=== PATIENT | male | born 1945 | race Caucasian/White ===

== ENCOUNTER 2016-09-29 16:44 | Inpatient (IN) ==
[2016-09-29] MEDS ORDERED: INSULIN REGULAR, HUMAN 100 UNIT/ML INJECTION IVP ONE (16:51)
--- NOTE | 2016-09-29 16:56 | Emergency Department Report ---
General Adult HPI - General Chief complaint: Medical Emergency Stated complaint: lethargy, blurred vision Time Seen by Provider: 09/29/16 16:47 Source: patient, EMS Mode of arrival: EMS Limitations: no limitations - History of Present Illness HPI narrative: 71yo man presented to the ER by EMS for fatigue, polyuria, and elevated BG. Pt has been struggling with his BG for several weeks (in the 200s). Saw his PCM earlier today; c/o worsening fatigue. Pt was scooped by EMS and found to have BG in the 400s. No other significant findings on EKG or by PE. Pt presented to the ER with IV in place, blood drawn, and IVF flowing. - Related Data Home Medications Medication Instructions Recorded Confirmed Atorvastatin Calcium 80 mg PO HS #0 05/27/15 09/30/16 Fluoxetine HCl 20 mg PO DAILY #0 05/27/15 09/30/16 Insulin Aspart [Novolog Flexpen] 10 unit SQ TIDWM #0 05/27/15 09/29/16 Insulin Detemir [Levemir Flextouch] 50 unit SQ AMI #0 05/27/15 09/29/16 Lisinopril/Hydrochlorothiazide 1 tab PO DAILY #0 05/08/16 09/30/16 [Lisinopril-Hctz 20-12.5 mg Tab] Metoprolol Succinate 100 mg PO DAILY #0 05/08/16 09/30/16 Pantoprazole Sodium 40 mg PO ACB #0 05/08/16 09/30/16 Prasugrel HCl [Effient] 10 mg PO DAILY #0 05/08/16 09/30/16 Terazosin [Hytrin] 2 mg PO HS 09/29/16 09/29/16 Aspirin *EC* [Ecotrin] 325 mg PO DAILY 09/30/16 09/30/16 Cetirizine HCl 10 mg PO DAILY 09/30/16 09/30/16 Allergies Allergy/AdvReac Type Severity Reaction Status Date / Time No Known Allergies Allergy Unverified 09/29/16 16:46 Review of Systems All systems: reviewed and negative except as stated Endocrine: Reports: fatigue, polyuria PFSH Patient Stated Medical History Cerebrovascular Accident Yes Dental Problems Yes: NO TEETH Hearing Loss Yes Congestive Heart Failure Yes Coronary Artery Disease Yes Hypertension Yes Myocardial Infarction Yes Sleep Apnea Yes Diabetes Mellitus Type 2 Yes Gastroesophageal Reflux Yes Disease Hx Kidney Stones Yes Other Yes: PAST KIDNEY FAILURE 30% Physical Exam - Limitations Limitations: no limitations - General General appearance: alert, in no apparent distress, obese - Normal Exams: Head:: Normocephalic without trauma Eyes:: Pupils are PERRLA w/ EOMI, No scleral icterus, irritation, or foreign bodies noted ENMT:: No facial trauma, nasal exudates, pharyngeal erythema, or exudates are noted Neck:: Full range of motion, without adenopathy, JVD, bruits or thyromegaly Chest/Respirations:: Clear all beckman, with good airflow, and symmetry bilaterally Cardiovascular:: Regular rate and rhythm, without murmur or gallop, Pulses 2+ all extremities, capillary refill, <2 seconds all extremities Abdomen:: Bowel sounds positive, soft, non-tender, non-distended, no hepatosplenomegaly, masses or bruits noted Musculoskeletal:: No tenderness, or deformity noted, good range of motion, all extremities Integumentary:: No rashes, hives, or bruising noted, hair and nails, without abnormality Neurological:: Patient is alert, and oriented, cranial nerves, motor/sensory/ cerebellar, exams w/o gross deficits, to observation Psychiatric:: Patient exhibits, appropriate attention, emotion and affect Course Course Narrative: Shortly after receiving the insulin, pt felt lightheaded. Repeat BP showed 80s/ 40s (MAP 62). NS started by pressure bag; repeat labs obtained due to gap on initial CMP. Sepsis workup started and IV atbx ordered. Pts BP improved with Trendelenberg and IVF by pressure bag, but pt c/o leg cramping. 0.5mg Ativan ordered to help with cramping. Following ativan, pts leg cramping improved. Repeat labs c/w dehydration. Lactate is elevated, but low suspicion for sepsis, based on Hx, PE, and other labs. Strong suspicion for mod/severe dehydration. Will contact hospitalist for admission for overnight obs. - Consultations Consultation #1: Hospitalist: Repaged at [id number]. Time: 18:04 Vital Signs Temperature 98.0 F 09/29/16 16:45 Pulse Rate 64 09/29/16 16:45 Respiratory Rate 18 09/29/16 16:45 Blood Pressure 111/60 09/29/16 16:45 Pulse Oximetry 93 09/29/16 16:45 Temperature 96.6 F L 10/01/16 07:28 Pulse Rate 62 10/01/16 08:03 Respiratory Rate 18 10/01/16 07:28 Blood Pressure 145/74 H 10/01/16 07:28 Pulse Oximetry 95 10/01/16 07:28 Medical Decision Making - Differential Diagnosis DKA, HHS, Hyperglycemia, Viral illness, dehydration - Medical Records Medical records reviewed: Yes: I reviewed the patient's medical records. - Lab Data Lab results reviewed: Yes: I reviewed the patient's lab results. Result diagrams: 09/30/16 05:00 10/01/16 04:54 Lab Results 09/29/16 09/29/16 09/29/16 Range/Units 16:53 17:00 17:00 WBC 6.6 (4.5-11.0) T/MM3 RBC 5.16 (4.50-5.90) M/MM3 Hgb 15.6 (13.5-17.5) GM/DL Hct 45.4 (41-53) % MCV 88.0 (80-100) UM3 MCH 30.2 (26-34) UUG MCHC 34.4 (31-37) GM/DL RDW Std Deviation 41.7 (36.9-50.2) FL Plt Count 262 (130-400) T/MM3 MPV 10.3 (9.4-12.4) UM3 Immature Gran % (Auto) 0.2 (0.0-0.5) % Neut % (Auto) 58.6 (33-66) % Lymph % (Auto) 30.9 (23-45) % [place] % (Auto) 6.8 (0-9.0) % Eos % (Auto) 2.7 (0-4) % Baso % (Auto) 0.8 (0-2) % Neut # 3.9 (1.8-7.7) T/MM3 Lymph # 2.0 (1-4.8) T/MM3 [place] # 0.5 (0-0.8) T/MM3 Eos # 0.2 (0-0.5) T/MM3 Baso # 0.1 (0-0.2) T/MM3 Abs Immat Gran (auto) 0.01 (0.00-0.03) T/MM3 ABG pH (7.350-7.450) ABG pCO2 (34-45) MMHG ABG pO2 (80-100) MMHG ABG HCO3 (22-26) MEQ/L ABG Total CO2 (23-27) MEQ/L ABG O2 Saturation (95.0-98.0) % ABG Base Excess (-2.0-2.0) MMOL/L O2 Delivery Method Turbidity < 20 (0-20) Sodium 140 (134-144) MEQ/L Potassium 4.6 (3.6-5) MEQ/L Chloride 99 (98-107) MEQ/L Carbon Dioxide 20 L (22-30) MEQ/L Anion Gap 21 H (5-15) MEQ/L BUN 31.0 H (9-20) MG/DL Creatinine 1.8 H (0.8-1.5) MG/DL GFR Calculation 38 BUN/Creatinine Ratio 17 (6-26) RATIO Glucose 453 H (75-110) MG/DL Glucometer 358 (65-110) mg/dL Hemoglobin A1c (6.1-7.9) % Calculated Osmolality 296 H (261-280) MOSM/KG Calcium 10.2 (8.4-10.2) MG/DL Phosphorus (2.5-4.5) MG/DL Magnesium (1.6-2.3) MG/DL Total Bilirubin 1.40 H (0.20-1.30) MG/DL Icterus Index < 2 (0-7) AST 48 (17-59) U/L ALT 32 (21-72) U/L Alkaline Phosphatase 83 (38-126) U/L Troponin I 0.046 (0-0.12) ng/ml Total Protein 8.5 H (6.3-8.2) G/DL Albumin 4.7 (3.5-5.0) G/DL Globulin 3.8 H (2.4-3.6) G/DL Albumin/Globulin Ratio 1.2 (1.1-2.2) RATIO Plasma Lactate (0.6-2.2) MMOL/L Procalcitonin NG/ML Specimen Hemolysis 93 H (0-25) Ur Collection Type Urine Color (YELLOW) Urine Clarity Urine pH (5.0-8.0) Ur Specific [place] (1.015-1.025) Urine Protein (NEGATIVE) Urine Glucose (UA) (NEGATIVE) Urine Ketones (NEGATIVE) Urine Occult Blood (NEGATIVE) Urine Nitrate (NEGATIVE) Urine Bilirubin (NEGATIVE) Urine Urobilinogen (NORMAL) EU/DL Ur Leukocyte Esterase (NEGATIVE) Urine RBC (0-3) /HPF Urine WBC (0-5) /HPF Amorphous Sediment Urine Bacteria (NEGATIVE) Ur Culture Indicated? B-Hydroxybutyrate 0.30 (0-0.6) MMOL/L 09/29/16 09/29/16 09/29/16 Range/Units 17:33 17:39 17:40 WBC (4.5-11.0) T/MM3 RBC (4.50-5.90) M/MM3 Hgb (13.5-17.5) GM/DL Hct (41-53) % MCV (80-100) UM3 MCH (26-34) UUG MCHC (31-37) GM/DL RDW Std Deviation (36.9-50.2) FL Plt Count (130-400) T/MM3 MPV (9.4-12.4) UM3 Immature Gran % (Auto) (0.0-0.5) % Neut % (Auto) (33-66) % Lymph % (Auto) (23-45) % [place] % (Auto) (0-9.0) % Eos % (Auto) (0-4) % Baso % (Auto) (0-2) % Neut # (1.8-7.7) T/MM3 Lymph # (1-4.8) T/MM3 [place] # (0-0.8) T/MM3 Eos # (0-0.5) T/MM3 Baso # (0-0.2) T/MM3 Abs Immat Gran (auto) (0.00-0.03) T/MM3 ABG pH (7.350-7.450) ABG pCO2 (34-45) MMHG ABG pO2 (80-100) MMHG ABG HCO3 (22-26) MEQ/L ABG Total CO2 (23-27) MEQ/L ABG O2 Saturation (95.0-98.0) % ABG Base Excess (-2.0-2.0) MMOL/L O2 Delivery Method Turbidity < 20 (0-20) Sodium 140 (134-144) MEQ/L Potassium 4.0 (3.6-5) MEQ/L Chloride 103 (98-107) MEQ/L Carbon Dioxide 23 (22-30) MEQ/L Anion Gap 14 (5-15) MEQ/L BUN 32.0 H (9-20) MG/DL Creatinine 1.9 H (0.8-1.5) MG/DL GFR Calculation 35 BUN/Creatinine Ratio 17 (6-26) RATIO Glucose 263 H (75-110) MG/DL Glucometer 250 (65-110) mg/dL Hemoglobin A1c (6.1-7.9) % Calculated Osmolality 285 H (261-280) MOSM/KG Calcium 9.4 (8.4-10.2) MG/DL Phosphorus 3.2 (2.5-4.5) MG/DL Magnesium 2.3 (1.6-2.3) MG/DL Total Bilirubin (0.20-1.30) MG/DL Icterus Index < 2 (0-7) AST (17-59) U/L ALT (21-72) U/L Alkaline Phosphatase (38-126) U/L Troponin I (0-0.12) ng/ml Total Protein (6.3-8.2) G/DL Albumin (3.5-5.0) G/DL Globulin (2.4-3.6) G/DL Albumin/Globulin Ratio (1.1-2.2) RATIO Plasma Lactate 3.8 H (0.6-2.2) MMOL/L Procalcitonin 0.07 NG/ML Specimen Hemolysis < 15 (0-25) Ur Collection Type Urine Color (YELLOW) Urine Clarity Urine pH (5.0-8.0) Ur Specific [place] (1.015-1.025) Urine Protein (NEGATIVE) Urine Glucose (UA) (NEGATIVE) Urine Ketones (NEGATIVE) Urine Occult Blood (NEGATIVE) Urine Nitrate (NEGATIVE) Urine Bilirubin (NEGATIVE) Urine Urobilinogen (NORMAL) EU/DL Ur Leukocyte Esterase (NEGATIVE) Urine RBC (0-3) /HPF Urine WBC (0-5) /HPF Amorphous Sediment Urine Bacteria (NEGATIVE) Ur Culture Indicated? B-Hydroxybutyrate (0-0.6) MMOL/L 09/29/16 09/29/16 09/30/16 Range/Units 20:26 21:00 04:32 WBC (4.5-11.0) T/MM3 RBC (4.50-5.90) M/MM3 Hgb (13.5-17.5) GM/DL Hct (41-53) % MCV (80-100) UM3 MCH (26-34) UUG MCHC (31-37) GM/DL RDW Std Deviation (36.9-50.2) FL Plt Count (130-400) T/MM3 MPV (9.4-12.4) UM3 Immature Gran % (Auto) (0.0-0.5) % Neut % (Auto) (33-66) % Lymph % (Auto) (23-45) % [place] % (Auto) (0-9.0) % Eos % (Auto) (0-4) % Baso % (Auto) (0-2) % Neut # (1.8-7.7) T/MM3 Lymph # (1-4.8) T/MM3 [place] # (0-0.8) T/MM3 Eos # (0-0.5) T/MM3 Baso # (0-0.2) T/MM3 Abs Immat Gran (auto) (0.00-0.03) T/MM3 ABG pH 7.410 (7.350-7.450) ABG pCO2 41 (34-45) MMHG ABG pO2 78 L (80-100) MMHG ABG HCO3 26 (22-26) MEQ/L ABG Total CO2 27.3 H (23-27) MEQ/L ABG O2 Saturation 96.0 (95.0-98.0) % ABG Base Excess 1.2 (-2.0-2.0) MMOL/L O2 Delivery Method Room air Turbidity (0-20) Sodium (134-144) MEQ/L Potassium (3.6-5) MEQ/L Chloride (98-107) MEQ/L Carbon Dioxide (22-30) MEQ/L Anion Gap (5-15) MEQ/L BUN (9-20) MG/DL Creatinine (0.8-1.5) MG/DL GFR Calculation BUN/Creatinine Ratio (6-26) RATIO Glucose (75-110) MG/DL Glucometer (65-110) mg/dL Hemoglobin A1c (6.1-7.9) % Calculated Osmolality (261-280) MOSM/KG Calcium (8.4-10.2) MG/DL Phosphorus (2.5-4.5) MG/DL Magnesium (1.6-2.3) MG/DL Total Bilirubin (0.20-1.30) MG/DL Icterus Index (0-7) AST (17-59) U/L ALT (21-72) U/L Alkaline Phosphatase (38-126) U/L Troponin I (0-0.12) ng/ml Total Protein (6.3-8.2) G/DL Albumin (3.5-5.0) G/DL Globulin (2.4-3.6) G/DL Albumin/Globulin Ratio (1.1-2.2) RATIO Plasma Lactate 2.8 H (0.6-2.2) MMOL/L Procalcitonin NG/ML Specimen Hemolysis (0-25) Ur Collection Type Urine, clean catch Urine Color Yellow (YELLOW) Urine Clarity Clear Urine pH 5.5 (5.0-8.0) Ur Specific [place] >=1.030 H (1.015-1.025) Urine Protein 1+ A (NEGATIVE) Urine Glucose (UA) 1+ A (NEGATIVE) Urine Ketones Negative (NEGATIVE) Urine Occult Blood Negative (NEGATIVE) Urine Nitrate Negative (NEGATIVE) Urine Bilirubin Negative (NEGATIVE) Urine Urobilinogen 0.2 (NORMAL) EU/DL Ur Leukocyte Esterase Negative (NEGATIVE) Urine RBC None seen (0-3) /HPF Urine WBC 0-1 (0-5) /HPF Amorphous Sediment Few Urine Bacteria None seen (NEGATIVE) Ur Culture Indicated? Cult not indicated B-Hydroxybutyrate (0-0.6) MMOL/L 09/30/16 09/30/16 09/30/16 Range/Units 05:00 05:00 05:00 WBC 5.8 (4.5-11.0) T/MM3 RBC 4.24 L (4.50-5.90) M/MM3 Hgb 12.9 L D (13.5-17.5) GM/DL Hct 38.3 L D (41-53) % MCV 90.3 (80-100) UM3 MCH 30.4 (26-34) UUG MCHC 33.7 (31-37) GM/DL RDW Std Deviation 42.2 (36.9-50.2) FL Plt Count 184 (130-400) T/MM3 MPV 9.8 (9.4-12.4) UM3 Immature Gran % (Auto) 0.2 (0.0-0.5) % Neut % (Auto) 53.6 (33-66) % Lymph % (Auto) 35.8 (23-45) % [place] % (Auto) 6.6 (0-9.0) % Eos % (Auto) 3.5 (0-4) % Baso % (Auto) 0.3 (0-2) % Neut # 3.1 (1.8-7.7) T/MM3 Lymph # 2.1 (1-4.8) T/MM3 [place] # 0.4 (0-0.8) T/MM3 Eos # 0.2 (0-0.5) T/MM3 Baso # 0.0 (0-0.2) T/MM3 Abs Immat Gran (auto) 0.01 (0.00-0.03) T/MM3 ABG pH (7.350-7.450) ABG pCO2 (34-45) MMHG ABG pO2 (80-100) MMHG ABG HCO3 (22-26) MEQ/L ABG Total CO2 (23-27) MEQ/L ABG O2 Saturation (95.0-98.0) % ABG Base Excess (-2.0-2.0) MMOL/L O2 Delivery Method Turbidity < 20 (0-20) Sodium 140 (134-144) MEQ/L Potassium 4.0 (3.6-5) MEQ/L Chloride 109 H (98-107) MEQ/L Carbon Dioxide 21 L (22-30) MEQ/L Anion Gap 10 (5-15) MEQ/L BUN 30.0 H (9-20) MG/DL Creatinine 1.6 H D (0.8-1.5) MG/DL GFR Calculation 43 BUN/Creatinine Ratio 19 (6-26) RATIO Glucose 124 H (75-110) MG/DL Glucometer (65-110) mg/dL Hemoglobin A1c 12.4 H (6.1-7.9) % Calculated Osmolality 276 (261-280) MOSM/KG Calcium 8.5 D (8.4-10.2) MG/DL Phosphorus 4.2 (2.5-4.5) MG/DL Magnesium 2.3 (1.6-2.3) MG/DL Total Bilirubin (0.20-1.30) MG/DL Icterus Index < 2 (0-7) AST (17-59) U/L ALT (21-72) U/L Alkaline Phosphatase (38-126) U/L Troponin I (0-0.12) ng/ml Total Protein (6.3-8.2) G/DL Albumin (3.5-5.0) G/DL Globulin (2.4-3.6) G/DL Albumin/Globulin Ratio (1.1-2.2) RATIO Plasma Lactate Cancelled (0.6-2.2) MMOL/L Procalcitonin NG/ML Specimen Hemolysis < 15 (0-25) Ur Collection Type Urine Color (YELLOW) Urine Clarity Urine pH (5.0-8.0) Ur Specific [place] (1.015-1.025) Urine Protein (NEGATIVE) Urine Glucose (UA) (NEGATIVE) Urine Ketones (NEGATIVE) Urine Occult Blood (NEGATIVE) Urine Nitrate (NEGATIVE) Urine Bilirubin (NEGATIVE) Urine Urobilinogen (NORMAL) EU/DL Ur Leukocyte Esterase (NEGATIVE) Urine RBC (0-3) /HPF Urine WBC (0-5) /HPF Amorphous Sediment Urine Bacteria (NEGATIVE) Ur Culture Indicated? B-Hydroxybutyrate (0-0.6) MMOL/L 09/30/16 09/30/16 09/30/16 Range/Units 06:42 06:46 11:18 WBC (4.5-11.0) T/MM3 RBC (4.50-5.90) M/MM3 Hgb (13.5-17.5) GM/DL Hct (41-53) % MCV (80-100) UM3 MCH (26-34) UUG MCHC (31-37) GM/DL RDW Std Deviation (36.9-50.2) FL Plt Count (130-400) T/MM3 MPV (9.4-12.4) UM3 Immature Gran % (Auto) (0.0-0.5) % Neut % (Auto) (33-66) % Lymph % (Auto) (23-45) % [place] % (Auto) (0-9.0) % Eos % (Auto) (0-4) % Baso % (Auto) (0-2) % Neut # (1.8-7.7) T/MM3 Lymph # (1-4.8) T/MM3 [place] # (0-0.8) T/MM3 Eos # (0-0.5) T/MM3 Baso # (0-0.2) T/MM3 Abs Immat Gran (auto) (0.00-0.03) T/MM3 ABG pH (7.350-7.450) ABG pCO2 (34-45) MMHG ABG pO2 (80-100) MMHG ABG HCO3 (22-26) MEQ/L ABG Total CO2 (23-27) MEQ/L ABG O2 Saturation (95.0-98.0) % ABG Base Excess (-2.0-2.0) MMOL/L O2 Delivery Method Turbidity (0-20) Sodium (134-144) MEQ/L Potassium (3.6-5) MEQ/L Chloride (98-107) MEQ/L Carbon Dioxide (22-30) MEQ/L Anion Gap (5-15) MEQ/L BUN (9-20) MG/DL Creatinine (0.8-1.5) MG/DL GFR Calculation BUN/Creatinine Ratio (6-26) RATIO Glucose (75-110) MG/DL Glucometer 131 281 (65-110) mg/dL Hemoglobin A1c (6.1-7.9) % Calculated Osmolality (261-280) MOSM/KG Calcium (8.4-10.2) MG/DL Phosphorus (2.5-4.5) MG/DL Magnesium (1.6-2.3) MG/DL Total Bilirubin (0.20-1.30) MG/DL Icterus Index (0-7) AST (17-59) U/L ALT (21-72) U/L Alkaline Phosphatase (38-126) U/L Troponin I (0-0.12) ng/ml Total Protein (6.3-8.2) G/DL Albumin (3.5-5.0) G/DL Globulin (2.4-3.6) G/DL Albumin/Globulin Ratio (1.1-2.2) RATIO Plasma Lactate 0.9 (0.6-2.2) MMOL/L Procalcitonin NG/ML Specimen Hemolysis (0-25) Ur Collection Type Urine Color (YELLOW) Urine Clarity Urine pH (5.0-8.0) Ur Specific [place] (1.015-1.025) Urine Protein (NEGATIVE) Urine Glucose (UA) (NEGATIVE) Urine Ketones (NEGATIVE) Urine Occult Blood (NEGATIVE) Urine Nitrate (NEGATIVE) Urine Bilirubin (NEGATIVE) Urine Urobilinogen (NORMAL) EU/DL Ur Leukocyte Esterase (NEGATIVE) Urine RBC (0-3) /HPF Urine WBC (0-5) /HPF Amorphous Sediment Urine Bacteria (NEGATIVE) Ur Culture Indicated? B-Hydroxybutyrate (0-0.6) MMOL/L 09/30/16 09/30/16 10/01/16 Range/Units 17:16 21:23 04:54 WBC (4.5-11.0) T/MM3 RBC (4.50-5.90) M/MM3 Hgb (13.5-17.5) GM/DL Hct (41-53) % MCV (80-100) UM3 MCH (26-34) UUG MCHC (31-37) GM/DL RDW Std Deviation (36.9-50.2) FL Plt Count (130-400) T/MM3 MPV (9.4-12.4) UM3 Immature Gran % (Auto) (0.0-0.5) % Neut % (Auto) (33-66) % Lymph % (Auto) (23-45) % [place] % (Auto) (0-9.0) % Eos % (Auto) (0-4) % Baso % (Auto) (0-2) % Neut # (1.8-7.7) T/MM3 Lymph # (1-4.8) T/MM3 [place] # (0-0.8) T/MM3 Eos # (0-0.5) T/MM3 Baso # (0-0.2) T/MM3 Abs Immat Gran (auto) (0.00-0.03) T/MM3 ABG pH (7.350-7.450) ABG pCO2 (34-45) MMHG ABG pO2 (80-100) MMHG ABG HCO3 (22-26) MEQ/L ABG Total CO2 (23-27) MEQ/L ABG O2 Saturation (95.0-98.0) % ABG Base Excess (-2.0-2.0) MMOL/L O2 Delivery Method Turbidity < 20 (0-20) Sodium 138 (134-144) MEQ/L Potassium 4.6 (3.6-5) MEQ/L Chloride 106 (98-107) MEQ/L Carbon Dioxide 22 (22-30) MEQ/L Anion Gap 10 (5-15) MEQ/L BUN 33.0 H (9-20) MG/DL Creatinine 1.5 (0.8-1.5) MG/DL GFR Calculation 46 BUN/Creatinine Ratio 22 (6-26) RATIO Glucose 213 H (75-110) MG/DL Glucometer 255 236 (65-110) mg/dL Hemoglobin A1c (6.1-7.9) % Calculated Osmolality 279 (261-280) MOSM/KG Calcium 9.0 (8.4-10.2) MG/DL Phosphorus 3.4 (2.5-4.5) MG/DL Magnesium (1.6-2.3) MG/DL Total Bilirubin (0.20-1.30) MG/DL Icterus Index < 2 (0-7) AST (17-59) U/L ALT (21-72) U/L Alkaline Phosphatase (38-126) U/L Troponin I (0-0.12) ng/ml Total Protein (6.3-8.2) G/DL Albumin 3.5 (3.5-5.0) G/DL Globulin (2.4-3.6) G/DL Albumin/Globulin Ratio (1.1-2.2) RATIO Plasma Lactate 1.0 (0.6-2.2) MMOL/L Procalcitonin NG/ML Specimen Hemolysis < 15 (0-25) Ur Collection Type Urine Color (YELLOW) Urine Clarity Urine pH (5.0-8.0) Ur Specific [place] (1.015-1.025) Urine Protein (NEGATIVE) Urine Glucose (UA) (NEGATIVE) Urine Ketones (NEGATIVE) Urine Occult Blood (NEGATIVE) Urine Nitrate (NEGATIVE) Urine Bilirubin (NEGATIVE) Urine Urobilinogen (NORMAL) EU/DL Ur Leukocyte Esterase (NEGATIVE) Urine RBC (0-3) /HPF Urine WBC (0-5) /HPF Amorphous Sediment Urine Bacteria (NEGATIVE) Ur Culture Indicated? B-Hydroxybutyrate (0-0.6) MMOL/L 10/01/16 Range/Units 06:15 WBC (4.5-11.0) T/MM3 RBC (4.50-5.90) M/MM3 Hgb (13.5-17.5) GM/DL Hct (41-53) % MCV (80-100) UM3 MCH (26-34) UUG MCHC (31-37) GM/DL RDW Std Deviation (36.9-50.2) FL Plt Count (130-400) T/MM3 MPV (9.4-12.4) UM3 Immature Gran % (Auto) (0.0-0.5) % Neut % (Auto) (33-66) % Lymph % (Auto) (23-45) % [place] % (Auto) (0-9.0) % Eos % (Auto) (0-4) % Baso % (Auto) (0-2) % Neut # (1.8-7.7) T/MM3 Lymph # (1-4.8) T/MM3 [place] # (0-0.8) T/MM3 Eos # (0-0.5) T/MM3 Baso # (0-0.2) T/MM3 Abs Immat Gran (auto) (0.00-0.03) T/MM3 ABG pH (7.350-7.450) ABG pCO2 (34-45) MMHG ABG pO2 (80-100) MMHG ABG HCO3 (22-26) MEQ/L ABG Total CO2 (23-27) MEQ/L ABG O2 Saturation (95.0-98.0) % ABG Base Excess (-2.0-2.0) MMOL/L O2 Delivery Method Turbidity (0-20) Sodium (134-144) MEQ/L Potassium (3.6-5) MEQ/L Chloride (98-107) MEQ/L Carbon Dioxide (22-30) MEQ/L Anion Gap (5-15) MEQ/L BUN (9-20) MG/DL Creatinine (0.8-1.5) MG/DL GFR Calculation BUN/Creatinine Ratio (6-26) RATIO Glucose (75-110) MG/DL Glucometer 217 (65-110) mg/dL Hemoglobin A1c (6.1-7.9) % Calculated Osmolality (261-280) MOSM/KG Calcium (8.4-10.2) MG/DL Phosphorus (2.5-4.5) MG/DL Magnesium (1.6-2.3) MG/DL Total Bilirubin (0.20-1.30) MG/DL Icterus Index (0-7) AST (17-59) U/L ALT (21-72) U/L Alkaline Phosphatase (38-126) U/L Troponin I (0-0.12) ng/ml Total Protein (6.3-8.2) G/DL Albumin (3.5-5.0) G/DL Globulin (2.4-3.6) G/DL Albumin/Globulin Ratio (1.1-2.2) RATIO Plasma Lactate (0.6-2.2) MMOL/L Procalcitonin NG/ML Specimen Hemolysis (0-25) Ur Collection Type Urine Color (YELLOW) Urine Clarity Urine pH (5.0-8.0) Ur Specific [place] (1.015-1.025) Urine Protein (NEGATIVE) Urine Glucose (UA) (NEGATIVE) Urine Ketones (NEGATIVE) Urine Occult Blood (NEGATIVE) Urine Nitrate (NEGATIVE) Urine Bilirubin (NEGATIVE) Urine Urobilinogen (NORMAL) EU/DL Ur Leukocyte Esterase (NEGATIVE) Urine RBC (0-3) /HPF Urine WBC (0-5) /HPF Amorphous Sediment Urine Bacteria (NEGATIVE) Ur Culture Indicated? B-Hydroxybutyrate (0-0.6) MMOL/L - Radiology Data Radiology results reviewed: Yes: I reviewed the patient's radiology results. CXR: Stable appearance of the chest without acute cardiopulmonary disease. - EKG Data EKG #1 EKG attestation: Yes: I reviewed and interpreted this EKG. EKG results narrative: Electronically paced. No STEMI. EKG #2 EKG attestation: Yes: I reviewed and interpreted this EKG. EKG results narrative: Paced ventricular rhythm. No change from prior. Disposition Clinical Impression: Dehydration Disposition: 02 Acute Care Hosp, Other Condition: Improved Time of Disposition: 18:35 - Seen By: physician
[2016-09-29] MEDS: SALINE FLUSH 10ml SYRINGE IVF PRN (17:06)
[2016-09-29] MEDS ORDERED: NS 1,000 ML IV ONE ×2 (17:25→17:40)
[2016-09-29] MEDS ORDERED: CEFTRIAXONE (ER USE ONLY) 1 GM in NS 100 ML IV ONE (17:28)
--- NOTE | 2016-09-29 19:54 | History & Physical Report ---
History of Present Illness Date: 09/29/16 HPI: comes in today d/t weakness/fatigue and hyperglycemia. Weakness has been going on for 2-3 days while the hyperglycemia has been going on for longer. Denies any cp, sob, n/v/d, f/c. Denies any cough, urinary sx's. Reports his po intake is good and reports compliance with meds. Pt really not reporting many other sx's and reports his main issue is that he just feels weak and tired. Review of Systems Review of systems: 12 point ros negative other than what is noted in HPI PFSH DM CAD CHF - Social History Smoking status: Never smoker Medications Home Medications Medication Instructions Recorded Confirmed Type Atorvastatin Calcium 80 mg PO HS #0 05/27/15 History Clopidogrel Bisulfate [Clopidogrel] 75 mg PO DAILY #0 05/27/15 History Fluoxetine HCl 20 mg PO DAILY #0 05/27/15 History Insulin Aspart [Novolog Flexpen] 10 unit SQ TIDWM #0 05/27/15 09/29/16 History Insulin Detemir [Levemir Flextouch] 50 unit SQ AMI #0 05/27/15 09/29/16 History Lisinopril/Hydrochlorothiazide 1 tab PO DAILY #0 05/08/16 History [Lisinopril-Hctz 20-12.5 mg Tab] Metoprolol Succinate 100 mg PO DAILY #0 05/08/16 History Pantoprazole Sodium 40 mg PO ACB #0 05/08/16 History Prasugrel HCl [Effient] 10 mg PO DAILY #0 05/08/16 History Terazosin [Hytrin] 2 mg PO HS 09/29/16 09/29/16 History Allergies Allergy/AdvReac Type Severity Reaction Status Date / Time No Known Allergies Allergy Unverified 09/29/16 16:46 Exam Vital Signs: Temp Pulse Resp BP Pulse Ox 98.0 F 60 18 125/67 97 09/29/16 16:45 09/29/16 19:15 09/29/16 19:15 09/29/16 19:10 09/29/16 19:15 Height: 1.65 m Weight: 79.4 kg - Constitutional Present: no acute distress, well nourished - Routine HEENT Exam Head: Present: normocephalic, atraumatic Eye: Present: EOMI ENT: Present: mucous membranes moist - Routine Neck Exam Present: supple, full ROM - Routine Chest/Breast/Axilla Exam Chest wall: Absent: tenderness - Routine Respiratory Exam Present: CTA bilaterally. Absent: wheezes - Routine Cardiovascular Exam Present: RRR, no murmur - Routine Abdominal Exam Present: soft, non distended, non tender - Routine Extremities Exam Absent: cyanosis, clubbing, edema - Routine Skin Exam Present: intact, dry, warm - Routine Neurological Exam Present: alert, oriented X3 - Routine Psychiatric Exam Present: normal affect Results - Labs CBC & Chem 7: 09/29/16 17:00 09/29/16 17:40 Assessment and Plan Assessment and Plan: Weakness/fatigue -Unclear etiology, no other sx's reported by pt to help narrow down etiology -Basic labs unremarkable, vitals unremarkable -Will get PT/OT eval DM -Poorly controlled, will order a1c -Will cont. home insulin at lower doses -Accu checks, SSI CKD -Baseline likely around Cr 1.6-1.9 -Currently at Cr 1.9 -Cont. to monitor after IV fluids CAD -Cont. statin, plavix CHF -Cont. metoprolol, will hold ACEI/HCTZ d/t hypotension in ED Ppx -DVT-SCD Hospital Course Summary Disclaimer: The visit summary below is not to be considered part of the above Progress Note.
[2016-09-29] MEDS ORDERED: INSULIN DETEMIR 100unit/ml INJECTION SQ SCH (21:00)
[2016-09-29] MEDS: TERAZOSIN 2 MG CAPSULE PO SCH (21:38)
[2016-09-30] MEDS: SALINE FLUSH 10ml SYRINGE IVF PRN (00:24)
--- NOTE | 2016-09-30 08:07 | XRay Report ---
Indication: Elevated BG PROCEDURE: XR chest 1V: Encounter: Initial Comparison: June 04, 2016 Findings: The lungs are stable in appearance without new focal airspace consolidation. There is no pleural effusion or pneumothorax. The heart size, pulmonary vascularity and mediastinal contours are unchanged. Prior CABG. Left pacemaker defibrillator. IMPRESSION: Stable appearance of the chest without acute cardiopulmonary disease. .
[2016-09-30] MEDS: INSULIN ASPART 100unit/ml INJECTION SQ SCH ×3 (10:10→17:55)
--- NOTE | 2016-09-30 12:46 | Progress Note ---
Subjective: Pt reports he's doing much better this am. Reports he lives in an apartment without AC and was trying to use fans when it got really hot in the last couple of days. Pt denies any current n/v/d, f/c, cp or sob. Objective Vital signs: Temp Pulse Resp BP Pulse Ox 96.2 F L 60 16 120/68 99 09/30/16 08:00 09/30/16 08:00 09/30/16 08:00 09/30/16 08:00 09/30/16 08:00 Weight: 83.9 kg - Constitutional Present: no acute distress, well nourished - Routine HEENT Exam Head: Present: normocephalic Eye: Present: EOMI ENT: Present: mucous membranes moist - Routine Respiratory Exam Present: CTA bilaterally. Absent: wheezes - Routine Cardiovascular Exam Present: RRR, no murmur - Routine Abdominal Exam Present: soft, non distended, non tender - Routine Extremities Exam Present: no edema. Absent: cyanosis, clubbing - Routine Skin Exam Present: intact, dry - Routine Neurological Exam Present: alert, oriented X3 Results - Labs CBC & Chem 7: 09/30/16 05:00 09/30/16 05:00 - ABG Interpretation ABG results: 09/29/16 21:00 ABG pH 7.410 ABG pCO2 41 ABG pO2 78 L ABG HCO3 26 ABG Total CO2 27.3 H ABG O2 Saturation 96.0 ABG Base Excess 1.2 Assessment and Plan Assessment and Plan: Weakness/fatigue -Unclear etiology, likely from heat exhaustion as pt was living in a very hot environment without AC -Basic labs unremarkable, vitals unremarkable -Will get PT/OT eval Lactic Acidosis -Resolved -Likely 2/2 hypotension d/t dehydration, responded well to IV fluids DM -Poorly controlled, will order a1c -Will cont. home insulin at lower doses -Accu checks, SSI CKD -Baseline likely around Cr 1.6-1.9 -Currently at Cr 1.9-->1.6 today -Improved after IV fluids CAD -Cont. statin, plavix CHF -Cont. metoprolol, will hold ACEI/HCTZ d/t hypotension in ED Ppx -DVT-SCD Sepsis Assessment - Evaluation Sepsis screening result: No Definite Risk Hospital Course Summary Disclaimer: The visit summary below is not to be considered part of the above Progress Note. Hospital Course: 09/30/16 12:46 Pt was admitted yesterday evening with weakness, fatigue and hypotension. Pt responded well to IV fluids and was likely severely dehydrated d/t his living conditions in an apartment without an AC. Lactic acid was increased likely d/t hypotension but since has resolved with fluids. Pt doing much better today and will monitor and plan for discharge tomorrow.
[2016-09-30] MEDS: PRASUGREL 10 MG TABLET PO SCH (13:55)
[2016-09-30] MEDS: INSULIN ASPART 100unit/ml INJECTION SQ PRN ×3 (13:56→21:33)
[2016-09-30] MEDS: TERAZOSIN 2 MG CAPSULE PO SCH (21:32)
[2016-09-30] MEDS ORDERED: ATORVASTATIN 40 MG TABLET PO SCH (22:00)
[2016-10-01] MEDS: INSULIN ASPART 100unit/ml INJECTION SQ PRN ×2 (06:18→12:02)
[2016-10-01] MEDS ORDERED: PANTOPRAZOLE 40 MG TABLET PO SCH (06:30)
[2016-10-01] MEDS: INSULIN ASPART 100unit/ml INJECTION SQ SCH ×2 (08:15→12:02)
[2016-10-01] MEDS: PRASUGREL 10 MG TABLET PO SCH (08:22)
[2016-10-01] MEDS ORDERED: METOPROLOL SUCCINATE (XL) 100mg TABLET PO SCH (09:00)
[2016-10-01] MEDS ORDERED: ASPIRIN *EC* 325 MG TABLET PO SCH (09:00)
[2016-10-01] MEDS ORDERED: CETIRIZINE 10 MG TABLET PO SCH (09:00)
[2016-10-01] MEDS ORDERED: FLUoxetine 20 MG CAPSULE PO SCH (09:00)
--- NOTE | 2016-10-01 10:55 | Discharge Summary ---
Discharge Information Date of admission: 09/29/16 19:43 Anticipated date of discharge: 10/01/16 Attending Physician: Juan Villasenor MD Primary care physician: Colin Elliott MD - Laboratory Labs: 09/30/16 05:00 10/01/16 04:54 History of Present Illness HPI: comes in today d/t weakness/fatigue and hyperglycemia. Weakness has been going on for 2-3 days while the hyperglycemia has been going on for longer. Denies any cp, sob, n/v/d, f/c. Denies any cough, urinary sx's. Reports his po intake is good and reports compliance with meds. Pt really not reporting many other sx's and reports his main issue is that he just feels weak and tired. Hospital Course Hospital course: Pt was admitted with weakness, fatigue, hyperglycemia and hypotension. Pt responded well to IV fluids and was likely severely dehydrated d/t his living conditions in an apartment without an AC and his dehydration from hyperglycemia. Lactic acid was increased likely d/t hypotension but since has resolved with fluids. Infectious work up was negative with blood cx's, CXR, UA. Pt's DM is very poorly controlled with an a1c of 12.4. Pt did well on day of discharge and reported he was back to baseline. SW worked to get pt a fan to go home with. Pt was also instructed that his insulin cannot be left in the hot environment and may be that is possibly contributing to his hyperglycemia. Discharge Plan - Med Rec/Dispo Prescriptions: Continue Insulin Detemir [Levemir Flextouch] 50 unit SQ AMI #0 Fluoxetine HCl 20 mg PO DAILY #0 Lisinopril/Hydrochlorothiazide [Lisinopril-Hctz 20-12.5 mg Tab] 1 tab PO DAILY #0 Metoprolol Succinate 100 mg PO DAILY #0 Prasugrel HCl [Effient] 10 mg PO DAILY #0 Pantoprazole Sodium 40 mg PO ACB #0 Insulin Aspart [Novolog Flexpen] 10 unit SQ TIDWM #0 Atorvastatin Calcium 80 mg PO HS #0 Terazosin [Hytrin] 2 mg PO HS Aspirin *EC* [Ecotrin] 325 mg PO DAILY Cetirizine HCl 10 mg PO DAILY - Disposition 01 Discharged Home, Self-Care
== END 2016-10-01 12:20 | disposition home or self-care (01) | DRG 641 ==
LOC: MED 16:44 → ED 16:44 → MED 19:55
PROVIDERS: ADMIT Internal Medicine; ATTEND Internal Medicine

== ENCOUNTER 2016-10-14 14:00 | Inpatient (IN) ==
--- NOTE | 2016-10-14 14:30 | Emergency Department Report ---
General Adult HPI - General Chief complaint: Chest Pain Stated complaint: CP Time Seen by Provider: 10/14/16 14:14 Source: patient Mode of arrival: EMS Limitations: no limitations - History of Present Illness HPI narrative: 71-year-old male presents to the emergency department with a chief complaint of chest discomfort. Patient was seen and evaluated in the emergency department last night and diagnosed with congestive heart failure and discharged home. Patient states that he has been having intermittent chest discomfort since Wednesday. Patient is unable to quantify exactly how long his pain is present for and how many times it has occurred. Patient describes the pain as a pressure. It is located in the left chest without radiation. Patient states that his pain resolved with nitroglycerin prior to arrival to the emergency department. Patient claims any other complaints or associated symptoms. Symptoms have been persistent in nature since onset as described above. He was at home when his symptoms began. - Related Data Home Medications Medication Instructions Recorded Confirmed Atorvastatin Calcium 80 mg PO HS #0 05/27/15 10/14/16 Fluoxetine HCl 20 mg PO DAILY #0 05/27/15 10/14/16 Insulin Aspart [Novolog Flexpen] 20 unit SQ TIDWM #0 05/27/15 10/14/16 Insulin Detemir [Levemir Flextouch] 30 unit SQ BID #0 05/27/15 10/14/16 Lisinopril/Hydrochlorothiazide 1 tab PO DAILY #0 05/08/16 10/14/16 [Lisinopril-Hctz 20-12.5 mg Tab] Metoprolol Succinate 100 mg PO DAILY #0 05/08/16 10/14/16 Pantoprazole Sodium 40 mg PO ACB #0 05/08/16 10/14/16 Prasugrel HCl [Effient] 10 mg PO DAILY #0 05/08/16 10/14/16 Terazosin [Hytrin] 2 mg PO HS 09/29/16 10/14/16 Aspirin *EC* [Ecotrin] 325 mg PO DAILY 09/30/16 10/14/16 Cetirizine HCl 10 mg PO DAILY 09/30/16 10/14/16 Nitroglycerin 0.4 mg SL Q5MIN3 PRN 10/13/16 10/14/16 Furosemide [Lasix] 20 mg PO DAILY 10/14/16 10/14/16 Allergies Allergy/AdvReac Type Severity Reaction Status Date / Time No Known Allergies Allergy Verified 10/14/16 14:35 Review of Systems Constitutional: Denies: fever, chills Eyes: Denies: eye pain, vision change ENT: Denies: ear pain, throat pain Cardiovascular: Reports: chest pain (Resolved. ). Denies: palpitations Respiratory: Reports: dyspnea. Denies: cough Gastrointestinal: Denies: abdominal pain, nausea, vomiting, diarrhea Genitourinary: Denies: urgency, dysuria Musculoskeletal: Denies: back pain, arthralgia Integumentary: Denies: erythema, rash Neurological: Denies: headache, weakness, numbness Psychiatric: Denies: anxiety, depression Endocrine: Denies: fatigue, heat or cold intolerance Hematological/Lymphatic: Denies: easy bleeding, easy bruising Allergic/Immunologic: Denies: facial swelling, urticaria PFSH Patient Stated Medical History Cerebrovascular Accident Yes Dental Problems Yes: NO TEETH Hearing Loss Yes Congestive Heart Failure Yes Coronary Artery Disease Yes Hypertension Yes Myocardial Infarction Yes Chronic Obstructive Pulmonary Yes Disease (COPD) Sleep Apnea Yes Diabetes Mellitus Type 2 Yes Gastroesophageal Reflux Yes Disease Hx Kidney Stones Yes Other Yes: PAST KIDNEY FAILURE 30% - Social History Current residence: Apartment/Private Home Course Vital Signs Temperature 98.3 F 10/14/16 14:00 Pulse Rate 60 10/14/16 14:00 Respiratory Rate 12 10/14/16 14:00 Blood Pressure 169/76 H 10/14/16 14:00 Pulse Oximetry 92 10/14/16 14:00 Temperature 98.3 F 10/14/16 14:00 Pulse Rate 60 10/14/16 14:00 Respiratory Rate 12 10/14/16 14:00 Blood Pressure 169/76 H 10/14/16 14:00 Pulse Oximetry 92 10/14/16 14:00 Medical Decision Making - [facility] Narrative Medical decision making narrative: Labs / imaging were discussed in detail with the patient and questions are answered. Patient is given 324 mg of aspirin by mouth 1 in the emergency Department. Patient is discussed with his land commissioner Dr. Hernandez who recommends admitting the patient to his service at this time for further evaluation and treatment due to the patient being a bounce back from last night. Patient is in agreement with the current plan of management. No further orders from accepting physician who is in agreement with the current plan of management. Patient is admitted to the hospital in improved condition. No further orders. Patient remained pain-free during his emergency department stay. - Differential Diagnosis AECHF, COPD, Viral Syndrome, AMI - Lab Data Result diagrams: 10/14/16 14:18 10/14/16 14:45 Lab Results 10/14/16 10/14/16 Range/Units 14:18 14:45 WBC 7.0 (4.5-11.0) T/MM3 RBC 3.80 L (4.50-5.90) M/MM3 Hgb 11.5 L (13.5-17.5) GM/DL Hct 35.7 L (41-53) % MCV 93.9 (80-100) UM3 MCH 30.3 (26-34) UUG MCHC 32.2 (31-37) GM/DL RDW Std Deviation 43.4 (36.9-50.2) FL Plt Count 165 (130-400) T/MM3 MPV 11.0 (9.4-12.4) UM3 Immature Gran % (Auto) 0.1 (0.0-0.5) % Neut % (Auto) 67.5 H (33-66) % Lymph % (Auto) 23.7 (23-45) % [place] % (Auto) 7.0 (0-9.0) % Eos % (Auto) 1.4 (0-4) % Baso % (Auto) 0.3 (0-2) % Neut # 4.7 (1.8-7.7) T/MM3 Lymph # 1.7 (1-4.8) T/MM3 [place] # 0.5 (0-0.8) T/MM3 Eos # 0.1 (0-0.5) T/MM3 Baso # 0.0 (0-0.2) T/MM3 Abs Immat Gran (auto) 0.01 (0.00-0.03) T/MM3 Turbidity < 20 (0-20) Sodium 143 (134-144) MEQ/L Potassium 4.8 (3.6-5) MEQ/L Chloride 108 H (98-107) MEQ/L Carbon Dioxide 26 (22-30) MEQ/L Anion Gap 9 (5-15) MEQ/L BUN 46.0 H (9-20) MG/DL Creatinine 2.1 H (0.8-1.5) MG/DL GFR Calculation 31 BUN/Creatinine Ratio 22 (6-26) RATIO Glucose 178 H (75-110) MG/DL Calculated Osmolality 291 H (261-280) MOSM/KG Calcium 8.7 (8.4-10.2) MG/DL Total Bilirubin 0.70 (0.20-1.30) MG/DL Icterus Index < 2 (0-7) AST 36 (17-59) U/L ALT 54 (21-72) U/L Alkaline Phosphatase 70 (38-126) U/L Troponin I 0.028 (0-0.12) ng/ml B-Natriuretic Peptide 7390 H (0-175) pg/mL Total Protein 6.6 (6.3-8.2) G/DL Albumin 3.7 (3.5-5.0) G/DL Globulin 2.9 (2.4-3.6) G/DL Albumin/Globulin Ratio 1.3 (1.1-2.2) RATIO Specimen Hemolysis < 15 (0-25) - Radiology Data CXR - No acute processes. - EKG Data EKG #1 EKG results narrative: Electronic atrial pacemaker. Electronic ventricular pacemaker. 60 bpm. No STEMI. Disposition Clinical Impression: Chest pain Qualifiers: Chest pain type: other chest pain Qualified Code(s): R07.89 - Other chest pain Disposition: To [facility] Condition: Improved Prescriptions: No Action Insulin Detemir [Levemir Flextouch] 30 unit SQ BID #0 Fluoxetine HCl 20 mg PO DAILY #0 Lisinopril/Hydrochlorothiazide [Lisinopril-Hctz 20-12.5 mg Tab] 1 tab PO DAILY #0 Metoprolol Succinate 100 mg PO DAILY #0 Prasugrel HCl [Effient] 10 mg PO DAILY #0 Pantoprazole Sodium 40 mg PO ACB #0 Furosemide [Lasix] 20 mg PO DAILY Insulin Aspart [Novolog Flexpen] 20 unit SQ TIDWM #0 Atorvastatin Calcium 80 mg PO HS #0 Terazosin [Hytrin] 2 mg PO HS Aspirin *EC* [Ecotrin] 325 mg PO DAILY Cetirizine HCl 10 mg PO DAILY Nitroglycerin 0.4 mg SL Q5MIN3 PRN PRN Reason: Chest Pain Referrals: Colin Elliott MD [Family Provider] - Time of Disposition: 15:15 (Admit. Dr. Hernandez. ) - Seen By: physician
--- NOTE | 2016-10-14 14:35 | XRay Report ---
Indication: Chest pain and shortness of breath for several days PROCEDURE: XR chest 1V: Encounter: Initial Comparison: October 13, 2016 Findings: The lungs are stable in appearance without new focal airspace consolidation. There is no pleural effusion or pneumothorax. The heart size, pulmonary vascularity and mediastinal contours are unchanged. Left pacemaker defibrillator. Poststernotomy changes. IMPRESSION: Stable appearance of the chest without acute cardiopulmonary disease. .
[2016-10-14] MEDS ORDERED: ASPIRIN 81 MG CHEWABLE TABLET PO ONE (15:40)
[2016-10-14] MEDS ORDERED: ONDANSETRON 4 MG/2 ML INJECTION IVP PRN (16:22)
[2016-10-14] MEDS ORDERED: ENOXAPARIN 40 MG/0.4 ML INJECTION SQ ONE (16:22)
[2016-10-14] MEDS ORDERED: NITROGLYCERIN 0.4 MG SUBLINGUAL TABLET SL PRN (16:22)
[2016-10-14] MEDS ORDERED: MORPHINE SULFATE 4 MG SYRINGE IVP PRN (16:22)
[2016-10-14 16:25] VITALS: BMI 33.0
[2016-10-14] MEDS: NITROGLYCERIN 2% OINTMENT 1gm PACKET TP SCH ×2 (17:23→22:01)
[2016-10-14] MEDS: INSULIN ASPART 100unit/ml INJECTION SQ SCH (17:55)
[2016-10-14] MEDS: INSULIN DETEMIR 100unit/ml INJECTION SQ SCH (22:00)
[2016-10-14] MEDS: ATORVASTATIN 40 MG TABLET PO SCH (22:04)
[2016-10-14] MEDS: TERAZOSIN 2 MG CAPSULE PO SCH (22:07)
[2016-10-15] MEDS: NITROGLYCERIN 2% OINTMENT 1gm PACKET TP SCH ×4 (04:32→22:24)
[2016-10-15] MEDS: PANTOPRAZOLE 40 MG TABLET PO SCH (05:56)
[2016-10-15] MEDS: INSULIN ASPART 100unit/ml INJECTION SQ SCH ×3 (08:02→18:58)
[2016-10-15] MEDS: ASPIRIN 81 MG CHEWABLE TABLET PO SCH (08:50)
[2016-10-15] MEDS: LISINOPRIL/HCTZ 20/12.5 MG TABLET PO SCH (08:50)
[2016-10-15] MEDS: INSULIN DETEMIR 100unit/ml INJECTION SQ SCH ×2 (08:56→21:17)
[2016-10-15] MEDS: PRASUGREL 10 MG TABLET PO SCH (08:56)
[2016-10-15] MEDS: FLUoxetine 20 MG CAPSULE PO SCH (08:57)
[2016-10-15] MEDS: CETIRIZINE 10 MG TABLET PO SCH (08:57)
[2016-10-15] MEDS ORDERED: FUROSEMIDE 20 MG TABLET PO SCH (09:00)
[2016-10-15] MEDS ORDERED: PRASUGREL 10 MG TABLET PO SCH (09:00)
--- NOTE | 2016-10-15 11:14 | Cardiology History & Physical ---
History of Present Illness Chief complaint: chest pain HPI: Josue is a 71-year-old male who is known to Dr. Hernandez with a history of RI, CAD with CABG and stents, HTN, HLD and DM type II. He presented to the ED with chest discomfort. He had been seen and evaluated in the ED 2 nights ago and was diagnosed with congestive heart failure and discharged home. He reports having intermittent chest discomfort since Wednesday. He is unable to quantify exactly how long his pain is present for and how many times it has occurred. He describes the pain as a pressure that is located in the left chest without radiation. He states that his pain resolved with nitroglycerin prior to arrival to the ED. He denies any other complaints or associated symptoms. Symptoms have been persistent in nature since onset as described above. He was at home when his symptoms began. Review of Systems - Constitutional Constitutional: Absent: chills, fatigue, fever(s) - EENMT Eyes: Absent: change in vision Balance: Absent: vertigo Mouth/Throat: Absent: sore throat - Cardiovascular Cardiovascular: Present: chest pain, dyspnea on exertion, orthopnea. Absent: palpitations, syncope - Respiratory Respiratory: Absent: cough, dyspnea - Gastrointestinal Gastrointestinal: Absent: diarrhea, nausea, vomiting - Genitourinary Genitourinary: Absent: dysuria - Integumentary/Breasts Integumentary: Absent: erythema, rash - Neurological Neurological: Absent: dizziness PFSH Patient Stated Medical History Cerebrovascular Accident Yes Dental Problems Yes: NO TEETH Hearing Loss Yes Congestive Heart Failure Yes Coronary Artery Disease Yes Hypertension Yes Myocardial Infarction Yes Sleep Apnea Yes Diabetes Mellitus Type 2 Yes Gastroesophageal Reflux Yes Disease Other Yes: PAST KIDNEY FAILURE 30% Depression Yes Surgical History: AICD. CABG Family History: No family history of CAD, RI, CHF - Social History Smoking status: Never smoker Substance use type: does not use Alcohol intake frequency: does not drink Household members: spouse Current residence: Apartment/Private Home Medications Home Medications Medication Instructions Recorded Confirmed Type Atorvastatin Calcium 80 mg PO HS #0 05/27/15 10/14/16 History Fluoxetine HCl 20 mg PO DAILY #0 05/27/15 10/14/16 History Insulin Aspart [Novolog Flexpen] 20 unit SQ TIDWM #0 05/27/15 10/14/16 History Insulin Detemir [Levemir Flextouch] 30 unit SQ BID #0 05/27/15 10/14/16 History Lisinopril/Hydrochlorothiazide 1 tab PO DAILY #0 05/08/16 10/14/16 History [Lisinopril-Hctz 20-12.5 mg Tab] Metoprolol Succinate 100 mg PO DAILY #0 05/08/16 10/14/16 History Pantoprazole Sodium 40 mg PO ACB #0 05/08/16 10/14/16 History Prasugrel HCl [Effient] 10 mg PO DAILY #0 05/08/16 10/14/16 History Terazosin [Hytrin] 2 mg PO HS 09/29/16 10/14/16 History Aspirin *EC* [Ecotrin] 325 mg PO DAILY 09/30/16 10/14/16 History Cetirizine HCl 10 mg PO DAILY 09/30/16 10/14/16 History Nitroglycerin 0.4 mg SL Q5MIN3 PRN 10/13/16 10/14/16 History Furosemide [Lasix] 20 mg PO DAILY 10/14/16 10/14/16 History Allergies Allergy/AdvReac Type Severity Reaction Status Date / Time No Known Allergies Allergy Verified 10/14/16 16:40 Exam Vital signs: Temperature 97.1 F 10/15/16 07:31 Pulse Rate 60 10/15/16 08:00 Respiratory Rate 18 10/15/16 07:31 Blood Pressure 140/87 H 10/15/16 07:31 Pulse Oximetry 97 10/15/16 07:31 Oxygen Delivery Method Room Air - Constitutional no acute distress, cooperative - Routine HEENT Exam ENT: Present: mucous membranes moist - Routine Neck Exam Absent: JVD, carotid bruit - Routine Chest/Breast/Axilla Exam Chest wall: Absent: tenderness - Routine Respiratory Exam Present: CTA bilaterally. Absent: rales, wheezes - Routine Cardiovascular Exam Present: RRR, S1, S2, no murmur - Routine Abdominal Exam Present: soft, non tender - Routine Skin Exam Present: intact - Routine Neurological Exam Present: alert, oriented X3 - Routine Psychiatric Exam Present: normal affect, normal thought process Results 10/16/16 04:58 10/16/16 04:58 Cardiac Enzymes 10/14/16 10/15/16 10/15/16 Range/Units 20:14 02:04 08:01 Troponin I 0.026 0.029 0.027 (0-0.12) ng/ml Lipids 10/15/16 Range/Units 02:05 Triglycerides 125 (40-160) MG/DL Cholesterol 80 L (132-199) MG/DL HDL Cholesterol 24 L (40-60) MG/DL Cholesterol/HDL Ratio 3.3 (0-5.0) RATIO CBC 10/15/16 Range/Units 02:05 WBC 5.8 (4.5-11.0) T/MM3 RBC 3.48 L (4.50-5.90) M/MM3 Hgb 10.7 L (13.5-17.5) GM/DL Hct 32.7 L (41-53) % Plt Count 151 (130-400) T/MM3 Neut # 3.5 (1.8-7.7) T/MM3 Lymph # 1.7 (1-4.8) T/MM3 [place] # 0.4 (0-0.8) T/MM3 Eos # 0.1 (0-0.5) T/MM3 Baso # 0.0 (0-0.2) T/MM3 Comprehensive Metabolic Panel 10/15/16 Range/Units 02:04 Sodium 140 (134-144) MEQ/L Potassium 4.3 (3.6-5) MEQ/L Chloride 109 H (98-107) MEQ/L Carbon Dioxide 24 (22-30) MEQ/L BUN 48.0 H (9-20) MG/DL Creatinine 1.9 H D (0.8-1.5) MG/DL Glucose 100 (75-110) MG/DL Calcium 9.0 (8.4-10.2) MG/DL Intake and Output 10/14/16 10/15/16 10/15/16 22:59 06:59 14:59 Intake Total 490 / 490 100 / 100 240 / 240 Output Total 450 / 450 395 / 395 150 / 150 Balance 40 / 40 -295 / -295 90 / 90 Intake: Oral 490 / 490 100 / 100 240 / 240 Output: Urine 450 / 450 395 / 395 150 / 150 Other: # Voids 0 1 # Bowel Movements 0 Weight 198 lb 6.656 oz 199 lb 4.766 oz Patient Weight 10/16/16 06:59 Weight 199 lb 4.766 oz Laboratory Results - last 48 hr 10/14/16 10/14/16 10/14/16 14:18 14:45 17:21 WBC 7.0 RBC 3.80 L Hgb 11.5 L Hct 35.7 L MCV 93.9 MCH 30.3 MCHC 32.2 RDW Std Deviation 43.4 Plt Count 165 MPV 11.0 Immature Gran % (Auto) 0.1 Neut % (Auto) 67.5 H Lymph % (Auto) 23.7 [place] % (Auto) 7.0 Eos % (Auto) 1.4 Baso % (Auto) 0.3 Neut # 4.7 Lymph # 1.7 [place] # 0.5 Eos # 0.1 Baso # 0.0 Abs Immat Gran (auto) 0.01 Turbidity < 20 Sodium 143 Potassium 4.8 Chloride 108 H Carbon Dioxide 26 Anion Gap 9 BUN 46.0 H Creatinine 2.1 H GFR Calculation 31 BUN/Creatinine Ratio 22 Glucose 178 H Glucometer 195 Calculated Osmolality 291 H Calcium 8.7 Magnesium Total Bilirubin 0.70 Icterus Index < 2 AST 36 ALT 54 Alkaline Phosphatase 70 Troponin I 0.028 B-Natriuretic Peptide 7390 H Total Protein 6.6 Albumin 3.7 Globulin 2.9 Albumin/Globulin Ratio 1.3 Triglycerides Cholesterol LDL Cholesterol, Calc VLDL Cholesterol HDL Cholesterol Cholesterol/HDL Ratio Specimen Hemolysis < 15 10/14/16 10/14/16 10/15/16 20:14 21:56 02:04 WBC RBC Hgb Hct MCV MCH MCHC RDW Std Deviation Plt Count MPV Immature Gran % (Auto) Neut % (Auto) Lymph % (Auto) [place] % (Auto) Eos % (Auto) Baso % (Auto) Neut # Lymph # [place] # Eos # Baso # Abs Immat Gran (auto) Turbidity < 20 Sodium 140 Potassium 4.3 Chloride 109 H Carbon Dioxide 24 Anion Gap 7 BUN 48.0 H Creatinine 1.9 H D GFR Calculation 35 BUN/Creatinine Ratio 25 Glucose 100 Glucometer 198 Calculated Osmolality 282 H Calcium 9.0 Magnesium 2.2 Total Bilirubin Icterus Index < 2 AST ALT Alkaline Phosphatase Troponin I 0.026 0.029 B-Natriuretic Peptide Total Protein Albumin Globulin Albumin/Globulin Ratio Triglycerides Cholesterol LDL Cholesterol, Calc VLDL Cholesterol HDL Cholesterol Cholesterol/HDL Ratio Specimen Hemolysis < 15 < 15 10/15/16 10/15/16 10/15/16 02:05 02:05 06:22 WBC 5.8 RBC 3.48 L Hgb 10.7 L Hct 32.7 L MCV 94.0 MCH 30.7 MCHC 32.7 RDW Std Deviation 42.8 Plt Count 151 MPV 10.4 Immature Gran % (Auto) 0.3 Neut % (Auto) 60.7 Lymph % (Auto) 28.6 [place] % (Auto) 7.6 Eos % (Auto) 2.3 Baso % (Auto) 0.5 Neut # 3.5 Lymph # 1.7 [place] # 0.4 Eos # 0.1 Baso # 0.0 Abs Immat Gran (auto) 0.02 Turbidity Sodium Potassium Chloride Carbon Dioxide Anion Gap BUN Creatinine GFR Calculation BUN/Creatinine Ratio Glucose Glucometer 85 Calculated Osmolality Calcium Magnesium Total Bilirubin Icterus Index AST ALT Alkaline Phosphatase Troponin I B-Natriuretic Peptide Total Protein Albumin Globulin Albumin/Globulin Ratio Triglycerides 125 Cholesterol 80 L LDL Cholesterol, Calc 31.0 L VLDL Cholesterol 25.0 HDL Cholesterol 24 L Cholesterol/HDL Ratio 3.3 Specimen Hemolysis 10/15/16 08:01 WBC RBC Hgb Hct MCV MCH MCHC RDW Std Deviation Plt Count MPV Immature Gran % (Auto) Neut % (Auto) Lymph % (Auto) [place] % (Auto) Eos % (Auto) Baso % (Auto) Neut # Lymph # [place] # Eos # Baso # Abs Immat Gran (auto) Turbidity Sodium Potassium Chloride Carbon Dioxide Anion Gap BUN Creatinine GFR Calculation BUN/Creatinine Ratio Glucose Glucometer Calculated Osmolality Calcium Magnesium Total Bilirubin Icterus Index AST ALT Alkaline Phosphatase Troponin I 0.027 B-Natriuretic Peptide Total Protein Albumin Globulin Albumin/Globulin Ratio Triglycerides Cholesterol LDL Cholesterol, Calc VLDL Cholesterol HDL Cholesterol Cholesterol/HDL Ratio Specimen Hemolysis 25 - Imaging and Cardiology Echo: pending EKG results: image reviewed EKG interpretations - RI, pacemaker, normal Pacemaker: ventricular pacing w/capture (except when refractory), atrial pacing w/capture (except when refractory) Hospital Course This is a general summary of the patient's hospital course. For more details refer to the complete medical record. DVT Prophylaxis: Lovenox Assessment and Plan (1) Unstable angina Problem details: Underwent left heart cath with successful primary stent of vein graft to PDA using 3.0 x 9 and 3.0 x 18 drug-eluting Resolute Integrity stents. Status: Acute He had been seen and evaluated in the ED 2 nights ago and was diagnosed with congestive heart failure and discharged home. He reports having intermittent chest discomfort since Wednesday. Will plan left heart cath with possible PCI due to unstable angina. (2) Diastolic CHF Problem details: Diuresed with IV Lasix, discharge on home po Lasix 20mg po daily. Status: Acute Diuresis with Lasix 40mg IV BID. Monitor renal, and electrolytes. (3) Atherosclerotic heart disease of [place] coronary artery without angina pectoris Status: Chronic CAD with CABG. Stent placed last October. Patient states he has been compliant with medications. Continue Asam TONNY, BB and Statin. Conitnue dual antiplatelet therapy on Effient (4) Essential (primary) hypertension Status: Chronic diuresis with Lasix 40mg IV BID (5) Mixed hyperlipidemia Status: Chronic (6) Type 2 diabetes mellitus without complications Status: Chronic (7) ICD (implantable cardioverter-defibrillator) in place Problem details: patient does not know brand. Dr. Hernandez believes it is [place] by cardiac cath images Status: Acute - Attestation Attestation Narrative: 10/18/16 11:22 Recommendation After examining the patient I agree with the above assessment. I am involved in the formulation of the patient's plan of care. Sepsis Assessment - Evaluation Sepsis screening result: No Definite Risk
[2016-10-15] MEDS ORDERED: LIDOCAINE 1% (10mg/ml) 30ml SDV INJ ONE (15:51)
[2016-10-15] MEDS ORDERED: HEPARIN 1,000 UNITS/500 ML PREMIX (*CVL ONLY*) IV ONE (15:51)
[2016-10-15] MEDS ORDERED: MIDAZOLAM 2mg/2ml INJECTION ONE (15:56)
[2016-10-15] MEDS ORDERED: FentaNYL 100 MCG/2 ML INJECTION ONE (15:56)
[2016-10-15] MEDS ORDERED: NS 1,000 ML IV SCH (16:00)
[2016-10-15] MEDS ORDERED: NS 1,000 ML ONE (16:03)
[2016-10-15] MEDS ORDERED: DEXTROSE 50% SYRINGE 50ml (1 AMP) IVP ONE (16:06)
[2016-10-15] MEDS ORDERED: HEPARIN 1,000unit/ml INJECTION 10ml ONE (16:25)
[2016-10-15] MEDS ORDERED: Bisacodyl EC TAB 5 MG TABLET PO PRN (17:32)
[2016-10-15] MEDS ORDERED: NITROGLYCERIN 0.4 MG SUBLINGUAL TABLET SL PRN (17:32)
[2016-10-15] MEDS ORDERED: ACETAMINOPHEN 325 MG TABLET PO PRN (17:32)
[2016-10-15] MEDS ORDERED: METOCLOPRAMIDE 10mg/2ml INJECTION IVP PRN (17:32)
[2016-10-15] MEDS ORDERED: ATROPINE 1 MG/ML INJECTION IVP PRN (17:32)
[2016-10-15] MEDS ORDERED: PROMETHAZINE 25 MG INJECTION IVP PRN (17:32)
[2016-10-15] MEDS ORDERED: MAG-AL + SIM ORAL LIQUID 30ml PO PRN (17:32)
[2016-10-15] MEDS ORDERED: BISACODYL 10 MG SUPPOSITORY RECTALLY PRN (17:32)
[2016-10-15] MEDS ORDERED: ONDANSETRON 4 MG/2 ML INJECTION IVP PRN (17:32)
[2016-10-15] MEDS ORDERED: LORazepam 0.5 MG TABLET PO PRN (17:32)
[2016-10-15] MEDS ORDERED: HYDROCODONE/APAP 7.5 MG/325 MG TABLET PO PRN (17:32)
[2016-10-15] MEDS ORDERED: MORPHINE SULFATE 4 MG SYRINGE IVP PRN ×2 (17:32)
[2016-10-15] MEDS ORDERED: INSULIN ASPART 100unit/ml INJECTION SQ ONE (19:00)
[2016-10-15] MEDS: NS 1,000 ML IV SCH ×3 (19:00→23:55)
[2016-10-15] MEDS: FUROSEMIDE 20 MG/2 ML INJECTION IVP SCH (19:29)
[2016-10-15] MEDS: TERAZOSIN 2 MG CAPSULE PO SCH (21:18)
[2016-10-15] MEDS: ATORVASTATIN 40 MG TABLET PO SCH (21:18)
[2016-10-16] MEDS: NITROGLYCERIN 2% OINTMENT 1gm PACKET TP SCH ×2 (04:39→12:54)
[2016-10-16] MEDS: LISINOPRIL/HCTZ 20/12.5 MG TABLET PO SCH ×2 (05:17→09:00)
[2016-10-16] MEDS: PANTOPRAZOLE 40 MG TABLET PO SCH (06:31)
[2016-10-16] MEDS: ASPIRIN 81 MG CHEWABLE TABLET PO SCH ×2 (08:30→11:02)
[2016-10-16] MEDS: FUROSEMIDE 20 MG/2 ML INJECTION IVP SCH (08:48)
[2016-10-16] MEDS: CETIRIZINE 10 MG TABLET PO SCH (08:49)
[2016-10-16] MEDS: PRASUGREL 10 MG TABLET PO SCH (08:49)
[2016-10-16] MEDS: FLUoxetine 20 MG CAPSULE PO SCH (08:49)
[2016-10-16] MEDS ORDERED: ASPIRIN *EC* 81 MG TABLET PO SCH (09:00)
[2016-10-16 09:13] VITALS: PULSE 60; TEMP 98.5
[2016-10-16] MEDS: INSULIN DETEMIR 100unit/ml INJECTION SQ SCH (11:06)
[2016-10-16] MEDS ORDERED: INSULIN ASPART 100unit/ml INJECTION SQ ONE (11:14)
--- NOTE | 2016-10-16 11:14 | Echocardiogram ---
DATE OF PROCEDURE October 15, 2016 This is a two-dimensional echo with spectral Doppler, color-flow and M-mode. It was obtained in a patient with chest pain. Left atrium is dilated. Left ventricle end-diastolic dimension is normal. Left ventricle wall thickness is normal. [place] is [id number] and ejection fraction is reduced with ejection fraction of about 40-45%. Right atrium is dilated. Right ventricle is normal. Aortic root dimension is normal. Mitral valve annulus is calcified. Mitral valve leaflets are normal with mild mitral regurgitation. Aortic valve shows fibrocalcific changes with no stenosis. Mild aortic insufficiency is present. Tricuspid valve shows [id number] tricuspid regurgitation with moderate pulmonary hypertension with estimated pulmonary artery systolic pressure of 51. Pulmonary valve shows mild pulmonary insufficiency. There is no pericardial effusion. Device leads are present in right heart. IMPRESSION 1. Wall motion abnormalities as described above with ejection fraction of about 40-45%. 2. Device leads are present in right heart. 3. Biatrial dilation. 4. Mitral annulus calcification with mild mitral regurgitation. 5. Aortic sclerosis with mild aortic insufficiency. 7. [id number] tricuspid regurgitation with moderate pulmonary hypertension with estimated pulmonary artery systolic pressure of 51. 8. Mild pulmonary insufficiency. MTDD
[2016-10-16] MEDS: INSULIN ASPART 100unit/ml INJECTION SQ SCH ×2 (11:16→13:02)
--- NOTE | 2016-10-16 11:57 | Cardiac Catheterization Report ---
DATE OF PROCEDURE October 15, 2016 The patient is a 71-year-old gentleman with history of coronary artery disease who was admitted with unstable angina and was referred for further evaluation by cardiac catheterization and possible intervention. Informed consent was obtained after explaining the procedure and the potential risks to the patient including risk of renal failure and dialysis and patient agreed to proceed with the procedure. PROCEDURE 1. Left heart catheterization. 2. Coronary angiography. 3. Bypass angiography. 4. Selective WOODSON angiography. 5. Primary stent of the vein graft to PDA using 3.0 x 9 and 3.0 by 18 drug- eluting Resolute Integrity stents. 6. Right femoral angiography to visualize the vessel for closure device. 7. Successful Mynx deployment for hemostasis. TECHNIQUE He was prepped and draped in the usual sterile techniques. Conscious sedation was performed using Versed and fentanyl. 1% lidocaine was used for local anesthesia. Using modified Seldinger technique, arterial access was obtained into the right femoral artery with placement of a 6-[place] arterial sheath. 7000 units of heparin was administered prior to intervention. CORONARY ANGIOGRAPHY Left main was free of significant lesions. Left anterior descending artery was occluded. Left circumflex artery had 95% in-stent restenosis in proximal circumflex. Right coronary artery was occluded. WOODSON to LAD was patent with excellent flow. A vein graft to PDA was patent but with very slow flow with [place] 2 flow with 99 % mid stenosis. It appeared to be in-stent restenosis. A vein graft to diagonal was diseased with 90% distal stenosis and 40% proximal stenosis. PDA also had proximal diffuse 90% stenosis. After reviewing the images we decided to proceed with intervention on vein graft to PDA. A 6-[place]namese multipurpose guide was advanced to the ostium of graft to the PDA. A filter wire was used to cross the lesion and filter was deployed distal to the lesion. A 3.0 x 9 mm drug-eluting Resolute Integrity stent was delivered to the lesion site where it was deployed by inflating the balloon to 16 atmospheres. Next, angiogram showed excellent results at this site. However, distal to this stent, there was about 70% stenosis and therefore we decided to proceed with a second stent. A 3.0 x 18 drug-eluting Resolute Integrity stent was delivered to the lesion site distal to the previous stent with minimal overlap and deployed by inflating the balloon to 16 atmospheres. Next, angiogram showed excellent results with no residual stenosis at the site. PDA is small with diffuse disease. It is less than 1.5 mm in diameter. The patient tolerated the procedure well with no complications. IMPRESSION 1. Coronary artery disease as described above. 2. Successful primary stent of vein graft to PDA using 3.0 x 9 and 3.0 x 18 drug-eluting Resolute Integrity stents using a filter wire. 3. Successful Mynx deployment for hemostasis. PLAN Will keep him on dual antiplatelet therapy at least for year and continue risk modification. One might consider percutaneous intervention of the vein graft to diagonal and percutaneous intervention of the [place] left circumflex in two different settings in the future. MARC
--- NOTE | 2016-10-16 12:23 | Discharge Summary ---
<Yasmin Cabrera - Last Filed: 10/16/16 16:25> Discharge Information Date of admission: 10/16/16 08:33 Anticipated date of discharge: 10/16/16 Attending Physician: Rubin Hernandez MD Primary care physician: Colin Elliott MD - Discharge Diagnosis (1) Unstable angina Problem Details: Underwent left heart cath with successful primary stent of vein graft to PDA using 3.0 x 9 and 3.0 x 18 drug-eluting Resolute Integrity stents. Status: Acute (2) Diastolic CHF Qualifiers: Congestive heart failure chronicity: acute on chronic Qualified Code(s): I50.33 - Acute on chronic diastolic (congestive) heart failure Problem Details: Diuresed with IV Lasix, discharge on home po Lasix 20mg po daily. Status: Acute (3) Atherosclerotic heart disease of [place] coronary artery without angina pectoris Qualifiers: [place] vs. transplanted heart: [place] heart Qualified Code(s): I25.10 - Atherosclerotic heart disease of [place] coronary artery without angina pectoris Status: Chronic (4) Essential (primary) hypertension Status: Chronic (5) Mixed hyperlipidemia Status: Chronic (6) Type 2 diabetes mellitus without complications Status: Chronic (7) ICD (implantable cardioverter-defibrillator) in place Problem Details: patient does not know brand. Dr. Hernandez believes it is [place] by cardiac cath images Status: Acute - Procedures Procedures: Date of Exam: 10/15/16 Type of Exam(s): CA heart cath LT DATE OF PROCEDURE October 15, 2016 The patient is a 71-year-old gentleman with history of coronary artery disease who was admitted with unstable angina and was referred for further evaluation by cardiac catheterization and possible intervention. Informed consent was obtained after explaining the procedure and the potential risks to the patient including risk of renal failure and dialysis and patient agreed to proceed with the procedure. PROCEDURE 1. Left heart catheterization. 2. Coronary angiography. 3. Bypass angiography. 4. Selective WOODSON angiography. 5. Primary stent of the vein graft to PDA using 3.0 x 9 and 3.0 by 18 drug- eluting Resolute Integrity stents. 6. Right femoral angiography to visualize the vessel for closure device. 7. Successful Mynx deployment for hemostasis. TECHNIQUE He was prepped and draped in the usual sterile techniques. Conscious sedation was performed using Versed and fentanyl. 1% lidocaine was used for local anesthesia. Using modified Seldinger technique, arterial access was obtained into the right femoral artery with placement of a 6-[place] arterial sheath. 7000 units of heparin was administered prior to intervention. CORONARY ANGIOGRAPHY Left main was free of significant lesions. Left anterior descending artery was occluded. Left circumflex artery had 95% in-stent restenosis in proximal circumflex. Right coronary artery was occluded. WOODSON to LAD was patent with excellent flow. A vein graft to PDA was patent but with very slow flow with [place] 2 flow with 99 % mid stenosis. It appeared to be in-stent restenosis. A vein graft to diagonal was diseased with 90% distal stenosis and 40% proximal stenosis. PDA also had proximal diffuse 90% stenosis. After reviewing the images we decided to proceed with intervention on vein graft to PDA. A 6-Turkish multipurpose guide was advanced to the ostium of graft to the PDA. A filter wire was used to cross the lesion and filter was deployed distal to the lesion. A 3.0 x 9 mm drug-eluting Resolute Integrity stent was delivered to the lesion site where it was deployed by inflating the balloon to 16 atmospheres. Next, angiogram showed excellent results at this site. However, distal to this stent, there was about 70% stenosis and therefore we decided to proceed with a second stent. A 3.0 x 18 drug-eluting Resolute Integrity stent was delivered to the lesion site distal to the previous stent with minimal overlap and deployed by inflating the balloon to 16 atmospheres. Next, angiogram showed excellent results with no residual stenosis at the site. PDA is small with diffuse disease. It is less than 1.5 mm in diameter. The patient tolerated the procedure well with no complications. IMPRESSION 1. Coronary artery disease as described above. 2. Successful primary stent of vein graft to PDA using 3.0 x 9 and 3.0 x 18 drug-eluting Resolute Integrity stents using a filter wire. 3. Successful Mynx deployment for hemostasis. PLAN Will keep him on dual antiplatelet therapy at least for year and continue risk modification. One might consider percutaneous intervention of the vein graft to diagonal and percutaneous intervention of the [place] left circumflex in two different settings in the future. - Laboratory Labs: Laboratory Results - last 72 hr 10/14/16 10/14/16 10/14/16 14:18 14:45 17:21 WBC 7.0 RBC 3.80 L Hgb 11.5 L Hct 35.7 L MCV 93.9 MCH 30.3 MCHC 32.2 RDW Std Deviation 43.4 Plt Count 165 MPV 11.0 Immature Gran % (Auto) 0.1 Neut % (Auto) 67.5 H Lymph % (Auto) 23.7 [place] % (Auto) 7.0 Eos % (Auto) 1.4 Baso % (Auto) 0.3 Neut # 4.7 Lymph # 1.7 [place] # 0.5 Eos # 0.1 Baso # 0.0 Abs Immat Gran (auto) 0.01 Turbidity < 20 Sodium 143 Potassium 4.8 Chloride 108 H Carbon Dioxide 26 Anion Gap 9 BUN 46.0 H Creatinine 2.1 H GFR Calculation 31 BUN/Creatinine Ratio 22 Glucose 178 H Glucometer 195 Calculated Osmolality 291 H Calcium 8.7 Magnesium Total Bilirubin 0.70 Icterus Index < 2 AST 36 ALT 54 Alkaline Phosphatase 70 Troponin I 0.028 B-Natriuretic Peptide 7390 H Total Protein 6.6 Albumin 3.7 Globulin 2.9 Albumin/Globulin Ratio 1.3 Triglycerides Cholesterol LDL Cholesterol, Calc VLDL Cholesterol HDL Cholesterol Cholesterol/HDL Ratio Specimen Hemolysis < 15 10/14/16 10/14/16 10/15/16 20:14 21:56 02:04 WBC RBC Hgb Hct MCV MCH MCHC RDW Std Deviation Plt Count MPV Immature Gran % (Auto) Neut % (Auto) Lymph % (Auto) [place] % (Auto) Eos % (Auto) Baso % (Auto) Neut # Lymph # [place] # Eos # Baso # Abs Immat Gran (auto) Turbidity < 20 Sodium 140 Potassium 4.3 Chloride 109 H Carbon Dioxide 24 Anion Gap 7 BUN 48.0 H Creatinine 1.9 H D GFR Calculation 35 BUN/Creatinine Ratio 25 Glucose 100 Glucometer 198 Calculated Osmolality 282 H Calcium 9.0 Magnesium 2.2 Total Bilirubin Icterus Index < 2 AST ALT Alkaline Phosphatase Troponin I 0.026 0.029 B-Natriuretic Peptide Total Protein Albumin Globulin Albumin/Globulin Ratio Triglycerides Cholesterol LDL Cholesterol, Calc VLDL Cholesterol HDL Cholesterol Cholesterol/HDL Ratio Specimen Hemolysis < 15 < 15 10/15/16 10/15/16 10/15/16 02:05 02:05 06:22 WBC 5.8 RBC 3.48 L Hgb 10.7 L Hct 32.7 L MCV 94.0 MCH 30.7 MCHC 32.7 RDW Std Deviation 42.8 Plt Count 151 MPV 10.4 Immature Gran % (Auto) 0.3 Neut % (Auto) 60.7 Lymph % (Auto) 28.6 [place] % (Auto) 7.6 Eos % (Auto) 2.3 Baso % (Auto) 0.5 Neut # 3.5 Lymph # 1.7 [place] # 0.4 Eos # 0.1 Baso # 0.0 Abs Immat Gran (auto) 0.02 Turbidity Sodium Potassium Chloride Carbon Dioxide Anion Gap BUN Creatinine GFR Calculation BUN/Creatinine Ratio Glucose Glucometer 85 Calculated Osmolality Calcium Magnesium Total Bilirubin Icterus Index AST ALT Alkaline Phosphatase Troponin I B-Natriuretic Peptide Total Protein Albumin Globulin Albumin/Globulin Ratio Triglycerides 125 Cholesterol 80 L LDL Cholesterol, Calc 31.0 L VLDL Cholesterol 25.0 HDL Cholesterol 24 L Cholesterol/HDL Ratio 3.3 Specimen Hemolysis 10/15/16 10/15/16 10/15/16 08:01 11:32 16:04 WBC RBC Hgb Hct MCV MCH MCHC RDW Std Deviation Plt Count MPV Immature Gran % (Auto) Neut % (Auto) Lymph % (Auto) [place] % (Auto) Eos % (Auto) Baso % (Auto) Neut # Lymph # [place] # Eos # Baso # Abs Immat Gran (auto) Turbidity Sodium Potassium Chloride Carbon Dioxide Anion Gap BUN Creatinine GFR Calculation BUN/Creatinine Ratio Glucose Glucometer 124 49 Calculated Osmolality Calcium Magnesium Total Bilirubin Icterus Index AST ALT Alkaline Phosphatase Troponin I 0.027 B-Natriuretic Peptide Total Protein Albumin Globulin Albumin/Globulin Ratio Triglycerides Cholesterol LDL Cholesterol, Calc VLDL Cholesterol HDL Cholesterol Cholesterol/HDL Ratio Specimen Hemolysis 10/15/16 10/15/16 10/15/16 17:17 18:18 21:06 WBC RBC Hgb Hct MCV MCH MCHC RDW Std Deviation Plt Count MPV Immature Gran % (Auto) Neut % (Auto) Lymph % (Auto) [place] % (Auto) Eos % (Auto) Baso % (Auto) Neut # Lymph # [place] # Eos # Baso # Abs Immat Gran (auto) Turbidity Sodium Potassium Chloride Carbon Dioxide Anion Gap BUN Creatinine GFR Calculation BUN/Creatinine Ratio Glucose Glucometer 61 108 224 Calculated Osmolality Calcium Magnesium Total Bilirubin Icterus Index AST ALT Alkaline Phosphatase Troponin I B-Natriuretic Peptide Total Protein Albumin Globulin Albumin/Globulin Ratio Triglycerides Cholesterol LDL Cholesterol, Calc VLDL Cholesterol HDL Cholesterol Cholesterol/HDL Ratio Specimen Hemolysis 10/16/16 10/16/16 10/16/16 04:58 04:58 04:58 WBC 7.2 RBC 3.83 L Hgb 11.5 L Hct 36.2 L MCV 94.5 MCH 30.0 MCHC 31.8 RDW Std Deviation 43.0 Plt Count 167 MPV 10.4 Immature Gran % (Auto) 0.1 Neut % (Auto) 62.4 Lymph % (Auto) 25.8 [place] % (Auto) 9.3 H Eos % (Auto) 2.1 Baso % (Auto) 0.3 Neut # 4.5 Lymph # 1.9 [place] # 0.7 Eos # 0.2 Baso # 0.0 Abs Immat Gran (auto) 0.01 Turbidity < 20 Sodium 143 Potassium 4.1 Chloride 106 Carbon Dioxide 28 Anion Gap 9 BUN 42.0 H Creatinine 1.7 H D GFR Calculation 40 BUN/Creatinine Ratio 25 Glucose 59 L Glucometer Calculated Osmolality 284 H Calcium 9.2 Magnesium 2.2 Total Bilirubin Icterus Index < 2 AST ALT Alkaline Phosphatase Troponin I 0.029 B-Natriuretic Peptide 5200 H Total Protein Albumin Globulin Albumin/Globulin Ratio Triglycerides Cholesterol LDL Cholesterol, Calc VLDL Cholesterol HDL Cholesterol Cholesterol/HDL Ratio Specimen Hemolysis < 15 < 15 10/16/16 10/16/16 10/16/16 05:47 06:02 06:18 WBC RBC Hgb Hct MCV MCH MCHC RDW Std Deviation Plt Count MPV Immature Gran % (Auto) Neut % (Auto) Lymph % (Auto) [place] % (Auto) Eos % (Auto) Baso % (Auto) Neut # Lymph # [place] # Eos # Baso # Abs Immat Gran (auto) Turbidity Sodium Potassium Chloride Carbon Dioxide Anion Gap BUN Creatinine GFR Calculation BUN/Creatinine Ratio Glucose Glucometer 56 54 64 Calculated Osmolality Calcium Magnesium Total Bilirubin Icterus Index AST ALT Alkaline Phosphatase Troponin I B-Natriuretic Peptide Total Protein Albumin Globulin Albumin/Globulin Ratio Triglycerides Cholesterol LDL Cholesterol, Calc VLDL Cholesterol HDL Cholesterol Cholesterol/HDL Ratio Specimen Hemolysis 10/16/16 10/16/16 06:34 10:23 WBC RBC Hgb Hct MCV MCH MCHC RDW Std Deviation Plt Count MPV Immature Gran % (Auto) Neut % (Auto) Lymph % (Auto) [place] % (Auto) Eos % (Auto) Baso % (Auto) Neut # Lymph # [place] # Eos # Baso # Abs Immat Gran (auto) Turbidity Sodium Potassium Chloride Carbon Dioxide Anion Gap BUN Creatinine GFR Calculation BUN/Creatinine Ratio Glucose Glucometer 89 284 Calculated Osmolality Calcium Magnesium Total Bilirubin Icterus Index AST ALT Alkaline Phosphatase Troponin I B-Natriuretic Peptide Total Protein Albumin Globulin Albumin/Globulin Ratio Triglycerides Cholesterol LDL Cholesterol, Calc VLDL Cholesterol HDL Cholesterol Cholesterol/HDL Ratio Specimen Hemolysis - Radiology Radiology: Date of Exam: 10/15/16 Type of Exam(s): US echo doppler complete DATE OF PROCEDURE October 15, 2016 This is a two-dimensional echo with spectral Doppler, color-flow and M-mode. It was obtained in a patient with chest pain. Left atrium is dilated. Left ventricle end-diastolic dimension is normal. Left ventricle wall thickness is normal. [place] is [id number]-[id number] and ejection fraction is reduced with ejection fraction of about 40-45%. Right atrium is dilated. Right ventricle is normal. Aortic root dimension is normal. Mitral valve annulus is calcified. Mitral valve leaflets are normal with mild mitral regurgitation. Aortic valve shows fibrocalcific changes with no stenosis. Mild aortic insufficiency is present. Tricuspid valve shows [id number]-[id number] tricuspid regurgitation with moderate pulmonary hypertension with estimated pulmonary artery systolic pressure of 51. Pulmonary valve shows mild pulmonary insufficiency. There is no pericardial effusion. Device leads are present in right heart. IMPRESSION 1. Wall motion abnormalities as described above with ejection fraction of about 40-45%. 2. Device leads are present in right heart. 3. Biatrial dilation. 4. Mitral annulus calcification with mild mitral regurgitation. 5. Aortic sclerosis with mild aortic insufficiency. 7. Hzinzluv-[id number] tricuspid regurgitation with moderate pulmonary hypertension with estimated pulmonary artery systolic pressure of 51. 8. Mild pulmonary insufficiency. Date of Exam: 10/14/16 Ordering Provider: Alin Swenson DO Type of Exam(s): XR chest 1V Reason for Exam(s): Pain Indication: Chest pain and shortness of breath for several days PROCEDURE: XR chest 1V: Encounter: Initial Comparison: October 13, 2016 Findings: The lungs are stable in appearance without new focal airspace consolidation. There is no pleural effusion or pneumothorax. The heart size, pulmonary vascularity and mediastinal contours are unchanged. Left pacemaker defibrillator. Poststernotomy changes. IMPRESSION: Stable appearance of the chest without acute cardiopulmonary disease. History of Present Illness HPI: Josue is a 71-year-old male who is known to Dr. Hernandez with a history of CT, CAD with CABG and stents, HTN, HLD and DM type II. He presented to the ED with chest discomfort. He had been seen and evaluated in the ED 2 nights ago and was diagnosed with congestive heart failure and discharged home. He reports having intermittent chest discomfort since Wednesday. He is unable to quantify exactly how long his pain is present for and how many times it has occurred. He describes the pain as a pressure that is located in the left chest without radiation. He states that his pain resolved with nitroglycerin prior to arrival to the ED. He denies any other complaints or associated symptoms. Symptoms have been persistent in nature since onset as described above. He was at home when his symptoms began. Hospital Course This is a general summary of the patient's hospital course. For more details refer to the complete medical record. Time spent with patient: 25 - 35 minutes DVT Prophylaxis: Lovenox Exam Vital signs: Temperature 98.5 F 10/16/16 07:30 Pulse Rate 60 10/16/16 08:59 Respiratory Rate 25 H 10/16/16 08:59 Blood Pressure 176/78 H 10/16/16 09:00 Pulse Oximetry 100 10/16/16 08:59 - Constitutional no acute distress, obese, cooperative - Routine HEENT Exam ENT: Present: mucous membranes moist - Routine Neck Exam Absent: JVD, carotid bruit - Routine Chest/Breast/Axilla Exam Chest wall: Absent: tenderness - Routine Respiratory Exam Present: CTA bilaterally. Absent: dyspnea, rales, wheezes, crackles - Routine Cardiovascular Exam Present: RRR, S1, S2. Absent: murmur - Routine Abdominal Exam Present: soft, normoactive bowel sounds - Routine Extremities Exam Present: no edema - Routine Skin Exam Present: intact - Routine Neurological Exam Present: alert, oriented X3 - Routine Psychiatric Exam Present: normal affect, normal thought process Results 10/16/16 04:58 10/16/16 04:58 Intake and Output 10/15/16 10/16/16 10/16/16 22:59 06:59 14:59 Intake Total 873.75 / 1023.75 Output Total 750 / 1125 Balance 123.75 / -101.25 Intake: IV 393.75 / 543.75 Normal Saline 1,000 ml @ 393.75 / 543.75 75 mls/hr IV .[id number] [facility] Rx#:[id number] Oral 480 / 480 Output: Urine 750 / 1125 - Imaging and Cardiology Echo: report reviewed Cardiac cath: report reviewed EKG results: image reviewed (A & V paced) Discharge Plan - Med Rec/Dispo Referrals/Follow Up: Rubin Hernandez MD [Physician] - 11/04/16 9:30 am [place] Instructions: [facility] Congestive Heart Failure, [facility] Heart Cath Prescriptions: Continue Insulin Detemir [Levemir Flextouch] 30 unit SQ BID #0 Fluoxetine HCl 20 mg PO DAILY #0 Lisinopril/Hydrochlorothiazide [Lisinopril-Hctz 20-12.5 mg Tab] 1 tab PO DAILY #0 Metoprolol Succinate 100 mg PO DAILY #0 Prasugrel HCl [Effient] 10 mg PO DAILY #0 Pantoprazole Sodium 40 mg PO ACB #0 Furosemide [Lasix] 20 mg PO DAILY Insulin Aspart [Novolog Flexpen] 20 unit SQ TIDWM #0 Atorvastatin Calcium 80 mg PO HS #0 Terazosin [Hytrin] 2 mg PO HS Aspirin *EC* [Ecotrin] 325 mg PO DAILY Cetirizine HCl 10 mg PO DAILY Nitroglycerin 0.4 mg SL Q5MIN3 PRN PRN Reason: Chest Pain - Disposition 01 Discharged Home, Self-Care <Rubin Hernandez - Last Filed: 10/18/16 11:23> Discharge Information Date of admission: 10/16/16 08:33 Attending Physician: Rubin Hernandez MD Primary care physician: Colin Elliott MD - Discharge Diagnosis (1) Unstable angina Problem Details: Underwent left heart cath with successful primary stent of vein graft to PDA using 3.0 x 9 and 3.0 x 18 drug-eluting Resolute Integrity stents. Status: Acute (2) Diastolic CHF Qualifiers: Congestive heart failure chronicity: acute on chronic Qualified Code(s): I50.33 - Acute on chronic diastolic (congestive) heart failure Problem Details: Diuresed with IV Lasix, discharge on home po Lasix 20mg po daily. Status: Acute (3) Atherosclerotic heart disease of [place] coronary artery without angina pectoris Qualifiers: [place] vs. transplanted heart: [place] heart Qualified Code(s): I25.10 - Atherosclerotic heart disease of [place] coronary artery without angina pectoris Status: Chronic (4) Essential (primary) hypertension Status: Chronic (5) Mixed hyperlipidemia Status: Chronic (6) Type 2 diabetes mellitus without complications Status: Chronic (7) ICD (implantable cardioverter-defibrillator) in place Problem Details: patient does not know brand. Dr. Hernandez believes it is [place] by cardiac cath images Status: Acute Hospital Course This is a general summary of the patient's hospital course. For more details refer to the complete medical record. Exam Vital signs: Temperature 98.5 F 10/16/16 07:30 Pulse Rate 60 10/16/16 14:18 Respiratory Rate 21 10/16/16 14:18 Blood Pressure 161/73 H 10/16/16 14:01 Pulse Oximetry 99 10/16/16 14:18 Results 10/16/16 04:58 10/16/16 04:58 Discharge Plan - Med Rec/Dispo - Attestation Attestation Narrative: 10/18/16 11:23 Recommendation After examining the patient I agree with the above assessment. I am involved in the formulation of the patient's plan of care.
[2016-10-16] MEDS: NS 1,000 ML IV SCH (12:54)
[2016-10-16 13:25] VITALS: O2SAT 99
[2016-10-16 15:13] VITALS: BP 161/73; RESP 21
[2016-10-16] MEDS ORDERED: PRASUGREL 10 MG TABLET PO SCH (16:48)
== END 2016-10-16 15:08 | disposition home or self-care (01) | DRG 246 ==
LOC: ED 14:00 → MED 14:00 → CCU 10-15 17:00
PROVIDERS: ADMIT Internal Medicine Cardiovascular Disease; ATTEND Internal Medicine Cardiovascular Disease

== ENCOUNTER 2017-03-07 08:53 | Observation (INO) ==
[2017-03-07] MEDS ORDERED: NS 1,000 ML IV ONE (09:09)
[2017-03-07] MEDS ORDERED: ASPIRIN 81 MG CHEWABLE TABLET PO ONE (09:09)
[2017-03-07] MEDS ORDERED: NITROGLYCERIN 0.4 MG SUBLINGUAL TABLET SL PRN (09:09)
[2017-03-07] MEDS ORDERED: ONDANSETRON 4 MG/2 ML INJECTION IVP ONE (09:09)
--- OUTSIDE RECORDS SUMMARY | 2017-03-07 09:12 | External Medical Summary | Referral Summary ---
:1945 Author Organization [facility] [address] [place] [phone] Care Team Providers Name Role Phone Colin Elliott Primary Care Physician Encounter [facility] Date(s): 12/31/15 - 12/31/15 [facility] [place] [phone] Discharge Diagnosis: Diabetes Discharge Diagnosis: Chronic kidney disease, stage 4 (severe) Discharge Diagnosis: Vertigo Discharge Diagnosis: Hypertension Discharge Disposition: 01-Home or Self Care Attending Physician: Rubina Prado APRN Admitting Physician: Rubina Prado APRN Vital Signs Most recent to oldest [Reference Range]: 1 Temperature Tympanic [36.6-38.1 degC] 36.3 degC *LOW* (12/31/15 9:36 AM) Peripheral Pulse Rate [60-100 bpm] 72 bpm (12/31/15 9:36 AM) Respiratory Rate [14-20 br/min] 18 br/min (12/31/15 9:36 AM) Blood Pressure [90-140/60-90 mmHg] 130/70 mmHg (12/31/15 9:36 AM) Problem List Condition Effective Dates Status Health Status Informant Renal insufficiency(Confirmed) Active Diabetes(Confirmed) Active Ischemic cardiomyopathy(Confirmed) Active Presence of biventricular cardiac Active pacemaker(Confirmed) Hypertension(Confirmed) Active Allergies, Adverse Reactions, Alerts No Known Medication Allergies Medications aspirin 325 mg oral tablet 325 mg 1 tabs, Oral, Daily, # 90 tabs, 0 Refill(s) Start Date: 03/29/15 Status: Orderedcetirizine 10 mg oral tablet 10 mg 1 tabs, Oral, Daily, # 30 tabs, 6 Refill(s), Pharmacy: [facility] [id number], 1 tabs OralDaily Start Date: 03/29/15 Stop Date: 03/29/16 Status: OrderedEffient 10 mg oral tablet 10 mg 1 tabs, Oral, Daily, # 90 tabs, 4 Refill(s), Pharmacy: [facility], 1 tabsOral Daily Start Date: 11/20/15 Status: OrderedFLUoxetine 20 mg oral tablet 20 mg 1 tabs, Oral, qAM, # 90 tabs, 0 Refill(s) Start Date: 03/29/15 Status: OrderedInsulin Pin [place] (DME) DME Item DX E11.65 Use with insulin 4 times daily, See Instructions, # 100 Each , 3 Refill(s), Pharmacy: [facility], DX E11.65 Use with insulin 4 times daily, Supply Start Date: 11/19/15 Status: OrderedLevemir FlexTouch 100 units/mL subcutaneous solution See Instructions, INJECT 50 UNITS SUBCUTANEOUS DAILY, # 15 mL, eRx: [id number], INJECT 50 UNITS SUBCUTANEOUS DAILY Start Date: 11/12/15 Status: OrderedLipitor 80 mg oral tablet 80 mg 1 tabs, Oral, Bedtime (once a day), # 90 tabs, 0 Refill(s) Start Date: 03/29/15 Status: Orderedlisinopril-hydrochlorothiazide 20 mg-12.5 mg oral tablet 1 tabs, Oral, Daily, 0 Refill(s) Start Date: 11/01/15 Status: Orderedmeclizine 25 mg oral tablet 25 mg 1 tabs, Oral, BID, # 56 tabs, 0 Refill(s), Pharmacy: [facility], 1 tabs Oral BID Start Date: 12/05/15 Status: Orderedmetoprolol succinate 100 mg oral tablet, extended release 100 mg 1 tabs, Oral, Daily, # 90 tabs, 4 Refill(s), Pharmacy: [facility] Start Date: 12/25/15 Status: OrderedNitrostat 0.4 mg sublingual tablet 0.4 mg 1 tabs, SubLingual, q5min, as needed for chest pain, # 25 tabs, 3 Refill( s), Pharmacy: [facility], 1 tabs SubLingual q5min,PRN:as needed for chest pain Start Date: 11/21/15 Status: OrderedNovoLOG FlexPen 100 units/mL subcutaneous solution 14 units, SubCutaneous, TIDAC, dx E11.65 BKF and Lunch 10 U, supper 14., # 5 Each, 3 Refill(s), Pharmacy: [facility], Use this RX not the previous one, 14 units SubCutaneous TIDAC,Instr:dx E11.65 Start Date: 11/14/15 Status: Orderedpantoprazole 40 mg, Oral, Daily, 0 Refill(s) Start Date: 03/29/15 Status: Orderedterazosin 1 mg oral capsule 1 mg 1 caps, Oral, Bedtime (once a day), # 30 caps, 6 Refill(s), Pharmacy: [id number], 1 caps Oral Bedtime (once a day) Start Date: 03/29/15 Status: Ordered Results Chemistry Most recent to oldest [Reference Range]: 1 Sodium Lvl [135-144 mEq/L] 144 mEq/L (12/31/15 10:25 AM) Potassium Lvl [3.5-5.2 mEq/L] 5.5 mEq/L *HI* (12/31/15 10:25 AM) Chloride [99-111 mEq/L] 110 mEq/L (12/31/15 10:25 AM) CO2 [23-31 mEq/L] 26 mEq/L (12/31/15 10:25 AM) AGAP [3-20] 8 (12/31/15 10:25 AM) BUN [8-26 mg/dL] 38 mg/dL *HI* (12/31/15 10:25 AM) Glucose Lvl [70-99 mg/dL] 207 mg/dL *HI* (12/31/15 10:25 AM) Creatinine Lvl [0.72-1.25 mg/dL] 1.64 mg/dL *HI* (12/31/15 10:25 AM) eGFR [>60 mL/min] 42 mL/min 1 *ABN* (12/31/15 10:25 AM) Calcium Lvl [8.9-10.5 mg/dL] 9.2 mg/dL (12/31/15 10:25 AM) Hgb A1c [4.1-5.6 %] 7.9 % *HI* (12/31/15 10:25 AM) eAvg Glucose 180.0 mg/dL (12/31/15 10:25 AM) 1Result Comment: Multiply eGFR results by 1.21 for race. Immunizations Vaccine Date Refusal Reason tetanus/diphth/pertuss (Tdap) adult/adol 12/11/14 influenza virus vaccine, inactivated 12/31/15 influenza virus vaccine, inactivated 01/10/15 pneumococcal 13-valent conjugate vaccine 12/31/15 Procedures Procedure Date Related Diagnosis Body Site Cardiac catheterisation, left heart1 10/26/15 Pacemaker 1NSTEMI with stent placed Social History Social History Type Response Smoking Status Never smoker Assessment and Plan Extracted from: Title: Office Visit Note-hypoglycemia Author: Rubina Prado APRN Date: Assessment/Plan 1.Diabetes Over controlled with the current lifestyle changes. Recommend decreasing NovoLogto 10 units withbreakfast and lunch. Continue 14 units in the evening if that is his biggest juana l. Continue Levemir 50 units daily. Written instructions provided for patient with the expected blood sugar goals. Encouraged him to check his blood sugar in the evenings a time or 2so we have a n idea. Plan to review blood sugars in 2 weeks. Sooner if he has continued hypoglycemia symptoms. Check hemoglobin A1c today. Ordered: Basic Metabolic Panel Hemoglobin A1c Office Visit Level 3 Est 03007 2.Chronic kidney disease, stage 4 (severe) History. BMP for monitoring. Ordered: Basic Metabolic Panel Hemoglobin A1c Office Visit Level 3 Est 16349 3.Vertigo Improving with medication adjustments. Encouraged him to continue drinking water throughout the day. Ordered: Office Visit Level 3 Est 75517 4.Hypertension Currently well controlled. I do not feel like orthostatichypotension is contributing to his symptoms. Counseled on flu and Prevnar 13 vaccines. Given by nursing. Addendum by Miguel Angel Paz DO on I reviewed this chart, the patient's medical history, December 31, 2015 12:15:00 and the Resident's/[employer]'s/PA/RN's/PharmD's documented CDT findings, and concur with the assessment and plan as above.
--- OUTSIDE RECORDS SUMMARY | 2017-03-07 09:12 | External Medical Summary | Referral Summary ---
:1945 Author Organization [facility] Address [address] [place] [address] Care Team Providers Name Role Phone Colin Elliott Primary Care Physician Encounter [facility] [id number] Date(s): 06/04/15 - 06/04/15 [facility] [address] [place] [address] [place] Discharge Diagnosis: Diabetes Discharge Diagnosis: Ischemic cardiomyopathy Discharge Diagnosis: Benign essential hypertension Discharge Diagnosis: Presence of biventricular cardiac pacemaker Discharge Disposition: -Home or Self Care Attending Physician: Jay Treviño MD Admitting Physician: Jay Treviño MD Vital Signs No data available for this section Problem List Condition Effective Dates Status Health Status Informant Diabetes(Confirmed) Active Ischemic cardiomyopathy(Confirmed) Active Presence of biventricular cardiac Active pacemaker(Confirmed) Hypertension(Confirmed) Active Renal insufficiency(Confirmed) Active Allergies, Adverse Reactions, Alerts No Known Medication Allergies Medications aspirin 325 mg oral tablet 325 mg 1 tabs, Oral, Daily, # 90 tabs, 0 Refill(s) Start Date: 03/29/15 Status: Orderedcarvedilol 3.125 mg oral tablet 3.125 mg 1 tabs, Oral, BID, With meals, # 60 tabs, 0 Refill(s) Start Date: 03/29/15 Status: Orderedcetirizine 10 mg oral tablet 10 mg 1 tabs, Oral, Daily, # 30 tabs, 6 Refill(s), [facility], 1 tabs OralDaily Start Date: 03/29/15 Stop Date: 03/29/16 Status: OrderedFLUoxetine 20 mg oral tablet 20 mg 1 tabs, Oral, qAM, # 90 tabs, 0 Refill(s) Start Date: 03/29/15 Status: OrderedLasix 20 mg oral tablet 20 mg 1 tabs, Oral, BID, 0 Refill(s) Start Date: 03/29/15 Status: OrderedLevemir FlexPen 100 units/mL subcutaneous solution 50 u, SubCutaneous, Daily, # 5 Each, 6 Refill(s), [facility], 50 u SubCutaneous Daily Start Date: 03/29/15 Status: OrderedLipitor 80 mg oral tablet 80 mg 1 tabs, Oral, Bedtime (once a day), # 90 tabs, 0 Refill(s) Start Date: 03/29/15 Status: OrderedNovoLOG FlexPen 4 units, SubCutaneous, TIDAC, 0 Refill(s) Start Date: 03/29/15 Status: Orderedpantoprazole 40 mg, Oral, Daily, 0 Refill(s) Start Date: 03/29/15 Status: OrderedPlavix 75 mg oral tablet 75 mg 1 tabs, Oral, Daily, # 90 tabs, 0 Refill(s) Start Date: 03/29/15 Status: Orderedterazosin 1 mg oral capsule 1 mg 1 caps, Oral, Bedtime (once a day), # 30 caps, 6 Refill(s), Pharmacy: [facility] [address], 1 caps Oral Bedtime (once a day) Start Date: 03/29/15 Status: OrderedTessalon Perles 100 mg oral capsule 100 mg 1 caps, Oral, TID, as needed for cough, # 20 caps, 0 Refill(s) Start Date: 05/28/15 Status: Ordered Results No data available for this section Immunizations Vaccine Date Refusal Reason tetanus/diphth/pertuss (Tdap) adult/adol 12/11/14 influenza virus vaccine, inactivated 01/10/15 Procedures Procedure Date Related Diagnosis Body Site Pacemaker Social History Social History Type Response Smoking Status Never smoker Assessment and Plan No data available for this section
--- OUTSIDE RECORDS SUMMARY | 2017-03-07 09:12 | External Medical Summary | Referral Summary ---
:1945 Author Organization [facility] Address [address] [place] [address] [place] [phone] Care Team Providers Name Role Phone Colin Elliott Primary Care Physician Encounter [facility] Date(s): 04/29/15 - 04/29/15 [facility] [address] [place] [phone] [place] Discharge Diagnosis: Mixed hyperlipidemia Discharge Diagnosis: Benign essential HTN Discharge Diagnosis: CAD in [place] artery Discharge Diagnosis: Diabetes mellitus, type 2 Discharge Disposition: 01-Home or Self Care Attending Physician: Colin Elliott MD Admitting Physician: Colin Elliott MD Vital Signs Most recent to oldest [Reference Range]: 1 Temperature Tympanic [36.6-38.1 degC] 36.7 degC (04/29/15 2:45 PM) Peripheral Pulse Rate [60-100 bpm] 76 bpm (04/29/15 2:45 PM) Blood Pressure [90-140/60-90 mmHg] 130/78 mmHg (04/29/15 2:45 PM) Problem List No data available for this section Allergies, Adverse Reactions, Alerts No Known Medication [...] Daily, # 30 tabs, 6 Refill(s), Pharmacy: [facility] [id number], 1 tabs OralDaily Start Date: 03/29/15 Stop Date: 03/29/16 Status: Orderedfenofibrate 160 mg oral tablet 160 mg 1 tabs, Oral, Daily, # 90 tabs, 0 Refill(s) Start Date: 03/29/15 Status: OrderedFLUoxetine 20 mg oral tablet 20 mg 1 tabs, Oral, qAM, # 90 tabs, 0 Refill(s) Start Date: 03/29/15 Status: OrderedLasix 20 mg oral tablet 20 mg 1 tabs, Oral, BID, 0 Refill(s) Start Date: 03/29/15 Status: OrderedLevemir FlexPen 100 units/mL subcutaneous solution 50 u, SubCutaneous, Daily, # 5 Each, 6 Refill(s), Pharmacy: [facility] 24074, 50 u SubCutaneous Daily Start Date: 03/29/15 Status: OrderedLevemir FlexTouch 100 units/mL subcutaneous solution 50 units, SubCutaneous, qAM, 0 Refill(s) Start Date: 03/29/15 Status: OrderedLipitor 80 mg [...] day), # 30 caps, 6 Refill(s), Pharmacy: [facility] 40926, 1 caps Oral Bedtime (once a day) Start Date: 03/29/15 Status: Ordered Results No data available for this section Immunizations Vaccine Date Refusal Reason tetanus/diphth/pertuss (Tdap) adult/adol 12/11/14 influenza virus vaccine, inactivated 01/10/15 Procedures No data available for this section Social History Social History Type Response Smoking Status Never smoker Assessment and Plan Extracted from: Title: Office Visit Note Author: Colin Elliott MD Date: 04/29/15 Assessment/Plan Benign essential HTN Blood pressure shows improved control. Medications and treatments reviewed no changes are recommended. Fasting laboratory studies ordered for later this week. Follow-up in 3 months. Ordered: Comprehensive Metabolic Panel Lipid Panel Office Visit Level 4 Est 94274 CAD in [place] artery Chronic stable no signs of ischemia. No change in current treatment plan. Ordered: Comprehensive Metabolic Panel Lipid Panel Office Visit Level 4 Est 67654 Diabetes mellitus, type 2 Glucometers are well-controlled. Medications and treatments reviewed no changes are recommended. Fasting laboratory studies ordered for later this week. Follow-up in 3 months. Ordered: Albumin Level Urine Comprehensive Metabolic Panel Hemoglobin A1c Lipid Panel Office Visit Level 4 Est 14998 Mixed hyperlipidemia Chronic stable medications reviewed. Laboratory studies ordered. Ordered: Comprehensive Metabolic Panel Lipid Panel Office Visit Level 4 Est 74406
--- OUTSIDE RECORDS SUMMARY | 2017-03-07 09:12 | External Medical Summary | Referral Summary ---
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 Discharge Diagnosis: History of percutaneous coronary intervention Discharge Diagnosis: H/O coronary artery bypass surgery Discharge Diagnosis: Coronary heart disease Discharge Diagnosis: Old SD (myocardial infarction) Discharge Diagnosis: H/O congestive heart failure Discharge Diagnosis: AICD present, double chamber Discharge Disposition: 01-Home or Self Care Attending Physician: Ronnie Ibarra MD Admitting Physician: Ronnie Ibarra MD Referring Physician: Colin Elliott MD Vital Signs Most recent to oldest [Reference Range]: 1 Peripheral Pulse Rate [60-100 bpm] 68 bpm (05/08/15 11:53 AM) Blood Pressure [90-140/60-90 mmHg] 134/70 mmHg (05/08/15 11:53 AM) Problem List No data available for this [...] Daily, # 30 tabs, 6 Refill(s), Pharmacy: [facility], 1 tabs OralDaily Start Date: 03/29/15 Stop Date: 03/29/16 Status: OrderedFLUoxetine 20 mg oral tablet 20 mg 1 tabs, Oral, qAM, # 90 tabs, 0 Refill(s) Start Date: 03/29/15 Status: OrderedLasix 20 mg oral tablet 20 mg 1 tabs, Oral, BID, 0 Refill(s) Start Date: 03/29/15 Status: OrderedLevemir FlexPen 100 units/mL subcutaneous solution 50 u, SubCutaneous, Daily, # 5 Each, 6 Refill(s), Pharmacy: [facility] [address], 50 u SubCutaneous Daily Start Date: 03/29/15 [...] day), # 30 caps, 6 Refill(s), Pharmacy: [facility] [address], 1 caps Oral Bedtime (once a day) Start Date: 03/29/15 Status: Ordered Results No data available for this section Immunizations Vaccine Date Refusal Reason tetanus/diphth/pertuss (Tdap) adult/adol 12/11/14 influenza virus vaccine, inactivated 01/10/15 Procedures No data available for this section Social History Social History Type Response Smoking Status Never smoker Assessment and Plan Referrals to Other Providersaicd, referred to: Jay Treviño MD Referred by: Ronnie Ibarra MD
--- OUTSIDE RECORDS SUMMARY | 2017-03-07 09:12 | External Medical Summary | Referral Summary ---
:1945 Author Organization [facility] Address [address] [place] [address] [place] [phone] Care Team Providers Name Role Phone Colin Elliott Primary Care Physician Encounter [facility] Date(s): 11/20/15 - 11/20/15 [facility] [address] [place] [address] [place] [phone] [place] Discharge Diagnosis: Acute [place] Discharge Diagnosis: Diabetes Discharge Diagnosis: Coronary heart disease Discharge Diagnosis: Chronic kidney disease, stage 4 (severe) Discharge Diagnosis: History of percutaneous coronary intervention Discharge Disposition: -Home or Self Care Attending Physician: Ronnie Ibarra MD Admitting Physician: Ronnie Ibarra MD Referring Physician: Colin Elliott MD Vital Signs Most recent to oldest [Reference Range]: 1 Peripheral Pulse Rate [60-100 bpm] 64 bpm (11/20/15 12:40 PM) Blood Pressure [90-140/60-90 mmHg] 130/66 mmHg (11/20/15 12:40 PM) Problem List Condition Effective Dates Status Health [...] Daily, # 30 tabs, 6 Refill(s), Pharmacy: [facility], 1 tabs OralDaily Start Date: 03/29/15 Stop Date: 03/29/16 Status: OrderedEffient 10 mg oral tablet 10 mg 1 tabs, Oral, Daily, # 90 tabs, 4 Refill(s), Pharmacy: [facility], 1 tabsOral Daily Start Date: 11/20/15 Status: OrderedFLUoxetine 20 mg oral tablet 20 mg 1 tabs, Oral, qAM, # 90 tabs, 0 Refill(s) Start Date: 03/29/15 Status: OrderedInsulin Pin [place] (DME) DME Item DX E11.65 Use with insulin 4 times daily, See Instructions, # 100 Each , 3 Refill(s), Pharmacy: [facility], DX E11.65 Use with insulin 4 times daily, Supply Start Date: 11/19/15 Status: OrderedLevemir FlexTouch 100 units/mL subcutaneous solution See Instructions, INJECT 50 UNITS SUBCUTANEOUS DAILY, # 15 mL, eRx: [facility] [id number], INJECT 50 UNITS SUBCUTANEOUS DAILY Start Date: 11/12/15 Status: OrderedLipitor 80 mg oral tablet 80 mg 1 tabs, Oral, Bedtime (once a day), # 90 tabs, 0 Refill(s) Start Date: 03/29/15 Status: Orderedlisinopril-hydrochlorothiazide 20 mg-12.5 mg oral tablet 1 tabs, Oral, Daily, 0 Refill(s) Start Date: 11/01/15 Status: Orderedmeclizine 25 mg oral tablet 25 mg 1 tabs, Oral, BID, 0 Refill(s) Start Date: 11/01/15 Status: Orderedmetoprolol tartrate 100 mg oral tablet 100 mg 1 tabs, Oral, BID, 0 Refill(s) Start Date: 11/01/15 Status: OrderedNovoLOG FlexPen 100 units/mL subcutaneous solution 14 units, SubCutaneous, TIDAC, dx E11.65, # 5 Each, 3 Refill(s), Pharmacy: [facility], Use this RX not the previous one, 14 units SubCutaneous TIDAC,Instr:dx E11.65 Start Date: 11/14/15 Status: Orderedpantoprazole 40 mg, Oral, Daily, 0 Refill(s) Start Date: 03/29/15 Status: Orderedterazosin 1 mg oral capsule 1 mg 1 caps, Oral, Bedtime (once a day), # 30 caps, 6 Refill(s), Pharmacy: [facility], 1 caps Oral Bedtime (once a day) Start Date: 03/29/15 Status: Ordered Results Hematology Most recent to oldest [Reference Range]: 1 WBC [4.8-10.8 10*3/uL] 7.2 10*3/uL (11/20/15 1:56 PM) RBC [4.60-6.20] 5.20 (11/20/15 1:56 PM) Hgb [14.0-18.0 gm/dL] 15.2 gm/dL (11/20/15 1:56 PM) Hct [42.0-52.0 %] 45.3 % (11/20/15 1:56 PM) MCV [82.0-99.0 fL] 87.1 fL (11/20/15 1:56 PM) MCH [27.0-32.0 pg] 29.2 pg (11/20/15 1:56 PM) MCHC [32.0-36.0 gm/dL] 33.6 gm/dL (11/20/15 1:56 PM) RDW [11.5-14.5 %] 15.8 % *HI* (11/20/15 1:56 PM) Platelet [150-400 10*3/uL] 228 10*3/uL (11/20/15 1:56 PM) MPV [8.8-14.8 fL] 9.9 fL (11/20/15 1:56 PM) Immature Granulocytes [0.0-1.0 %] 0.3 % (11/20/15 1:56 PM) Neutrophils [51-75 %] 62 % (11/20/15 1:56 PM) Lymphocytes [20-46 %] 26 % (11/20/15 1:56 PM) Monocytes [4-11 %] 9 % (11/20/15 1:56 PM) Eosinophils [0-4 %] 4 % (11/20/15 1:56 PM) Basophils [0-2 %] 0 % (11/20/15 1:56 PM) Neutro Absolute [1.90-7.00 10*3] 4.42 10*3 (11/20/15 1:56 PM) Lymph Absolute [0.80-3.30 10*3] 1.83 10*3 (11/20/15 1:56 PM) [place] Absolute [0.30-1.00 10*3] 0.61 10*3 (11/20/15 1:56 PM) Eos Absolute [0.00-0.50 10*3] 0.26 10*3 (11/20/15 1:56 PM) Baso Absolute [0.00-0.20 10*3] 0.03 10*3 (11/20/15 1:56 PM) Chemistry Most recent to oldest [Reference Range]: 1 Sodium Lvl [135-144 mEq/L] 139 mEq/L (11/20/15 1:56 PM) Potassium Lvl [3.5-5.2 mEq/L] 4.6 mEq/L (11/20/15 1:56 PM) Chloride [99-111 mEq/L] 108 mEq/L (11/20/15 1:56 PM) CO2 [23-31 mEq/L] 21 mEq/L *LOW* (11/20/15 1:56 PM) AGAP [3-20] 10 (11/20/15 1:56 PM) BUN [8-26 mg/dL] 45 mg/dL *HI* (11/20/15 1:56 PM) Glucose Lvl [70-99 mg/dL] 93 mg/dL (11/20/15 1:56 PM) Creatinine Lvl [0.72-1.25 mg/dL] 1.89 mg/dL *HI* (11/20/15 1:56 PM) eGFR [>60 mL/min] 36 mL/min 1 *ABN* (11/20/15 1:56 PM) Calcium Lvl [8.9-10.5 mg/dL] 9.1 mg/dL (11/20/15 1:56 PM) BNP [0-99 pg/mL] 366 pg/mL *HI* (11/20/15 1:56 PM) 1Result Comment: Multiply eGFR results by 1.21 [...]
--- OUTSIDE RECORDS SUMMARY | 2017-03-07 09:12 | External Medical Summary ---
:1945 Author Name GENERATED, SYSTEM Care Team Providers Name Role Phone MD EMERY MICHAEL Primary Care Provider [phone] Reason For Visit Chief Complaint PHASE 2- TELEMETRY MONITORED EXERCISE/,EDUCATION Social History Functional Status Vital Signs Results Problems Encounter Diagnosis No relevant problems exist. Encounters Encounter Diagnosis No relevant problems exist. Plan of Care Procedures No relevant procedures performed. Immunizations No immunizations administered or ordered. Hospital Course Hospital Discharge Instructions Allergies, Adverse Reactions, Alerts Latex Allergy has not been assessed.IV Contrast Allergy has not been assessed. Medication Medication reconciliation has not been performed.
--- OUTSIDE RECORDS SUMMARY | 2017-03-07 09:13 | External Medical Summary | Referral Summary ---
:1945 Author Organization [facility] Address [address] [place] [address] [place] [phone] Care Team Providers Name Role Phone Colin Elliott Primary Care Physician Encounter VC Date(s): 08/05/15 - 08/05/15 [facility] [place] [phone] [place] Discharge Diagnosis: Coronary heart disease Discharge Diagnosis: Hypertension Discharge Diagnosis: Ischemic cardiomyopathy Discharge Diagnosis: Renal insufficiency Discharge Diagnosis: Diabetes Discharge Disposition: 01-Home or Self Care Attending Physician: Colin Elliott MD Admitting Physician: Colin Elliott MD Vital Signs Most recent to oldest [Reference Range]: 1 Temperature Tympanic [36.6-38.1 degC] 36.2 degC *LOW* (08/05/15 9:37 AM) Peripheral Pulse Rate [60-100 bpm] 8 bpm *LOW* (08/05/15 9:37 AM) Respiratory Rate [14-20 br/min] 18 br/min (08/05/15 9:37 AM) Blood Pressure [90-140/60-90 mmHg] 166/74 mmHg *HI* (08/05/15 9:37 AM) Problem List Condition Effective Dates Status [...] Daily, # 30 tabs, 6 Refill(s), Pharmacy: [id number], 1 tabs OralDaily Start Date: 03/29/15 Stop Date: 03/29/16 Status: OrderedFLUoxetine 20 mg oral tablet 20 mg 1 tabs, Oral, qAM, # 90 tabs, 0 Refill(s) Start Date: 03/29/15 Status: OrderedLasix 20 mg oral tablet 20 mg 1 tabs, Oral, BID, 0 Refill(s) Start Date: 03/29/15 Status: OrderedLevemir FlexPen 100 units/mL subcutaneous solution 50 u, SubCutaneous, Daily, # 5 Each, 6 Refill(s), Pharmacy: [id number], 50 u SubCutaneous Daily Start Date: 03/29/15 [...] day), # 30 caps, 6 Refill(s), Pharmacy: [id number], 1 caps Oral Bedtime (once a day) [...] Visit Note Author: Colin Elliott MD Date: 08/05/15 Assessment/Plan Coronary heart disease No signs of ischemia. Medications and treatments reviewed no changes are recommended. Recheck in 3 months. Ordered: Office Visit Level 4 Est 18791 Diabetes Hemoglobin A1c ordered he's coming in later this week for that. Continue current treatment plan without change. Follow-up in 3 months. Report card reviewed and provided. Ordered: Comprehensive Metabolic Panel Hemoglobin A1c Office Visit Level 4 Est 66597 Hypertension Blood pressure is elevated here. His been running normal at home. Continue current treatment plan without change. Report card reviewed and provided. Follow-up in 3 months. Ordered: Comprehensive Metabolic Panel Office Visit Level 4 Est 16222 Ischemic cardiomyopathy Chronic stable no change in current treatment Ordered: Office Visit Level 4 Est 24580 Renal insufficiency Laboratory studies ordered continue current treatment emphasized importance of good blood pressure control We discussed his pain in his feet. This may well be a neuropathy. It could mery mild form of claudication although it doesn't sound classic for that. We'll monitor and if it seems to be getting worse she'll let us know. I did not feel pulses today he may need Dopplers if symptoms progress or worsen.
--- OUTSIDE RECORDS SUMMARY | 2017-03-07 09:13 | External Medical Summary | Referral Summary ---
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, NYHA class 2 and ckd, stage 4 Discharge Diagnosis: Fatigue Discharge Disposition: 01-Home or Self Care Attending Physician: Ronnie Ibarra MD Admitting Physician: Ronnie Ibarra MD Referring Physician: Colin Elliott MD Vital Signs Most recent to oldest [Reference Range]: 1 Peripheral Pulse Rate [60-100 bpm] 64 bpm (12/25/15 3:04 PM) Blood Pressure [90-140/60-90 mmHg] 126/70 mmHg (12/25/15 3:04 PM) Problem List Condition Effective Dates Status [...] Daily, # 30 tabs, 6 Refill(s), Pharmacy: [facility], 1 tabs OralDaily Start Date: 03/29/15 Stop Date: 03/29/16 Status: OrderedEffient 10 mg oral tablet 10 mg 1 tabs, Oral, Daily, # 90 tabs, 4 Refill(s), Pharmacy: [facility], 1 tabsOral Daily Start Date: 11/20/15 Status: OrderedFLUoxetine 20 mg oral tablet 20 mg 1 tabs, Oral, qAM, # 90 tabs, 0 Refill(s) Start Date: 03/29/15 Status: OrderedInsulin Pin [place] (DME) DME Item DX E11.65 Use with insulin 4 times daily, See Instructions, # 100 Each , 3 Refill(s), Pharmacy: [facility], DX E11.65 Use with insulin 4 times daily, Supply Start Date: 11/19/15 Status: OrderedLevemir FlexTouch 100 units/mL subcutaneous solution See Instructions, INJECT 50 UNITS SUBCUTANEOUS DAILY, # 15 mL, [facility]Rx: [id number], INJECT 50 UNITS SUBCUTANEOUS DAILY Start Date: [...] BID, # 56 tabs, 0 Refill(s), Pharmacy: [facility], 1 tabs Oral BID Start Date: 12/05/15 Status: Orderedmetoprolol succinate 100 mg oral tablet, extended release 100 mg 1 tabs, Oral, Daily, # 90 tabs, 4 Refill(s), Pharmacy: [facility] Start Date: 12/25/15 Status: OrderedNitrostat 0.4 mg sublingual tablet 0.4 mg 1 tabs, SubLingual, q5min, as needed for chest pain, # 25 tabs, 3 Refill( s), Pharmacy: [facility], 1 tabs SubLingual q5min,PRN:as needed for chest pain Start Date: 11/21/15 Status: OrderedNovoLOG FlexPen 100 units/mL subcutaneous solution 14 units, SubCutaneous, TIDAC, dx E11.65, # 5 Each, 3 Refill(s), Pharmacy: 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 I elected to change tometoprolol succinate,100 mg daily. This should give usa bettermanagement of hissystolic dysfunction. He is to see me again in 6 months. He is to call any time if he has difficulty.
--- OUTSIDE RECORDS SUMMARY | 2017-03-07 09:13 | External Medical Summary | Referral Summary ---
:1945 Author Organization [facility] Address [address] [place] [address] [place] [phone] Care Team Providers Name Role Phone Colin Elliott Primary Care Physician Encounter VC Date(s): 03/29/15 - 03/29/15 [facility] [address] [place] [phone] [place] Discharge Diagnosis: CAD in [place] artery Discharge Diagnosis: Hyperlipidemia Discharge Diagnosis: Diabetes mellitus, type 2 Discharge Diagnosis: Benign essential HTN Discharge Disposition: 01-Home or Self Care Attending Physician: Colin Elliott MD Admitting Physician: Colin Elliott MD Vital Signs Most recent to oldest [Reference Range]: 1 Temperature Tympanic [36.6-38.1 degC] 36.6 degC (03/29/15 3:21 PM) Peripheral Pulse Rate [60-100 bpm] 84 bpm (03/29/15 3:21 PM) Respiratory Rate [14-20 br/min] 16 br/min (03/29/15 3:21 PM) Blood Pressure [90-140/60-90 mmHg] 154/82 mmHg *HI* (03/29/15 3:21 PM) Problem List No data available for [...] Daily, # 30 tabs, 6 Refill(s), Pharmacy: [id number] [id number], 1 tabs OralDaily Start Date: 03/29/15 Stop [...] Daily, # 5 Each, 6 Refill(s), Pharmacy: [id number] [address], 50 u SubCutaneous Daily Start Date: 03/29/15 [...] day), # 30 caps, 6 Refill(s), Pharmacy: [id number] [address], 1 caps Oral Bedtime (once a day) [...] Visit Note Author: Colin Elliott MD Date: 03/29/15 Assessment/Plan Benign essential HTN Blood pressure is moderately elevated today for the time being I'm not make any changes in his medications will continue to monitor carefully recheck in 1 month. Ordered: Office Visit Level 4 New 22642 CAD in [place] artery I've recommended a cardiology consultation. We'll see if we can obtain old records as well. If he has worsening or more severe chest pain he should follow-up immediately or proceed to the emergency room. Ordered: Office Visit Level 4 New 64560 Diabetes mellitus, type 2 Laboratory studies ordered will see what those show and make further recommendations from there. Ordered: Office Visit Level 4 New 48381 Hyperlipidemia Laboratory studies ordered will see what those show and make further recommendations from there. Ordered: Office Visit Level 4 New 60125 Orders: terazosin, 1 mg 1 caps, Oral, Bedtime (once a day), # 30 caps, 0 Refill(s), [facility], 1 caps Oral Bedtime (once a day )
--- OUTSIDE RECORDS SUMMARY | 2017-03-07 09:13 | External Medical Summary | Referral Summary ---
:1945 Author Organization [facility] Address [address] [place] [address] Care Team Providers Name Role Phone Colin Elliott Primary Care Physician Encounter [facility] [id number] Date(s): 05/24/15 - 05/24/15 [facility] [address] [place] [address] [place] Discharge Diagnosis: Diabetes Discharge Diagnosis: Renal insufficiency Discharge Diagnosis: Ischemic cardiomyopathy Discharge Diagnosis: Presence of biventricular cardiac pacemaker Discharge Diagnosis: Hypertension Discharge Disposition: 01-Home or Self Care Attending Physician: Jay Treviño MD Admitting Physician: Jay Treviño MD Referring Physician: Colin Elliott MD Vital Signs Most recent to oldest [Reference Range]: 1 Peripheral Pulse Rate [60-100 bpm] 74 bpm (05/24/15 9:05 AM) Blood Pressure [90-140/60-90 mmHg] 140/80 mmHg (05/24/15 9:05 AM) Problem List Condition Effective Dates Status [...] Daily, # 30 tabs, 6 Refill(s), Pharmacy: [facility], 1 tabs OralDaily Start Date: 03/29/15 Stop Date: 03/29/16 Status: OrderedFLUoxetine 20 mg oral tablet 20 mg 1 tabs, Oral, qAM, # 90 tabs, 0 Refill(s) Start Date: 03/29/15 Status: OrderedLasix 20 mg oral tablet 20 mg 1 tabs, Oral, BID, 0 Refill(s) Start Date: 03/29/15 Status: OrderedLevemir FlexPen 100 units/mL subcutaneous solution 50 u, SubCutaneous, Daily, # 5 Each, 6 Refill(s), Pharmacy: [facility], 50 u SubCutaneous Daily Start Date: 03/29/15 [...] day), # 30 caps, 6 Refill(s), Pharmacy: [facility], 1 caps Oral Bedtime (once a day) Start Date: 03/29/15 Status: Ordered Results No data available for this section Immunizations Vaccine Date Refusal Reason tetanus/diphth/pertuss (Tdap) adult/adol 12/11/14 influenza virus vaccine, inactivated 01/10/15 Procedures No data available for this section Social History Social History Type Response Smoking Status Never smoker Assessment and Plan Referrals to Other Providers Referred by: Jay Treviño MD
--- OUTSIDE RECORDS SUMMARY | 2017-03-07 09:13 | External Medical Summary | Referral Summary ---
:1945 Author Organization [facility] Address [address] [place] [address] [place] [phone] Care Team Providers Name Role Phone Colin Elliott Primary Care Physician Encounter VC Date(s): 01/21/16 - 01/21/16 [facility] [place] [phone] [place] Discharge Diagnosis: Renal insufficiency Discharge Diagnosis: Hyperkalemia Discharge Diagnosis: Vertigo Discharge Diagnosis: Diabetes Discharge Disposition: 01-Home or Self Care Attending Physician: Rubina Prado APRN Admitting Physician: Rubina Prado APRN Vital Signs Most recent to oldest [Reference Range]: 1 Temperature Tympanic [36.6-38.1 degC] 36.1 degC *LOW* (01/21/16 10:16 AM) Peripheral Pulse Rate [60-100 bpm] 72 bpm (01/21/16 10:16 AM) Blood Pressure [90-140/60-90 mmHg] 130/74 mmHg (01/21/16 10:16 AM) Problem List Condition Effective Dates Status [...] Daily, # 30 tabs, 6 Refill(s), Pharmacy: [facility] [id number], 1 tabs OralDaily Start Date: 03/29/15 Stop Date: 03/29/16 Status: OrderedEffient 10 mg oral tablet 10 mg 1 tabs, Oral, Daily, # 90 tabs, 4 Refill(s), Pharmacy: [facility], 1 tabsOral Daily Start Date: 11/20/15 Status: OrderedFLUoxetine 20 mg oral tablet 20 mg 1 tabs, Oral, qAM, # 90 tabs, 0 Refill(s) Start Date: 03/29/15 Status: OrderedInsulin Pin [place] (DME) DME Item DX E11.65 Use with insulin 4 times daily, See Instructions, # 100 Each , 3 Refill(s), Pharmacy: [facility], DX E11.65 Use with insulin 4 times daily, Supply Start Date: 11/19/15 Status: OrderedLevemir FlexTouch 100 units/mL subcutaneous solution See Instructions, INJECT 50 UNITS SUBCUTANEOUS DAILY, # 15 mL, eRx: [facility], INJECT 50 UNITS SUBCUTANEOUS DAILY Start Date: 11/12/15 Status: OrderedLipitor 80 mg oral tablet 80 mg 1 tabs, Oral, Bedtime (once a day), # 90 tabs, 0 Refill(s) Start Date: 03/29/15 Status: Orderedlisinopril-hydrochlorothiazide 20 mg-12.5 mg oral tablet 1 tabs, Oral, Daily, 0 Refill(s) Start Date: 11/01/15 Status: Orderedmetoprolol succinate 100 mg oral tablet, extended release 100 mg 1 tabs, Oral, Daily, # 90 tabs, 4 Refill(s), Pharmacy: [facility] Start Date: 12/25/15 Status: OrderedNitrostat 0.4 mg sublingual tablet 0.4 mg 1 tabs, SubLingual, q5min, as needed for chest pain, # 25 tabs, 3 Refill( s), Pharmacy: [facility], 1 tabs SubLingual q5min,PRN:as needed for chest pain Start Date: 11/21/15 Status: OrderedNovoLOG FlexPen 100 units/mL subcutaneous solution 14 units, SubCutaneous, TIDAC, dx E11.65 BKF and supper 10 U. Lunch 5 U., # 5 Each, 3 Refill(s), Pharmacy: [facility], Use this RX not the previous one, 14 units SubCutaneous TIDAC,Instr:dx E11.65 Start Date: 11/14/15 Status: Orderedpantoprazole 40 mg, Oral, Daily, 0 Refill(s) Start Date: 03/29/15 Status: Orderedterazosin 1 mg oral capsule 1 mg 1 caps, Oral, Bedtime (once a day), # 30 caps, 6 Refill(s), Pharmacy: [facility], 1 caps Oral Bedtime (once a day) [...] and Plan Extracted from: Title: Office Visit Note-insulin Author: Rubina Prado APRN Date: adjustment Assessment/Plan 1.Diabetes Over corrected. [id number] units with breakfast, 5 units with lunch and 10 units with supper. Discussed good food choices and snacks. Continue to check blood sugars as he has been doing. If he has continued low-dose notify the office otherwise follow-up in one month to review blood sugars. Last labs are reviewed with patient. Questions were answered. 2.Vertigo Results. Stop meclizine. 3.Renal insufficiency Overall stable/improved. No medication changes. 4.Hyperkalemia Mild. Not on potassium supplementation.
--- OUTSIDE RECORDS SUMMARY | 2017-03-07 09:13 | External Medical Summary | Referral Summary ---
:1945 Author Organization [facility] [address] [place] [phone] Care Team Providers Name Role Phone Colin Elliott Primary Care Physician Encounter VC [facility] [id number] Date(s): 11/01/15 - 11/01/15 [facility] [place] [phone] [place] Discharge Diagnosis: Diabetes Discharge Diagnosis: Ischemic cardiomyopathy Discharge Diagnosis: S/P coronary artery stent placement Discharge Diagnosis: Coronary heart disease Discharge Diagnosis: Hypertension Discharge Diagnosis: Non-st elevation (nstemi) myocardial infarction Discharge Diagnosis: Medication management Discharge Disposition: 01-Home or Self Care Attending Physician: Rubina Prado APRN Admitting Physician: Rubina Prado APRN Vital Signs Most recent to oldest [Reference Range]: 1 Temperature Tympanic [36.6-38.1 degC] 35.8 degC *LOW* (11/01/15 10:21 AM) Peripheral Pulse Rate [60-100 bpm] 60 bpm (11/01/15 10:21 AM) Blood Pressure [90-140/60-90 mmHg] 142/94 mmHg *HI* (11/01/15 10:21 AM) SpO2 98 % (11/01/15 10:21 AM) Problem List Condition Effective Dates Status [...] Daily, # 30 tabs, 6 Refill(s), Pharmacy: [facility], 1 tabs OralDaily Start Date: 03/29/15 Stop Date: 03/29/16 Status: OrderedEffient 10 mg oral tablet 10 mg 1 tabs, Oral, Daily, # 30 tabs, 0 Refill(s) Start Date: 11/01/15 Status: OrderedFLUoxetine 20 mg oral tablet 20 mg 1 tabs, Oral, qAM, # 90 tabs, 0 Refill(s) Start Date: 03/29/15 Status: OrderedLevemir FlexPen 100 units/mL subcutaneous solution 50 u, SubCutaneous, Daily, # 5 Each, 6 Refill(s), Pharmacy: [facility] 26729, 50 u SubCutaneous Daily Start Date: 03/29/15 [...] Refill(s) Start Date: 11/01/15 Status: OrderedNovoLOG FlexPen 4 units, SubCutaneous, TIDAC, 0 Refill(s) Start Date: 03/29/15 Status: Orderedpantoprazole 40 mg, Oral, Daily, 0 Refill(s) Start Date: 03/29/15 Status: Orderedterazosin 1 mg oral capsule 1 mg 1 caps, Oral, Bedtime (once a day), # 30 caps, 6 Refill(s), Pharmacy: [facility] [address]256, 1 caps Oral Bedtime (once a day) [...] and Plan Extracted from: Title: Office Visit Note-hosp f/u Author: Rubina Prado APRN Date: Assessment/Plan 1.Non-st elevation (nstemi) myocardial infarction 2.Coronary heart disease 3.S/P coronary artery stent placement 4.Vertigo Ordered: Physical Therapy Communication Order Request for Service - [facility] [place]. 5.Hypertension 6.Diabetes 7.Ischemic cardiomyopathy 8.Medication management Discussed with patient multiple causes of vertigo. I would like to set up physical therapy through home healthto provide Thanh maneuversfor patient and to work on increasing his physical activity. Reviewed patient's medications with him in detail. He does not have any resources available at home to help him. We'll set up home health for further education regarding medications and med set up. We'll also have them do cardiac monitoringdue to his recent [place]. Patient is homebound. Requires effort and assist to leave the home. [id number] office visit completed today. Blood pressure is elevated today. We'll need to monitorthis. No further medicationchanges today as he has not madehospital discharge changes yet. Instructed patient to follow-up with Dr. Cabrera 10. Sooner in the office here if he has any issues. Plan follow-up with myself or Dr. Elliott in one month. Encourage patient to check his blood sugars frequently. Let us know if he is having any high or low sugars. Patient voices understanding.
--- OUTSIDE RECORDS SUMMARY | 2017-03-07 09:13 | External Medical Summary ---
:1945 Author Name GENERATED, SYSTEM Care Team Providers Name Role Phone MD EMERY MICHAEL Primary Care Provider [phone] Reason For Visit Chief Complaint PHASE 2- [...]
--- OUTSIDE RECORDS SUMMARY | 2017-03-07 09:13 | External Medical Summary ---
:1945 Author Name GENERATED, SYSTEM Care Team Providers Name Role Phone MD EMERY MICHAEL Primary Care Provider [phone] Reason For Visit Chief Complaint PHASE 2- [...]
--- OUTSIDE RECORDS SUMMARY | 2017-03-07 09:13 | External Medical Summary | Continuity of Care Document ---
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 11/01/2015 Rubina Prado Final Z95.5 Presence of coronary D angioplasty implant and graft 11/01/2015 Rubina Prado Final E11.9 Type 2 diabetes D mellitus without complications 11/01/2015 Rubina Prado Final I10 Essential (primary) D hypertension 11/01/2015 Rubina Prado Final I21.4 Non-ST elevation D (NSTEMI) myocardial infarction 11/01/2015 Rubina Prado Final I25.5 Ischemic D cardiomyopathy 11/01/2015 Rubina Prado Final Z79.899 Other fci D (current) drug therapy 11/20/2015 Ronnie Ibarra Final E11.9 Type 2 diabetes mellitus without complications 11/20/2015 Ronnie Ibarra Final I25.10 Atherosclerotic heart disease of [place] coronary artery without angina pectoris 11/20/2015 Ronnie Ibarra Final N18.4 Chronic kidney disease, stage 4 (severe) 11/20/2015 Ronnie Ibarra Final Z98.89 Other specified postprocedural states 11/20/2015 Ronnie Ibarra Final I21.3 ST elevation (STEMI) myocardial infarction of unspecified site 12/25/2015 Ronnie Ibarra Final I25.10 Atherosclerotic heart disease of [place] coronary artery without angina pectoris 12/25/2015 Ronnie Ibarra Final I25.2 Old myocardial infarction 12/25/2015 Ronnie Ibarra Final I13.0 Hypertensive heart and chronic kidney disease with heart failure and stage 1 through stage 4 chronic kidney disease, or unspecified chronic kidney disease 12/25/2015 Ronnie Ibarra Final I25.5 Ischemic cardiomyopathy 12/25/2015 Ronnie Ibarra Final R53.83 Other fatigue 12/25/2015 Ronnie Ibarra Z95.0 Presence of cardiac pacemaker 12/31/2015 Rubina Prado Final E11.9 Type 2 diabetes D mellitus without complications 12/31/2015 Rubina Prado Final N18.4 Chronic kidney D disease, stage 4 (severe) 12/31/2015 JohanRubina packer Final R42 Dizziness and D giddiness 12/31/2015 JohanRubina packer Final I10 Essential (primary) D hypertension 01/21/2016 JohanRubina packer Final E11.9 Type 2 diabetes D mellitus without complications 01/21/2016 Rubina Prado R42 Dizziness and D giddiness 01/21/2016 JohanRubina packer E87.5 Hyperkalemia D 01/21/2016 Rubina Prado Final N18.3 Chronic kidney D disease, stage 3 (moderate) 03/18/2016 RONNIE IBARRA E119 Type 2 diabetes mellitus without complications 03/18/2016 RONNIE IBARRA E669 Obesity, unspecified 03/18/2016 RONNIE IBARRA E785 Hyperlipidemia, unspecified 03/18/2016 RONNIE IBARRA I10 Essential (primary) hypertension 03/18/2016 RONNIE IBARRA Z5189 Encounter for other specified aftercare 03/18/2016 RONNIE IBARRA Z6830 Body mass index (BMI) 30.0-30.9, adult 03/18/2016 RONNIE IBARRA 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 03/18/2016 RONNIE IBARRA Z955 Presence of coronary angioplasty implant and graft 03/20/2016 RONNIE IBARRA E669 Obesity, unspecified 03/20/2016 RONNIE IBARRA E785 Hyperlipidemia, unspecified 03/20/2016 RONNIE IBARRA I10 Essential (primary) hypertension 03/20/2016 RONNIE IBARRA Z5189 Encounter for other specified aftercare 03/20/2016 RONNIE IBARRA Z6830 Body mass index (BMI) 30.0-30.9, adult 03/20/2016 RONNIE IBARRA Z955 Presence of coronary angioplasty implant and graft 07/20/2016 Earl, Final I10 Essential (primary) Colin K hypertension 07/20/2016 Earl, Final I25.5 Ischemic Colin K cardiomyopathy 07/20/2016 Earl, Final N18.3 Chronic kidney Colin K disease, stage 3 (moderate) 07/20/2016 Earl, Final E11.9 Type 2 diabetes Colin K mellitus without complications 07/20/2016 Earl, Final E78.2 Mixed hyperlipidemia Colin K 07/20/2016 Earl, Final F33.0 Major depressive Colin K disorder, recurrent, mild 07/20/2016 Earl, Final E78.2 Mixed hyperlipidemia Colin K 07/20/2016 Earl, Final F33.0 Major depressive Colin K disorder, recurrent, mild 10/20/2016 Earl, Final I10 Essential (primary) Colin K hypertension 10/20/2016 Earl, Final I25.10 Atherosclerotic heart Colin K disease of [place] coronary artery without angina pectoris 10/20/2016 Earl, Final I25.5 Ischemic Colin K cardiomyopathy 10/20/2016 Earl, Final E11.9 Type 2 diabetes Colin K mellitus without complications 10/20/2016 Earl, Final N18.3 Chronic kidney Colin K disease, stage 3 (moderate) 11/26/2016 Earl, Final E11.9 Type 2 diabetes Colin K mellitus without complications 11/26/2016 Earl, Final E78.2 Mixed hyperlipidemia Colin K 11/26/2016 Earl, Final I10 Essential (primary) Colin K hypertension 11/26/2016 Earl, Final I25.5 Ischemic Colin K cardiomyopathy 11/26/2016 Earl, Final N18.3 Chronic kidney Colin K disease, stage 3 (moderate) 01/13/2017 Ronnie Ibarra Final E11.9 Type 2 diabetes mellitus without complications 01/13/2017 Ronnie Ibarra Final I10 Essential (primary) hypertension 01/13/2017 Ronnie Ibarra Final I25.5 Ischemic cardiomyopathy 01/13/2017 Ronnie Ibarra Final N18.3 Chronic kidney disease, stage 3 (moderate) 01/13/2017 Ronnie Ibarra Final Z95.0 Presence of cardiac pacemaker Procedures Code Description Performed By Performed On 11/01/2015 55475 Transitional Care Management Services with the following required elements: Communication (direct contact, telephone, electronic) with the patient and/or caregiver within 2 business days of discharge 11/20/2015 26929 Office or other outpatient visit for the evaluation and management of an established patient, which requires at least 2 of these 3 javier components: An expanded problem focused history; An expanded prob 12/25/2015 09395 Office or other outpatient visit for the evaluation and management of an established patient, which requires at least 2 of these 3 javier components: An expanded problem focused history; An expanded prob 12/31/2015 63788 Pneumococcal conjugate vaccine, 13 valent (PCV13), for intramuscular use 12/31/2015 37074 Office or other outpatient visit for the evaluation and management of an established patient, which requires at least 2 of these 3 javier components: An expanded problem focused history; An expanded prob 01/21/2016 21473 Office or other outpatient visit for the evaluation and management of an established patient, which requires at least 2 of these 3 javier components: An expanded problem focused history; An expanded prob 02/12/2016 15949 02/14/2016 56080 02/17/2016 53818 02/19/2016 45153 02/21/2016 09237 02/24/2016 49319 02/28/2016 87527 03/09/2016 62482 03/11/2016 38498 03/13/2016 56815 03/16/2016 68036 07/20/2016 02068 Office or other outpatient visit for the evaluation and management of an established patient, which requires at least 2 of these 3 javier components: A detailed history; A detailed examination; Medical d 10/20/2016 39129 Office or other outpatient visit for the evaluation and management of an established patient, which requires at least 2 of these 3 javier components: A detailed history; A detailed examination; Medical d 11/26/2016 20396 Office or other outpatient visit for the evaluation and management of an established patient, which requires at least 2 of these 3 javier components: A detailed history; A detailed examination; Medical d Results Test Result Range CBC With Platelet and Differential - 11/20/15 13:56 Absolute Basophils 0.03 10*3 0.00-0.20 Absolute Eosinophils 0.26 10*3 0.00-0.50 Absolute Lymphocytes 1.83 10*3 0.80-3.30 Absolute Monocytes 0.61 10*3 0.30-1.00 Absolute Neutrophils 4.42 10*3 1.90-7.00 Basophils 0 % 0-2 Eosinophils 4 % 0-4 HCT 45.3 % 42.0-52.0 HGB 15.2 g/dL 14.0-18.0 Immature Granulocytes 0.3 % 0.0-1.0 Lymphocytes 26 % 20-46 MCH 29.2 pg 27.0-32.0 MCHC 33.6 g/dL 32.0-36.0 MCV 87.1 fL 82.0-99.0 Monocytes 9 % 4-11 MPV 9.9 fL 8.8-14.8 Neutrophils 62 % 51-75 Platelet Count 228 K/uL 150-400 RBC 5.20 10*6/uL 4.60-6.20 RDW 15.8 % 11.5-14.5 WBC 7.2 K/uL 4.8-10.8 Basic Metabolic Panel (BMP) - 11/20/15 13:56 Chloride 108 mEq/L 99-111 Potassium 4.6 mEq/L 3.5-5.2 Sodium 139 mEq/L 135-144 eGFR - 11/20/15 13:56 eGFR 36 mL/min >60 B-Type Natriuretic Peptide - 11/20/15 13:56 B-Type Natriuretic Peptide 366 pg/mL 0-99 Lipid Panel - 11/24/16 10:11 Cardiac Risk 4.0 0.0-5.7 Cholesterol 104 mg/dL 0-199 HDL Cholesterol 26 mg/dL 40-84 LDL Cholesterol 35 mg/dL 0-130 Triglycerides 216 mg/dL 0-149 VLDL Cholesterol 43 mg/dL 0-28 Comprehensive Metabolic Panel (CMP) - 11/24/16 10:11 Albumin 4.0 g/dL 3.4-4.8 Alkaline Phosphatase 79 U/L 40-150 ALT (SGPT) 15 U/L 0-55 Anion Gap 10 mEq/L 3-20 AST (SGOT) 21 U/L 5-34 Bilirubin Total 1.2 mg/dL 0.2-1.2 BUN 32 mg/dL 8-26 Calcium 9.4 mg/dL 8.4-10.2 Chloride 103 mEq/L 99-111 CO2 28 mEq/L 23-31 Creatinine 1.66 mg/dL 0.72-1.25 Globulin 3.4 g/dL 1.8-4.0 Glucose 237 mg/dL 70-99 Potassium 4.7 mEq/L 3.5-5.2 Protein 7.4 g/dL 6.0-7.6 Sodium 141 mEq/L 135-144 eGFR - 11/24/16 10:11 eGFR 41 mL/min >60 Hemoglobin A1C - 11/24/16 10:11 Hemoglobin A1C 10.8 % 4.1-5.6 Estimated Average Glucose - 11/24/16 10:11 Estimated Average Glucose 263.3 mg/dL Basic Metabolic Panel (BMP) - 01/13/17 16:27 Chloride 104 mEq/L 99-111 Potassium 4.4 mEq/L 3.5-5.2 Sodium 141 mEq/L 135-144 eGFR - 01/13/17 16:27 eGFR 36 mL/min >60 Encounters ACCT No. Visit Discharge Status Pt. Type Provider Facility Loc./Unit Complaint Date/Time [id number] 01/13/2017 01/13/2017 DIS Outarnol Ibarra, Via [facility] New 1.5 YR RCK 4566 15:21:00 23:59:00 nt Ronnie Kaur [facility] [id number] 11/26/2016 11/26/2016 DIS Outpatienoch Elliott, [facility] New FM recheck diab 1335 10:52:00 23:59:00 nt Colin Kaur having Clinic fasting lab [id number] 11/24/2016 11/24/2016 DIS Outarnol Elliott, [facility] New lab 8415 10:03:00 23:59:00 nt Colin Kaur [facility] [id number] 10/20/2016 10/20/2016 DIS Outpatienoch Elliott, [facility] New FM cdm diab htn 2483 10:41:00 23:59:00 nt Colin Lindi Clinic [id number] 07/20/2016 07/20/2016 DIS Outpatienoch Elliott, Via [facility] med check 5930 10:15:00 23:59:00 nt Colin Kaur Clinic [id number] 01/21/2016 01/21/2016 DIS Outpatie Johan, [facility] follow up BS 3982 10:09:00 23:59:00 fiorella Kaur Clinic [id number] 12/31/2015 12/31/2015 DIS Outpatie Johan, [facility] diab 8728 09:31:00 23:59:00 fiorella Kaur discuss Clinic readings and meds [id number] 12/25/2015 12/25/2015 DIS Outpatie Fred, Via [facility] New 1 mos kimo 6094 15:00:00 23:59:00 nt Ronnie Lindi Card [facility] [id number] 11/20/2015 11/20/2015 DIS Outpatie Fred, Via [facility] New TCPA 6 mos 6578 12:24:00 23:59:00 nt Ronnie Esteban Natasha Card kimo [facility] [id number] 11/01/2015 11/01/2015 DIS Outpatie Johan, Via [facility] New FM DIZZY, TCM 5698 09:43:00 23:59:00 nt Rubina Kaur AFTER Clinic NSTEMI, HEART CATH [id number] 08/05/2015 08/05/2015 DIS Outpatie Earl, Via [facility] New FM 3 month ck 2177 09:22:00 23:59:00 nt Colin Kaur Clinic [id number] 06/04/2015 06/04/2015 DIS Outpatie Kamila, P [facility] Mur ECHO 9178 13:43:00 23:59:00 nt aBrak Kaur [facility] [id number] 05/24/2015 05/24/2015 DIS Outpatie Kamila, P [facility] Mur NPV AICD 6555 08:46:00 23:59:00 nt Barak Kaur [facility] Fred [id number] 04/29/2015 04/29/2015 DIS Outpatie Earl, Via [facility] New 1 month ck 2768 14:34:00 23:59:00 nt Colin Kaur [facility] [id number] 03/29/2015 03/29/2015 DIS Outpatie Earl, Via [facility] New FM Establish 8527 14:52:00 23:59:00 nt Colin Kaur with dr Rodger elliott [id number] 03/12/2016 03/17/2016 DIS Outpatie FRED, <PV2.3.2& 047 00:01:00 15:45:58 fiorella RUSH L gt;Encounter for other specified aftercare&lt ;/PV2.3.2&gt ;<PV2.3.2 >PHASE 2- TELEMETRY MONITORED EXERCISE/&lt ;/PV2.3.2&gt ;<PV2.3.2 >EDUCATIO N</PV2.3. 2><PV2 .3.2>Enco unter for other specified aftercare&lt ;/PV2.3.2&gt ;<PV2.3.2 >Presence of coronary angioplasty implant and graft</PV 2.3.2>&lt ;PV2.3.2> Obesity, unspecified& lt;/PV2.3.2& gt;<PV2.3 .2>Hyperl ipidemia, unspecified& lt;/PV2.3.2& gt;<PV2.3 .2>Essent ial (primary) hypertension </PV2.3.2 ><PV2. 3.2>Body mass index (BMI) 30.0-30.9, adult</PV 2.3.2> [id number] 02/11/2016 03/12/2016 DIS Outpatie FRED, <PV2.3.2& 039 00:01:00 00:14:50 nt RONNIE L gt;Encounter for other specified aftercare&lt ;/PV2.3.2&gt ;<PV2.3.2 >PHASE 2- TELEMETRY MONITORED EXERCISE/&lt ;/PV2.3.2&gt ;<PV2.3.2 >EDUCATIO N</PV2.3. 2><PV2 .3.2>Enco unter for other specified aftercare&lt ;/PV2.3.2&gt ;<PV2.3.2 >Presence of coronary angioplasty implant and graft</PV 2.3.2>&lt ;PV2.3.2> Obesity, unspecified& lt;/PV2.3.2& gt;<PV2.3 .2>Hyperl ipidemia, unspecified& lt;/PV2.3.2& gt;<PV2.3 .2>Type 2 diabetes mellitus without complication s</PV2.3. 2><PV2 .3.2>Esse ntial (primary) hypertension </PV2.3.2 ><PV2. 3.2>Body mass index (BMI) 30.0-30.9, adult</PV 2.3.2>&lt ;PV2.3.2> FPC (current) use of insulin</ PV2.3.2> [id number] 01/11/2016 02/11/2016 DIS Outpatie UNASSIGNED <PV2.3.2& 021 00:01:00 00:14:46 nt DOCTOR, gt;PHASE 2- DOCTOR TELEMETRY MONITORED EXERCISE/&lt ;/PV2.3.2&gt ;<PV2.3.2 >EDUCATIO N</PV2.3. 2> [id number] 12/17/2015 01/11/2016 DIS Outpatie UNASSIGNED <PV2.3.2& 013 09:42:00 00:14:48 nt DOCTOR, gt;PHASE 2- DOCTOR TELEMETRY MONITORED EXERCISE/&lt ;/PV2.3.2&gt ;<PV2.3.2 >EDUCATIO N</PV2.3. 2>
--- NOTE | 2017-03-07 09:37 | Emergency Department Report ---
Chest Pain HPI - General Chief Complaint: Chest Pain Stated Complaint: chest pain, diff breathing Time Seen by Provider: 03/07/17 09:08 - History of Present Illness HPI narrative: 71-year-old gentleman with chest pain onset this morning. He has a fairly significant cardiac history, having had CABG within the last 2 weeks. When asked which vessels, he states "they were all fixed". We're uncertain exactly which vessels were repaired. He did have an ST elevation MS recently. He was just released yesterday from the hospital. He states he's been on IV the entire time and feels very puffy. His states he has a lot more fluid in his legs than normal. His abdomen is also slightly distended without any pain, he states it is been growing with the IV fluids. Patient has midsternal chest pressure which is resolving on its own. No nausea or vomiting. He does have diaphoresis mild. No pain in the shoulder or jaw. - Related Data Home Medications Medication Instructions Recorded Confirmed Atorvastatin Calcium 80 mg PO HS #0 05/27/15 10/14/16 Fluoxetine HCl 20 mg PO DAILY #0 05/27/15 10/14/16 Insulin Aspart [Novolog Flexpen] 20 unit SQ TIDWM #0 05/27/15 10/14/16 Insulin Detemir [Levemir Flextouch] 30 unit SQ BID #0 05/27/15 10/14/16 Lisinopril/Hydrochlorothiazide 1 tab PO DAILY #0 05/08/16 10/14/16 [Lisinopril-Hctz 20-12.5 mg Tab] Metoprolol Succinate 100 mg PO DAILY #0 05/08/16 10/14/16 Pantoprazole Sodium 40 mg PO ACB #0 05/08/16 10/14/16 Prasugrel HCl [Effient] 10 mg PO DAILY #0 05/08/16 10/14/16 Terazosin [Hytrin] 2 mg PO HS 09/29/16 10/14/16 Aspirin *EC* [Ecotrin] 325 mg PO DAILY 09/30/16 10/14/16 Cetirizine HCl 10 mg PO DAILY 09/30/16 10/14/16 Nitroglycerin 0.4 mg SL Q5MIN3 PRN 10/13/16 10/14/16 Furosemide [Lasix] 20 mg PO DAILY 10/14/16 10/14/16 Allergies Allergy/AdvReac Type Severity Reaction Status Date / Time No Known Allergies Allergy Verified 03/07/17 08:57 Review of Systems All systems: reviewed and negative except as stated PFSH Patient Stated Medical History Cerebrovascular Accident Yes Dental Problems Yes: NO TEETH Hearing Loss Yes Angina Yes Congestive Heart Failure Yes Coronary Artery Disease Yes Hypertension Yes Myocardial Infarction Yes Chronic Obstructive Pulmonary Yes Disease (COPD) Sleep Apnea Yes Diabetes Mellitus Type 2 Yes Gastroesophageal Reflux Yes Disease Hx Kidney Stones Yes Other Yes: PAST KIDNEY FAILURE 30% Depression Yes Clinic Medical History Dehydration (Acute Medical) Essential (primary) hypertension (Chronic Medical) Mixed hyperlipidemia (Chronic Medical) Type 2 diabetes mellitus without complications (Chronic Medical) Atherosclerotic heart disease of [place] coronary artery without angina pectoris (Chronic Medical) ICD (implantable cardioverter-defibrillator) in place (Acute Medical) patient does not know brand. Dr. Hernandez believes it is [place] by cardiac cath images Unstable angina (Acute Medical) Underwent left heart cath with successful primary stent of vein graft to PDA using 3.0 x 9 and 3.0 x 18 drug-eluting Resolute Integrity stents. Diastolic CHF (Acute Medical) Diuresed with IV Lasix, discharge on home po Lasix 20mg po daily. Congestive heart failure (Inactive Medical) Surgical History: AICD. CABG - Social History Smoking status: Never smoker Substance use type: does not use Physical Exam - Limitations Limitations: no limitations - General General appearance: alert, in no apparent distress - Normal Exams: Head:: Normocephalic without trauma Cardiovascular:: Regular rate and rhythm, without murmur or gallop, Pulses 2+ all extremities, capillary refill, <2 seconds all extremities Abdomen:: Bowel sounds positive, soft, non-tender, non-distended, no hepatosplenomegaly, masses or bruits noted - Respiratory Respiratory exam: Present: crackles (bilateral bases) - Cardiovascular Cardiovascular exam: Present: regular rate, normal rhythm Course Vital Signs Temperature 98.3 F 03/07/17 08:58 Pulse Rate 64 03/07/17 08:58 Respiratory Rate 19 03/07/17 08:58 Blood Pressure 162/77 H 03/07/17 08:58 Pulse Oximetry 97 03/07/17 08:58 Temperature 98.3 F 03/07/17 08:58 Pulse Rate 64 03/07/17 08:58 Respiratory Rate 19 03/07/17 08:58 Blood Pressure 162/77 H 03/07/17 08:58 Pulse Oximetry 97 03/07/17 08:58 Disposition Prescriptions: No Action Insulin Detemir [Levemir Flextouch] 30 unit SQ BID #0 Fluoxetine HCl 20 mg PO DAILY #0 Lisinopril/Hydrochlorothiazide [Lisinopril-Hctz 20-12.5 mg Tab] 1 tab PO DAILY #0 Metoprolol Succinate 100 mg PO DAILY #0 Prasugrel HCl [Effient] 10 mg PO DAILY #0 Pantoprazole Sodium 40 mg PO ACB #0 Furosemide [Lasix] 20 mg PO DAILY Insulin Aspart [Novolog Flexpen] 20 unit SQ TIDWM #0 Atorvastatin Calcium 80 mg PO HS #0 Terazosin [Hytrin] 2 mg PO HS Aspirin *EC* [Ecotrin] 325 mg PO DAILY Cetirizine HCl 10 mg PO DAILY Nitroglycerin 0.4 mg SL Q5MIN3 PRN PRN Reason: Chest Pain Referrals: Colin Elliott MD [Family Provider] -
[2017-03-07] MEDS: SALINE FLUSH 10ml SYRINGE IVF PRN (09:51)
--- NOTE | 2017-03-07 10:06 | XRay Report ---
INDICATION: chest pain PROCEDURE: CHEST 2-VIEWS UPRIGHT (PA & LAT) Encounter: Initial Comparison: October 14, 2016 Findings: The lungs are stable in appearance without new focal airspace consolidation. There is no pleural effusion or pneumothorax. The heart size, pulmonary vascularity and mediastinal contours are unchanged. Prior CABG with left pacemaker defibrillator. IMPRESSION: Stable appearance of the chest without acute cardiopulmonary disease. .
[2017-03-07 12:41] VITALS: BMI 35.0
[2017-03-07] MEDS ORDERED: ONDANSETRON 4 MG/2 ML INJECTION IVP PRN (13:49)
[2017-03-07] MEDS ORDERED: ACETAMINOPHEN 325 MG TABLET PO PRN (13:49)
[2017-03-07] MEDS ORDERED: HYDRALAZINE 20 MG/ML INJECTION IVP PRN (15:58)
[2017-03-07] MEDS ORDERED: HYDRALAZINE 20 MG/ML INJECTION IVP ONE (16:00)
[2017-03-07] MEDS ORDERED: INSULIN ASPART 12 UNIT SQ SCH (17:30)
[2017-03-07] MEDS: INSULIN ASPART 100unit/ml INJECTION SQ SCH (18:02)
[2017-03-07] MEDS ORDERED: TERAZOSIN 2 MG CAPSULE PO SCH (21:00)
[2017-03-07] MEDS ORDERED: NON-FORMULARY MEDICATION 1 EACH EACH (Atorvastatin Calcium [Atorvastatin Calcium] 80 MG) PO SCH (21:00)
[2017-03-07] MEDS ORDERED: LISINOPRIL 10 MG TABLET PO ONE (21:00)
[2017-03-07] MEDS ORDERED: INSULIN DETEMIR 24 UNIT SQ SCH (21:00)
[2017-03-07] MEDS ORDERED: ATORVASTATIN 40 MG TABLET PO SCH (21:00)
[2017-03-07] MEDS: INSULIN DETEMIR 100unit/ml INJECTION SQ SCH (21:05)
[2017-03-07] MEDS: MECLIZINE 25 MG TABLET PO SCH (21:06)
[2017-03-08] MEDS ORDERED: HEPARIN SUB-Q 5,000 UNITS/0.5 ML INJECTION SQ ONE (06:10)
[2017-03-08] MEDS ORDERED: PANTOPRAZOLE 40 MG TABLET PO SCH (06:30)
[2017-03-08] MEDS ORDERED: ISOSORBIDE MONONITRATE ER 60 MG TABLET PO SCH (07:00)
[2017-03-08] MEDS: INSULIN DETEMIR 100unit/ml INJECTION SQ SCH (08:48)
[2017-03-08] MEDS: INSULIN ASPART 100unit/ml INJECTION SQ SCH ×3 (08:48→17:09)
[2017-03-08] MEDS: MECLIZINE 25 MG TABLET PO SCH (08:50)
[2017-03-08] MEDS ORDERED: PRASUGREL 10 MG TABLET PO SCH (09:00)
[2017-03-08] MEDS ORDERED: HEPARIN SUB-Q 5,000 UNITS/0.5 ML INJECTION SQ SCH ×2 (09:00→17:00)
[2017-03-08] MEDS ORDERED: NON-FORMULARY MEDICATION 1 EACH EACH (Fluoxetine Hcl [Prozac] 40 MG) PO SCH (09:00)
[2017-03-08] MEDS ORDERED: ASPIRIN *EC* 325 MG TABLET PO SCH (09:00)
[2017-03-08] MEDS ORDERED: FLUoxetine 20 MG CAPSULE PO SCH (09:00)
[2017-03-08] MEDS ORDERED: CETIRIZINE 10 MG TABLET PO SCH (09:00)
[2017-03-08] MEDS ORDERED: LISINOPRIL 20 MG TABLET PO SCH (09:00)
--- NOTE | 2017-03-08 10:53 | Cardiology History & Physical ---
History of Present Illness Chief complaint: chest pain HPI: Sebas is a 71-year-old gentleman who is known to Dr. Hernandez with a history of CAD with CABG and stent to vein graft in October of this year, [place], Diastolic and systolic heart failure, HTN, HLD and DM who presented to the ED with chest pain yesterday morning. He did have an TX recently and was discharged from [facility] on Wednesday. He reportedly was on IVF the entire time and feels very puffy. His reported he has a lot more fluid in his legs than normal. His abdomen is also slightly distended without any pain, he states it is been growing with the IV fluids. He reported midsternal chest pressure which is resolved on its own. He is examined in his room on the Surgical unit. He denies complaints, no chest pain or pressure, no dyspnea. He reports increased urination overnight. Review of Systems - Constitutional Constitutional: Absent: chills, fatigue, fever(s) - EENMT Eyes: Absent: change in vision Balance: Absent: vertigo Mouth/Throat: Absent: sore throat, scratchy throat - Cardiovascular Cardiovascular: Present: chest pain, edema. Absent: palpitations, syncope, dyspnea on exertion, orthopnea Vascular: Present: pedal edema - Respiratory Respiratory: Present: dyspnea on exertion, wheezing. Absent: cough, dyspnea - Gastrointestinal Gastrointestinal: Absent: constipation, diarrhea, nausea, vomiting - Genitourinary Genitourinary: Absent: dysuria - Integumentary/Breasts Integumentary: Absent: rash - Neurological Neurological: Absent: dizziness - Endocrine Endocrine: Absent: palpitations PFSH Patient Stated Medical History Cerebrovascular Accident Yes: 2004 Dental Problems Yes: NO TEETH Hearing Loss Yes Angina Yes Congestive Heart Failure Yes Coronary Artery Disease Yes Hypertension Yes Myocardial Infarction Yes Chronic Obstructive Pulmonary Yes Disease (COPD) Sleep Apnea Yes Diabetes Mellitus Type 2 Yes Gastroesophageal Reflux Yes Disease Hx Kidney Stones Yes Other Yes: PAST KIDNEY FAILURE 30% Depression Yes Clinic Medical History Dehydration (Acute Medical) Essential (primary) hypertension (Chronic Medical) Mixed hyperlipidemia (Chronic Medical) Type 2 diabetes mellitus without complications (Chronic Medical) Atherosclerotic heart disease of [place] coronary artery without angina pectoris (Chronic Medical) ICD (implantable cardioverter-defibrillator) in place (Acute Medical) patient does not know brand. Dr. Hernandez believes it is [place] by cardiac cath images Unstable angina (Acute Medical) Underwent left heart cath with successful primary stent of vein graft to PDA using 3.0 x 9 and 3.0 x 18 drug-eluting Resolute Integrity stents. Diastolic CHF (Acute Medical) Diuresed with IV Lasix, discharge on home po Lasix 20mg po daily. Chest pain in adult (Acute Medical) Congestive heart failure (Inactive Medical) Surgical History: AICD. CABG Family History: No family history of CAD, [place], CHF - Social History Smoking status: Never smoker Substance use type: does not use Alcohol intake frequency: does not drink Household members: spouse Current occupational status: retired Current residence: Apartment/Private Home Medications Home Medications Medication Instructions Recorded Confirmed Type Atorvastatin Calcium 80 mg PO HS #0 05/27/15 03/10/17 History Insulin Aspart [Novolog Flexpen] 12 unit SQ TIDWM #0 05/27/15 03/10/17 History Insulin Detemir [Levemir Flextouch] 24 unit SQ BID #0 05/27/15 03/10/17 History Pantoprazole Sodium 40 mg PO ACB #0 05/08/16 03/10/17 History Prasugrel HCl [Effient] 10 mg PO DAILY #0 05/08/16 03/10/17 History Terazosin [Hytrin] 2 mg PO HS 09/29/16 03/10/17 History Aspirin *EC* [Ecotrin] 325 mg PO DAILY 09/30/16 03/10/17 History Cetirizine HCl 10 mg PO DAILY 09/30/16 03/10/17 History Nitroglycerin 0.4 mg SL Q5MIN3 PRN 10/13/16 03/10/17 History Fluoxetine HCl [Prozac] 40 mg PO DAILY 03/07/17 03/10/17 History Isosorbide Mononitrate ER [Imdur] 60 mg PO DAILY 03/07/17 03/10/17 History Lisinopril [Zestril] 5 mg PO DAILY 03/07/17 03/10/17 History Meclizine [Antivert] 25 mg PO BID 03/07/17 03/10/17 History Metoprolol Tartrate [Lopressor] 100 mg PO BID 03/07/17 03/10/17 History Furosemide [Lasix] 80 mg PO DAILY 03/10/17 03/10/17 History Allergies Allergy/AdvReac Type Severity Reaction Status Date / Time No Known Allergies Allergy Verified 03/07/17 08:57 Exam Vital signs: Temperature 97.6 F 03/08/17 07:50 Pulse Rate 60 03/08/17 08:11 Respiratory Rate 16 03/08/17 07:50 Blood Pressure 135/69 03/08/17 07:50 Pulse Oximetry 96 03/08/17 09:58 - Constitutional no acute distress, well nourished, cooperative - Routine HEENT Exam Head: Present: normocephalic ENT: Present: mucous membranes moist - Routine Neck Exam Absent: JVD, carotid bruit - Routine Chest/Breast/Axilla Exam Chest wall: Absent: tenderness - Routine Respiratory Exam Present: decreased breath sounds, CTA bilaterally. Absent: rales, wheezes - Routine Cardiovascular Exam Present: RRR, no murmur - Routine Abdominal Exam Present: soft, normoactive bowel sounds - Routine Extremities Exam Present: no edema - Routine Skin Exam Present: intact, dry, warm - Routine Neurological Exam Present: alert, oriented X3 - Routine Psychiatric Exam Present: normal affect, normal thought process Results 03/08/17 01:16 03/08/17 01:16 Cardiac Enzymes 03/07/17 03/07/17 03/08/17 Range/Units 12:58 18:51 01:16 Troponin I 0.416 H 0.305 H 0.251 H (0-0.12) ng/ml CBC 03/08/17 Range/Units 01:16 WBC 6.6 (4.5-11.0) T/MM3 RBC 3.60 L (4.50-5.90) M/MM3 Hgb 10.6 L (13.5-17.5) GM/DL Hct 33.0 L (41-53) % Plt Count 153 (130-400) T/MM3 Neut # (Auto) 3.7 (1.8-7.7) T/MM3 Lymph # (Auto) 2.0 (1-4.8) T/MM3 [place] # (Auto) 0.6 (0-0.8) T/MM3 Eos # (Auto) 0.2 (0-0.5) T/MM3 Baso # (Auto) 0.0 (0-0.2) T/MM3 Comprehensive Metabolic Panel 03/08/17 Range/Units 01:16 Sodium 143 (134-144) MEQ/L Potassium 4.4 (3.6-5) MEQ/L Chloride 108 H (98-107) MEQ/L Carbon Dioxide 25 (22-30) MEQ/L BUN 42.0 H (9-20) MG/DL Creatinine 1.8 H D (0.8-1.5) MG/DL Glucose 182 H (75-110) MG/DL Calcium 9.1 (8.4-10.2) MG/DL Intake and Output 03/07/17 03/08/17 03/08/17 22:59 06:59 14:59 Intake Total 627 / 627 100 / 100 240 / 240 Output Total 500 / 500 200 / 200 Balance 127 / 127 100 / 100 40 / 40 Intake: Oral 627 / 627 100 / 100 240 / 240 Output: Urine 500 / 500 200 / 200 Other: Urine Appearance Clear Clear Clear Urine Color Yellow Yellow Yellow Urine Odor Normal Normal Normal Stool Color Brown Stool Consistency Formed Size of Bowel Movement Moderate # Voids 1 2 Weight 209 lb 10.554 oz Patient Weight 03/09/17 06:59 Weight 209 lb 10.554 oz - Imaging and Cardiology Echo: pending Imaging & Cardiology Narrative: Date of Exam: 03/07/17 Ordering Provider: Charles Gonzales MD Type of Exam(s): XR chest 2V Reason for Exam(s): chest pain INDICATION: chest pain PROCEDURE: CHEST 2-VIEWS UPRIGHT (PA & LAT) Encounter: Initial Comparison: October 14, 2016 Findings: The lungs are stable in appearance without new focal airspace consolidation. There is no pleural effusion or pneumothorax. The heart size, pulmonary vascularity and mediastinal contours are unchanged. Prior CABG with left pacemaker defibrillator. IMPRESSION: Stable appearance of the chest without acute cardiopulmonary disease. 03/08/17 18:33 EKG interpretations - [place], pacemaker, normal Pacemaker: ventricular pacing w/capture (except when refractory) Hospital Course This is a general summary of the patient's hospital course. For more details refer to the complete medical record. Time spent with patient: 25 - 35 minutes DVT Prophylaxis: Lovenox Assessment and Plan - Attestation Attestation Narrative: 03/11/17 12:03 Recommendation After examining the patient I agree with the above assessment. I am involved in the formulation of the patient's plan of care. - Assessment and Plan (1) Precordial pain Status: Acute resolved - Troponin trending down form previous TX (2) Diastolic CHF Status: Chronic Acute on chronic exacerbation - probably related to recent hospitalization - Diuresis with IV Lasix (3) Essential (primary) hypertension Status: Chronic (4) Mixed hyperlipidemia Status: Chronic (5) Type 2 diabetes mellitus without complications Status: Chronic (6) Atherosclerotic heart disease of [place] coronary artery without angina pectoris Status: Chronic (7) ICD (implantable cardioverter-defibrillator) in place Problem details: SMS [place] Status: Chronic
[2017-03-08] MEDS ORDERED: FALL RISK - PHARMACY CONSULT XX ONE (12:23)
[2017-03-08] MEDS ORDERED: FUROSEMIDE 20 MG/2 ML INJECTION IVP ONE (13:29)
[2017-03-08] MEDS: SALINE FLUSH 10ml SYRINGE IVF PRN (13:39)
[2017-03-08 15:22] VITALS: RESP 22
[2017-03-08 15:23] VITALS: PULSE 60
--- NOTE | 2017-03-08 18:37 | Discharge Summary ---
<Yasmin Cabrera - Last Filed: 03/10/17 15:15> Discharge Information Date of admission: 03/07/17 12:12 Anticipated date of discharge: 03/08/17 Attending Physician: Rubin Hernandez MD Primary care physician: Colin Elliott MD - Discharge Diagnosis (1) Diastolic CHF Status: Chronic (2) Essential (primary) hypertension Status: Chronic (3) Mixed hyperlipidemia Status: Chronic (4) Type 2 diabetes mellitus without complications Status: Chronic (5) Atherosclerotic heart disease of [place] coronary artery without angina pectoris Status: Chronic (6) ICD (implantable cardioverter-defibrillator) in place Status: Chronic (7) Precordial pain Status: Acute - Laboratory Labs: 03/08/17 01:16 03/08/17 01:16 Laboratory Results - last 24 hr 03/07/17 03/07/17 03/08/17 18:51 20:51 01:16 WBC RBC Hgb Hct MCV MCH MCHC RDW Std Deviation Plt Count MPV Immature Gran % (Auto) Neut % (Auto) Lymph % (Auto) [place] % (Auto) Eos % (Auto) Baso % (Auto) Neut # (Auto) Lymph # (Auto) [place] # (Auto) Eos # (Auto) Baso # (Auto) Abs Immat Gran (auto) Turbidity Sodium Potassium Chloride Carbon Dioxide Anion Gap BUN Creatinine GFR Calculation BUN/Creatinine Ratio Glucose Glucometer 269 Calculated Osmolality Calcium Icterus Index Troponin I 0.305 H 0.251 H B-Natriuretic Peptide Specimen Hemolysis < 15 < 15 03/08/17 03/08/17 03/08/17 01:16 01:16 01:16 WBC 6.6 RBC 3.60 L Hgb 10.6 L Hct 33.0 L MCV 91.7 MCH 29.4 MCHC 32.1 RDW Std Deviation 51.7 H Plt Count 153 MPV 10.0 Immature Gran % (Auto) 0.2 Neut % (Auto) 55.5 Lymph % (Auto) 30.5 [place] % (Auto) 9.6 H Eos % (Auto) 3.7 Baso % (Auto) 0.5 Neut # (Auto) 3.7 Lymph # (Auto) 2.0 [place] # (Auto) 0.6 Eos # (Auto) 0.2 Baso # (Auto) 0.0 Abs Immat Gran (auto) 0.01 Turbidity < 20 Sodium 143 Potassium 4.4 Chloride 108 H Carbon Dioxide 25 Anion Gap 10 BUN 42.0 H Creatinine 1.8 H D GFR Calculation 38 BUN/Creatinine Ratio 23 Glucose 182 H Glucometer Calculated Osmolality 291 H Calcium 9.1 Icterus Index < 2 Troponin I B-Natriuretic Peptide 49725 H Specimen Hemolysis < 15 03/08/17 03/08/17 03/08/17 06:33 11:45 11:45 WBC RBC Hgb Hct MCV MCH MCHC RDW Std Deviation Plt Count MPV Immature Gran % (Auto) Neut % (Auto) Lymph % (Auto) [place] % (Auto) Eos % (Auto) Baso % (Auto) Neut # (Auto) Lymph # (Auto) [place] # (Auto) Eos # (Auto) Baso # (Auto) Abs Immat Gran (auto) Turbidity Sodium Potassium Chloride Carbon Dioxide Anion Gap BUN Creatinine GFR Calculation BUN/Creatinine Ratio Glucose Glucometer 126 152 Calculated Osmolality Calcium Icterus Index Troponin I B-Natriuretic Peptide 7540 H Specimen Hemolysis 03/08/17 03/08/17 17:05 17:27 WBC RBC Hgb Hct MCV MCH MCHC RDW Std Deviation Plt Count MPV Immature Gran % (Auto) Neut % (Auto) Lymph % (Auto) [place] % (Auto) Eos % (Auto) Baso % (Auto) Neut # (Auto) Lymph # (Auto) [place] # (Auto) Eos # (Auto) Baso # (Auto) Abs Immat Gran (auto) Turbidity Sodium Potassium Chloride Carbon Dioxide Anion Gap BUN Creatinine GFR Calculation BUN/Creatinine Ratio Glucose Glucometer 67 107 Calculated Osmolality Calcium Icterus Index Troponin I B-Natriuretic Peptide Specimen Hemolysis - Radiology Radiology: Date of Exam: 03/07/17 Ordering Provider: Charles Gonzales MD Type of Exam(s): XR chest 2V Reason for Exam(s): chest pain INDICATION: chest pain PROCEDURE: CHEST 2-VIEWS UPRIGHT (PA & LAT) Encounter: Initial Comparison: October 14, 2016 Findings: The lungs are stable in appearance without new focal airspace consolidation. There is no pleural effusion or pneumothorax. The heart size, pulmonary vascularity and mediastinal contours are unchanged. Prior CABG with left pacemaker defibrillator. IMPRESSION: Stable appearance of the chest without acute cardiopulmonary disease. History of Present Illness HPI: Sebas is a 71-year-old gentleman who is known to Dr. Hernandez with a history of CAD with CABG and stent to vein graft in October of this year, [place], Diastolic and systolic heart failure, HTN, HLD and DM who presented to the ED with chest pain yesterday morning. He did have an AL recently and was discharged from [facility] on Wednesday. He reportedly was on IVF the entire time and feels very puffy. His reported he has a lot more fluid in his legs than normal. His abdomen is also slightly distended without any pain, he states it is been growing with the IV fluids. He reported midsternal chest pressure which is resolved on its own. He is examined in his room on the Surgical unit. He denies complaints, no chest pain or pressure, no dyspnea. He reports increased urination overnight. Hospital Course This is a general summary of the patient's hospital course. For more details refer to the complete medical record. Time spent with patient: 25 - 35 minutes Exam Vital signs: Temperature 97.7 F 03/08/17 15:19 Pulse Rate 60 03/08/17 15:57 Respiratory Rate 22 03/08/17 15:19 Blood Pressure 130/63 03/08/17 15:22 Pulse Oximetry 96 03/08/17 15:19 - Constitutional no acute distress, well nourished, cooperative - Routine HEENT Exam Head: Present: normocephalic ENT: Present: mucous membranes moist - Routine Neck Exam Absent: JVD, carotid bruit - Routine Chest/Breast/Axilla Exam Chest wall: Absent: tenderness - Routine Respiratory Exam Present: CTA bilaterally, diminished air movement. Absent: rales, wheezes - Routine Cardiovascular Exam Present: RRR, no murmur - Routine Abdominal Exam Present: soft, normoactive bowel sounds - Routine Extremities Exam Present: no edema - Routine Skin Exam Present: intact, dry, warm - Routine Neurological Exam Present: alert, oriented X3 - Routine Psychiatric Exam Present: normal affect, normal thought process Results 03/08/17 01:16 03/08/17 01:16 Cardiac Enzymes 03/07/17 03/08/17 03/08/17 Range/Units 18:51 01:16 01:16 Troponin I 0.305 H 0.251 H (0-0.12) ng/ml B-Natriuretic Peptide 33967 H (0-175) pg/mL 03/08/17 Range/Units 11:45 Troponin I (0-0.12) ng/ml B-Natriuretic Peptide 7540 H (0-175) pg/mL Coagulation 03/08/17 03/08/17 Range/Units 01:16 11:45 B-Natriuretic Peptide 43407 H 7540 H (0-175) pg/mL CBC 03/08/17 Range/Units 01:16 WBC 6.6 (4.5-11.0) T/MM3 RBC 3.60 L (4.50-5.90) M/MM3 Hgb 10.6 L (13.5-17.5) GM/DL Hct 33.0 L (41-53) % Plt Count 153 (130-400) T/MM3 Neut # (Auto) 3.7 (1.8-7.7) T/MM3 Lymph # (Auto) 2.0 (1-4.8) T/MM3 [place] # (Auto) 0.6 (0-0.8) T/MM3 Eos # (Auto) 0.2 (0-0.5) T/MM3 Baso # (Auto) 0.0 (0-0.2) T/MM3 Comprehensive Metabolic Panel 03/08/17 Range/Units 01:16 Sodium 143 (134-144) MEQ/L Potassium 4.4 (3.6-5) MEQ/L Chloride 108 H (98-107) MEQ/L Carbon Dioxide 25 (22-30) MEQ/L BUN 42.0 H (9-20) MG/DL Creatinine 1.8 H D (0.8-1.5) MG/DL Glucose 182 H (75-110) MG/DL Calcium 9.1 (8.4-10.2) MG/DL Intake and Output 03/08/17 03/08/17 03/08/17 06:59 14:59 22:59 Intake Total 100 / 100 530 / 530 960 / 960 Output Total 575 / 575 Balance 100 / 100 -45 / -45 960 / 960 Intake: Oral 100 / 100 530 / 530 960 / 960 Output: Urine 575 / 575 Other: Urine Appearance Clear Clear Urine Color Yellow Yellow Urine Odor Normal Normal Stool Characteristics Normal for Patient Stool Color Brown Stool Consistency Normal for Patient Size of Bowel Movement Moderate # Voids 2 1 # Bowel Movements 1 Weight 209 lb 10.554 oz Patient Weight 03/09/17 06:59 Weight 209 lb 10.554 oz - Imaging and Cardiology Echo: pending - EKG Interpretation EKG: not changed from: Discharge Plan - Med Rec/Dispo Referrals/Follow Up: Rubin Hernandez MD [Physician] - [facility] Instructions: Chest Pain (DC) Prescriptions: Continue Insulin Detemir [Levemir Flextouch] 24 unit SQ BID #0 Prasugrel HCl [Effient] 10 mg PO DAILY #0 Pantoprazole Sodium 40 mg PO ACB #0 Fluoxetine HCl [Prozac] 40 mg PO DAILY Meclizine [Antivert] 25 mg PO BID Lisinopril [Zestril] 5 mg PO DAILY Isosorbide Mononitrate ER [Imdur] 60 mg PO DAILY Insulin Aspart [Novolog Flexpen] 12 unit SQ TIDWM #0 Atorvastatin Calcium 80 mg PO HS #0 Terazosin [Hytrin] 2 mg PO HS Aspirin *EC* [Ecotrin] 325 mg PO DAILY Cetirizine HCl 10 mg PO DAILY Nitroglycerin 0.4 mg SL Q5MIN3 PRN PRN Reason: Chest Pain Metoprolol Tartrate [Lopressor] 100 mg PO BID No Action Furosemide [Lasix] 80 mg PO DAILY - Disposition [facility] - Dismissal Complete Discharge Instructions are:: Complete <Rubin Hernandez - Last Filed: 03/11/17 12:02> Discharge Information Date of admission: 03/07/17 12:12 Attending Physician: Rubin Hernandez MD Primary care physician: Colin Elliott MD - Discharge Diagnosis (1) Essential (primary) hypertension Status: Chronic (2) Mixed hyperlipidemia Status: Chronic (3) Type 2 diabetes mellitus without complications Status: Chronic (4) Atherosclerotic heart disease of [place] coronary artery without angina pectoris Status: Chronic (5) ICD (implantable cardioverter-defibrillator) in place Status: Chronic (6) Diastolic CHF Status: Chronic (7) Precordial pain Status: Acute - Laboratory Labs: 03/08/17 01:16 03/08/17 01:16 Hospital Course This is a general summary of the patient's hospital course. For more details refer to the complete medical record. Exam Vital signs: Temperature 98.5 F 03/08/17 19:00 Pulse Rate 60 03/08/17 20:39 Respiratory Rate 22 03/08/17 19:00 Blood Pressure 125/69 03/08/17 19:00 Pulse Oximetry 97 03/08/17 19:00 Results 03/08/17 01:16 03/08/17 01:16 Attestation Narriative - Attestation Attestation Narrative: 03/11/17 12:02 Recommendation After examining the patient I agree with the above assessment. I am involved in the formulation of the patient's plan of care.
[2017-03-08 20:05] VITALS: BP 125/69; TEMP 98.5; O2SAT 97
--- NOTE | 2017-03-08 22:00 | Echocardiogram ---
DATE OF PROCEDURE March 08, 2017 This is a two-dimensional echo with spectral Doppler, color-flow and M-mode. It was obtained in a patient with chest pain and elevated troponin. Left atrium is dilated. Left ventricular end-diastolic dimension is normal. Left ventricular wall thickness is increased. LV systolic function is mildly reduced with ejection fraction of about 45%. Right atrium is dilated. Right ventricle is normal. Aortic root dimension is normal. Mitral valve appears to be normal with mild mitral regurgitation. Aortic valve is a trileaflet structure with no stenosis or insufficiency. Tricuspid valve shows moderate tricuspid regurgitation with moderate pulmonary hypertension with estimated pulmonary artery systolic pressure of 49. Pulmonary valve shows mild pulmonary insufficiency. There is no pericardial effusion. Pacemaker is present in the right heart. IMPRESSION 1. Technically difficult study. 2. Biatrial dilation. 3. Concentric left ventricular hypertrophy. 4. Mild LV dysfunction with ejection fraction of about 45%. 5. Pacemaker present in right heart. 6. Mild mitral regurgitation. 7. Moderate tricuspid regurgitation with moderate pulmonary hypertension with estimated pulmonary artery systolic pressure of 49. 8. Mild pulmonary insufficiency. MTDD
[2017-03-09] MEDS ORDERED: FUROSEMIDE 20 MG TABLET PO SCH (09:00)
== END 2017-03-08 21:24 | disposition home health service (06) ==
LOC: SRG 08:53 → ED 08:53 → SRG 12:25
PROVIDERS: ADMIT Internal Medicine Cardiovascular Disease; ATTEND Internal Medicine Cardiovascular Disease

== ENCOUNTER 2017-03-10 12:29 | Inpatient (IN) ==
--- OUTSIDE RECORDS SUMMARY | 2017-03-10 12:40 | External Medical Summary | Continuity of Care Document ---
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 11/01/2015 Rubina [...] cardiomyopathy 11/01/2015 Rubina Prado Final Z79.899 Other senior care D (current) drug therapy 11/20/2015 Ronnie Ibarra Final E11.9 Type 2 diabetes mellitus without complications 11/20/2015 Ronnie Ibarra Final I25.10 Atherosclerotic heart disease of [place] coronary artery without angina pectoris 11/20/2015 Ronnie Ibarra Final N18.4 Chronic kidney disease, stage 4 (severe) 11/20/2015 Ronnie Ibarra Final Z98.89 Other specified postprocedural states 11/20/[address]3 [address] elevation (STEMI) myocardial infarction of unspecified site 12/25/2015 Ronnie Ibarra Final I25.10 Atherosclerotic heart disease of [place] coronary artery without angina pectoris 12/25/2015 Ronnie [...] (BMI) 30.0-30.9, adult 03/18/2016 RONNIE IBARRA Z794 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 03/18/2016 RONNIE IBARRA [...] I25.10 Atherosclerotic heart Colin K disease of [place] coronary artery without angina pectoris 10/20/2016 Earl, [...] Code Description Performed By Performed On 11/01/2015 76347 Transitional Care Management Services with the following required elements: Communication (direct contact, telephone, electronic) with the patient and/or caregiver within 2 business days of discharge 11/20/2015 70897 Office or other outpatient visit for the evaluation and management of an established patient, which requires at least 2 of these 3 javier components: An expanded problem focused history; An expanded prob 12/25/2015 70890 Office or other outpatient visit for the evaluation and management of an established patient, which requires at least 2 of these 3 javier components: An expanded problem focused history; An expanded prob 12/31/2015 04972 Pneumococcal conjugate vaccine, 13 valent (PCV13), for intramuscular use 12/31/2015 89116 Office or other outpatient visit for the evaluation and management of an established patient, which requires at least 2 of these 3 javier components: An expanded problem focused history; An expanded prob 01/21/2016 39067 Office or other outpatient visit for the evaluation and management of an established patient, which requires at least 2 of these 3 javier components: An expanded problem focused history; An expanded prob 02/12/2016 91308 02/14/2016 54494 02/17/2016 87440 02/19/2016 83024 02/21/2016 50216 02/24/2016 28959 02/28/2016 26733 03/09/2016 36563 03/11/2016 21843 03/13/2016 61148 03/16/2016 15265 07/20/2016 27659 Office or other outpatient visit for the evaluation and management of an established patient, which requires at least 2 of these 3 javier components: A detailed history; A detailed examination; Medical d 10/20/2016 20897 Office or other outpatient visit for the evaluation and management of an established patient, which requires at least 2 of these 3 javier components: A detailed history; A detailed examination; Medical d 11/26/2016 85143 Office or other outpatient visit for the [...] Pt. Type Provider Facility Loc./Unit Complaint Date/Time [id number] 01/13/2017 01/13/2017 DIS Outarnol Ibarra, Via [facility] New 1.5 YR RCK 4566 15:21:00 23:59:00 nt Ronnie Kaur [facility] [id number] 11/26/2016 11/26/2016 DIS Outpatienoch Elliott, Via [facility] New FM recheck diab 1335 10:52:00 23:59:00 nt Colin Kaur having Clinic fasting lab [id number] 11/24/2016 11/24/2016 DIS Outarnol Elliott, Via [facility] New lab 8415 10:03:00 23:59:00 nt Colin Kaur Lab Clinic [id number] 10/20/2016 10/20/2016 DIS Outpatienoch Elliott, Via [facility] New FM cdm diab htn 2483 10:41:00 23:59:00 nt Colin Lindi Clinic [id number] 07/20/2016 07/20/2016 DIS Outpatienoch Elliott, Via [facility] med check 5930 10:15:00 23:59:00 nt Colin Kaur Clinic [id number] 01/21/2016 01/21/2016 DIS Outpatie Johan, Via [facility] follow up BS 3982 10:09:00 23:59:00 fiorella Kaur Clinic [id number] 12/31/2015 12/31/2015 DIS Outpatie Johan, Via [facility] diab 8728 09:31:00 23:59:00 fiorelal Kaur discuss Clinic readings and meds [id number] 12/25/2015 12/25/2015 DIS Outpatie Fred, Via [facility] New 1 mos kimo 6094 15:00:00 23:59:00 nt Ronnie Lindi Card [facility] [id number] 11/20/2015 11/20/2015 DIS Outpatie Fred, Via [facility] New TCPA 6 mos 6578 12:24:00 23:59:00 nt Ronnie Esteban Natasha Card kimo [facility] [id number] 11/01/2015 11/01/2015 DIS Outpatie Johan, Via [facility] New FM DIZZY, TCM 5698 09:43:00 23:59:00 nt Rubina Kaur AFTER Clinic NSTEMI, HEART CATH [id number] 08/05/2015 08/05/2015 DIS Outpatie Earl, Via [facility] New FM 3 month ck 2177 09:22:00 23:59:00 nt Colin Kaur Clinic [id number] 06/04/2015 06/04/2015 DIS Outpatie Kamila, P [facility] Mur ECHO 9178 13:43:00 23:59:00 nt Barak Kaur [facility] [place] [id number] 05/24/2015 05/24/2015 DIS Outpatie Kamila, P [facility] Mur NPV AICD 6555 08:46:00 23:59:00 nt Barak Kaur [facility] Fred [id number] 04/29/2015 04/29/2015 DIS Outpatie Earl, Via [facility] New 1 month ck 2768 14:34:00 23:59:00 nt Colin Kaur [facility] [id number] 03/29/2015 03/29/2015 DIS Outpatie Earl, Via [facility] New FM Establish 8527 14:52:00 23:59:00 nt Colin Kaur with dr Rodger elliott [id number] 03/12/2016 03/17/2016 DIS Outpatie FRED, <PV2.3.2& 047 [...] 3.2>Body mass index (BMI) 30.0-30.9, adult</PV 2.3.2> [id number] 02/11/2016 03/12/2016 DIS Outpatie FRED, <PV2.3.2& 039 [...] mass index (BMI) 30.0-30.9, adult</PV 2.3.2>&lt ;PV2.3.2> senior living (current) use of insulin</ PV2.3.2> [id number] 01/11/2016 02/11/2016 DIS Outpatie UNASSIGNED <PV2.3.2& 021 00:01:00 00:14:46 nt DOCTOR, gt;PHASE 2- DOCTOR TELEMETRY MONITORED EXERCISE/&lt ;/PV2.3.2&gt ;<PV2.3.2 >EDUCATIO N</PV2.3. 2> [id number] 12/17/2015 01/11/2016 DIS Outpatie UNASSIGNED <PV2.3.2& 013 09:42:00 00:14:48 nt DOCTOR, gt;PHASE 2- DOCTOR TELEMETRY MONITORED EXERCISE/&lt ;/PV2.3.2&gt ;<PV2.3.2 >EDUCATIO N</PV2.3. 2>
[2017-03-10] MEDS ORDERED: ONDANSETRON 4 MG/2 ML INJECTION IVP ONE (12:45)
[2017-03-10] MEDS ORDERED: ASPIRIN 81 MG CHEWABLE TABLET PO ONE (12:45)
[2017-03-10] MEDS ORDERED: NITROGLYCERIN 0.4 MG SUBLINGUAL TABLET SL PRN (12:45)
[2017-03-10] MEDS ORDERED: METOPROLOL 5mg/5ml INJECTION IVP ONE (12:45)
[2017-03-10] MEDS ORDERED: SALINE FLUSH 10ml SYRINGE IVF PRN (12:45)
[2017-03-10] MEDS: NS 1,000 ML IV SCH ×2 (12:50→19:33)
[2017-03-10] MEDS ORDERED: PROCHLORPERAZINE 10 MG/2 ML INJECTION IVP ONE (13:10)
--- NOTE | 2017-03-10 13:22 | Emergency Department Report ---
General Adult HPI - General Chief complaint: Medical Emergency Stated complaint: LOC, Nausea Time Seen by Provider: 03/10/17 12:34 - History of Present Illness HPI narrative: 71-year-old gentleman presents to ED with chest pain, shortness of breath and weakness. Patient is so weak he cannot speak. He was at home and had recurrent chest pain. Also lost control of his bowels. He called EMS, they had to break the door down as he could not get out of his recliner. On arrival his O2 saturations appropriate is not requiring oxygen supplementation, heart rate is in the 140s and blood pressure was elevated with systolic greater than 180. He was nauseated, having severely aggressive retching. - Related Data Home Medications Medication Instructions Recorded Confirmed Atorvastatin Calcium 80 mg PO HS #0 05/27/15 03/10/17 Insulin Aspart [Novolog Flexpen] 12 unit SQ TIDWM #0 05/27/15 03/10/17 Insulin Detemir [Levemir Flextouch] 24 unit SQ BID #0 05/27/15 03/10/17 Pantoprazole Sodium 40 mg PO ACB #0 05/08/16 03/10/17 Prasugrel HCl [Effient] 10 mg PO DAILY #0 05/08/16 03/10/17 Terazosin [Hytrin] 2 mg PO HS 09/29/16 03/10/17 Aspirin *EC* [Ecotrin] 325 mg PO DAILY 09/30/16 03/10/17 Cetirizine HCl 10 mg PO DAILY 09/30/16 03/10/17 Nitroglycerin 0.4 mg SL Q5MIN3 PRN 10/13/16 03/10/17 Fluoxetine HCl [Prozac] 40 mg PO DAILY 03/07/17 03/10/17 Isosorbide Mononitrate ER [Imdur] 60 mg PO DAILY 03/07/17 03/10/17 Lisinopril [Zestril] 5 mg PO DAILY 03/07/17 03/10/17 Meclizine [Antivert] 25 mg PO BID 03/07/17 03/10/17 Metoprolol Tartrate [Lopressor] 100 mg PO BID 03/07/17 03/10/17 Furosemide [Lasix] 80 mg PO DAILY 03/10/17 03/10/17 Allergies Allergy/AdvReac Type Severity Reaction Status Date / Time No Known Allergies Allergy Verified 03/07/17 08:57 Review of Systems Limitations: ROS unobtainable due to patient's medical condition [facility] Patient Stated Medical History Cerebrovascular Accident Yes: 2004 Dental Problems Yes: NO TEETH Hearing Loss Yes Angina Yes Congestive Heart Failure Yes Coronary Artery Disease Yes Hypertension Yes Myocardial Infarction Yes Chronic Obstructive Pulmonary Yes Disease (COPD) Sleep Apnea Yes Diabetes Mellitus Type 2 Yes Gastroesophageal Reflux Yes Disease Hx Kidney Stones Yes Other Yes: PAST KIDNEY FAILURE 30% Depression Yes Clinic Medical History Dehydration (Acute Medical) Essential (primary) hypertension (Chronic Medical) Mixed hyperlipidemia (Chronic Medical) Type 2 diabetes mellitus without complications (Chronic Medical) Atherosclerotic heart disease of [place] coronary artery without angina pectoris (Chronic Medical) ICD (implantable cardioverter-defibrillator) in place (Chronic Medical) [employer] Unstable angina (Acute Medical) Underwent left heart cath with successful primary stent of vein graft to PDA using 3.0 x 9 and 3.0 x 18 drug-eluting Resolute Integrity stents. Diastolic CHF (Chronic Medical) Chest pain in adult (Acute Medical) Precordial pain (Acute Medical) Congestive heart failure (Inactive Medical) Surgical History: AICD. CABG - Social History Smoking status: Never smoker Current residence: Apartment/Private Home Physical Exam - Limitations Limitations: other (patient seems to exhausted to respond. He does shake his head yes or no to answer some questions.) - General General appearance: lethargic, in distress - Normal Exams: Head:: Normocephalic without trauma Chest/Respirations:: Clear all beckman, with good airflow, and symmetry bilaterally Abdomen:: non-distended - Chest Chest inspection: Present: normal inspection - Cardiovascular Cardiovascular exam: Present: other (patient seems to have regular rhythm, however the rate is changing frequently and has gone from quite tachycardic down to a monitored EKG rate of 30. Pulse was about appropriate to 30 at that time as well. Pacemaker and seemed to kick in with pulse rising to 60 over the next 60 seconds or so.) - Abdominal Exam Abdominal exam: Present: distention, tenderness, diminished bowel sounds. Absent: guarding, rebound Course Vital Signs Temperature 97.5 F 03/10/17 12:44 Pulse Rate 60 03/10/17 12:44 Respiratory Rate 16 03/10/17 12:44 Blood Pressure 210/100 H 03/10/17 12:44 Pulse Oximetry 100 11/29/17 12:44 Temperature 97.5 F 03/10/17 12:44 Pulse Rate 60 03/10/17 15:50 Respiratory Rate 16 03/10/17 15:46 Blood Pressure 180/94 H 03/10/17 15:50 Pulse Oximetry 98 03/10/17 15:46 Medical Decision Making - [facility] Narrative Medical decision making narrative: Labs showed no elevated white count, no elevated troponin, EKG showed no acute ischemia. Creatinine was elevated at 2.0, up slightly from last visit. I was concerned about the episode of bradycardia, documented by exam while the patient was in radiology. We noticed more than one episode after that where his heart pacing seem to show bradycardia below 40, pulse was at or above 40. Pacer markings then began to show a heart rate staying at 60 after that. Basically, he was Initially tachycardic, then bradycardic then consistent, staying at 60. He has been slow to answer questions, had very little energy to speak and was whispering for the most part difficult to understand. Temperature remained afebrile, but blood pressure remained elevated. He was initially given 5 mg metoprolol IV. Also required hydralazine 10 mg IV. He complained of both chest pain and abdominal pain. Abdominal pain was right lower quadrant and localized to the area of entry for angiogram performed in the last [address] abdomen and pelvis did not show any specific etiology for abdominal pain or for loss of bowel control. He did have some localized inguinal adenopathy on the right. CT head showed no acute abnormalities to justify the confusion or loss of bowel control. Dr. Hernandez did come and see the patient and recommended that he be placed on consult for the admission. Case is reviewed with hospitalist and patient was admitted with chest pain, elevated BNP showing acute exacerbation of CHF. He will be placed on telemetry in the ICU. - Medical Records Medical records reviewed: Yes: I reviewed the patient's medical records. - Lab Data Lab results reviewed: Yes: I reviewed the patient's lab results. Result diagrams: 03/10/17 12:45 03/10/17 12:45 Lab Results 03/10/17 03/10/17 03/10/17 Range/Units 12:45 12:45 15:03 WBC 9.3 D (4.5-11.0) T/MM3 RBC 3.90 L (4.50-5.90) M/MM3 Hgb 11.6 L (13.5-17.5) GM/DL Hct 35.7 L (41-53) % MCV 91.5 (80-100) UM3 MCH 29.7 (26-34) UUG MCHC 32.5 (31-37) GM/DL RDW Std Deviation 52.4 H (36.9-50.2) FL Plt Count 180 (130-400) T/MM3 MPV 10.9 (9.4-12.4) UM3 Immature Gran % (Auto) 0.5 (0.0-0.5) % Neut % (Auto) 52.8 (33-66) % Lymph % (Auto) 33.3 (23-45) % [place] % (Auto) 10.3 H (0-9.0) % Eos % (Auto) 2.6 (0-4) % Baso % (Auto) 0.5 (0-2) % Neut # (Auto) 4.9 (1.8-7.7) T/MM3 Lymph # (Auto) 3.1 (1-4.8) T/MM3 [place] # (Auto) 1.0 H (0-0.8) T/MM3 Eos # (Auto) 0.2 (0-0.5) T/MM3 Baso # (Auto) 0.1 (0-0.2) T/MM3 Abs Immat Gran (auto) 0.05 H (0.00-0.03) T/MM3 Turbidity < 20 (0-20) Sodium 144 (134-144) MEQ/L Potassium 4.3 (3.6-5) MEQ/L Chloride 109 H (98-107) MEQ/L Carbon Dioxide 23 (22-30) MEQ/L Anion Gap 12 (5-15) MEQ/L BUN 50.0 H (9-20) MG/DL Creatinine 2.0 H D (0.8-1.5) MG/DL GFR Calculation 33 BUN/Creatinine Ratio 25 (6-26) RATIO Glucose 177 H (75-110) MG/DL Calculated Osmolality 294 H (261-280) MOSM/KG Calcium 9.2 (8.4-10.2) MG/DL Total Bilirubin 0.90 (0.20-1.30) MG/DL Icterus Index < 2 (0-7) AST 33 (17-59) U/L ALT 34 (21-72) U/L Alkaline Phosphatase 79 (38-126) U/L Troponin I 0.075 D (0-0.12) ng/ml B-Natriuretic Peptide 80340 H (0-175) pg/mL Total Protein 7.7 (6.3-8.2) G/DL Albumin 4.2 (3.5-5.0) G/DL Globulin 3.5 (2.4-3.6) G/DL Albumin/Globulin Ratio 1.2 (1.1-2.2) RATIO Lipase 29 (23-300) U/L Plasma Lactate 2.0 (0.6-2.2) MMOL/L Specimen Hemolysis 16 (0-25) - Radiology Data Radiology results reviewed: Yes: I reviewed the patient's radiology results. Disposition Clinical Impression: Chest pain in adult Diastolic CHF Qualifiers: Congestive heart failure chronicity: acute on chronic Qualified Code(s): I50.33 - Acute on chronic diastolic (congestive) heart failure Disposition: 02 To [facility] Acute Care Condition: Stable Time of Disposition: 16:38 - Seen By: physician
[2017-03-10] MEDS ORDERED: NS 100 ML ONE (13:28)
[2017-03-10] MEDS ORDERED: IODIXANOL 320mg/ml 100ml INJECTION IV ONE (13:28)
[2017-03-10] MEDS ORDERED: SALINE FLUSH 10ml SYRINGE ONE (13:29)
--- NOTE | 2017-03-10 13:44 | CT Scan Report ---
Indication: Mental status changes PROCEDURE: CT head/brain wo con: Encounter: Initial Comparison: January 14, 2011 Technique: Axial CT images through the head were performed without contrast. Iterative Reconstruction dose reducing technique was utilized. FINDINGS: The ventricles are of normal size, shape, and contour for the patient's age. There are scattered areas of low attenuation in the white matter which most likely represent changes from chronic microvascular ischemia. The brainstem, cerebellum, and cerebral hemispheres otherwise have a normal morphology and CT attenuation. There is no evidence of midline displacement. No hemorrhage, signs of acute territorial stroke, mass effect, mass lesions, or edema is evident. The visualized portions of the skull base, midface, and calvarium demonstrate no abnormality. The paranasal sinuses are well aerated and free of significant disease. The tympanic and mastoid cavities appear normal. IMPRESSION: No acute intracranial abnormality or hemorrhage. .
--- NOTE | 2017-03-10 13:50 | XRay Report ---
INDICATION: Chest pain PROCEDURE: CHEST 2-VIEWS UPRIGHT (PA & LAT) Encounter: Initial Comparison: March 07, 2017 Findings: The lungs are stable in appearance without new focal airspace consolidation. There is no pleural effusion or pneumothorax. The heart size, pulmonary vascularity and mediastinal contours are unchanged. Prior sternotomy. Left pacemaker. IMPRESSION: Stable appearance of the chest without acute cardiopulmonary disease. .
--- NOTE | 2017-03-10 13:59 | CT Scan Report ---
Indication: abd pain right lower quad PROCEDURE: CT abdomen pelvis w con: Encounter: Initial Comparison: None Technique: Axial CT images were performed through the abdomen and pelvis after the administration of intravenous contrast. Coronal and sagittal two-dimensional reformats. Automated Exposure Control and Iterative Reconstruction dose reducing techniques were utilized. Contrast: Visipaque 320 100 mL Findings: The lung bases are grossly clear. Trace right pleural fluid versus pleural thickening. Heart is enlarged. Cardiac pacemaker present. No obvious pericardial effusion. The liver is decreased in attenuation relative to the spleen consistent with fatty infiltration. No enhancing liver mass or bile duct dilatation. The phase of contrast is earlier than ideal. There is a small amount of perihepatic ascites. The gallbladder is grossly normal. The spleen shows granulomatous changes. The pancreas appears normal. The adrenal glands are within normal limits. Kidneys show bilateral small low-attenuation foci which are too small to definitively characterize. No abdominal or pelvic lymphadenopathy. Enlarged right inguinal nodes on image #91 measuring 1.3 cm in short axis. Bladder is normal. Prostate and rectum are unremarkable. No evidence of a bowel obstruction. The appendix is gas-filled and normal. Small amount of free fluid in the mesentery. Bone windows show no lytic or blastic osseous lesions. Impression: 1. Small amount of ascites and trace right pleural effusion could be due to mild volume overload, renal or hepatic insufficiency. 2. Right inguinal adenopathy. This could be reactive to infection or inflammation in the right lower extremity or potentially neoplastic. Recommend correlation for any history of procedures in this region or right lower extremity infection. If there is no history of any of these a short-term follow-up pelvic CT in three months is suggested to evaluate for stability. 3. No clear etiology for the patient's right lower quadrant pain. .
[2017-03-10] MEDS ORDERED: HYDRALAZINE 20 MG/ML INJECTION IVP ONE (15:36)
--- NOTE | 2017-03-10 16:20 | History & Physical Report ---
History of Present Illness Date: 03/10/17 Chief complaint: Weakness, CP, syncopal episode HPI: Patient is a 71-year-old male who is brought to the emergency room by EMS today following a episode where he lost consciousness. He describes this as he was sitting at home in his chair, suddenly felt dizzy with severe chest pain followed by vomiting. He thinks at this time. He had an episode of unresponsiveness. He then awoke contacted EMS in which she was found to have chest pain and shortness of breath. He was then transported to [facility] for acute evaluation and treatment. CT scan of the head was done, did not show any acute intracranial abnormality or hemorrhage. CBC overall unremarkable, chemistry panel did reveal elevated renal function, BUN 50, creatinine 2.0. This is not appear to be far from his baseline. Initial troponin 0.075 with a pro BNP 13,100. Venous lactate 2.0. Patient also complained of lower abdominal pain, a CT scan of the abdomen was obtained that did reveal a small amount of ascites with trace right pleural effusion, right inguinal adenopathy. Chest x-ray showed no acute cardiopulmonary disease. Patient has been hypertensive while in the emergency room. He was given Hydralazine 10 mg IV . Blood pressure did decrease to 180/94. Pacemaker was interrogated by [employer] did not reveal any acute events. However, while patient was in radiology patient had symptoms and stated he did not feel well, at that time, Nursing staff at his side did report he had an episode of bradycardia down to 28-30 and this was palpable. Patient was then placed on external pacers and has remained 100% paced in the 60s Since that time. It is unclear if this episode was seen on interrogation. This episode happened between [address] Hernandez did see patient while in the ER. Further history does reveal patient had an MA and was discharged from [facility] last Wednesday. He then presented to [facility] emergency room on 03/07 and was admitted under care of Dr. Hernandez for chest pain. Echocardiogram was performed on 03/08 showed an EF of 45%. FOR[facility]LY [facility] Patient Stated Medical History Hypertension Mixed hyperlipidemia Type 2 diabetes mellitus without complications Atherosclerotic heart disease of [place] coronary artery without angina pectoris ICD (implantable cardioverter-defibrillator) [employer]- Not MRI compatible Diastolic CHF Ischemic cardiomyopathy History of CVA.-2004 COPD GERD Depression History of kidney stones Medical History Updates: 03/08/17- ECHO. IMPRESSION. 1. Technically difficult study. 2. Biatrial dilation. 3. Concentric left ventricular hypertrophy. 4. Mild LV dysfunction with ejection fraction of about 45%. 5. Pacemaker present in right heart. 6. Mild mitral regurgitation. 7. Moderate tricuspid regurgitation with moderate pulmonary hypertension with estimated pulmonary artery systolic pressure of 49. 8. Mild pulmonary insufficiency. Surgical History: AICD- [employer] (not MRI compatible). Underwent left heart cath with successful primary stent of vein graft to PDA using 3.0 x 9 and 3.0 x 18 drug-eluting Resolute Integrity stents. 10/20/2016. CABG - Social History Smoking status: Never smoker Medications Home Medications Medication Instructions Recorded Confirmed Type Atorvastatin Calcium 80 mg PO HS #0 05/27/15 03/10/17 History Insulin Aspart [Novolog Flexpen] 12 unit SQ TIDWM #0 05/27/15 03/10/17 History Insulin Detemir [Levemir Flextouch] 24 unit SQ BID #0 05/27/15 03/10/17 History Pantoprazole Sodium 40 mg PO ACB #0 05/08/16 03/10/17 History Prasugrel HCl [Effient] 10 mg PO DAILY #0 05/08/16 03/10/17 History Terazosin [Hytrin] 2 mg PO HS 09/29/16 03/10/17 History Aspirin *EC* [Ecotrin] 325 mg PO DAILY 09/30/16 03/10/17 History Cetirizine HCl 10 mg PO DAILY 09/30/16 03/10/17 History Nitroglycerin 0.4 mg SL Q5MIN3 PRN 10/13/16 03/10/17 History Fluoxetine HCl [Prozac] 40 mg PO DAILY 03/07/17 03/10/17 History Isosorbide Mononitrate ER [Imdur] 60 mg PO DAILY 03/07/17 03/10/17 History Lisinopril [Zestril] 5 mg PO DAILY 03/07/17 03/10/17 History Meclizine [Antivert] 25 mg PO BID 03/07/17 03/10/17 History Metoprolol Tartrate [Lopressor] 100 mg PO BID 03/07/17 03/10/17 History Furosemide [Lasix] 80 mg PO DAILY 03/10/17 03/10/17 History Allergies Allergy/AdvReac Type Severity Reaction Status Date / Time No Known Allergies Allergy Verified 03/07/17 08:57 Exam Vital Signs: Temperature 97.5 F 03/10/17 12:44 Pulse Rate 60 03/10/17 15:50 Respiratory Rate 16 03/10/17 15:46 Blood Pressure 180/94 H 03/10/17 15:50 Pulse Oximetry 98 03/10/17 15:46 Paced: 100% Height/Weight/BMI: Height 2.13 m Weight 91.7 kg - Constitutional Present: no acute distress, well nourished, well developed - Routine HEENT Exam Eye: Present: EOMI, normal accommodation. Absent: nystagmus ENT: Present: mucous membranes dry, dentition normal - Routine Respiratory Exam Present: CTA bilaterally. Absent: wheezes - Routine Cardiovascular Exam Present: RRR, S1, S2. Absent: murmur - Routine Abdominal Exam Present: soft, normoactive bowel sounds, non distended. Absent: tenderness - Routine Extremities Exam Present: full ROM, pulses intact - Routine Skin Exam Present: intact, dry, warm - Routine Neurological Exam Present: alert, oriented X3, CN II-XII intact, moving all extremities, vision grossly intact, hearing grossly intact. Absent: facial asymmetry, normal speech Patient is alert and oriented, able to give location, able to give accurate recent history of present illness. He is fatigued and falls asleep during examination which she states is not normal. Speech seems to be somewhat slowed as mouth is dry. Cranial nerves II through XII are intact grossly. No asymmetric weakness or sensation differences. Patient able to accurately complete, complete [id number], sensation and motor evaluation. - Routine Psychiatric Exam Present: cooperative Results - Labs CBC & Chem 7: 03/10/17 12:45 03/10/17 12:45 Assessment and Plan (1) Syncope and collapse Current visit: Yes Status: Acute (2) Hypertensive emergency Current visit: Yes Status: Acute Assessment and Plan: Impression Chest pain Alteration of mentation Weakness Uncontrolled Hypertension Coronary artery disease Pacemaker-biventricular Diabetes Ischemic cardiomyopathy Plan Initially, will admit patient outpatient observation under the care of Dr. Lara to the ICU for close monitoring. It is somewhat difficult to assess exact etiology of patient's symptoms at time of admission. He describes episode this morning in which she was dizzy with chest pain followed by a probable loss of consciousness. Does not have any focal neurologic deficits at time of exam, however, continues to be significantly fatigued and falls asleep easily. Did discuss patient's pacemaker as it is a [employer] biventricular pacemaker- It is unable to undergo MRI. This was confirmed through [employer] rep. Thus, this limits further evaluation to rule out an acute stroke. Per imaging. Initial CT scan was negative While in the emergency room following an episode of bradycardia. Patient has been on external pacers. Continue to monitor him carefully in the ICU on cardiac telemetry Did review old records from via [facility] office visits. It does appear that patients weight is up. Last outpatient weight was in January 2017, at which time he was 87 kilograms. Today on admission he is 91.7 kilograms. Suspect he may need gently diuresis. Baseline creatinine appears to be between 1.6-1.8. Creatinine on 01/13/17 was 1.89. Medical Affairs Leader today is 2.0. Noted, proBNP has nearly doubled since 03/08 at which time it was 7,540. Today it is 13,100. It does appear patient takes Lasix 80 milligrams daily. Will obtain serial troponins 3. Monitor Accu-Cheks. Home med list reveals patient utilizes NovoLog flex pen 20 units subcutaneous 3 times a day and Levemir 24 units twice a day Will review all home cardiac medications with attending prior to ordering. Patient is chronically on aspirin and Effient. Lovenox subcutaneous daily for DVT prophylaxis as well as SCD Patient does request to be a do not resuscitate and this order is written. Will discuss further orders and plan of care with attending, Dr. Lara. At time of discharge, his primary care. Will resume with Dr. Elliott 40 minutes spent with patient, orders, collaboration of care. Dev Lara M.D. 03/10/17 0130 I have independently evaluated and examined this patient. I reviewed the chart, the patient's history, and the CLIENT SERVICE CONSULTANT/PA's documented findings as above. We discussed and formulated the assessment and plan as above with additions as below: Mr. Rivera describes symptoms of feeling miserable. He reports having chest pain for the past 3-4 days which increases with inspiration and was worked up a couple of days ago during a brief hospitalization by Dr. Hernandez were no new cardiac disease was identified. He was discharged 03/08 and since that time describes increasing dyspnea and inability to sleep with persistent chest pain. This morning he developed dizziness described as going in circles with nausea and a little vision while seated followed by feeling very hot prompting calling EMS. Shortly thereafter he vomited and lost consciousness. Patient believes he was still unconscious and on the floor when EMS arrived and EMS reported that he had lost control of his bowels and was covered in feces. Patient denies any injuries associated with fall from the chair; EMS had to break into the patient' s house as the patient was unable to open his door although it's unclear if he was unconscious on their arrival or not. Patient was tachycardic and hypotensive on arrival in the emergency room and retching aggressively. Since arrival he's continued to complain of nausea, headache, and chest pain. Nursing has reported abdominal distention. Examination reveals a fatigued male with soft spoken, flat affect. Sclera anicteric, conjugate gaze, EOMI without nystagmus; oropharynx clear-no tongue trauma Respirations clear anteriorly; regular rhythm, S1-S2 Abdomen obese, soft, mildly tender especially in the right upper quadrant where he guards. Ibarra's sign positive. Liver enzymes unremarkable Chest x-ray reviewed by myself-cardiomegaly, pacemaker left upper chest, lungs clear. CT abdomen/pelvis also reviewed by myself demonstrating small amount of perihepatic ascites, questionable thickening of the gallbladder vasques although poorly visualized on this study, no obvious gallstones; fatty liver, inguinal adenopathy on the right but no acute pathology. CT head reviewed by myself and discussed with radiology-no acute disease Although BNP is elevated, weight is down from 95 kg 03/08 and 03/09. Chest x- ray does not reveal overt failure. Agree with gentle diuresis. Evaluate for biliary pathology by gallbladder sonogram. Reassess liver enzymes in a.m. ? Depression/anxiety History suggests vertigo prior to LOC although no cerebellar findings on exam; may require follow-up CT in several days however cannot administer contrast as patient will require contrast for repeat catheter/stent soon and MRI contraindicated due to pacemaker. No ongoing vertigo however to suggest posterior CVA. No exam findings to suggest seizure-check CPK on blood in lab, would expect it to be elevated if seizure activity had been present. Nor was patient acidotic on arrival in the emergency room as would anticipate post seizure. Persistent hypertension-hypertensive emergency would explain vertigo. Requiring IV medications for control-admitted inpatient. Results of pacemaker interrogation reviewed with Dr. Hernandez-no pacemaker failure or bradycardia present. Telemetry when evaluated consistently atrial/ ventricular pacing. Discussed with nursing, Dr. Gonzales, Dr. Hernandez. DVT Prophylaxis: Lovenox GI Prophylaxis: Pepcid Resuscitation Status: Full Code Hospital Course Summary Disclaimer: The visit summary below is not to be considered part of the above Progress Note. Hospital Course: 03/10/17 Impression Chest pain Alteration of mentation Weakness Uncontrolled Hypertension Coronary artery disease Pacemaker-biventricular Diabetes Ischemic cardiomyopathy Plan Initially, will admit patient outpatient observation under the care of Dr. Lara to the ICU for close monitoring. It is somewhat difficult to assess exact etiology of patient's symptoms at time of admission. He describes episode this morning in which she was dizzy with chest pain followed by a probable loss of consciousness. Does not have any focal neurologic deficits at time of exam, however, continues to be significantly fatigued and falls asleep easily. Did discuss patient's pacemaker as it is a [employer] biventricular pacemaker- It is unable to undergo MRI. This was confirmed through [employer] rep. Thus, this limits further evaluation to rule out an acute stroke. Per imaging. Initial CT scan was negative While in the emergency room following an episode of bradycardia. Patient has been on external pacers. Continue to monitor him carefully in the ICU on cardiac telemetry Did review old records from via [facility] office visits. It does appear that patients weight is up. Last outpatient weight was in January 2017, at which time he was 87 kilograms. Today on admission he is 91.7 kilograms. Suspect he may need gently diuresis. Baseline creatinine appears to be between 1.6-1.8. Creatinine on 01/13/17 was 1.89. Medical Affairs Leader today is 2.0. Noted, proBNP has nearly doubled since 03/08 at which time it was 7,540. Today it is 13,100. It does appear patient takes Lasix 80 milligrams daily. Will obtain serial troponins 3. Monitor Accu-Cheks. Home med list reveals patient utilizes NovoLog flex pen 20 units subcutaneous 3 times a day and Levemir 24 units twice a day Will review all home cardiac medications with attending prior to ordering. Patient is chronically on aspirin and Effient. Lovenox subcutaneous daily for DVT prophylaxis as well as SCD Patient does request to be a do not resuscitate and this order is written. Will discuss further orders and plan of care with attending, Dr. Lara. At time of discharge, his primary care. Will resume with Dr. Elliott 40 minutes spent with patient, orders, collaboration of care.
[2017-03-10] MEDS ORDERED: MORPHINE SULFATE 10 MG SYRINGE IV ONE (17:00)
[2017-03-10] MEDS ORDERED: METOCLOPRAMIDE 10mg/2ml INJECTION IVP ONE (17:00)
[2017-03-10] MEDS: INSULIN ASPART 100unit/ml INJECTION SQ SCH (19:34)
[2017-03-10] MEDS: ATORVASTATIN 40 MG TABLET PO SCH ×2 (19:47→20:15)
[2017-03-10] MEDS: TERAZOSIN 2 MG CAPSULE PO SCH ×2 (19:47→20:15)
[2017-03-10] MEDS: LISINOPRIL 5 MG TABLET PO SCH (19:48)
[2017-03-10] MEDS: ENOXAPARIN 40 MG/0.4 ML INJECTION SQ SCH (19:50)
[2017-03-10] MEDS ORDERED: HYDROMORPHONE 2 MG/ML INJECTION IVP PRN (19:54)
[2017-03-10] MEDS: INSULIN DETEMIR 100unit/ml INJECTION SQ SCH (20:26)
[2017-03-10] MEDS ORDERED: NS FLUSH BAG 500ml IV PRN (20:44)
[2017-03-10] MEDS ORDERED: FAMOTIDINE PB 20 MG/50 ML BAG IV SCH (21:00)
[2017-03-11] MEDS: HYDRALAZINE 20 MG/ML INJECTION IVP PRN ×2 (00:22→06:10)
[2017-03-11] MEDS: ISOSORBIDE MONONITRATE ER 60 MG TABLET PO SCH (06:09)
[2017-03-11] MEDS: ACETAMINOPHEN 325 MG TABLET PO PRN (07:10)
--- NOTE | 2017-03-11 08:35 | Progress Note ---
<Kari Olvera V - Last Filed: 03/11/17 08:31> - Date 03/11/17 Subjective: Sebas is seen this morning in follow up. He is alert and orientated, speech is more clear this morning. He repots vague "not feeling well" which he goes on to describe as general weakness. No focal deficits. He is comfortably breathing on room air without distress and maintains adequate saturations. He does report feeling intermittently short of breath. Denies any chest pain overnight or currently. Denies abdominal pain or nausea. Reports no appetite. Objective Vital signs: Temperature 96.9 F 03/10/17 17:00 Pulse Rate 60 03/11/17 06:10 Respiratory Rate 20 03/11/17 06:00 Blood Pressure 191/79 H 03/11/17 06:10 Pulse Oximetry 95 03/11/17 06:00 Comments: 100% paced at rate of 60. - Constitutional Present: no acute distress, well nourished, well developed - Routine HEENT Exam Eye: Present: EOMI ENT: Present: mucous membranes moist, dentition normal - Routine Respiratory Exam Present: CTA bilaterally. Absent: wheezes - Routine Cardiovascular Exam Present: RRR, S1, S2. Absent: murmur - Routine Abdominal Exam Present: soft, normoactive bowel sounds, non distended. Absent: tenderness - Routine Extremities Exam Present: full ROM, pulses intact - Routine Back/Spine/Pelvis Exam Back/Spine: Present: full ROM - Routine Skin Exam Present: intact, dry, warm - Routine Neurological Exam Present: alert, oriented X3, CN II-XII intact, moving all extremities - Routine Lymphatic Exam Lymphatic: Absent: adenopathy - Routine Psychiatric Exam Present: normal affect, cooperative Results - Labs CBC & Chem 7: 03/10/17 12:45 03/11/17 04:55 Assessment and Plan (1) Syncope and collapse Current visit: Yes Status: Acute (2) Hypertensive emergency Current visit: Yes Status: Acute Assessment and Plan: Impression Chest pain Alteration of mentation Weakness Uncontrolled Hypertension Coronary artery disease Pacemaker-biventricular Diabetes Ischemic cardiomyopathy Plan Stable overnight without episodes of chest pain. Maintaining saturations on room air. Moves in bed and rolls over without difficulty. Serial troponin were negative. Telemetry reviewed- has been 100% paced at 60. Resident Services Manager trended down to 1.8 which appears to be baseline Persistent hypertension overnight. Currently 160's overnight. home medications ordered for this morning. Encouraged oral intake. Continue on Effient given known cardiac disease Possibly consult PT/OT to evaluate weakness. Will discuss further with attending Dr Lara Hospital Course Summary Disclaimer: The visit summary below is not to be considered part of the above Progress Note. Hospital Course: 03/10/17 Impression Chest pain Alteration of mentation Weakness Uncontrolled Hypertension Coronary artery disease Pacemaker-biventricular Diabetes Ischemic cardiomyopathy Plan Initially, will admit patient outpatient observation under the care of Dr. Lara to the ICU for close monitoring. It is somewhat difficult to assess exact etiology of patient's symptoms at time of admission. He describes episode this morning in which she was dizzy with chest pain followed by a probable loss of consciousness. Does not have any focal neurologic deficits at time of exam, however, continues to be significantly fatigued and falls asleep easily. Did discuss patient's pacemaker as it is a [employer] biventricular pacemaker- It is unable to undergo MRI. This was confirmed through [employer] rep. Thus, this limits further evaluation to rule out an acute stroke. Per imaging. Initial CT scan was negative While in the emergency room following an episode of bradycardia. Patient has been on external pacers. Continue to monitor him carefully in the ICU on cardiac telemetry Did review old records from via [facility] office visits. It does appear that patients weight is up. Last outpatient weight was in January 2017, at which time he was 87 kilograms. Today on admission he is 91.7 kilograms. Suspect he may need gently diuresis. Baseline creatinine appears to be between 1.6-1.8. Creatinine on 01/13/17 was 1.89. Resident Services Manager today is 2.0. Noted, proBNP has nearly doubled since 03/08 at which time it was 7,540. Today it is 13,100. It does appear patient takes Lasix 80 milligrams daily. Will obtain serial troponins 3. Monitor Accu-Cheks. Home med list reveals patient utilizes NovoLog flex pen 20 units subcutaneous 3 times a day and Levemir 24 units twice a day Will review all home cardiac medications with attending prior to ordering. Patient is chronically on aspirin and Effient. Lovenox subcutaneous daily for DVT prophylaxis as well as SCD Patient does request to be a do not resuscitate and this order is written. Will discuss further orders and plan of care with attending, Dr. Lara. At time of discharge, his primary care. Will resume with Dr. Elliott 40 minutes spent with patient, orders, collaboration of care. 03/11/17 Plan Stable overnight without episodes of chest pain. Maintaining saturations on room air. Moves in bed and rolls over without difficulty. Serial troponin were negative. Telemetry reviewed- has been 100% paced at 60. Resident Services Manager trended down to 1.8 which appears to be baseline Persistent hypertension overnight. Currently 160's overnight. home medications ordered for this morning. Encouraged oral intake. Continue on Effient given known cardiac disease Possibly consult PT/OT to evaluate weakness. Will discuss further with attending Dr Lara <Shirley Lara - Last Filed: 03/11/17 14:21> - Date 03/11/17 Objective Height/Weight/BMI: Results - Labs CBC & Chem 7: 03/10/17 12:45 03/11/17 04:55 Assessment and Plan (1) Syncope and collapse Current visit: Yes Status: Acute (2) Hypertensive emergency Current visit: Yes Status: Acute Assessment and Plan: I have independently evaluated and examined this patient. I reviewed the chart, the patient's history, and the WATCH CASER/PA's documented findings as above. We discussed and formulated the assessment and plan as above with additions as below: Mr. Rivera was resting comfortably when seen this morning. He told me said no further vertigo or nausea/vomiting and abdominal pain he described yesterday has resolved. He denied dyspnea or cough and overall feels significantly better. He's having no chest pain. Nursing reports that he slept well; blood pressure remain problematic overnight requiring IV hydralazine on 2 occasions. NAD, alert, fluent speech Conjunctiva clear, conjugate gaze Respirations nonlabored, good airflow, breath sounds clear Abdomen is obese, soft, nontender, active bowel sounds Telemetry with AV pacing continuously Liver enzymes remain normal Gallbladder sonogram reviewed by myself demonstrating minor thickening of the gallbladder vasques without stones/sludge. Ducts are normal; Ibarra sign was not reported by the solder technician. IV Hydralazine last given at 6 AM-continue to monitor blood pressure frequently as get outside of dosing interval. Stable to move out of ICU, initiate PT/OT. May require modification and home antihypertensive regimen, will discuss with cardiology. Was initially hypertensive during recent cardiology admission but stabilized prior to discharge on current medications. GI Prophylaxis: Protonix Resuscitation Status: Full Code Hospital Course Summary Disclaimer: The visit summary below is not to be considered part of the above Progress Note.
[2017-03-11] MEDS: PRASUGREL 10 MG TABLET PO SCH (08:42)
[2017-03-11] MEDS: LISINOPRIL 5 MG TABLET PO SCH (08:42)
[2017-03-11] MEDS: ASPIRIN *EC* 325 MG TABLET PO SCH (08:47)
--- NOTE | 2017-03-11 08:52 | Ultrasound Report ---
Indication: RUQ pain/emesis PROCEDURE: US gall bladder: Encounter: Initial Comparison: None Technique: Grayscale and color Doppler sonographic imaging of the right upper quadrant of the abdomen was performed. Findings: Hepatic parenchyma is sonographically dense without evidence for focal mass. The gallbladder shows wall thickening at 5 mm. No pericholecystic fluid, sonographic Ibarra's sign or cholelithiasis. Both the intra and extrahepatic biliary system are of normal caliber with the common duct measuring 2 mm in dimension. Pancreas is not visualized due to shadowing bowel gas. The right kidney is present without collecting system dilatation. The right kidney measures 10.7 cm in length. Impression: 1. Nonspecific gallbladder wall thickening. No other findings to suggest acute cholecystitis. 2. Hepatic steatosis. .
[2017-03-11] MEDS: ENOXAPARIN 40 MG/0.4 ML INJECTION SQ SCH (10:31)
[2017-03-11] MEDS: FUROSEMIDE 80 MG TABLET PO SCH (10:31)
[2017-03-11] MEDS: INSULIN ASPART 100unit/ml INJECTION SQ SCH ×3 (10:43→18:54)
[2017-03-11] MEDS: INSULIN DETEMIR 100unit/ml INJECTION SQ SCH ×2 (12:51→23:32)
[2017-03-11] MEDS: MECLIZINE 25 MG TABLET PO SCH (21:09)
[2017-03-11] MEDS: ATORVASTATIN 40 MG TABLET PO SCH (21:09)
[2017-03-11] MEDS: FAMOTIDINE 20 MG TABLET PO SCH (21:09)
[2017-03-11] MEDS: TERAZOSIN 2 MG CAPSULE PO SCH (21:09)
[2017-03-12] MEDS: ISOSORBIDE MONONITRATE ER 60 MG TABLET PO SCH (06:17)
[2017-03-12] MEDS: PANTOPRAZOLE 40 MG TABLET PO SCH (06:17)
[2017-03-12] MEDS: METOCLOPRAMIDE 10mg/2ml INJECTION IVP PRN ×2 (07:46→13:56)
[2017-03-12] MEDS: PRASUGREL 10 MG TABLET PO SCH (08:57)
[2017-03-12] MEDS: INSULIN ASPART 100unit/ml INJECTION SQ SCH ×3 (08:57→19:33)
[2017-03-12] MEDS: LISINOPRIL 5 MG TABLET PO SCH (08:58)
[2017-03-12] MEDS: FLUoxetine 20 MG CAPSULE PO SCH (08:58)
[2017-03-12] MEDS: FUROSEMIDE 80 MG TABLET PO SCH (08:58)
[2017-03-12] MEDS: ASPIRIN *EC* 325 MG TABLET PO SCH (08:58)
[2017-03-12] MEDS: MECLIZINE 25 MG TABLET PO SCH ×2 (08:59→20:53)
[2017-03-12] MEDS: ENOXAPARIN 40 MG/0.4 ML INJECTION SQ SCH (08:59)
[2017-03-12] MEDS: INSULIN DETEMIR 100unit/ml INJECTION SQ SCH ×2 (09:01→20:51)
--- NOTE | 2017-03-12 12:17 | Ultrasound Report ---
Indication: uncontrolled HTN PROCEDURE: US renal doppler: Encounter: Initial Comparison: None Technique: Technically limited exam due to patient participation. Grayscale and color Doppler sonographic imaging of both kidneys was performed with duplex evaluation of the renal arteries. Findings: Scans of the kidneys demonstrate normal morphology. The right kidney measures 10.8 cm in length. The left kidney measures 11.2 cm in length. There is no collecting system dilatation, contour deforming mass, nephrolithiasis, or abnormal perinephric fluid collection. Color Doppler imaging demonstrates normal vascularization. Resistive indices from the intrarenal arteries in the upper, middle, and lower portions of the right kidney are normal. Resistive indices from the intrarenal arteries in the upper, middle, and lower portions of the left kidney are normal. Arterial waveforms are normal. Impression: No evidence of hemodynamically significant renal arterial stenosis. .
--- NOTE | 2017-03-12 12:37 | Cardiology Consult Note ---
<Yasmin Cabrera - Last Filed: 03/12/17 16:02> History of Present Illness Consult date: 03/12/17 Requesting physician: Shirley Lara Chief complaint: NSVTach History of present illness: Sebas is a 71-year-old gentleman who is known to Dr. Hernandez with a history of CAD with CABG, recent IL and stent to vein graft, Diastolic and systolic heart failure, HTN, HLD and DM who was brought to the emergency room by EMS following a episode where he lost consciousness. He describes this as he was sitting at home in his chair, suddenly felt dizzy with severe chest pain followed by vomiting. He thinks at this time. He had an episode of unresponsiveness. He then awoke contacted EMS in which he was found to have chest pain and shortness of breath. He was then transported to [facility] for evaluation and treatment. CT scan of the head was done, did not show any acute intracranial abnormality or hemorrhage. CBC overall unremarkable, chemistry panel did reveal elevated renal function, BUN 50, creatinine 2.0. This is not appear to be far from his baseline. Initial troponin 0.075 with a pro BNP 13,100. Venous lactate 2.0. Patient also complained of lower abdominal pain, a CT scan of the abdomen was obtained that did reveal a small amount of ascites with trace right pleural effusion, right inguinal adenopathy. Chest x-ray showed no acute cardiopulmonary disease. He was been hypertensive while in the emergency room. He was given Hydralazine 10 mg IV . Blood pressure did decrease to 180/94. Pacemaker was interrogated by [employer] did not reveal any acute events. However, while patient was in radiology patient had symptoms and stated he did not feel well, at that time, Nursing staff at his side did report he had an episode of bradycardia down to 28-30 and this was palpable. He was then placed on external pacers and has remained 100% paced in the 60s since that time. He was admitted in the care of the Hospitalist for hypertensive urgency. Today he had a run of nonsustained ventricular tachycardia for which Dr. Hernandez is consulted and we appreciate the consult. [facility] Medical History Dehydration (Acute Medical) Essential (primary) hypertension (Chronic Medical) Mixed hyperlipidemia (Chronic Medical) Type 2 diabetes mellitus without complications (Chronic Medical) Atherosclerotic heart disease of [place] coronary artery without angina pectoris (Chronic Medical) ICD (implantable cardioverter-defibrillator) in place (Chronic Medical) [employer] Unstable angina (Acute Medical) Underwent left heart cath with successful primary stent of vein graft to PDA using 3.0 x 9 and 3.0 x 18 drug-eluting Resolute Integrity stents. Diastolic CHF (Chronic Medical) Chest pain in adult (Acute Medical) Precordial pain (Acute Medical) Syncope and collapse (Acute Medical) Hypertensive emergency (Acute Medical) Congestive heart failure (Inactive Medical) Medical History Updates: 03/08/17- ECHO. IMPRESSION. 1. Technically difficult study. 2. Biatrial dilation. 3. Concentric left ventricular hypertrophy. 4. Mild LV dysfunction with ejection fraction of about 45%. 5. Pacemaker present in right heart. 6. Mild mitral regurgitation. 7. Moderate tricuspid regurgitation with moderate pulmonary hypertension with estimated pulmonary artery systolic pressure of 49. 8. Mild pulmonary insufficiency. Surgical History: AICD- [employer] (not MRI compatible). Underwent left heart cath with successful primary stent of vein graft to PDA using 3.0 x 9 and 3.0 x 18 drug-eluting Resolute Integrity stents. 10/20/2016. CABG - Social History Current residence: Apartment/Private Home Medications Home Medications Medication Instructions Recorded Confirmed Type Atorvastatin Calcium 80 mg PO HS #0 05/27/15 03/10/17 History Insulin Aspart [Novolog Flexpen] 12 unit SQ TIDWM #0 05/27/15 03/10/17 History Insulin Detemir [Levemir Flextouch] 24 unit SQ BID #0 05/27/15 03/10/17 History Pantoprazole Sodium 40 mg PO ACB #0 05/08/16 03/10/17 History Prasugrel HCl [Effient] 10 mg PO DAILY #0 05/08/16 03/10/17 History Terazosin [Hytrin] 2 mg PO HS 09/29/16 03/10/17 History Aspirin *EC* [Ecotrin] 325 mg PO DAILY 09/30/16 03/10/17 History Nitroglycerin 0.4 mg SL Q5MIN3 PRN 10/13/16 03/10/17 History Fluoxetine HCl [Prozac] 40 mg PO DAILY 03/07/17 03/10/17 History Isosorbide Mononitrate ER [Imdur] 60 mg PO DAILY 03/07/17 03/10/17 History Lisinopril [Zestril] 5 mg PO DAILY 03/07/17 03/10/17 History Meclizine [Antivert] 25 mg PO BID 03/07/17 03/10/17 History Furosemide [Lasix] 80 mg PO DAILY 03/10/17 03/10/17 History Allergies Allergy/AdvReac Type Severity Reaction Status Date / Time No Known Allergies Allergy Verified 03/07/17 08:57 Exam Vital signs: Temperature 98.1 F 03/12/17 12:00 Pulse Rate 59 L 03/12/17 12:00 Respiratory Rate 16 03/12/17 12:00 Blood Pressure 150/103 H 03/12/17 12:00 Pulse Oximetry 95 03/12/17 07:19 Results 03/12/17 04:37 03/12/17 04:37 CBC 03/12/17 Range/Units 04:37 WBC 6.5 (4.5-11.0) T/MM3 RBC 3.53 L (4.50-5.90) M/MM3 Hgb 10.3 L D (13.5-17.5) GM/DL Hct 32.7 L (41-53) % Plt Count 168 (130-400) T/MM3 Neut # (Auto) 4.1 (1.8-7.7) T/MM3 Lymph # (Auto) 1.6 (1-4.8) T/MM3 Nobles # (Auto) 0.7 (0-0.8) T/MM3 Eos # (Auto) 0.2 (0-0.5) T/MM3 Baso # (Auto) 0.0 (0-0.2) T/MM3 Comprehensive Metabolic Panel 03/12/17 Range/Units 04:37 Sodium 144 (134-144) MEQ/L Potassium 4.1 (3.6-5) MEQ/L Chloride 106 (98-107) MEQ/L Carbon Dioxide 28 (22-30) MEQ/L BUN 38.0 H (9-20) MG/DL Creatinine 2.1 H D (0.8-1.5) MG/DL Glucose 168 H (75-110) MG/DL Calcium 9.0 (8.4-10.2) MG/DL Albumin 3.6 (3.5-5.0) G/DL Intake and Output 03/11/17 03/12/17 03/12/17 22:59 06:59 14:59 Intake Total 200 / 200 100 / 100 236 / 236 Output Total 1100 / 1100 260 / 260 150 / 150 Balance -900 / -900 -160 / -160 86 / 86 Intake: Oral 200 / 200 100 / 100 236 / 236 Output: Urine 900 / 900 260 / 260 150 / 150 Urine Amount (Catheter) 200 / 200 Other: Urine Appearance Clear Clear Urine Color Yellow Yellow Urine Odor Normal Weight 203 lb 0.732 oz 199 lb 11.821 oz Patient Weight 03/13/17 06:59 Weight 199 lb 11.821 oz - Imaging and Cardiology Imaging & Cardiology Narrative: Left heart cath 03/03/17 1. Successful PTCA and stent of left circumflex artery using a 3.0X28 drug- eluting Synergy stent 2. Successful PTCA of the ostium of the first marginal 3. Successful Mynx deployment for homeostasis We Will continue dual anti-platelet therapy for at least 1 year and risk modification in the future. He has another lesion in vein graft to diagonal that one might consider percutaneous intervention in the future on this lesion. Date of Exam: 03/08/17 Type of Exam(s): US echo doppler complete DATE OF PROCEDURE March 08, 2017 This is a two-dimensional echo with spectral Doppler, color-flow and M-mode. It was obtained in a patient with chest pain and elevated troponin. Left atrium is dilated. Left ventricular end-diastolic dimension is normal. Left ventricular wall thickness is increased. LV systolic function is mildly reduced with ejection fraction of about 45%. Right atrium is dilated. Right ventricle is normal. Aortic root dimension is normal. Mitral valve appears to be normal with mild mitral regurgitation. Aortic valve is a trileaflet structure with no stenosis or insufficiency. Tricuspid valve shows moderate tricuspid regurgitation with moderate pulmonary hypertension with estimated pulmonary artery systolic pressure of 49. Pulmonary valve shows mild pulmonary insufficiency. There is no pericardial effusion. Pacemaker is present in the right heart. IMPRESSION 1. Technically difficult study. 2. Biatrial dilation. 3. Concentric left ventricular hypertrophy. 4. Mild LV dysfunction with ejection fraction of about 45%. 5. Pacemaker present in right heart. 6. Mild mitral regurgitation. 7. Moderate tricuspid regurgitation with moderate pulmonary hypertension with estimated pulmonary artery systolic pressure of 49. 8. Mild pulmonary insufficiency. Assessment and Plan - Assessment and Plan (1) Essential (primary) hypertension Status: Chronic Change Metoprolol to Labetalol 200mg po BID (2) Mixed hyperlipidemia Status: Chronic (3) Type 2 diabetes mellitus without complications Status: Chronic (4) Atherosclerotic heart disease of [place] coronary artery without angina pectoris Status: Chronic Plan Left heart cath for next Wednesday. He has another lesion in vein graft to diagonal. (5) Diastolic CHF Status: Chronic (6) Non-sustained ventricular tachycardia Status: Acute Start Amiodarone 400mg po BID for 1 week then 200mg daily - Left heart cath next Wednesday to address additional lesion - Check Mag and Tsh - Continue to monitor cardiac telemetry - EKG tomorrow at noon - Assessment and Plan NSVT: Start Amiodarone 400mg po BID for 1 week then 200mg daily - Left heart cath next Wednesday to address additional lesion - Check Mag and Tsh - Continue to monitor cardiac telemetry - EKG tomorrow at noon HTN: Change Metoprolol to Labetalol 200mg po BID CAD: Plan Left heart cath for next Wednesday. He has another lesion in vein graft to diagonal. Thank you for allowing us to participate in the care of this patient. Hospital Course Summary Disclaimer: The visit summary below is not to be considered part of the above Progress Note. Hospital Course: 03/10/17 Impression Chest pain Alteration of mentation Weakness Uncontrolled Hypertension Coronary artery disease Pacemaker-biventricular Diabetes Ischemic cardiomyopathy Plan Initially, will admit patient outpatient observation under the care of Dr. Lara to the ICU for close monitoring. It is somewhat difficult to assess exact etiology of patient's symptoms at time of admission. He describes episode this morning in which she was dizzy with chest pain followed by a probable loss of consciousness. Does not have any focal neurologic deficits at time of exam, however, continues to be significantly fatigued and falls asleep easily. Did discuss patient's pacemaker as it is a [employer] biventricular pacemaker- It is unable to undergo MRI. This was confirmed through [employer] rep. Thus, this limits further evaluation to rule out an acute stroke. Per imaging. Initial CT scan was negative While in the emergency room following an episode of bradycardia. Patient has been on external pacers. Continue to monitor him carefully in the ICU on cardiac telemetry Did review old records from via [facility] office visits. It does appear that patients weight is up. Last outpatient weight was in January 2017, at which time he was 87 kilograms. Today on admission he is 91.7 kilograms. Suspect he may need gently diuresis. Baseline creatinine appears to be between 1.6-1.8. Creatinine on 01/13/17 was 1.89. Health Equipment Servicer today is 2.0. Noted, proBNP has nearly doubled since 03/08 at which time it was 7,540. Today it is 13,100. It does appear patient takes Lasix 80 milligrams daily. Will obtain serial troponins 3. Monitor Accu-Cheks. Home med list reveals patient utilizes NovoLog flex pen 20 units subcutaneous 3 times a day and Levemir 24 units twice a day Will review all home cardiac medications with attending prior to ordering. Patient is chronically on aspirin and Effient. Lovenox subcutaneous daily for DVT prophylaxis as well as SCD Patient does request to be a do not resuscitate and this order is written. Will discuss further orders and plan of care with attending, Dr. Lara. At time of discharge, his primary care. Will resume with Dr. Elliott 40 minutes spent with patient, orders, collaboration of care. 03/11/17 Plan Stable overnight without episodes of chest pain. Maintaining saturations on room air. Moves in bed and rolls over without difficulty. Serial troponin were negative. Telemetry reviewed- has been 100% paced at 60. Health Equipment Servicer trended down to 1.8 which appears to be baseline Persistent hypertension overnight. Currently 160's overnight. home medications ordered for this morning. Encouraged oral intake. Continue on Effient given known cardiac disease Possibly consult PT/OT to evaluate weakness. Will discuss further with attending Dr Lara <Rubin Hernandez - Last Filed: 03/16/17 08:05> [facility] Medical History Dehydration (Acute Medical) Essential (primary) hypertension (Chronic Medical) Mixed hyperlipidemia (Chronic Medical) Type 2 diabetes mellitus without complications (Chronic Medical) Atherosclerotic heart disease of [place] coronary artery without angina pectoris (Chronic Medical) ICD (implantable cardioverter-defibrillator) in place (Chronic Medical) [employer] Unstable angina (Acute Medical) Underwent left heart cath with successful primary stent of vein graft to PDA using 3.0 x 9 and 3.0 x 18 drug-eluting Resolute Integrity stents. Diastolic CHF (Chronic Medical) Chest pain in adult (Acute Medical) Precordial pain (Acute Medical) Syncope and collapse (Acute Medical) Hypertensive emergency (Acute Medical) Non-sustained ventricular tachycardia (Acute Medical) CKD (chronic kidney disease), stage III (Chronic Medical) Vertigo (Acute Medical) Congestive heart failure (Inactive Medical) Exam Vital signs: Temperature 95.4 F L 03/14/17 07:55 Pulse Rate 61 03/14/17 08:00 Respiratory Rate 20 03/14/17 07:55 Blood Pressure 139/63 03/14/17 07:55 Pulse Oximetry 96 03/14/17 07:55 Results 03/14/17 03:58 03/14/17 03:58 Assessment and Plan - Attestation Attestation Narrative: 03/16/17 08:05 Recommendation After examining the patient I agree with the above assessment. I am involved in the formulation of the patient's plan of care. - Assessment and Plan (1) Essential (primary) hypertension Status: Chronic (2) Mixed hyperlipidemia Status: Chronic (3) Type 2 diabetes mellitus without complications Status: Chronic (4) Atherosclerotic heart disease of [place] coronary artery without angina pectoris Status: Chronic (5) Diastolic CHF Status: Chronic (6) Non-sustained ventricular tachycardia Status: Acute Hospital Course Summary Disclaimer: The visit summary below is not to be considered part of the above Progress Note.
[2017-03-12] MEDS ORDERED: SCOPOLAMINE 1.5mg (delivers 1mg/24hrs) PATCH TD SCH (15:45)
[2017-03-12] MEDS: ONDANSETRON 4 MG/2 ML INJECTION IVP PRN (16:48)
[2017-03-12] MEDS: AMIODARONE 200 MG TABLET PO SCH (16:49)
[2017-03-12] MEDS: FAMOTIDINE 20 MG TABLET PO SCH (20:50)
[2017-03-12] MEDS: ATORVASTATIN 40 MG TABLET PO SCH (20:50)
[2017-03-12] MEDS: LABETALOL 100 MG TABLET PO SCH (20:52)
[2017-03-12] MEDS: TERAZOSIN 2 MG CAPSULE PO SCH (20:53)
[2017-03-12] MEDS: SALINE FLUSH 10ml SYRINGE IV PRN (20:53)
--- NOTE | 2017-03-12 20:59 | Progress Note ---
- Date 03/12/17 Subjective: Mr. Rivera was seen with his nephew present. He reported that he was "sick" going on to describe dizziness which was vertiginous in nature whenever he would sit or stand and eventually whenever he turns to the left associated with nausea and retching. He describes generalized abdominal pain. He denied chest pain at present but reports she's having palpitations. Complains of headache. He 's voiding without difficulty or dysuria. Patient had a bowel movement earlier today. Notified earlier of 6 second episode of nonsustained VT. Objective Vital signs: Temperature 96.5 F L 03/12/17 15:37 Pulse Rate 60 03/12/17 16:00 Respiratory Rate 16 03/12/17 15:37 Blood Pressure 146/79 H 03/12/17 15:37 Pulse Oximetry 96 03/12/17 15:37 I/O 420/1510 EXAM General-apprehensive male, alert, retching HEENT-pupils round, react to light, conjugate gaze, will not look to the left. Increased symptoms Lungs-respirations nonlabored, decreased inspiratory effort, clear anterior/ posteriorly Cardiac-regular rhythm, S1-S2 Abd-soft, mild generalized tenderness, diminished bowel sounds Ext-without edema Neuro-MAEW Psych-anxious - Height/Weight/BMI: Weight 90.6 kg Results - Labs CBC & Chem 7: 03/12/17 04:37 03/12/17 04:37 Labs: [facility] [place] [phone] - Imaging and Cardiology renal ultrasound with Doppler Additional comments: No evidence of hemodynamically significant renal artery stenosis, kidneys normal morphology and without obstruction or nephrolithiasis Assessment and Plan (1) Syncope and collapse Current visit: Yes Status: Acute (2) Hypertensive emergency Current visit: Yes Status: Acute (3) Non-sustained ventricular tachycardia Current visit: Yes Status: Acute Assessment and Plan: Impression Hypertensive urgency Chest pain Vertigo with nausea/vomiting Nonsustained VT-03/12 Alteration of mentation Weakness Coronary artery disease Pacemaker-biventricular Diabetes Ischemic cardiomyopathy Plan Dr. Hernandez consulted regarding nonsustained VT-medication modifications discussed with him with addition of amiodarone and labetalol in place of metoprolol. Telemetry strips reviewed-6 seconds monomorphic VT at rate 150. Cardiac catheter planned next Wednesday to address second lesion that requires stent. Continue telemetry; patient has AICD for protection. Blood pressures have generally improved since hospitalized as was seen during prior recent day for chest pain. Unclear if anxiety/panic symptoms contribute to hypertension. Renal sonogram with duplex without evidence of significant arterial stenosis today Clearly vertiginous today, head CT neg 2 days ago. Scopolamine patch placed, meclizine when necessary-on scheduled meclizine on admission, likely chronic symptoms. Chest pain appears to have improved with hospitalization/blood pressure control. Diabetes adequately controlled. Hospital Course Summary Disclaimer: The visit summary below is not to be considered part of the above Progress Note. Hospital Course: 03/10/17 Impression Chest pain Alteration of mentation Weakness Uncontrolled Hypertension Coronary artery disease Pacemaker-biventricular Diabetes Ischemic cardiomyopathy Plan Initially, will admit patient outpatient observation under the care of Dr. Lara to the ICU for close monitoring. It is somewhat difficult to assess exact etiology of patient's symptoms at time of admission. He describes episode this morning in which she was dizzy with chest pain followed by a probable loss of consciousness. Does not have any focal neurologic deficits at time of exam, however, continues to be significantly fatigued and falls asleep easily. Did discuss patient's pacemaker as it is a [employer] biventricular pacemaker- It is unable to undergo MRI. This was confirmed through [employer] rep. Thus, this limits further evaluation to rule out an acute stroke. Per imaging. Initial CT scan was negative While in the emergency room following an episode of bradycardia. Patient has been on external pacers. Continue to monitor him carefully in the ICU on cardiac telemetry Did review old records from via [facility] office visits. It does appear that patients weight is up. Last outpatient weight was in January 2017, at which time he was 87 kilograms. Today on admission he is 91.7 kilograms. Suspect he may need gently diuresis. Baseline creatinine appears to be between 1.6-1.8. Creatinine on 01/13/17 was 1.89. Recycling Manager today is 2.0. Noted, proBNP has nearly doubled since 03/08 at which time it was 7,540. Today it is 13,100. It does appear patient takes Lasix 80 milligrams daily. Will obtain serial troponins 3. Monitor Accu-Cheks. Home med list reveals patient utilizes NovoLog flex pen 20 units subcutaneous 3 times a day and Levemir 24 units twice a day Will review all home cardiac medications with attending prior to ordering. Patient is chronically on aspirin and Effient. Lovenox subcutaneous daily for DVT prophylaxis as well as SCD Patient does request to be a do not resuscitate and this order is written. Will discuss further orders and plan of care with attending, Dr. Lara. At time of discharge, his primary care. Will resume with Dr. Elliott 40 minutes spent with patient, orders, collaboration of care. 03/11/17 Plan Stable overnight without episodes of chest pain. Maintaining saturations on room air. Moves in bed and rolls over without difficulty. Serial troponin were negative. Telemetry reviewed- has been 100% paced at 60. Recycling Manager trended down to 1.8 which appears to be baseline Persistent hypertension overnight. Currently 160's overnight. home medications ordered for this morning. Encouraged oral intake. Continue on Effient given known cardiac disease Possibly consult PT/OT to evaluate weakness. 03/12/17 21:11 6 seconds nonsustained VT at a rate of 150 Dr. Hernandez consulted and amiodarone initiated orally. Metoprolol converted to labetalol for improved blood pressure control. No evidence of renal artery stenosis. Recurrent nausea/vomiting with vertigo. Scopolamine patch initiated.
[2017-03-13] MEDS ORDERED: FALL RISK - PHARMACY CONSULT XX ONE (05:19)
[2017-03-13] MEDS: ISOSORBIDE MONONITRATE ER 60 MG TABLET PO SCH (05:59)
[2017-03-13] MEDS: PANTOPRAZOLE 40 MG TABLET PO SCH (05:59)
[2017-03-13] MEDS: INSULIN DETEMIR 100unit/ml INJECTION SQ SCH ×2 (08:24→20:35)
[2017-03-13] MEDS: LABETALOL 100 MG TABLET PO SCH ×2 (08:25→20:37)
[2017-03-13] MEDS: LISINOPRIL 5 MG TABLET PO SCH (08:25)
[2017-03-13] MEDS: FLUoxetine 20 MG CAPSULE PO SCH (08:25)
[2017-03-13] MEDS: PRASUGREL 10 MG TABLET PO SCH (08:25)
[2017-03-13] MEDS: ASPIRIN *EC* 325 MG TABLET PO SCH (08:26)
[2017-03-13] MEDS: AMIODARONE 200 MG TABLET PO SCH ×2 (08:26→20:36)
[2017-03-13] MEDS: FUROSEMIDE 80 MG TABLET PO SCH (08:26)
[2017-03-13] MEDS: ENOXAPARIN 40 MG/0.4 ML INJECTION SQ SCH (08:26)
[2017-03-13] MEDS: INSULIN ASPART 100unit/ml INJECTION SQ SCH ×3 (08:42→17:09)
[2017-03-13] MEDS ORDERED: LISINOPRIL 10 MG TABLET PO SCH (09:35)
--- NOTE | 2017-03-13 09:41 | Progress Note ---
- Date 03/13/17 Subjective: Feeling much better this morning. No nausea, vomiting, dizziness. Eating breakfast now. Feels weak overall and has not been OOB. No palpitations, chest pain, dyspnea. Objective Vital signs: Temperature 97.9 F 03/13/17 08:00 Pulse Rate 60 03/13/17 08:00 Respiratory Rate 18 03/13/17 08:00 Blood Pressure 167/74 H 03/13/17 08:00 Pulse Oximetry 96 03/13/17 08:00 Rhythm: Normal Sinus Rhythm Height/Weight/BMI: Weight 88.6 kg - Constitutional Present: no acute distress, well nourished, well developed - Routine HEENT Exam Head: Present: normocephalic, atraumatic Eye: Present: EOMI, PERRL ENT: Present: mucous membranes moist, oropharynx clear - Routine Respiratory Exam Present: CTA bilaterally. Absent: accessory muscle use, respiratory distress - Routine Cardiovascular Exam Present: RRR. Absent: murmur - Routine Abdominal Exam Present: soft, non distended, non tender - Routine Extremities Exam Present: non tender, pulses intact. Absent: edema - Routine Skin Exam Present: dry, warm. Absent: rash - Routine Neurological Exam Present: alert, oriented X3, normal speech - Routine Psychiatric Exam Present: normal affect, normal thought process Results - Labs CBC & Chem 7: 03/13/17 08:15 03/13/17 08:15 Assessment and Plan Assessment and Plan: Impression Hypertensive urgency, BP improved Chest pain, recurrent Vertigo with nausea/vomiting Nonsustained VT-03/12, no further events overnight Alteration of mentation Weakness Coronary artery disease Pacemaker-biventricular Diabetes Ischemic cardiomyopathy Plan Dr. Hernandez following and adjusted meds yesterday after Vtach--on amio/ labetalol now. Telemetry strips reviewed-no further ventricular arrhythmias overnight Cardiac catheter planned next Wednesday to address second lesion that requires stent. Continue telemetry; patient has AICD for protection as well. Blood pressures have generally improved since hospitalized as was seen during prior recent day for chest pain. Unclear if anxiety/panic symptoms contribute to hypertension. Will increase lisinopril to 10 mg daily given persistent high BP and monitor. Renal sonogram with duplex without evidence of significant arterial stenosis. Clearly vertiginous yesterday, much improved after scopolamine patch started, CT head during this admission unremarkable. Chest pain appears to have improved with hospitalization/blood pressure control. Diabetes adequately controlled, will continue to monitor as appetite improved. Discussed with patient and case management; may be able to DC home tomorrow with home health support if no concerns from cardiology standpoint. Hospital Course Summary Disclaimer: The visit summary below is not to be considered part of the above Progress Note. Hospital Course: 03/10/17 Impression Chest pain Alteration of mentation Weakness Uncontrolled Hypertension Coronary artery disease Pacemaker-biventricular Diabetes Ischemic cardiomyopathy Plan Initially, will admit patient outpatient observation under the care of Dr. Lara to the ICU for close monitoring. It is somewhat difficult to assess exact etiology of patient's symptoms at time of admission. He describes episode this morning in which she was dizzy with chest pain followed by a probable loss of consciousness. Does not have any focal neurologic deficits at time of exam, however, continues to be significantly fatigued and falls asleep easily. Did discuss patient's pacemaker as it is a [place] scientific biventricular pacemaker- It is unable to undergo MRI. This was confirmed through [employer] rep. Thus, this limits further evaluation to rule out an acute stroke. Per imaging. Initial CT scan was negative While in the emergency room following an episode of bradycardia. Patient has been on external pacers. Continue to monitor him carefully in the ICU on cardiac telemetry Did review old records from via [facility] office visits. It does appear that patients weight is up. Last outpatient weight was in January 2017, at which time he was 87 kilograms. Today on admission he is 91.7 kilograms. Suspect he may need gently diuresis. Baseline creatinine appears to be between 1.6-1.8. Creatinine on 01/13/17 was 1.89. Heavy Equipment Mechanic today is 2.0. Noted, proBNP has nearly doubled since 03/08 at which time it was 7,540. Today it is 13,100. It does appear patient takes Lasix 80 milligrams daily. Will obtain serial troponins 3. Monitor Accu-Cheks. Home med list reveals patient utilizes NovoLog flex pen 20 units subcutaneous 3 times a day and Levemir 24 units twice a day Will review all home cardiac medications with attending prior to ordering. Patient is chronically on aspirin and Effient. Lovenox subcutaneous daily for DVT prophylaxis as well as SCD Patient does request to be a do not resuscitate and this order is written. Will discuss further orders and plan of care with attending, Dr. Lara. At time of discharge, his primary care. Will resume with Dr. Elliott 40 minutes spent with patient, orders, collaboration of care. 03/11/17 Plan Stable overnight without episodes of chest pain. Maintaining saturations on room air. Moves in bed and rolls over without difficulty. Serial troponin were negative. Telemetry reviewed- has been 100% paced at 60. Heavy Equipment Mechanic trended down to 1.8 which appears to be baseline Persistent hypertension overnight. Currently 160's overnight. home medications ordered for this morning. Encouraged oral intake. Continue on Effient given known cardiac disease Possibly consult PT/OT to evaluate weakness. 03/12/17 21:11 6 seconds nonsustained VT at a rate of 150 Dr. Hernandez consulted and amiodarone initiated orally. Metoprolol converted to labetalol for improved blood pressure control. No evidence of renal artery stenosis. Recurrent nausea/vomiting with vertigo. Scopolamine patch initiated. 03/13/17 09:41 Much improved symptomatically after scopalamine patch placed No further V tach with po amiodarone, conversion to labetalol from metoprolol Increased lisinopril to improve BP control (to 10 mg from 5 mg daily) Continue scopalamine patch, try to get up and ambulate today and monitor symptoms
[2017-03-13] MEDS: MECLIZINE 25 MG TABLET PO PRN (16:10)
[2017-03-13] MEDS: FAMOTIDINE 20 MG TABLET PO SCH (20:36)
[2017-03-13] MEDS: ATORVASTATIN 40 MG TABLET PO SCH (20:36)
[2017-03-13] MEDS: TERAZOSIN 2 MG CAPSULE PO SCH (20:36)
[2017-03-13] MEDS: ACETAMINOPHEN 325 MG TABLET PO PRN (20:37)
[2017-03-13] MEDS: SALINE FLUSH 10ml SYRINGE IV PRN (20:39)
[2017-03-13 23:58] VITALS: RESP 20
[2017-03-14] MEDS: MECLIZINE 25 MG TABLET PO PRN (01:04)
[2017-03-14] MEDS: SALINE FLUSH 10ml SYRINGE IV PRN (01:44)
[2017-03-14] MEDS: ONDANSETRON 4 MG/2 ML INJECTION IVP PRN (01:44)
[2017-03-14] MEDS: ACETAMINOPHEN 325 MG TABLET PO PRN (02:58)
[2017-03-14 03:06] VITALS: O2SAT 96
[2017-03-14] MEDS: PANTOPRAZOLE 40 MG TABLET PO SCH (05:58)
[2017-03-14] MEDS: ISOSORBIDE MONONITRATE ER 60 MG TABLET PO SCH (05:59)
[2017-03-14 07:57] VITALS: BP 139/63; TEMP 95.4
[2017-03-14] MEDS ORDERED: FUROSEMIDE 80 MG TABLET PO SCH (08:09)
[2017-03-14] MEDS: INSULIN ASPART 100unit/ml INJECTION SQ SCH (08:12)
[2017-03-14] MEDS: INSULIN DETEMIR 100unit/ml INJECTION SQ SCH (08:13)
[2017-03-14] MEDS: ASPIRIN *EC* 325 MG TABLET PO SCH (08:15)
[2017-03-14] MEDS: ENOXAPARIN 40 MG/0.4 ML INJECTION SQ SCH (08:15)
[2017-03-14] MEDS: PRASUGREL 10 MG TABLET PO SCH (08:15)
[2017-03-14] MEDS: AMIODARONE 200 MG TABLET PO SCH (08:16)
[2017-03-14] MEDS: LABETALOL 100 MG TABLET PO SCH (08:16)
[2017-03-14] MEDS: FLUoxetine 20 MG CAPSULE PO SCH (08:16)
[2017-03-14] MEDS: FUROSEMIDE 80 MG TABLET PO SCH (08:17)
[2017-03-14 10:03] VITALS: PULSE 61
--- NOTE | 2017-03-14 10:13 | Discharge Summary ---
Discharge Information Date of admission: 03/10/17 21:25 Anticipated date of discharge: 03/14/17 Attending Physician: Shirley Lara MD Consults: 03/12/17 12:15 Physician Consult [CONS] Routine Consulting Provider: Rubin Hernandez Reason For Exam: 6 second run of V-Tach Ordering Provider has Notified Software Quality Automation Engineer: No - Discharge Diagnosis (1) CKD (chronic kidney disease), stage III Status: Chronic (2) Chest pain in adult Status: Acute (3) Hypertensive emergency Status: Acute (4) Non-sustained ventricular tachycardia Status: Acute (5) Syncope and collapse Status: Acute (6) Diastolic CHF Status: Chronic (7) Atherosclerotic heart disease of [place] coronary artery without angina pectoris Status: Chronic (8) Essential (primary) hypertension Status: Chronic (9) ICD (implantable cardioverter-defibrillator) in place Status: Chronic (10) Mixed hyperlipidemia Status: Chronic (11) Type 2 diabetes mellitus without complications Status: Chronic (12) Vertigo Status: Acute As above; see problem list for this hospitalization. - Laboratory Labs: 03/14/17 03:58 03/14/17 03:58 - Radiology Radiology: Date of Exam: 03/10/17 Ordering Provider: Charles Gonzales MD Type of Exam(s): CT abdomen pelvis w con Reason for Exam(s): abd pain right lower quad Indication: abd pain right lower quad PROCEDURE: CT abdomen pelvis w con: Encounter: Initial Comparison: None Technique: Axial CT images were performed through the abdomen and pelvis after the administration of intravenous contrast. Coronal and sagittal two-dimensional reformats. Automated Exposure Control and Iterative Reconstruction dose reducing techniques were utilized. Contrast: Visipaque 320 100 mL Findings: The lung bases are grossly clear. Trace right pleural fluid versus pleural thickening. Heart is enlarged. Cardiac pacemaker present. No obvious pericardial effusion. The liver is decreased in attenuation relative to the spleen consistent with fatty infiltration. No enhancing liver mass or bile duct dilatation. The phase of contrast is earlier than ideal. There is a small amount of perihepatic ascites. The gallbladder is grossly normal. The spleen shows granulomatous changes. The pancreas appears normal. The adrenal glands are within normal limits. Kidneys show bilateral small low-attenuation foci which are too small to definitively characterize. No abdominal or pelvic lymphadenopathy. Enlarged right inguinal nodes on image #91 measuring 1.3 cm in short axis. Bladder is normal. Prostate and rectum are unremarkable. No evidence of a bowel obstruction. The appendix is gas-filled and normal. Small amount of free fluid in the mesentery. Bone windows show no lytic or blastic osseous lesions. Impression: 1. Small amount of ascites and trace right pleural effusion could be due to mild volume overload, renal or hepatic insufficiency. 2. Right inguinal adenopathy. This could be reactive to infection or inflammation in the right lower extremity or potentially neoplastic. Recommend correlation for any history of procedures in this region or right lower extremity infection. If there is no history of any of these a short-term follow-up pelvic CT in three months is suggested to evaluate for stability. 3. No clear etiology for the patient's right lower quadrant pain. Date of Exam: 03/11/17 Ordering Provider: Shirley Lara MD Type of Exam(s): US gall bladder Reason for Exam(s): RUQ pain/emesis Indication: RUQ pain/emesis PROCEDURE: US gall bladder: Encounter: Initial Comparison: None Technique: Grayscale and color Doppler sonographic imaging of the right upper quadrant of the abdomen was performed. Findings: Hepatic parenchyma is sonographically dense without evidence for focal mass. The gallbladder shows wall thickening at 5 mm. No pericholecystic fluid, sonographic Ibarra's sign or cholelithiasis. Both the intra and extrahepatic biliary system are of normal caliber with the common duct measuring 2 mm in dimension. Pancreas is not visualized due to shadowing bowel gas. The right kidney is present without collecting system dilatation. The right kidney measures 10.7 cm in length. Impression: 1. Nonspecific gallbladder wall thickening. No other findings to suggest acute cholecystitis. 2. Hepatic steatosis. Date of Exam: 03/12/17 Ordering Provider: Shirley Lara MD Type of Exam(s): US renal doppler Reason for Exam(s): uncontrolled HTN Indication: uncontrolled HTN PROCEDURE: US renal doppler: Encounter: Initial Comparison: None Technique: Technically limited exam due to patient participation. Grayscale and color Doppler sonographic imaging of both kidneys was performed with duplex evaluation of the renal arteries. Findings: Scans of the kidneys demonstrate normal morphology. The right kidney measures 10.8 cm in length. The left kidney measures 11.2 cm in length. There is no collecting system dilatation, contour deforming mass, nephrolithiasis, or abnormal perinephric fluid collection. Color Doppler imaging demonstrates normal vascularization. Resistive indices from the intrarenal arteries in the upper, middle, and lower portions of the right kidney are normal. Resistive indices from the intrarenal arteries in the upper, middle, and lower portions of the left kidney are normal. Arterial waveforms are normal. Impression: No evidence of hemodynamically significant renal arterial stenosis. History of Present Illness HPI: From admission H&P by Dr. Lara on 03/10/17: Patient is a 71-year-old male who is brought to the emergency room by EMS today following a episode where he lost consciousness. He describes this as he was sitting at home in his chair, suddenly felt dizzy with severe chest pain followed by vomiting. He thinks at this time. He had an episode of unresponsiveness. He then awoke contacted EMS in which she was found to have chest pain and shortness of breath. He was then transported to [facility] for acute evaluation and treatment. CT scan of the head was done, did not show any acute intracranial abnormality or hemorrhage. CBC overall unremarkable, chemistry panel did reveal elevated renal function, BUN 50, creatinine 2.0. This is not appear to be far from his baseline. Initial troponin 0.075 with a pro BNP 13,100. Venous lactate 2.0. Patient also complained of lower abdominal pain, a CT scan of the abdomen was obtained that did reveal a small amount of ascites with trace right pleural effusion, right inguinal adenopathy. Chest x-ray showed no acute cardiopulmonary disease. Patient has been hypertensive while in the emergency room. He was given Hydralazine 10 mg IV . Blood pressure did decrease to 180/94. Pacemaker was interrogated by [employer] did not reveal any acute events. However, while patient was in radiology patient had symptoms and stated he did not feel well, at that time, Nursing staff at his side did report he had an episode of bradycardia down to 28-30 and this was palpable. Patient was then placed on external pacers and has remained 100% paced in the 60s Since that time. It is unclear if this episode was seen on interrogation. This episode happened between [address] Hernandez did see patient while in the ER. Further history does reveal patient had an WI and was discharged from [facility] last Wednesday. He then presented to [facility] emergency room on 03/07 and was admitted under care of Dr. Hernandez for chest pain. Echocardiogram was performed on 03/08 showed an EF of 45%. 03/14/17 10:15 Objective Vital signs: Temperature 95.4 F L 03/14/17 07:55 Pulse Rate 61 03/14/17 08:00 Respiratory Rate 20 03/14/17 07:55 Blood Pressure 139/63 03/14/17 07:55 Pulse Oximetry 96 03/14/17 07:55 Rhythm: Normal Sinus Rhythm Height/Weight/BMI: Weight 89.5 kg - Constitutional Present: no acute distress, well nourished, well developed, obese - Routine HEENT Exam Head: Present: normocephalic, atraumatic Eye: Present: EOMI, PERRL, normal accommodation ENT: Present: mucous membranes moist, oropharynx clear - Routine Respiratory Exam Present: CTA bilaterally. Absent: accessory muscle use, rhonchi, crackles - Routine Cardiovascular Exam Present: RRR. Absent: murmur - Routine Abdominal Exam Present: soft, non distended, non tender - Routine Extremities Exam Present: pulses intact, normal capillary refill. Absent: edema - Routine Back/Spine/Pelvis Exam Back/Spine: Present: full ROM - Routine Skin Exam Present: dry, warm. Absent: rash - Routine Neurological Exam Present: alert, oriented X3, normal speech - Routine Psychiatric Exam Present: normal affect, good insight, good judgment Hospital Course This is a general summary of the patient's hospital course. For more details refer to the complete medical record. Hospital course: 03/10/17 Impression Chest pain Alteration of mentation Weakness Uncontrolled Hypertension Coronary artery disease Pacemaker-biventricular Diabetes Ischemic cardiomyopathy Plan Initially, will admit patient outpatient observation under the care of Dr. Lara to the ICU for close monitoring. It is somewhat difficult to assess exact etiology of patient's symptoms at time of admission. He describes episode this morning in which she was dizzy with chest pain followed by a probable loss of consciousness. Does not have any focal neurologic deficits at time of exam, however, continues to be significantly fatigued and falls asleep easily. Did discuss patient's pacemaker as it is a [place] scientific biventricular pacemaker- It is unable to undergo MRI. This was confirmed through [employer] rep. Thus, this limits further evaluation to rule out an acute stroke. Per imaging. Initial CT scan was negative While in the emergency room following an episode of bradycardia. Patient has been on external pacers. Continue to monitor him carefully in the ICU on cardiac telemetry Did review old records from via [facility] office visits. It does appear that patients weight is up. Last outpatient weight was in January 2017, at which time he was 87 kilograms. Today on admission he is 91.7 kilograms. Suspect he may need gently diuresis. Baseline creatinine appears to be between 1.6-1.8. Creatinine on 01/13/17 was 1.89. Molding Machine Setter today is 2.0. Noted, proBNP has nearly doubled since 03/08 at which time it was 7,540. Today it is 13,100. It does appear patient takes Lasix 80 milligrams daily. Will obtain serial troponins 3. Monitor Accu-Cheks. Home med list reveals patient utilizes NovoLog flex pen 20 units subcutaneous 3 times a day and Levemir 24 units twice a day Will review all home cardiac medications with attending prior to ordering. Patient is chronically on aspirin and Effient. Lovenox subcutaneous daily for DVT prophylaxis as well as SCD Patient does request to be a do not resuscitate and this order is written. Will discuss further orders and plan of care with attending, Dr. Lara. At time of discharge, his primary care. Will resume with Dr. Elliott 40 minutes spent with patient, orders, collaboration of care. 03/11/17 Stable overnight without episodes of chest pain. Maintaining saturations on room air. Moves in bed and rolls over without difficulty. Serial troponin were negative. Telemetry reviewed- has been 100% paced at 60. Molding Machine Setter trended down to 1.8 which appears to be baseline Persistent hypertension overnight. Currently 160's overnight. home medications ordered for this morning. Encouraged oral intake. Continue on Effient given known cardiac disease Possibly consult PT/OT to evaluate weakness. 03/12/17 21:11 6 seconds nonsustained VT at a rate of 150 Dr. Hernandez consulted and amiodarone initiated orally. Metoprolol converted to labetalol for improved blood pressure control. No evidence of renal artery stenosis. Recurrent nausea/vomiting with vertigo. Scopolamine patch initiated. 03/13/17 09:41 Much improved symptomatically after scopalamine patch placed No further V tach with po amiodarone, conversion to labetalol from metoprolol Increased lisinopril to improve BP control (to 10 mg from 5 mg daily) Continue scopalamine patch, try to get up and ambulate today and monitor symptoms 03/14/17 He is feeling much better today. Requests discharge home. Medications discussed including scopalamine, diuretics, amiodarone and labetalol (off metoprolol now). Plans to follow up with his lead burner within 1-[address] Elliott his PCP. Will resume his home Meals on Wheels services. Will have home health, prearranged, starting tomorrow and discussed drawing weekly labs for now to ensure renal function is stable. Telemetry reviewed with no further arrhythmias. DC home arranged and medications sent to his pharmacy in [place]. Time spent with patient: discharge greater than 30 minutes DVT Prophylaxis: Lovenox GI Prophylaxis: Protonix Discharge Plan - Discharge Disposition Discharge Date: 03/14/17 Disposition: 86 Home Health Service *Condition: Stable Reason For Visit (Visit label in EMR): Hypertensive emergency - Discharge Medications *Discharge Medications: New Labetalol [Normodyne] 200 mg PO BID 90 Days #180 tab Scopolamine Patch Removal [Transderm-Scop Patch Removal] 1 removal TD Q3D # 10 patch Acetaminophen [Tylenol] 650 mg PO QID PRN tab PRN Reason: Discomfort Amiodarone [Pacerone] 200 mg PO DAILY 90 Days #90 tab Continue Insulin Detemir [Levemir Flextouch] 24 unit SQ BID #0 Prasugrel HCl [Effient] 10 mg PO DAILY #0 Pantoprazole Sodium 40 mg PO ACB #0 Fluoxetine HCl [Prozac] 40 mg PO DAILY Meclizine [Antivert] 25 mg PO BID Lisinopril [Zestril] 5 mg PO DAILY Isosorbide Mononitrate ER [Imdur] 60 mg PO DAILY Furosemide [Lasix] 80 mg PO DAILY Insulin Aspart [Novolog Flexpen] 12 unit SQ TIDWM #0 Atorvastatin Calcium 80 mg PO HS #0 Terazosin [Hytrin] 2 mg PO HS Aspirin *EC* [Ecotrin] 325 mg PO DAILY Nitroglycerin 0.4 mg SL Q5MIN3 PRN PRN Reason: Chest Pain Discontinued Cetirizine HCl 10 mg PO DAILY Metoprolol Tartrate [Lopressor] 100 mg PO BID - Discharge Packet/Instructions *Diet: Diabetic, carb-controlled diet *Activity: As tolerated; no specific restrictions *Pain Management/Treatment: N/A; tylenol as needed and nitroglycerin for any chest pain as ordered *Wound Care: N/A *Expected Signs/Symptoms: You may be weak due to hospitalization. If you have worsening shortness of air or chest pain not improved with nitroglycerin please seek further evaluation. *Notify Physician if: you have palpitations, chest pain not improved with nitroglycerin or worsening shortness of air. *During Business Hours Contact: your primary care physician or cardiology office. *After Business Hours Contact: the [facility] switchboard at [phone] or go to the nearest emergency department for evaluation. *Pending Lab/Results: No Pending Lab - Referrals/Follow Up *Referrals/Follow Up: Rubin Hernandez MD [Physician] - 2 Weeks Colin Elliott MD [Physician] - 2 Weeks - Patient Handouts Patient Handouts: Vertigo (GEN) - Dismissal Complete Discharge Instructions are:: Complete
[2017-03-15] MEDS ORDERED: FUROSEMIDE 40 MG TABLET PO SCH (09:00)
[2017-03-15] MEDS ORDERED: SCOPOLAMINE PATCH REMOVAL TD SCH (15:45)
[2017-03-19] MEDS ORDERED: AMIODARONE 200 MG TABLET PO SCH (09:00)
== END 2017-03-14 11:26 | disposition home health service (06) | DRG 305 ==
LOC: CCU 12:29 → ED 12:29 → CCU 16:35 → MED 03-11 15:00
PROVIDERS: ADMIT Internal Medicine; ATTEND Internal Medicine

== ENCOUNTER 2017-03-16 17:50 | Inpatient (IN) ==
[2017-03-16] MEDS ORDERED: DEXTROSE 50% SYRINGE 50ml (1 AMP) IVP ONE ×3 (17:58→19:07)
--- NOTE | 2017-03-16 18:17 | Emergency Department Report ---
General Adult HPI - General Stated complaint: diabetic issues Time Seen by Provider: 03/16/17 17:58 Source: patient Mode of arrival: ambulatory Limitations: no limitations - History of Present Illness HPI narrative: Patient has been running low blood sugar all day, then when he took his evening insulin he did not eat any supper because he was feeling slightly weak. Patient then became nearly unconscious and EMS was called. EMS found the patient with this severely low blood sugar in the 40s, he was given one ampule of D50, and ranged his blood sugar greater than 200. However on recheck in the ER patient's Accu-Chek is now down to 80 again. Patient admits he has not had much caloric intake today. - Related Data Home Medications Medication Instructions Recorded Confirmed Atorvastatin Calcium 80 mg PO HS #0 05/27/15 03/16/17 Insulin Aspart [Novolog Flexpen] 12 unit SQ TIDWM #0 05/27/15 03/16/17 Insulin Detemir [Levemir Flextouch] 24 unit SQ BID #0 05/27/15 03/16/17 Pantoprazole Sodium 40 mg PO ACB #0 05/08/16 03/16/17 Prasugrel HCl [Effient] 10 mg PO DAILY #0 05/08/16 03/16/17 Terazosin [Hytrin] 2 mg PO HS 09/29/16 03/16/17 Aspirin *EC* [Ecotrin] 325 mg PO DAILY 09/30/16 03/16/17 Nitroglycerin 0.4 mg SL Q5MIN3 PRN 10/13/16 03/16/17 Fluoxetine HCl [Prozac] 40 mg PO DAILY 03/07/17 03/16/17 Isosorbide Mononitrate ER [Imdur] 60 mg PO DAILY 03/07/17 03/16/17 Lisinopril [Zestril] 5 mg PO DAILY 03/07/17 03/16/17 Meclizine [Antivert] 25 mg PO BID 03/07/17 03/16/17 Furosemide [Lasix] 80 mg PO DAILY 03/10/17 03/16/17 Previous Rx's Medication Instructions Recorded Acetaminophen [Tylenol] 650 mg PO QID PRN tab 03/14/17 Amiodarone [Pacerone] 200 mg PO DAILY 90 Days #90 tab 03/14/17 Labetalol [Normodyne] 200 mg PO BID 90 Days #180 tab 03/14/17 Scopolamine Patch Removal 1 removal TD Q3D #10 patch 03/14/17 [Transderm-Scop Patch Removal] Allergies Allergy/AdvReac Type Severity Reaction Status Date / Time No Known Allergies Allergy Verified 03/16/17 18:25 Review of Systems All systems: reviewed and negative except as stated PFSH Patient Stated Medical History Cerebrovascular Accident Yes: 2004 Dental Problems Yes: NO TEETH Hearing Loss Yes Angina Yes Congestive Heart Failure Yes Coronary Artery Disease Yes Hypertension Yes Myocardial Infarction Yes Chronic Obstructive Pulmonary Yes Disease (COPD) Sleep Apnea Yes Diabetes Mellitus Type 2 Yes Gastroesophageal Reflux Yes Disease Hx Kidney Stones Yes Other Yes: PAST KIDNEY FAILURE 30% Depression Yes Clinic Medical History Dehydration (Acute Medical) Essential (primary) hypertension (Chronic Medical) Mixed hyperlipidemia (Chronic Medical) Type 2 diabetes mellitus without complications (Chronic Medical) Atherosclerotic heart disease of [place] coronary artery without angina pectoris (Chronic Medical) ICD (implantable cardioverter-defibrillator) in place (Chronic Medical) Photowhoa Unstable angina (Acute Medical) Underwent left heart cath with successful primary stent of vein graft to PDA using 3.0 x 9 and 3.0 x 18 drug-eluting Resolute Integrity stents. Diastolic CHF (Chronic Medical) Chest pain in adult (Acute Medical) Precordial pain (Acute Medical) Syncope and collapse (Acute Medical) Hypertensive emergency (Acute Medical) Non-sustained ventricular tachycardia (Acute Medical) CKD (chronic kidney disease), stage III (Chronic Medical) Vertigo (Acute Medical) Congestive heart failure (Inactive Medical) IDDM Medical History Updates: 03/08/17- ECHO. IMPRESSION. 1. Technically difficult study. 2. Biatrial dilation. 3. Concentric left ventricular hypertrophy. 4. Mild LV dysfunction with ejection fraction of about 45%. 5. Pacemaker present in right heart. 6. Mild mitral regurgitation. 7. Moderate tricuspid regurgitation with moderate pulmonary hypertension with estimated pulmonary artery systolic pressure of 49. 8. Mild pulmonary insufficiency. Surgical History: AICD. CABG - Social History Current residence: Apartment/Private Home Physical Exam - Limitations Limitations: no limitations - General General appearance: alert - Normal Exams: Head:: Normocephalic without trauma Eyes:: Pupils are PERRLA w/ EOMI, No scleral icterus, irritation, or foreign bodies noted ENMT:: No facial trauma, nasal exudates, pharyngeal erythema, or exudates are noted Neck:: Full range of motion, without adenopathy, JVD, bruits or thyromegaly Chest/Respirations:: Clear all beckman, with good airflow, and symmetry bilaterally Cardiovascular:: Regular rate and rhythm, without murmur or gallop, Pulses 2+ all extremities, capillary refill, <2 seconds all extremities Abdomen:: Bowel sounds positive, soft, non-tender, non-distended, no hepatosplenomegaly, masses or bruits noted Lymphatic:: No lymphadenopathy, or lymphedema noted Musculoskeletal:: No tenderness, or deformity noted, good range of motion, all extremities Integumentary:: No rashes, hives, or bruising noted, hair and nails, without abnormality Neurological:: Patient is alert, and oriented, cranial nerves, motor/sensory/ cerebellar, exams w/o gross deficits, to observation Psychiatric:: Patient exhibits, appropriate attention, emotion and affect Course Vital Signs Temperature 97.8 F 03/16/17 18:00 Pulse Rate 60 03/16/17 18:00 Respiratory Rate 16 03/16/17 18:00 Blood Pressure 182/91 H 03/16/17 18:00 Pulse Oximetry 100 03/16/17 18:00 Temperature 97.8 F 03/16/17 18:00 Pulse Rate 60 03/16/17 18:00 Respiratory Rate 16 03/16/17 18:00 Blood Pressure 182/91 H 03/16/17 18:00 Pulse Oximetry 100 03/16/17 18:00 Medical Decision Making - MDM Narrative Medical decision making narrative: Initial Accu-Chek in the ER is 80. Patient given 25 g dextrose dose and food in the ER CBC - n CMP - BUN/creatinine are acutely elevated, creatinine up to 3.5. UA - normal Case is discussed with Dr. Cornell Ruby, we'll admit inpatient for acute encephalopathy secondary to insulin dependent diabetes, hyper poked glycemia, and renal insufficiency with dehydration - Lab Data Result diagrams: 03/16/17 18:09 03/16/17 18:09 Lab Results 03/16/17 03/16/17 03/16/17 Range/Units 18:09 18:09 18:35 WBC 6.2 (4.5-11.0) T/MM3 RBC 3.69 L (4.50-5.90) M/MM3 Hgb 10.9 L D (13.5-17.5) GM/DL Hct 34.3 L (41-53) % MCV 93.0 (80-100) UM3 MCH 29.5 (26-34) UUG MCHC 31.8 (31-37) GM/DL RDW Std Deviation 50.5 H (36.9-50.2) FL Plt Count 207 (130-400) T/MM3 MPV 10.3 (9.4-12.4) UM3 Immature Gran % (Auto) 0.2 (0.0-0.5) % Neut % (Auto) 70.1 H (33-66) % Lymph % (Auto) 19.3 L (23-45) % Prentiss % (Auto) 8.7 (0-9.0) % Eos % (Auto) 1.4 (0-4) % Baso % (Auto) 0.3 (0-2) % Neut # (Auto) 4.4 (1.8-7.7) T/MM3 Lymph # (Auto) 1.2 (1-4.8) T/MM3 Prentiss # (Auto) 0.5 (0-0.8) T/MM3 Eos # (Auto) 0.1 (0-0.5) T/MM3 Baso # (Auto) 0.0 (0-0.2) T/MM3 Abs Immat Gran (auto) 0.01 (0.00-0.03) T/MM3 Turbidity < 20 (0-20) Sodium 144 (134-144) MEQ/L Potassium 3.9 (3.6-5) MEQ/L Chloride 105 (98-107) MEQ/L Carbon Dioxide 24 (22-30) MEQ/L Anion Gap 15 (5-15) MEQ/L BUN 56.0 H* (9-20) MG/DL Creatinine 3.2 H D (0.8-1.5) MG/DL GFR Calculation 19 BUN/Creatinine Ratio 18 (6-26) RATIO Glucose 87 (75-110) MG/DL Calculated Osmolality 292 H (261-280) MOSM/KG Calcium 9.1 (8.4-10.2) MG/DL Total Bilirubin 1.00 (0.20-1.30) MG/DL Conjugated Bilirubin 0.00 (0.00-0.30) MG/DL Unconjugated Bilirubin 0.40 (0.00-1.1) MG/DL Icterus Index < 2 (0-7) AST 37 (17-59) U/L ALT 43 (21-72) U/L Alkaline Phosphatase 90 (38-126) U/L Total Protein 8.1 (6.3-8.2) G/DL Albumin 4.5 (3.5-5.0) G/DL Globulin 3.6 (2.4-3.6) G/DL Albumin/Globulin Ratio 1.3 (1.1-2.2) RATIO Specimen Hemolysis < 15 (0-25) Ur Collection Type Urine, clean catch Urine Color Yellow (YELLOW) Urine Clarity Clear Urine pH 5.5 (5.0-8.0) Ur Specific [place] 1.015 (1.015-1.025) Urine Protein Negative (NEGATIVE) Urine Glucose (UA) Trace A (NEGATIVE) Urine Ketones Negative (NEGATIVE) Urine Occult Blood Trace-intact (NEGATIVE) Urine Nitrate Negative (NEGATIVE) Urine Bilirubin Negative (NEGATIVE) Urine Urobilinogen 0.2 (NORMAL) EU/DL Ur Leukocyte Esterase Negative (NEGATIVE) Urinalysis Comment Microscopic not ind. Disposition Clinical Impression: Acute encephalopathy, Hypoglycemia due to insulin, Renal insufficiency, Dehydration Disposition: 02 To [facility] [place] Acute Care Condition: Stable Prescriptions: No Action Insulin Detemir [Levemir Flextouch] 24 unit SQ BID #0 Prasugrel HCl [Effient] 10 mg PO DAILY #0 Pantoprazole Sodium 40 mg PO ACB #0 Fluoxetine HCl [Prozac] 40 mg PO DAILY Meclizine [Antivert] 25 mg PO BID Lisinopril [Zestril] 5 mg PO DAILY Isosorbide Mononitrate ER [Imdur] 60 mg PO DAILY Furosemide [Lasix] 80 mg PO DAILY Labetalol [Normodyne] 200 mg PO BID 90 Days #180 tab Scopolamine Patch Removal [Transderm-Scop Patch Removal] 1 removal TD Q3D # 10 patch Insulin Aspart [Novolog Flexpen] 12 unit SQ TIDWM #0 Atorvastatin Calcium 80 mg PO HS #0 Terazosin [Hytrin] 2 mg PO HS Aspirin *EC* [Ecotrin] 325 mg PO DAILY Nitroglycerin 0.4 mg SL Q5MIN3 PRN PRN Reason: Chest Pain Acetaminophen [Tylenol] 650 mg PO QID PRN tab PRN Reason: Discomfort Amiodarone [Pacerone] 200 mg PO DAILY 90 Days #90 tab - Seen By: physician
[2017-03-16] MEDS ORDERED: NS 1,000 ML IV ONE (18:44)
[2017-03-16] MEDS ORDERED: DEXTROSE 50% INJECTION 50ml VIAL IV ONE (19:05)
[2017-03-16] MEDS ORDERED: ACETAMINOPHEN 325 MG TABLET PO PRN (19:27)
[2017-03-16] MEDS ORDERED: ONDANSETRON 4 MG/2 ML INJECTION IVP PRN (19:27)
[2017-03-16 19:46] VITALS: BMI 32.8
--- NOTE | 2017-03-16 20:13 | History & Physical Report ---
History of Present Illness Date: 03/17/17 Chief complaint: weak HPI: Please note that the patient was seen via telemedicine with nursing assistance on 03/16/2017 Mr. Rivera is a 71yo man with h/o DM2 on insulin for years, HTN, dylipidemia, CAD with stent placed at [facility] he believes last month. He has fine until today with him noting to feel weaker, and then family noticed him more confused for which he came in to the ED after EMS CBG 40s given dextrose to CBG 250 more alert, then with hypoglycemia again in the ED. Please see ED staff documentation. No fevers, chills, nausea, sob recognized. He cannot recall his meds or changes well. Took his insulin this PM it is noted. No other Abd pain or other pain. Not a good historian at this point but alert and interactive compared to GCS less than 8 in ED. Review of Systems All systems PM: 10-point ROS was reviewed, no additional remarkable complaints except PFSH Patient Stated Medical History Cerebrovascular Accident Yes: 2004 Dental Problems Yes: NO TEETH Hearing Loss Yes Angina Yes Congestive Heart Failure Yes Coronary Artery Disease Yes Hypertension Yes Myocardial Infarction Yes Chronic Obstructive Pulmonary Yes Disease (COPD) Sleep Apnea Yes Diabetes Mellitus Type 2 Yes Gastroesophageal Reflux Yes Disease Hx Kidney Stones Yes Other Yes: PAST KIDNEY FAILURE 30% Depression Yes Clinic Medical History Dehydration (Acute Medical) Essential (primary) hypertension (Chronic Medical) Mixed hyperlipidemia (Chronic Medical) Type 2 diabetes mellitus without complications (Chronic Medical) Atherosclerotic heart disease of [place] coronary artery without angina pectoris (Chronic Medical) ICD (implantable cardioverter-defibrillator) in place (Chronic Medical) Help[employer] Unstable angina (Acute Medical) Underwent left heart cath with successful primary stent of vein graft to PDA using 3.0 x 9 and 3.0 x 18 drug-eluting Resolute Integrity stents. Diastolic CHF (Chronic Medical) Chest pain in adult (Acute Medical) Precordial pain (Acute Medical) Syncope and collapse (Acute Medical) Hypertensive emergency (Acute Medical) Non-sustained ventricular tachycardia (Acute Medical) CKD (chronic kidney disease), stage III (Chronic Medical) Vertigo (Acute Medical) Acute encephalopathy (Acute Medical) Hypoglycemia due to insulin (Acute Medical) Renal insufficiency (Acute Medical) Congestive heart failure (Inactive Medical) Medical History Updates: 03/08/17- ECHO. IMPRESSION. 1. Technically difficult study. 2. Biatrial dilation. 3. Concentric left ventricular hypertrophy. 4. Mild LV dysfunction with ejection fraction of about 45%. 5. Pacemaker present in right heart. 6. Mild mitral regurgitation. 7. Moderate tricuspid regurgitation with moderate pulmonary hypertension with estimated pulmonary artery systolic pressure of 49. 8. Mild pulmonary insufficiency. Surgical History: AICD. CABG - Social History Smoking status: Never smoker Substance use type: does not use Housing: house Household members: family Medications Home Medications Medication Instructions Recorded Confirmed Type Atorvastatin Calcium 80 mg PO HS #0 05/27/15 03/16/17 History Insulin Aspart [Novolog Flexpen] 12 unit SQ TIDWM #0 05/27/15 03/16/17 History Insulin Detemir [Levemir Flextouch] 24 unit SQ BID #0 05/27/15 03/16/17 History Pantoprazole Sodium 40 mg PO ACB #0 05/08/16 03/16/17 History Prasugrel HCl [Effient] 10 mg PO DAILY #0 05/08/16 03/16/17 History Terazosin [Hytrin] 2 mg PO HS 09/29/16 03/16/17 History Aspirin *EC* [Ecotrin] 325 mg PO DAILY 09/30/16 03/16/17 History Nitroglycerin 0.4 mg SL Q5MIN3 PRN 10/13/16 03/16/17 History Fluoxetine HCl [Prozac] 40 mg PO DAILY 03/07/17 03/16/17 History Isosorbide Mononitrate ER [Imdur] 60 mg PO DAILY 03/07/17 03/16/17 History Lisinopril [Zestril] 5 mg PO DAILY 03/07/17 03/16/17 History Meclizine [Antivert] 25 mg PO BID 03/07/17 03/16/17 History Furosemide [Lasix] 80 mg PO DAILY 03/10/17 03/16/17 History Allergies Allergy/AdvReac Type Severity Reaction Status Date / Time No Known Allergies Allergy Verified 03/16/17 18:25 Exam Vital Signs: Temperature 97.8 F 03/16/17 18:00 Pulse Rate 60 03/16/17 19:30 Respiratory Rate 15 03/16/17 19:30 Blood Pressure 152/75 H 03/16/17 19:27 Pulse Oximetry 98 03/16/17 19:27 Telemetry Rhythm: Sinus Rhythm Height/Weight/BMI: Height 1.65 m Weight 89.5 kg Body Mass Index 32.8 - Constitutional Present: no acute distress - Routine HEENT Exam Eye: Present: EOMI - Routine Neck Exam Present: full ROM - Routine Respiratory Exam Present: CTA bilaterally. Absent: accessory muscle use - Routine Cardiovascular Exam Present: RRR, S1, S2. Absent: no murmur, gallop Comments: no edema - Routine Abdominal Exam Present: soft, normoactive bowel sounds - Routine Extremities Exam Absent: cyanosis, clubbing, edema - Routine Skin Exam Present: intact - Routine Neurological Exam Present: alert not fully oriented not knowing the day of the week. no lateralizing signs. Results - Labs CBC & Chem 7: 03/16/17 18:09 03/17/17 04:28 Assessment and Plan (1) Hypoglycemia associated with type 2 diabetes mellitus Current visit: Yes Status: Acute (2) Acute kidney injury Current visit: Yes Status: Acute (3) Dehydration Current visit: Yes Status: Acute (4) CAD (coronary artery disease) Current visit: Yes Status: Acute (5) HTN (hypertension) Current visit: Yes Status: Acute (6) Metabolic encephalopathy Current visit: Yes Status: Acute Assessment and Plan: 1. Hypoglycemia in the setting of chronic insulin Rx and acute renal failure not ATN--admit to inpatient services with hydration with D5, hold insulin, see below. CBGs q2 hours to start. 2. ARF not ATN--hydrate and hold furosemide and lisinopril. CKD3 at baseline. 3. CAD s/p CABG with recent stent? Obtain [facility] records. 4. Essential HTN--as above 5. Dyslipidemia on statin. 6. Class 1 obesity BMI 32.8 7. Metabolic encephlopathy due to the above. No evidence of infection. 8. DM2--hold insulin, check A1C, modify. Diet now ok. DVT Prophylaxis: SCD's GI Prophylaxis: Protonix Resuscitation Status: Full Code - Physician Narriative Physician: Shirley Lara MD Narriative: 03/17/17 11:50 please refer to note of 03/17/17 for my update/additions. Marco DAMON Hospital Course Summary Disclaimer: The visit summary below is not to be considered part of the above Progress Note.
[2017-03-16] MEDS: D5-1/2NS 1,000 ML IV SCH (20:17)
[2017-03-16] MEDS ORDERED: FALL RISK - PHARMACY CONSULT XX ONE (20:38)
[2017-03-16] MEDS: LABETALOL 100 MG TABLET PO SCH (20:46)
[2017-03-16] MEDS: ATORVASTATIN 40 MG TABLET PO SCH (20:50)
[2017-03-16] MEDS ORDERED: NON-FORMULARY MEDICATION 1 EACH EACH (Atorvastatin Calcium [Atorvastatin Calcium] 80 MG) PO SCH (21:00)
[2017-03-17] MEDS: PANTOPRAZOLE 40 MG TABLET PO SCH (05:51)
[2017-03-17] MEDS: D5-1/2NS 1,000 ML IV SCH (07:35)
[2017-03-17] MEDS: PRASUGREL 10 MG TABLET PO SCH (09:01)
[2017-03-17] MEDS: LABETALOL 100 MG TABLET PO SCH ×2 (09:01→20:18)
[2017-03-17] MEDS: FLUoxetine 20 MG CAPSULE PO SCH (09:01)
[2017-03-17] MEDS: ASPIRIN *EC* 325 MG TABLET PO SCH (09:01)
[2017-03-17] MEDS: ISOSORBIDE MONONITRATE ER 60 MG TABLET PO SCH (09:01)
[2017-03-17] MEDS: AMIODARONE 200 MG TABLET PO SCH (09:01)
[2017-03-17] MEDS: NS 1,000 ML IV SCH (10:57)
[2017-03-17] MEDS: INSULIN DETEMIR 100unit/ml INJECTION SQ SCH ×2 (11:05→20:29)
--- NOTE | 2017-03-17 12:19 | Progress Note ---
Progress Note: Dr. Salazar's note reviewed. Mr. Rivera interviewed and examined. CC: Low blood sugar HPI: Mr. Rivera is a 71yo man with h/o DM2 on insulin for years. He's had 3 recent hospitalizations and was most recently discharged on 03/14 after presenting with LOC/hypertension/chest pain. He does not describe vertigo during the hospital stay and had a brief episode of NSVT. He was started on amiodarone and converted from metoprolol to labetalol to improve blood pressure control. Scopolamine patch was placed 2 days prior to discharge and has not been replaced since that time. He was doing well until yesterday at supper time when he noted feeling weaker, and then his nephew noticed he was more confused and contacted EMS. Patient recalls that blood sugar prior to supper was 83 compared to usual blood sugar of about 200 at that time of day. He reports that he ate normally at breakfast and lunch and with weakness he felt hot and diaphoretic but did not have chest pain or palpitations. Initial blood sugar was reported to be 43 by EMS and he was given dextrose to BG 250; experienced recurrent hypoglycemia again in the ED prompting hospitalization. ER records indicate the patient had taken his evening insulin but did not eat supper due to feeling weak. No fevers, chills, nausea, sob recognized. No other Abd pain or other pain. Renal function has deteriorated since discharge several days ago but the patient denies impaired oral intake recently and has had no diarrhea. PH/SH/FH: agree with that recorded previously by Dr. Salazar with addition of nonsustained VT last admission and plans for cardiac catheterization with heart stent this Wednesday per Dr. Hernandez. FH-both parents and his older brother of coronary disease, younger brother has coronary disease. No family history cancer or diabetes. SH-no history tobacco, alcohol, illicit drug use; lives in an apartment with his nephew. Dr. Elliott is his primary care physician, Dr. Hernandez his maintenance instructor, and Dr. Dionicio Corral is digital editor. Full code. ROS: 10 point review as per Dr. Salazar. Patient specifically denies recurrent vertigo, palpitations, lightheadedness, change in urine output. His blood pressure was okay when he was seen by his home health nurse this week. EXAM: General-NAD, alert, more interactive than last admission; temperature 98.3, blood pressure 163/83, pulse 60, weight 90 kg-unchanged from prior admission HEENT-PERRL, EOMI without nystagmus, conjunctiva clear, sclera anicteric, conjugate gaze, facial structures symmetric, oropharynx clear, neck supple and without adenopathy Lungs-respirations nonlabored, good airflow, breath sounds clear Cardiac-regular rhythm, S1-S2 Abd-obese, soft, nontender, bowel sounds present Ext-trace edema bilateral lower extremities Skin-without rash/wounds Neuro-cranial nerves 3-12 intact, motor tone/power within normal limits, no tremor, sensation intact to light touch 4 extremities Psych-calm, cooperative DATA: White count 6.2, hemoglobin 10.9, electrolytes unremarkable, Cr 3.2-2.7, BUN 56-53 (discharge creatinine 2.5, BUN 40), A1c 9.8, liver enzymes normal Blood sugar since arrival in the emergency room [phone] A/P: Diabetes mellitus, type II, long-term insulin therapy, with nephropathy and retinopathy Hypoglycemia Acute kidney injury Chronic kidney disease, stage III Hypertension Coronary artery disease Ischemic cardiomyopathy Nonsustained VT Obstructive sleep apnea D5 infusion discontinued; resume basal insulin at decreased dose. Suspect deteriorating renal function has potentiated insulin effect and contributed to renal failure. In the emergency room patient reported decreased oral intake yesterday but denies that presently. Additional diabetes education to be provided. Short acting insulin on hold at present but low dose corrective will be utilized as needed. Low-volume fluids for renal insufficiency-weight is stable and blood pressure does not suggest impaired perfusion as cause of acute kidney injury. Lasix on hold temporarily. Cardiology advised of deteriorating renal function as planned catheterization will need to be rescheduled. No recurrent GI symptoms as present during prior admission. Patient said 4 hospitalizations within the past month-I asked him if he felt he could safely manage at home he is insistent that he discharge home at this time, case management to follow-up. Old records reviewed, discussed with cardiology and case management.
[2017-03-17] MEDS ORDERED: NITROGLYCERIN 0.4 MG SUBLINGUAL TABLET SL PRN (12:27)
[2017-03-17] MEDS ORDERED: METOCLOPRAMIDE 10mg/2ml INJECTION IVP PRN (12:28)
[2017-03-17] MEDS: INSULIN ASPART 100unit/ml INJECTION SQ SCH (17:58)
[2017-03-17] MEDS: ATORVASTATIN 40 MG TABLET PO SCH (20:18)
[2017-03-17] MEDS ORDERED: TERAZOSIN 2 MG CAPSULE PO SCH (21:00)
[2017-03-18] MEDS: ISOSORBIDE MONONITRATE ER 60 MG TABLET PO SCH (06:12)
[2017-03-18] MEDS: PANTOPRAZOLE 40 MG TABLET PO SCH (06:12)
[2017-03-18 07:24] VITALS: BP 145/81; PULSE 60; RESP 16; TEMP 98.6; O2SAT 97
[2017-03-18] MEDS: NS 1,000 ML IV SCH (08:50)
[2017-03-18] MEDS: INSULIN DETEMIR 100unit/ml INJECTION SQ SCH (08:54)
[2017-03-18] MEDS: INSULIN ASPART 100unit/ml INJECTION SQ SCH ×2 (08:55→12:30)
[2017-03-18] MEDS: LABETALOL 100 MG TABLET PO SCH (08:55)
[2017-03-18] MEDS: FLUoxetine 20 MG CAPSULE PO SCH (08:56)
[2017-03-18] MEDS: AMIODARONE 200 MG TABLET PO SCH (08:56)
[2017-03-18] MEDS: ASPIRIN *EC* 325 MG TABLET PO SCH (08:57)
[2017-03-18] MEDS: PRASUGREL 10 MG TABLET PO SCH (09:02)
--- NOTE | 2017-03-18 16:57 | Discharge Summary ---
Discharge Information Date of admission: 03/16/17 18:58 Attending Physician: Meme Coronado DO Primary care physician: Colin Emery MD - Discharge Diagnosis (1) Hypoglycemia associated with type 2 diabetes mellitus Status: Acute (2) Acute kidney injury Status: Acute (3) Dehydration Status: Acute (4) CAD (coronary artery disease) Status: Acute (5) HTN (hypertension) Status: Acute (6) Metabolic encephalopathy Status: Acute Diabetes mellitus, type II, long-term insulin therapy, with nephropathy and retinopathy Hypoglycemia Acute kidney injury Chronic kidney disease, stage III Hypertension Coronary artery disease Ischemic cardiomyopathy Nonsustained VT Obstructive sleep apnea - Laboratory Labs: 03/18/17 04:37 03/18/17 04:37 History of Present Illness HPI: Please note that the patient was seen via telemedicine with nursing assistance on 03/16/2017 Mr. Rivera is a 71yo man with h/o DM2 on insulin for years, HTN, dylipidemia, CAD with stent placed at [place] he believes last month. He has fine until today with him noting to feel weaker, and then family noticed him more confused for which he came in to the ED after EMS CBG 40s given dextrose to CBG 250 more alert, then with hypoglycemia again in the ED. Please see ED staff documentation. No fevers, chills, nausea, sob recognized. He cannot recall his meds or changes well. Took his insulin this PM it is noted. No other Abd pain or other pain. Not a good historian at this point but alert and interactive compared to GCS less than 8 in ED. Objective Vital signs: Temperature 98.6 F 03/18/17 07:00 Pulse Rate 60 03/18/17 07:00 Respiratory Rate 16 03/18/17 07:00 Blood Pressure 145/81 H 03/18/17 07:00 Pulse Oximetry 97 03/18/17 07:00 Height/Weight/BMI: Height 5 ft 5 in Weight 91 kg Body Mass Index 32.8 - Constitutional Present: no acute distress - Routine HEENT Exam Head: Present: normocephalic, atraumatic - Routine Respiratory Exam Present: CTA bilaterally - Routine Cardiovascular Exam Present: RRR - Routine Abdominal Exam Present: soft, non distended, non tender - Routine Extremities Exam Present: no edema - Routine Musculoskeletal Exam Musculoskeletal: Present: no clubbing or cyanosis - Routine Neurological Exam Present: alert, oriented X3, CN II-XII intact, moving all extremities, normal speech - Routine Psychiatric Exam Present: normal affect Hospital Course This is a general summary of the patient's hospital course. For more details refer to the complete medical record. Hospital course: D5 infusion discontinued; resumed basal insulin at decreased dose. Suspected deteriorating renal function has potentiated insulin effect and contributed to renal failure. In the emergency room patient reported decreased oral intake yesterday but eating well at discharge. Additional diabetes education to be provided. Tolerating decreased insulin doses. Advised patient that this may need to be titrated up at home and to check sugars consistently and report to Dr. Emery if needed. Went over signs of hypoglycemia. His renal function improved with IVF and suspension of lasix and lisinopril. I did restart lisinopril at discharge and lasix at a smaller dose. I ordered a BMP on 03/22/17 with PCP followup. Cardiology advised of deteriorating renal function as planned catheterization will need to be rescheduled. Patient said 4 hospitalizations within the past month-I asked him if he felt he could safely manage at home he is insistent that he discharge home at this time. Time spent with patient: 25 - 35 minutes DVT Prophylaxis: SCD's GI Prophylaxis: Protonix Discharge Plan - Discharge Disposition Discharge Date: 03/18/17 *Condition: Stable Reason For Visit (Visit label in EMR): hypoglycemia/MARIANNA - Discharge Medications *Discharge Medications: New Insulin Detemir [Levemir] 20 unit SQ BID vial Furosemide [Lasix] 1 tab PO DAILY #30 tab Insulin Aspart [NovoLOG] 8 unit SQ TIDWM vial Continue Prasugrel HCl [Effient] 10 mg PO DAILY #0 Pantoprazole Sodium 40 mg PO ACB #0 Fluoxetine HCl [Prozac] 40 mg PO DAILY Lisinopril [Zestril] 5 mg PO DAILY Isosorbide Mononitrate ER [Imdur] 60 mg PO DAILY Labetalol [Normodyne] 200 mg PO BID 90 Days #180 tab Atorvastatin Calcium 80 mg PO HS #0 Terazosin [Hytrin] 2 mg PO HS Aspirin *EC* [Ecotrin] 325 mg PO DAILY Nitroglycerin 0.4 mg SL Q5MIN3 PRN PRN Reason: Chest Pain Acetaminophen [Tylenol] 650 mg PO QID PRN tab PRN Reason: Discomfort Amiodarone [Pacerone] 200 mg PO DAILY 90 Days #90 tab Discontinued Insulin Detemir [Levemir Flextouch] 24 unit SQ BID #0 Meclizine [Antivert] 25 mg PO BID Furosemide [Lasix] 80 mg PO DAILY Scopolamine Patch Removal [Transderm-Scop Patch Removal] 1 removal TD Q3D # 10 patch Insulin Aspart [Novolog Flexpen] 12 unit SQ TIDWM #0 - Discharge Packet/Instructions *Diet: diabetic - controlled carbohydrate *Activity: as tolerated *Pain Management/Treatment: n/a *Wound Care: na *Expected Signs/Symptoms: Call with signs of hypoglycemia - dizziness, weakness , sweating *Notify Physician if: High or low blood sugars *During Business Hours Contact: Dr. Emery *After Business Hours Contact: Hospital *Pending Lab/Results: No Pending Lab - Referrals/Follow Up *Referrals/Follow Up: Colin Emery MD [Family Provider] - 1 Week (Schedule with Dr. Emery within 1 week. Schedule BMP 03/22/17. GO TO LAB AND HAVE BLOOD DRAWN ON 03/22/2017 FOR A BMP FOLLOW UP APPOINTMENT WITH DR. EMERY ON 03/26/2017 AT 2:30 PM--OFFICE NUMBER [phone]) - Patient Handouts Patient Handouts: Hypoglycemia in a Person with Diabetes (GEN) - Dismissal Complete Discharge Instructions are:: Complete
--- NOTE | 2017-03-19 12:55 | Right on Track Program ---
Right on Track Program Date of Discharge: 03/18/17 Home Medications: Home Medications Medication Instructions Recorded Confirmed Atorvastatin Calcium 80 mg PO HS #0 05/27/15 03/16/17 Pantoprazole Sodium 40 mg PO ACB #0 05/08/16 03/16/17 Prasugrel HCl [Effient] 10 mg PO DAILY #0 05/08/16 03/16/17 Terazosin [Hytrin] 2 mg PO HS 09/29/16 03/16/17 Aspirin *EC* [Ecotrin] 325 mg PO DAILY 09/30/16 03/16/17 Nitroglycerin 0.4 mg SL Q5MIN3 PRN 10/13/16 03/16/17 Fluoxetine HCl [Prozac] 40 mg PO DAILY 03/07/17 03/16/17 Isosorbide Mononitrate ER [Imdur] 60 mg PO DAILY 03/07/17 03/16/17 Lisinopril [Zestril] 5 mg PO DAILY 03/07/17 03/16/17 Previous Rx's Medication Instructions Recorded Acetaminophen [Tylenol] 650 mg PO QID PRN tab 03/14/17 Amiodarone [Pacerone] 200 mg PO DAILY 90 Days #90 tab 03/14/17 Labetalol [Normodyne] 200 mg PO BID 90 Days #180 tab 03/14/17 Furosemide [Lasix] 1 tab PO DAILY #30 tab 03/18/17 Insulin Aspart [NovoLOG] 8 unit SQ TIDWM vial 03/18/17 Insulin Detemir [Levemir] 20 unit SQ BID vial 03/18/17 - Right on Track Program 24 hour phone call 03/19/17 Date: 03/19/17 Right on Track Program: 24 Hour Follow-Up Discharge Summary Received: Yes Care Plan Received: Yes Follow Up: Follow Up Appointment Scheduled (Dr. Elliott 03/26/17 @ 2:30) Referral: Social Work, Primary Care Physician, Home Health Comments: I spoke to Sebas on 03/19/17. He is nauseated and vomited after eating cereal for breakfast. He has been able to keep fluids down. His fasting blood sugar this morning was 134. He wasn't able to verify his medication doses - they come prepackaged by [facility] pharmacy out [place]. He stated he is "a little short of breath". He complained of feeling very tired. He is expecting a RN from [facility] today. Discussed With Patient and Caregiver: Yes Recommendations For Follow-up: IMPRESSION Nausea/vomiting Diabetes mellitus, type II, long-term insulin therapy, with nephropathy and retinopathy Hypoglycemia Acute kidney injury Chronic kidney disease, stage III Hypertension Coronary artery disease Ischemic cardiomyopathy Nonsustained VT Obstructive sleep apnea PLAN 1. Rx for Zofran 4 mg ODT (#20) called out to [facility] pharmacy. 2. Rx for medication changes (Levemir decreased to 20 U BID; NovoLog decreased to 8 U TIDWM; Lasix reduced to 40 mg) were faxed to pharmacy. 3. Pt instructed to hold off on taking NovoLog if he is unable to eat anything. This was also discussed with Kori [facility] RN and she reviewed insulin instructions and Lasix change with him. 4. F/U appt with Dr. Elliott needs to be rescheduled - the transportation van does not run on Fridays. [id number] visit Date: 03/20/17 Right on Track Program: 7-14 Day [id number] Discharge Summary Received: Yes Care Plan Received: Yes Education: Diagnosis Education Reviewed Referral: Primary Care Physician, [facility] Comments: I visited Mr. Rivera at his apartment on 03/20/17. Since discharge from the hospital on 03/18/17, he has been nauseated and was vomiting on 03/19/17. He has been able to keep fluids down. He is feeling better today, and has eaten 2 eggs and 2 pieces of toast. He took his Levemir and NovoLog as prescribed. His blood sugars have been under much stricter control compared to what hes been used to previously his sugars would range 200-500+. Yesterday his sugars were 134-104- 87. He denies abdominal pain or cramping. He had a bowel movement this morning, but feels bloated. Hes also feeling short of breath, which is not acute. He is very tired and fatigued, but is trying to make it a point to get up and move around. He denies chest pain, dizziness, lightheadedness, or falls. He denies fever/chills. He denies numbness/tingling or neuropathic pain. He has a pet cat at home, and is very passionate about taking care of "Bean". Sebas doesn't drive and relies upon 2 local nephews to take him to the store or to appointments (when they can). He doesn't have any other family/friends/support system. Depression screen was negative. He admits to not knowing his medications nor understanding indications. He really has no interest in learning. He relies on [facility] pharmacy in [place] to package his medications into daily bubble packs. They deliver his medications to his apartment. He has not received Rx Zofran that was called out yesterday. Medications were reviewed with Home Health RN. He doesnt cook, but uses his microwave. He eats a lot of soups. He is on a very limited income only $30 per month is allowed for food. He knows that canned soup has a higher sodium content, and he plans on purchasing frozen vegetables and will try to make his own soups. Exam: Gen: A&O x3, NAD CV: RRR with murmur Lungs: CTAB Abd: moderately distended with hypoactive bowel sounds; nontender Ext: trace edema, L>R Discussed With Patient and Caregiver: Yes Recommendations For Follow-up: IMPRESSION Nausea/vomiting with abdominal distention Diabetes mellitus, type II, long-term insulin therapy, with nephropathy and retinopathy Hypoglycemia Acute kidney injury Chronic kidney disease, stage III Hypertension Coronary artery disease Ischemic cardiomyopathy Nonsustained VT Obstructive sleep apnea PLAN 1. Concern for ileus, gastroenteritis, or even gastroparesis - he cannot afford MiraLAX or Senna Plus; these 2 Rx were called to his pharmacy. Encouraged ambulation/activity. Diet as tolerated at this point, since GI symptoms have reportedly improved since yesterday. Uncertain when Zofran will be delivered. 2. Reinforced recommendation that if he does not eat, he should not take his NovoLog. 3. Discussed with [facility] RN - she saw him today and plans on checking him tomorrow. 4. F/U appt with Dr. Elliott needs to be rescheduled - the transportation van does not run on Fridays. - Release of Information Signed Consent For Release of Information: Yes
== END 2017-03-18 15:15 | disposition home health service (06) | DRG 637 ==
LOC: ED 17:50 → MED 18:58 → SUATTDRO 18:58 → MED 19:38
PROVIDERS: ADMIT Hospitalist; ATTEND Internal Medicine

== ENCOUNTER 2017-05-11 16:16 | Inpatient (IN) ==
[2017-05-11] MEDS ORDERED: SALINE FLUSH 10ml SYRINGE IVF PRN (16:32)
[2017-05-11] MEDS ORDERED: NITROGLYCERIN 0.4 MG SUBLINGUAL TABLET SL PRN (16:32)
--- NOTE | 2017-05-11 16:34 | Emergency Department Report ---
Chest Pain HPI - General Stated Complaint: chest pain Time Seen by Provider: 05/11/17 16:32 - Related Data Home Medications Medication Instructions Recorded Confirmed Atorvastatin Calcium 80 mg PO HS #0 05/27/15 04/04/17 Terazosin [Hytrin] 2 mg PO HS 09/29/16 04/04/17 Aspirin *EC* [Ecotrin] 325 mg PO DAILY 09/30/16 04/04/17 Nitroglycerin 0.4 mg SL Q5MIN3 PRN 10/13/16 04/04/17 Fluoxetine HCl [Prozac] 40 mg PO DAILY 03/07/17 04/04/17 Isosorbide Mononitrate ER [Imdur] 60 mg PO DAILY 03/07/17 04/04/17 Lisinopril [Zestril] 5 mg PO DAILY 03/07/17 04/04/17 Furosemide [Lasix] 40 mg PO DAILY 04/04/17 04/04/17 Previous Rx's Medication Instructions Recorded Acetaminophen [Tylenol] 650 mg PO QID PRN tab 03/14/17 Amiodarone [Pacerone] 200 mg PO DAILY 90 Days #90 tab 03/14/17 Labetalol [Normodyne] 200 mg PO BID 90 Days #180 tab 03/14/17 Insulin Aspart [NovoLOG] 8 unit SQ TIDWM vial 03/18/17 Insulin Detemir [Levemir] 20 unit SQ BID vial 03/18/17 Ondansetron [Zofran Odt] 1 tab PO Q6HR PRN #20 tab 04/04/17 Allergies Allergy/AdvReac Type Severity Reaction Status Date / Time No Known Allergies Allergy Verified 04/04/17 19:58 PFS Patient Stated Medical History Cerebrovascular Accident Yes: 2004 Dental Problems Yes: NO TEETH Hearing Loss Yes Angina Yes Congestive Heart Failure Yes Coronary Artery Disease Yes Hypertension Yes Myocardial Infarction Yes Chronic Obstructive Pulmonary Yes Disease (COPD) Sleep Apnea Yes Diabetes Mellitus Type 2 Yes Gastroesophageal Reflux Yes Disease Hx Kidney Stones Yes Other Yes: PAST KIDNEY FAILURE 30% Depression Yes Medical History Updates: 03/08/17- ECHO. IMPRESSION. 1. Technically difficult study. 2. Biatrial dilation. 3. Concentric left ventricular hypertrophy. 4. Mild LV dysfunction with ejection fraction of about 45%. 5. Pacemaker present in right heart. 6. Mild mitral regurgitation. 7. Moderate tricuspid regurgitation with moderate pulmonary hypertension with estimated pulmonary artery systolic pressure of 49. 8. Mild pulmonary insufficiency. Surgical History: AICD. CABG Family History: Family History (Last Updated 03/18/17 @ 10:02 by Shirley Lara MD) Brother CAD (coronary artery disease) older Br- CAD, younger BR-CAD Father CAD (coronary artery disease) F- CAD Mother CAD (coronary artery disease) M- CAD - Social History Smoking status: Never smoker Disposition Prescriptions: No Action Fluoxetine HCl [Prozac] 40 mg PO DAILY Lisinopril [Zestril] 5 mg PO DAILY Isosorbide Mononitrate ER [Imdur] 60 mg PO DAILY Labetalol [Normodyne] 200 mg PO BID 90 Days #180 tab Insulin Detemir [Levemir] 20 unit SQ BID vial Furosemide [Lasix] 40 mg PO DAILY Ondansetron [Zofran Odt] 1 tab PO Q6HR PRN #20 tab PRN Reason: n/v Atorvastatin Calcium 80 mg PO HS #0 Terazosin [Hytrin] 2 mg PO HS Aspirin *EC* [Ecotrin] 325 mg PO DAILY Nitroglycerin 0.4 mg SL Q5MIN3 PRN PRN Reason: Chest Pain Acetaminophen [Tylenol] 650 mg PO QID PRN tab PRN Reason: Discomfort Amiodarone [Pacerone] 200 mg PO DAILY 90 Days #90 tab Insulin Aspart [NovoLOG] 8 unit SQ TIDWM vial Referrals: Colin Elliott MD [Family Provider] -
--- NOTE | 2017-05-11 16:51 | XRay Report ---
Indication: chest pain PROCEDURE: XR chest 1V: Encounter: Initial Comparison: March 10, 2017 Findings: The lungs are stable in appearance without new focal airspace consolidation. There is no pleural effusion or pneumothorax. The heart size, pulmonary vascularity and mediastinal contours are unchanged. Prior sternotomy with left pacemaker defibrillator. IMPRESSION: Stable appearance of the chest without acute cardiopulmonary disease. .
[2017-05-11 17:54] VITALS: BMI 32.5
[2017-05-11] MEDS ORDERED: ACETAMINOPHEN 325 MG TABLET PO PRN (18:11)
[2017-05-11] MEDS ORDERED: FUROSEMIDE 40 MG/4 ML INJECTION IVP ONE (18:35)
[2017-05-11] MEDS: NITROGLYCERIN 2% OINTMENT 1gm PACKET TP SCH (19:47)
[2017-05-11] MEDS ORDERED: NON-FORMULARY MEDICATION 1 EACH EACH (Atorvastatin Calcium [Atorvastatin Calcium] 80 MG) PO SCH (21:00)
[2017-05-11] MEDS: INSULIN DETEMIR 100unit/ml INJECTION SQ SCH (21:08)
[2017-05-11] MEDS: TERAZOSIN 2 MG CAPSULE PO SCH (21:09)
[2017-05-11] MEDS: ATORVASTATIN 40 MG TABLET PO SCH (21:09)
[2017-05-11] MEDS: LABETALOL 100 MG TABLET PO SCH (21:09)
[2017-05-12] MEDS: NITROGLYCERIN 2% OINTMENT 1gm PACKET TP SCH ×3 (01:34→17:51)
[2017-05-12] MEDS: PANTOPRAZOLE 40 MG TABLET PO SCH (05:44)
[2017-05-12] MEDS: ISOSORBIDE MONONITRATE ER 60 MG TABLET PO SCH (05:44)
--- NOTE | 2017-05-12 08:01 | Cardiology History & Physical ---
History of Present Illness Chief complaint: chest pain HPI: Sebas is a 71 year old male who is well known to Dr. Hernandez's practice with a long history of severe multivessel CAD with CABG, WA in February of 2017 with PCI of mid circ restenosis/thrombosis, chronic diastolic HF, HTN, HLD and DM who presented to the ED yesterday via EMS after he reported SOA when he was walking up the stairs at home, when walking down the stairs he began to have 5/ 10 chest pain accompanied by nausea. He took 3 Sl nitro and pain did not decrease. He contacted Dr. Hernandez's office and was told to call EMS for transport to further evaluate. He was admitted for observation in the care of Dr. Hernandez to rule out WA. Last heart cath report states PCI to SVG to diagonal to be done at a later time. Discussed renal function with patient, risks of left heart cath on the kidneys and he wishes to proceed. He also has never been seen by our practice when well, only during hospitalization, and is not likely to follow up as an outpatient. He denies further chest pain since admission. He denies recent illness, fever, chills, cough, sore throat, N/V/D, dysuria. Review of Systems - Constitutional Constitutional: Absent: chills, fatigue, fever(s), weakness - EENMT Eyes: Absent: change in vision Balance: Absent: vertigo Mouth/Throat: Absent: sore throat - Cardiovascular Cardiovascular: Present: chest pain, dyspnea on exertion, orthopnea. Absent: palpitations, syncope Vascular: Absent: pedal edema - Respiratory Respiratory: Present: dyspnea, dyspnea on exertion. Absent: cough - Gastrointestinal Gastrointestinal: Present: nausea. Absent: abdominal pain, diarrhea, vomiting - Genitourinary Genitourinary: Absent: dysuria - Integumentary/Breasts Integumentary: Absent: rash - Neurological Neurological: Absent: dizziness - Endocrine Endocrine: Present: palpitations PFSH Patient Stated Medical History Cerebrovascular Accident Yes: 2004 Dental Problems Yes: NO TEETH Hearing Loss Yes Angina Yes Congestive Heart Failure Yes Coronary Artery Disease Yes Hypertension Yes Myocardial Infarction Yes: 2016 Chronic Obstructive Pulmonary Yes Disease (COPD) Sleep Apnea Yes Diabetes Mellitus Type 2 Yes Gastroesophageal Reflux Yes Disease Chronic Kidney disease Yes: Depression Yes Surgical History: AICD. CABG. HC with PCI 11/22/17 Family History: Family History Brother CAD (coronary artery disease) older Br- CAD, younger BR-CAD Father CAD (coronary artery disease) F- CAD Mother CAD (coronary artery disease) M- CAD - Social History Smoking status: Never smoker Substance use type: does not use Alcohol intake frequency: does not drink Household members: family Current occupational status: disabled Current residence: Apartment/Private Home Medications Home Medications Medication Instructions Recorded Confirmed Type Atorvastatin Calcium 80 mg PO HS #0 05/27/15 05/11/17 History Terazosin [Hytrin] 2 mg PO HS 09/29/16 05/11/17 History Aspirin *EC* [Ecotrin] 325 mg PO DAILY 09/30/16 05/11/17 History Nitroglycerin 0.4 mg SL Q5MIN3 PRN 10/13/16 05/11/17 History Fluoxetine HCl [Prozac] 40 mg PO DAILY 03/07/17 05/11/17 History Isosorbide Mononitrate ER [Imdur] 60 mg PO DAILY 03/07/17 05/11/17 History Lisinopril [Zestril] 5 mg PO DAILY 03/07/17 05/11/17 History Furosemide [Lasix] 40 mg PO DAILY 04/04/17 05/11/17 History Cetirizine [Zyrtec] 10 mg PO DAILY 05/11/17 05/11/17 History Insulin Aspart [NovoLOG] 15 unit SQ TIDWM 05/11/17 05/11/17 History Insulin Detemir [Levemir] 24 unit SQ BID 05/11/17 05/11/17 History Pantoprazole Sodium [Protonix] 40 mg PO DAILY 05/11/17 05/11/17 History Prasugrel [Effient] 10 mg PO DAILY 05/11/17 05/11/17 History Allergies Allergy/AdvReac Type Severity Reaction Status Date / Time No Known Allergies Allergy Verified 05/11/17 16:46 Exam Vital signs: Temperature 97.7 F 05/12/17 07:03 Pulse Rate 59 L 05/12/17 07:03 Respiratory Rate 16 05/12/17 07:03 Blood Pressure 142/68 H 05/12/17 07:03 Pulse Oximetry 96 05/12/17 07:03 - Constitutional no acute distress, well nourished, cooperative - Routine HEENT Exam Head: Present: normocephalic ENT: Present: mucous membranes moist - Routine Neck Exam Absent: JVD, carotid bruit - Routine Chest/Breast/Axilla Exam Chest wall: Present: pacemaker. Absent: tenderness - Routine Respiratory Exam Present: CTA bilaterally. Absent: rales, wheezes - Routine Cardiovascular Exam Present: RRR, no murmur. Absent: JVD - Routine Abdominal Exam Present: soft, normoactive bowel sounds - Routine Extremities Exam Present: no edema - Routine Skin Exam Present: intact, dry, warm - Routine Neurological Exam Present: alert, oriented X3 - Routine Psychiatric Exam Present: normal affect, normal thought process Results 05/14/17 04:09 05/14/17 04:09 Cardiac Enzymes 05/11/17 05/12/17 Range/Units 23:13 04:34 Troponin I 0.016 0.019 (0-0.12) ng/ml Lipids 05/12/17 Range/Units 04:34 Triglycerides 133 (40-160) MG/DL Cholesterol 138 (132-199) MG/DL HDL Cholesterol 17 L (40-60) MG/DL Cholesterol/HDL Ratio 8.1 H (0-5.0) RATIO CBC 05/12/17 Range/Units 04:34 WBC 5.9 (4.5-11.0) T/MM3 RBC 3.48 L (4.50-5.90) M/MM3 Hgb 9.5 L (13.5-17.5) GM/DL Hct 30.7 L D (41-53) % Plt Count 223 (130-400) T/MM3 Comprehensive Metabolic Panel 05/12/17 Range/Units 04:34 Sodium 143 (134-144) MEQ/L Potassium 4.3 (3.6-5) MEQ/L Chloride 107 (98-107) MEQ/L Carbon Dioxide 25 (22-30) MEQ/L BUN 47.0 H (9-20) MG/DL Creatinine 2.4 H D (0.8-1.5) MG/DL Glucose 106 (75-110) MG/DL Calcium 8.9 (8.4-10.2) MG/DL Intake and Output 05/11/17 05/12/17 05/12/17 22:59 06:59 14:59 Intake Total 240 / 240 Output Total 550 / 550 650 / 650 Balance -310 / -310 -650 / -650 Intake: Oral 240 / 240 Output: Urine 550 / 550 650 / 650 Other: Urine Appearance Clear Clear Urine Color Yellow Yellow Urine Odor Normal Normal Weight 195 lb 8.8 oz 192 lb 7.417 oz Patient Weight 05/13/17 06:59 Weight 192 lb 7.417 oz - Imaging and Cardiology Echo: pending Imaging & Cardiology Narrative: Date of Exam: 03/08/17 Type of Exam(s): US echo doppler complete DATE OF PROCEDURE March 08, 2017 This is a two-dimensional echo with spectral Doppler, color-flow and M-mode. It was obtained in a patient with chest pain and elevated troponin. Left atrium is dilated. Left ventricular end-diastolic dimension is normal. Left ventricular wall thickness is increased. LV systolic function is mildly reduced with ejection fraction of about 45%. Right atrium is dilated. Right ventricle is normal. Aortic root dimension is normal. Mitral valve appears to be normal with mild mitral regurgitation. Aortic valve is a trileaflet structure with no stenosis or insufficiency. Tricuspid valve shows moderate tricuspid regurgitation with moderate pulmonary hypertension with estimated pulmonary artery systolic pressure of 49. Pulmonary valve shows mild pulmonary insufficiency. There is no pericardial effusion. Pacemaker is present in the right heart. IMPRESSION 1. Technically difficult study. 2. Biatrial dilation. 3. Concentric left ventricular hypertrophy. 4. Mild LV dysfunction with ejection fraction of about 45%. 5. Pacemaker present in right heart. 6. Mild mitral regurgitation. 7. Moderate tricuspid regurgitation with moderate pulmonary hypertension with estimated pulmonary artery systolic pressure of 49. 8. Mild pulmonary insufficiency. Date of Exam: 05/11/17 Ordering Provider: Erasmo Chavez MD Type of Exam(s): XR chest 1V Reason for Exam(s): chest pain Indication: chest pain PROCEDURE: XR chest 1V: Encounter: Initial Comparison: March 10, 2017 Findings: The lungs are stable in appearance without new focal airspace consolidation. There is no pleural effusion or pneumothorax. The heart size, pulmonary vascularity and mediastinal contours are unchanged. Prior sternotomy with left pacemaker defibrillator. IMPRESSION: Stable appearance of the chest without acute cardiopulmonary disease. EKG interpretations - WA, pacemaker, normal Pacemaker: ventricular pacing w/capture (except when refractory) Hospital Course This is a general summary of the patient's hospital course. For more details refer to the complete medical record. Time spent with patient: 25 - 35 minutes Resuscitation Status: Full Code Assessment and Plan - Attestation Attestation Narrative: 05/14/17 13:24 Recommendation After examining the patient I agree with the above assessment. I am involved in the formulation of the patient's plan of care. - Assessment and Plan (1) Precordial pain Current visit: No Status: Chronic Last heart cath report states PCI to SVG to diagonal to be done at a later time. -Discussed renal function with patient, risks of left heart cath on the kidneys and he wishes to proceed. -He also has never been seen by our practice when well, only during hospitalization, and is not likely to follow up as an outpatient. 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 with documented spasm Current visit: Yes Status: Chronic (3) Essential (primary) hypertension Current visit: No Status: Chronic Increase Labetalol to 300mg BID (4) Mixed hyperlipidemia Current visit: No Status: Chronic (5) Type 2 diabetes mellitus without complications Current visit: No Status: Chronic (6) ICD (implantable cardioverter-defibrillator) in place Problem details: [employer] Current visit: No Status: Chronic (7) Diastolic CHF Current visit: No Status: Chronic (8) CKD (chronic kidney disease), stage III Current visit: No Status: Chronic Monitor renal function - Assessment and Plan Chest pain: Last heart cath report states PCI to SVG to diagonal to be done at a later time. -Discussed renal function with patient, risks of left heart cath on the kidneys and he wishes to proceed. -He also has never been seen by our practice when well, only during hospitalization, and is not likely to follow up as an outpatient. -lab systems analyst not available today, will plan NPO after 0700 except for oral medications -Left heart cath with possible PCI to SVG tomorrow around [id number] -Start NS at 100ml/hr at 1000 tomorrow -Serial troponin negative -EKG V paced HTN: Increase Labetalol to 300mg BID CKD: Monitor renal function DVT prophylaxis: Lovenox 40mg sq daily
[2017-05-12] MEDS: PRASUGREL 10 MG TABLET PO SCH (08:22)
[2017-05-12] MEDS: INSULIN ASPART 100unit/ml INJECTION SQ SCH ×3 (08:23→17:51)
[2017-05-12] MEDS: FLUoxetine 20 MG CAPSULE PO SCH (08:23)
[2017-05-12] MEDS: LABETALOL 100 MG TABLET PO SCH ×2 (08:23→21:21)
[2017-05-12] MEDS: LISINOPRIL 5 MG TABLET PO SCH (08:23)
[2017-05-12] MEDS: CETIRIZINE 10 MG TABLET PO SCH (08:23)
[2017-05-12] MEDS: ENOXAPARIN 40 MG/0.4 ML INJECTION SQ SCH (08:23)
[2017-05-12] MEDS: AMIODARONE 200 MG TABLET PO SCH (08:23)
[2017-05-12] MEDS: INSULIN DETEMIR 100unit/ml INJECTION SQ SCH ×2 (08:23→21:20)
[2017-05-12] MEDS: ASPIRIN *EC* 325 MG TABLET PO SCH (08:23)
[2017-05-12] MEDS ORDERED: NON-FORMULARY MEDICATION 1 EACH EACH (Fluoxetine Hcl [Prozac] 40 MG) PO SCH (09:00)
[2017-05-12] MEDS ORDERED: FUROSEMIDE 40 MG TABLET PO SCH (09:00)
[2017-05-12] MEDS ORDERED: NS 1,000 ML IV SCH (10:00)
--- NOTE | 2017-05-12 16:16 | Echocardiogram ---
DATE OF PROCEDURE May 12, 2017 This is a two-dimensional echo with spectral Doppler, color-flow and M-mode. It was obtained in a patient with chest pains coronary artery disease and heart failure. Left atrial dimension is at the upper limits of normal. Left ventricular end- diastolic dimension is normal. Left ventricle wall thickness is mildly increased. LV systolic function is reduced with hypokinesia with ejection fraction of about 40%. Right atrium is normal. Right ventricle is normal. Aortic root dimension is normal. Mitral annulus is calcified. Mitral valve leaflets are normal with mild mitral regurgitation. Aortic valve shows fibrocalcific changes with no stenosis or insufficiency. Tricuspid valve shows [id number] tricuspid regurgitation with [id number] pulmonary hypertension with estimated pulmonary artery systolic pressure of 43. Pulmonary valve shows mild pulmonary insufficiency. There is no pericardial effusion. Device wire is seen in the right heart. IMPRESSION 1. The LV dysfunction with ejection fraction of about 40%. 2. Mild concentric left ventricular hypertrophy. 3. Device wire is seen in the right heart. 4. Mitral annulus calcification with mild mitral regurgitation. 5. Aortic sclerosis. 6. Mwsy-os-vlympurd tricuspid regurgitation with [id number] pulmonary hypertension with estimated pulmonary artery systolic pressure of 43. 7. Mild pulmonary insufficiency. MTDD
[2017-05-12] MEDS ORDERED: ENOXAPARIN 40 MG/0.4 ML INJECTION SQ ONE (21:00)
[2017-05-12] MEDS: ATORVASTATIN 40 MG TABLET PO SCH (21:21)
[2017-05-12] MEDS: TERAZOSIN 2 MG CAPSULE PO SCH (21:22)
[2017-05-13] MEDS: NITROGLYCERIN 2% OINTMENT 1gm PACKET TP SCH ×3 (00:59→18:38)
[2017-05-13] MEDS: PANTOPRAZOLE 40 MG TABLET PO SCH (06:09)
[2017-05-13] MEDS: ISOSORBIDE MONONITRATE ER 60 MG TABLET PO SCH (06:09)
[2017-05-13] MEDS: FLUoxetine 20 MG CAPSULE PO SCH (08:51)
[2017-05-13] MEDS: INSULIN ASPART 100unit/ml INJECTION SQ SCH ×3 (08:51→18:37)
[2017-05-13] MEDS: INSULIN DETEMIR 100unit/ml INJECTION SQ SCH ×2 (08:51→20:33)
[2017-05-13] MEDS: CETIRIZINE 10 MG TABLET PO SCH (08:51)
[2017-05-13] MEDS: AMIODARONE 200 MG TABLET PO SCH (09:23)
[2017-05-13] MEDS: LABETALOL 100 MG TABLET PO SCH ×2 (09:23→20:34)
[2017-05-13] MEDS: LISINOPRIL 5 MG TABLET PO SCH (09:23)
[2017-05-13] MEDS: PRASUGREL 10 MG TABLET PO SCH (09:23)
[2017-05-13] MEDS: ASPIRIN *EC* 325 MG TABLET PO SCH (09:23)
[2017-05-13] MEDS ORDERED: NS 1,000 ML IV SCH (10:00)
[2017-05-13] MEDS ORDERED: LIDOCAINE 1% (10mg/ml) 30ml SDV INJ ONE (11:10)
[2017-05-13] MEDS ORDERED: HEPARIN 1,000 UNITS/500 ML PREMIX (*CVL ONLY*) IV ONE (11:10)
[2017-05-13] MEDS ORDERED: HEPARIN 1,000unit/ml INJECTION 10ml ONE (12:12)
[2017-05-13] MEDS ORDERED: MIDAZOLAM 2mg/2ml INJECTION ONE (12:12)
[2017-05-13] MEDS ORDERED: FentaNYL 100 MCG/2 ML INJECTION ONE (12:12)
[2017-05-13] MEDS ORDERED: PROMETHAZINE 25 MG INJECTION IVP PRN (13:26)
[2017-05-13] MEDS ORDERED: MORPHINE SULFATE 4mg INJECTION IVP PRN ×2 (13:26)
[2017-05-13] MEDS ORDERED: Bisacodyl EC TAB 5 MG TABLET PO PRN (13:26)
[2017-05-13] MEDS ORDERED: MAG-AL + SIM ORAL LIQUID 30ml PO PRN (13:26)
[2017-05-13] MEDS ORDERED: ACETAMINOPHEN 325 MG TABLET PO PRN (13:26)
[2017-05-13] MEDS ORDERED: HYDROCODONE/APAP 7.5 MG/325 MG TABLET PO PRN (13:26)
[2017-05-13] MEDS ORDERED: NITROGLYCERIN 0.4 MG SUBLINGUAL TABLET SL PRN (13:26)
[2017-05-13] MEDS ORDERED: LORazepam 0.5 MG TABLET PO PRN (13:26)
[2017-05-13] MEDS ORDERED: BISACODYL 10 MG SUPPOSITORY RECTALLY PRN (13:26)
[2017-05-13] MEDS ORDERED: METOCLOPRAMIDE 10mg/2ml INJECTION IVP PRN (13:26)
[2017-05-13] MEDS ORDERED: ONDANSETRON 4 MG/2 ML INJECTION IVP PRN (13:26)
[2017-05-13] MEDS ORDERED: ATROPINE 1 MG/ML INJECTION IVP PRN (13:26)
[2017-05-13] MEDS: TERAZOSIN 2 MG CAPSULE PO SCH (20:34)
[2017-05-13] MEDS: ATORVASTATIN 40 MG TABLET PO SCH (20:34)
[2017-05-14] MEDS: NITROGLYCERIN 2% OINTMENT 1gm PACKET TP SCH ×2 (01:00→08:15)
[2017-05-14 04:06] VITALS: TEMP 97.6
[2017-05-14] MEDS: ISOSORBIDE MONONITRATE ER 60 MG TABLET PO SCH (06:22)
[2017-05-14] MEDS: PANTOPRAZOLE 40 MG TABLET PO SCH (06:22)
[2017-05-14] MEDS: INSULIN ASPART 100unit/ml INJECTION SQ SCH ×2 (08:12→12:27)
[2017-05-14] MEDS: PRASUGREL 10 MG TABLET PO SCH (08:15)
[2017-05-14] MEDS: LISINOPRIL 5 MG TABLET PO SCH (08:15)
[2017-05-14] MEDS: AMIODARONE 200 MG TABLET PO SCH (08:15)
[2017-05-14] MEDS: ASPIRIN *EC* 325 MG TABLET PO SCH (08:15)
[2017-05-14] MEDS: CETIRIZINE 10 MG TABLET PO SCH (08:16)
[2017-05-14] MEDS: ENOXAPARIN 40 MG/0.4 ML INJECTION SQ SCH (08:16)
[2017-05-14] MEDS: INSULIN DETEMIR 100unit/ml INJECTION SQ SCH (08:25)
--- NOTE | 2017-05-14 09:08 | Cardiac Catheterization Report ---
DATE OF PROCEDURE May 13, [address] Colin Elliott The patient is a very pleasant 71-year-old gentleman with history of coronary artery disease and percutaneous intervention who was admitted with unstable angina with known history of coronary artery disease and was referred for further evaluation by cardiac catheterization and possible intervention. The patient had a non-STEMI in February, at which time his circumflex artery was intervened and he had high-grade complex stenosis of the vein graft to diagonal and was recommended to proceed further intervention on diagonal and vein graft to diagonal. Informed consent was obtained after explaining the procedure and the potential risks to the patient who agreed to proceed with the procedure. PROCEDURE 1. Left heart catheterization. 2. Coronary angiography. 3. Bypass angiography. 4. Selective WOODSON angiography. 5. PTCA and stent of the diagonal artery through the vein graft to diagonal using a 2.25 x 26 and another 2.5 x 26 drug-eluting Resolute Sutton stents. 6. Primary stent of the distal graft to diagonal using a 3.5 x 18 drug-eluting Resolute Sutton stent. 7. PTCA of the proximal graft to the diagonal for in-stent stenosis. 8. Right femoral angiography to visualize the vessel for closure device. 9. Successful Mynx deployment for hemostasis. TECHNIQUE He was prepped and draped in the usual sterile techniques. Conscious sedation was performed using Versed and fentanyl. 1% lidocaine was used for local anesthesia. Using modified Seldinger technique, arterial access was obtained into the right femoral artery with placement of a 6-Greenlandic arterial sheath. 6500 units of heparin was administered for anticoagulation. CORONARY ANGIOGRAPHY Left main was free of significant lesions. Left anterior descending artery was occluded proximally. Left circumflex artery had about 40% proximal stenosis. Mid circumflex artery had an endovascular stent which was widely patent. Right coronary artery was occluded. WOODSON to LAD was patent with excellent flow. A vein graft to RCA was patent with about 80% in-stent restenosis of the graft in mid segment. A vein graft to diagonal artery had distal 80% stenosis. Proximally there was an endovascular stent present which had about 60% in-stent restenosis. Diagonal artery distal to the anastomosis had 90% stenosis. After reviewing the images we decided to proceed with intervention on vein graft to diagonal. A 6-Greenlandic AL-1 guide was advanced to the ostium of the graft to diagonal. A Runthrough wire was used to cross the lesion into distal diagonal. A 2.0 x 20 balloon was delivered to the lesion site where it was inflated up to 14 atmospheres. Next, we used a 2.25 x 26 drug-eluting Resolute Sutton stent which was delivered to the lesion site where it was deployed by inflating the balloon to 14 atmospheres. Next, we used a stent balloon to dilate the proximal part of his diagonal artery proximal to the stent. Due to presence of the dissection at the balloon site therefore we decided to proceed with a second stent. Another 2.25 x 26 drug-eluting Resolute Bhavin stent was delivered to the diagonal artery proximal to the previous stent and was positioned across the dissection and was deployed by inflating the balloon to 14 atmospheres. Next, we used a 3.5 x 18 drug-eluting Resolute Bhavin stent to the distal graft and was deployed by inflating the balloon to 14 atmospheres. The stent balloon was used to dilate the proximal stent. This balloon was inflated up to 16 atmospheres inside the stent. Next, angiogram showed excellent results with less than or equal to 10% residual stenosis. Right femoral angiography showed patent common femoral, proximal SFA and profunda and therefore Mynx was used for hemostasis. IMPRESSION 1. Coronary artery disease as described above. 2. Successful PTCA and stent of the vein graft to diagonal and diagonal distal to the anastomosis using a 2.25 x 26, 2.25 x 26, and 3.5 x 18 drug-eluting Resolute Bhavin stents. 3. Successful PTCA of the proximal graft to the diagonal using a 3.5 x 18 stent balloon. 4. Successful Mynx deployment for hemostasis. PLAN Will continue dual antiplatelet therapy and risk modification in future. Will monitor his renal function closely. One might consider percutaneous intervention of the vein graft to RCA in future. MARC
[2017-05-14] MEDS: LABETALOL 100 MG TABLET PO SCH (10:12)
[2017-05-14] MEDS: FLUoxetine 20 MG CAPSULE PO SCH (10:12)
--- NOTE | 2017-05-14 11:05 | Discharge Summary ---
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 Colin Elliott The patient is a very pleasant 71-year-old gentleman with history of coronary artery disease and percutaneous intervention who was admitted with unstable angina with known history of coronary artery disease and was referred for further evaluation by cardiac catheterization and possible intervention. The patient had a non-STEMI in February, at which time his circumflex artery was intervened and he had high-grade complex stenosis of the vein graft to diagonal and was recommended to proceed further intervention on diagonal and vein graft to diagonal. Informed consent was obtained after explaining the procedure and the potential risks to the patient who agreed to proceed with the procedure. PROCEDURE 1. Left heart catheterization. 2. Coronary angiography. 3. Bypass angiography. 4. Selective WOODSON angiography. 5. PTCA and stent of the diagonal artery through the vein graft to diagonal using a 2.25 x 26 and another 2.5 x 26 drug-eluting Resolute Bhavin stents. 6. Primary stent of the distal graft to diagonal using a 3.5 x 18 drug-eluting Resolute Bhavin stent. 7. PTCA of the proximal graft to the diagonal for in-stent stenosis. 8. Right femoral angiography to visualize the vessel for closure device. 9. Successful Mynx deployment for hemostasis. TECHNIQUE He was prepped and draped in the usual sterile techniques. Conscious sedation was performed using Versed and fentanyl. 1% lidocaine was used for local anesthesia. Using modified Seldinger technique, arterial access was obtained into the right femoral artery with placement of a 6-Georgian arterial sheath. 6500 units of heparin was administered for anticoagulation. CORONARY ANGIOGRAPHY Left main was free of significant lesions. Left anterior descending artery was occluded proximally. Left circumflex artery had about 40% proximal stenosis. Mid circumflex artery had an endovascular stent which was widely patent. Right coronary artery was occluded. WOODSON to LAD was patent with excellent flow. A vein graft to RCA was patent with about 80% in-stent restenosis of the graft in mid segment. A vein graft to diagonal artery had distal 80% stenosis. Proximally there was an endovascular stent present which had about 60% in-stent restenosis. Diagonal artery distal to the anastomosis had 90% stenosis. After reviewing the images we decided to proceed with intervention on vein graft to diagonal. A 6-Georgian AL-1 guide was advanced to the ostium of the graft to diagonal. A Runthrough wire was used to cross the lesion into distal diagonal. A 2.0 x 20 balloon was delivered to the lesion site where it was inflated up to 14 atmospheres. Next, we used a 2.25 x 26 drug-eluting Resolute Bhavin stent which was delivered to the lesion site where it was deployed by inflating the balloon to 14 atmospheres. Next, we used a stent balloon to dilate the proximal part of his diagonal artery proximal to the stent. Due to presence of the dissection at the balloon site therefore we decided to proceed with a second stent. Another 2.25 x 26 drug-eluting Resolute Goodrich stent was delivered to the diagonal artery proximal to the previous stent and was positioned across the dissection and was deployed by inflating the balloon to 14 atmospheres. Next, we used a 3.5 x 18 drug-eluting Resolute Bhavin stent to the distal graft and was deployed by inflating the balloon to 14 atmospheres. The stent balloon was used to dilate the proximal stent. This balloon was inflated up to 16 atmospheres inside the stent. Next, angiogram showed excellent results with less than or equal to 10% residual stenosis. Right femoral angiography showed patent common femoral, proximal SFA and profunda and therefore Mynx was used for hemostasis. IMPRESSION 1. Coronary artery disease as described above. 2. Successful PTCA and stent of the vein graft to diagonal and diagonal distal to the anastomosis using a 2.25 x 26, 2.25 x 26, and 3.5 x 18 drug-eluting Resolute Bhavin stents. 3. Successful PTCA of the proximal graft to the diagonal using a 3.5 x 18 stent balloon. 4. Successful Mynx deployment for hemostasis. PLAN Will continue dual antiplatelet therapy and risk modification in future. Will monitor his renal function closely. One might consider percutaneous intervention of the vein graft to RCA in future. - Laboratory Labs: 05/14/17 04:09 05/14/17 04:09 History of Present Illness HPI: Sebas is a 71 year old male who is well known to Dr. Hernandez's practice with a long history of severe multivessel CAD with CABG, OH in February of 2017 with PCI of mid circ restenosis/thrombosis, chronic diastolic HF, HTN, HLD and DM who presented to the ED yesterday via EMS after he reported SOA when he was walking up the stairs at home, when walking down the stairs he began to have 5/ 10 chest pain accompanied by nausea. He took 3 Sl nitro and pain did not decrease. He contacted Dr. Hernandez's office and was told to call EMS for transport to further evaluate. He was admitted for observation in the care of Dr. Hernandez to rule out [place]. Last heart cath report states PCI to SVG to diagonal to be done at a later time. Discussed renal function with patient, risks of left heart cath on the kidneys and he wishes to proceed. He also has never been seen by our practice when well, only during hospitalization, and is not likely to follow up as an outpatient. He denies further chest pain since admission. He denies recent illness, fever, chills, cough, sore throat, N/V/D, dysuria. Hospital Course This is a general summary of the patient's hospital course. For more details refer to the complete medical record. Hospital course: Chest pain: Last heart cath report states PCI to SVG to diagonal to be done at a later time. -Discussed renal function with patient, risks of left heart cath on the kidneys and he wishes to proceed. -He also has never been seen by our practice when well, only during hospitalization, and is not likely to follow up as an outpatient. -photo lab specialist not available today, will plan NPO after 0700 except for oral medications -Left heart cath with possible PCI to SVG tomorrow around [id number] -Start NS at 100ml/hr at 1000 tomorrow -Serial troponin negative -EKG V paced HTN: Increase Labetalol to 300mg BID CKD: Monitor renal function DVT prophylaxis: Lovenox 40mg sq daily Time spent with patient: 25 - 35 minutes Resuscitation Status: Full Code Exam Vital signs: Temperature 97.6 F 05/14/17 07:00 Pulse Rate 62 05/14/17 09:30 Respiratory Rate 19 05/14/17 09:30 Blood Pressure 103/51 05/14/17 09:30 Pulse Oximetry 97 05/14/17 09:30 - Constitutional no acute distress, well nourished, cooperative - Routine HEENT Exam Head: Present: normocephalic ENT: Present: mucous membranes moist - Routine Neck Exam Absent: JVD, carotid bruit - Routine Chest/Breast/Axilla Exam Chest wall: Absent: tenderness - Routine Respiratory Exam Present: CTA bilaterally. Absent: rales, wheezes - Routine Cardiovascular Exam Present: RRR - Routine Abdominal Exam Present: soft - Routine Extremities Exam Present: no edema - Routine Skin Exam Present: intact, dry, warm - Routine Neurological Exam Present: alert, oriented X3 - Routine Psychiatric Exam Present: normal affect, normal thought process Results 05/14/17 04:09 05/14/17 04:09 CBC 05/14/17 Range/Units 04:09 WBC 5.3 (4.5-11.0) T/MM3 RBC 3.53 L (4.50-5.90) M/MM3 Hgb 9.6 L (13.5-17.5) GM/DL Hct 31.5 L (41-53) % Plt Count 186 (130-400) T/MM3 Neut # (Auto) 3.2 (1.8-7.7) T/MM3 Lymph # (Auto) 1.3 (1-4.8) T/MM3 [place] # (Auto) 0.5 (0-0.8) T/MM3 Eos # (Auto) 0.2 (0-0.5) T/MM3 Baso # (Auto) 0.0 (0-0.2) T/MM3 Comprehensive Metabolic Panel 05/14/17 Range/Units 04:09 Sodium 142 (134-144) MEQ/L Potassium 4.6 (3.6-5) MEQ/L Chloride 111 H (98-107) MEQ/L Carbon Dioxide 23 (22-30) MEQ/L BUN 40.0 H (9-20) MG/DL Creatinine 1.9 H D (0.8-1.5) MG/DL Glucose 84 (75-110) MG/DL Calcium 9.0 (8.4-10.2) MG/DL Intake and Output 05/13/17 05/14/17 05/14/17 22:59 06:59 14:59 Intake Total 740 / 740 300 / 300 Output Total 400 / 400 225 / 225 150 / 150 Balance 340 / 340 -225 / -225 150 / 150 Intake: IV 615 / 615 Ns 1,000 ml @ 100 mls/hr IV . 615 / 615 Q10H [facility] Rx#:[id number] Oral 125 / 125 300 / 300 Output: Urine 400 / 400 225 / 225 150 / 150 Other: Urine Appearance Clear Clear Urine Color Dark Yellow Dark Yellow Dark Yellow # Voids 1 Weight 188 lb 14.978 oz Patient Weight 05/15/17 06:59 Weight 188 lb 14.978 oz - Imaging and Cardiology Imaging & Cardiology Narrative: Date of Exam: 05/12/17 Type of Exam(s): US echo doppler complete DATE OF PROCEDURE May 12, 2017 This is a two-dimensional echo with spectral Doppler, color-flow and M-mode. It was obtained in a patient with chest pains coronary artery disease and heart failure. Left atrial dimension is at the upper limits of normal. Left ventricular end- diastolic dimension is normal. Left ventricle wall thickness is mildly increased. LV systolic function is reduced with hypokinesia with ejection fraction of about 40%. Right atrium is normal. Right ventricle is normal. Aortic root dimension is normal. Mitral annulus is calcified. Mitral valve leaflets are normal with mild mitral regurgitation. Aortic valve shows fibrocalcific changes with no stenosis or insufficiency. Tricuspid valve shows [id number] tricuspid regurgitation with sshi-hg-[id number] pulmonary hypertension with estimated pulmonary artery systolic pressure of 43. Pulmonary valve shows mild pulmonary insufficiency. There is no pericardial effusion. Device wire is seen in the right heart. IMPRESSION 1. The LV dysfunction with ejection fraction of about 40%. 2. Mild concentric left ventricular hypertrophy. 3. Device wire is seen in the right heart. 4. Mitral annulus calcification with mild mitral regurgitation. 5. Aortic sclerosis. 6. Fqeu-ag-ajjgnenx tricuspid regurgitation with zkci-ry-xnynyogc pulmonary hypertension with estimated pulmonary artery systolic pressure of 43. 7. Mild pulmonary insufficiency. 05/14/17 11:03 05/14/17 11:03 = = = = = = = = = = = = = = = = = = = = = = = = = = = = = = = = = = = = = = = = = = = = = = = = = = = = = = = = = = = Date of Exam: 05/11/17 Ordering Provider: Erasmo Chavez MD Type of Exam(s): XR chest 1V Reason for Exam(s): chest pain Indication: chest pain PROCEDURE: XR chest 1V: Encounter: Initial Comparison: March 10, 2017 Findings: The lungs are stable in appearance without new focal airspace consolidation. There is no pleural effusion or pneumothorax. The heart size, pulmonary vascularity and mediastinal contours are unchanged. Prior sternotomy with left pacemaker defibrillator. IMPRESSION: Stable appearance of the chest without acute cardiopulmonary disease. Discharge Plan - Med Rec/Dispo Referrals/Follow Up: Rubin Hernandez MD [Physician] - 06/01/17 10:50 am [place] Instructions: [facility] [place] Heart Cath Prescriptions: Continue Fluoxetine HCl [Prozac] 40 mg PO DAILY Lisinopril [Zestril] 5 mg PO DAILY Isosorbide Mononitrate ER [Imdur] 60 mg PO DAILY Labetalol [Normodyne] 200 mg PO BID 90 Days #180 tab Furosemide [Lasix] 40 mg PO DAILY Pantoprazole Sodium [Protonix] 40 mg PO DAILY Insulin Detemir [Levemir] 24 unit SQ BID Insulin Aspart [NovoLOG] 15 unit SQ TIDWM Cetirizine [Zyrtec] 10 mg PO DAILY Atorvastatin Calcium 80 mg PO HS #0 Terazosin [Hytrin] 2 mg PO HS Aspirin *EC* [Ecotrin] 325 mg PO DAILY Nitroglycerin 0.4 mg SL Q5MIN3 PRN PRN Reason: Chest Pain Acetaminophen [Tylenol] 650 mg PO QID PRN tab PRN Reason: Discomfort Amiodarone [Pacerone] 200 mg PO DAILY 90 Days #90 tab Prasugrel [Effient] 10 mg PO DAILY - Disposition 01 Discharged Home, Self-Care - Dismissal Complete Discharge Instructions are:: Complete
[2017-05-14] MEDS ORDERED: PRASUGREL 10 MG TABLET PO SCH (13:13)
[2017-05-14 14:06] VITALS: BP 138/61; PULSE 60; RESP 28; O2SAT 99
--- NOTE | 2017-05-19 14:07 | Right on Track Program ---
Right on Track Program Date of Discharge: 05/14/17 Home Medications: Home Medications Medication Instructions Recorded Confirmed Atorvastatin Calcium 80 mg PO HS #0 05/27/15 05/16/17 Terazosin [Hytrin] 2 mg PO HS 09/29/16 05/16/17 Aspirin *EC* [Ecotrin] 325 mg PO DAILY 09/30/16 05/16/17 Nitroglycerin 0.4 mg SL Q5MIN3 PRN 10/13/16 05/16/17 Fluoxetine HCl [Prozac] 40 mg PO DAILY 03/07/17 05/16/17 Isosorbide Mononitrate ER [Imdur] 60 mg PO DAILY 03/07/17 05/16/17 Lisinopril [Zestril] 5 mg PO DAILY 03/07/17 05/16/17 Furosemide [Lasix] 40 mg PO DAILY 04/04/17 05/16/17 Cetirizine [Zyrtec] 10 mg PO DAILY 05/11/17 05/16/17 Insulin Aspart [NovoLOG] 15 unit SQ TIDWM 05/11/17 05/16/17 Insulin Detemir [Levemir] 24 unit SQ BID 05/11/17 05/16/17 Pantoprazole Sodium [Protonix] 40 mg PO DAILY 05/11/17 05/16/17 Prasugrel [Effient] 10 mg PO DAILY 05/11/17 05/16/17 Previous Rx's Medication Instructions Recorded Amiodarone [Pacerone] 200 mg PO DAILY 90 Days #90 tab 03/14/17 Labetalol [Normodyne] 200 mg PO BID 90 Days #180 tab 03/14/17 - Right on Track Program Phone call Date: 05/15/17 Right on Track Program: 24 Hour Follow-Up Discharge Summary Received: Yes Care Plan Received: Yes Follow Up: Follow Up Appointment Scheduled (Dr. Elilott x2 next week) Education: Diagnosis Education Reviewed Referral: Primary Care Physician, Home Health Comments: I called Sebas the day after d/c. He complained of nausea, but denied vomiting and stated that he was drinking fluids ok. He denied any issues with the cath site to his groin. He denied any questions on his medications or dc instructions and plans to f/u with Dr. Hernandez and Dr. Elliott. I called him back on 05/19/17. He was seen in the ED on 05/16/17 after falling and having LOC. He had sutures placed above his right eye. He c/o headache. Nausea has improved. He feels dizzy if he stands up too quickly and thinks that's why he fell in the first place. He also c/o SOA today, but currently seems to be doing better and isn't having any SOA at rest. He denies chest pain or leg swelling. No fevers or cough. BG under good control. He called HH this am and they recommended ED eval, but Sebas didn't want to go back in. Discussed With Patient and Caregiver: Yes Recommendations For Follow-up: Assessment Recent syncope with fall and face laceration Dyspnea CHF, diastolic HTN, CAD, HLD DM2 CKD stage 3 Plan 1. Cont HH 2. F/U with PCP as planned 3. F2F visit on 05/26/17
== END 2017-05-14 13:00 | disposition home health service (06) | DRG 247 ==
LOC: SRG 16:16 → ED 16:16 → SRG 17:43 → CCU 05-13 13:15
PROVIDERS: ADMIT Internal Medicine Cardiovascular Disease; ATTEND Internal Medicine Cardiovascular Disease

== ENCOUNTER 2017-06-24 10:25 | Inpatient (IN) ==
[2017-06-24 10:53] VITALS: BMI 34.6
[2017-06-24] MEDS ORDERED: FUROSEMIDE 40 MG/4 ML INJECTION IVP ONE (11:29)
[2017-06-24] MEDS ORDERED: BUMETANIDE DRIP 25 MG in CONTAINER,EMPTY 100 ML IV SCH (11:30)
--- NOTE | 2017-06-24 12:34 | XRay Report ---
Indication: chf PROCEDURE: XR chest 1V: Encounter: Initial Comparison: June 09, 2017 Findings: The lungs are stable in appearance without new focal airspace consolidation. There is no pleural effusion or pneumothorax. The heart size, pulmonary vascularity and mediastinal contours are unchanged. Left pacemaker. Prior CABG. IMPRESSION: Stable appearance of the chest without acute cardiopulmonary disease. .
[2017-06-24] MEDS: FUROSEMIDE IV SCH (12:49)
[2017-06-24] MEDS: CONTAINER EMPTY IV SCH (12:49)
[2017-06-24] MEDS: ACETAMINOPHEN 325 MG TABLET PO PRN ×2 (13:52→21:01)
[2017-06-24] MEDS ORDERED: FUROSEMIDE 100 MG/10 ML INJECTION IV ONE (15:47)
[2017-06-24] MEDS: HEPARIN SUB-Q 5,000units/0.5ml INJECTION SQ SCH (16:36)
--- NOTE | 2017-06-24 16:52 | Ultrasound Report ---
Indication: ascites PROCEDURE: US abdomen complete: Encounter: Initial Comparison: None Technique: Grayscale and color Doppler sonographic imaging of the abdomen was performed. Findings: Hepatic parenchyma is echogenic and sonographically dense without evidence for focal mass. The gallbladder is contracted limiting the exam but grossly normal. There is no wall thickening, pericholecystic fluid, sonographic Ibarra's sign or cholelithiasis. Both the intra and extrahepatic biliary system are of normal caliber with the common duct measuring 4 mm in dimension. Pancreas is not well seen due to shadowing bowel gas. Both kidneys are present without collecting system dilatation. The right measures 10.8 cm in length and left measures 9.6 cm. Bilateral renal cortical thinning. The spleen is unremarkable. The visualized portions of the aorta and IVC are unremarkable. Small volume ascites. Impression: Small volume ascites. Probable hepatic steatosis. .
[2017-06-25] MEDS: HEPARIN SUB-Q 5,000units/0.5ml INJECTION SQ SCH ×3 (00:28→17:56)
[2017-06-25] MEDS: CONTAINER EMPTY IV SCH ×2 (00:39→07:37)
[2017-06-25] MEDS: FUROSEMIDE IV SCH ×2 (00:39→07:37)
[2017-06-25] MEDS: ACETAMINOPHEN 325 MG TABLET PO PRN (08:56)
[2017-06-25] MEDS ORDERED: NITROGLYCERIN 0.4 MG SUBLINGUAL TABLET SL PRN (13:21)
[2017-06-25] MEDS ORDERED: PROMETHAZINE 25 MG TABLET PO PRN (13:21)
[2017-06-25] MEDS: PANTOPRAZOLE 40 MG TABLET PO SCH (14:34)
[2017-06-25] MEDS: LABETALOL 100 MG TABLET PO SCH (14:35)
[2017-06-25] MEDS: ASPIRIN *EC* 325 MG TABLET PO SCH (14:35)
[2017-06-25] MEDS: FUROSEMIDE 40 MG TABLET PO SCH (14:35)
[2017-06-25] MEDS: AMIODARONE 200 MG TABLET PO SCH (14:35)
[2017-06-25] MEDS: FLUoxetine 20 MG CAPSULE PO SCH (14:36)
[2017-06-25] MEDS: LISINOPRIL 2.5 MG TABLET PO SCH (14:37)
[2017-06-25] MEDS: PRASUGREL 10 MG TABLET PO SCH (14:37)
[2017-06-25] MEDS: ISOSORBIDE MONONITRATE ER 60 MG TABLET PO SCH (14:37)
[2017-06-25] MEDS: INSULIN ASPART 100unit/ml INJECTION SQ SCH (17:55)
--- NOTE | 2017-06-25 19:14 | Cardiology Progress Note ---
<Yasmin Cabrera - Last Filed: 06/26/17 13:09> Subjective Principal diagnosis: DHF Interval history: Sebas is seen in follow up for acute on chronic diastolic congestive HF. His breathing is improved from yesterday, still has some conversational dyspnea. Still complains of abdominal distension. Denies chest pain, palpitations. Exam Vital signs: Temperature 96.7 F L 06/25/17 15:37 Pulse Rate 63 06/25/17 16:00 Respiratory Rate 18 06/25/17 15:37 Blood Pressure 147/83 H 06/25/17 15:37 Pulse Oximetry 99 06/25/17 15:37 Inpatient Medications: Generic Name Dose Route Start Last Admin Trade Name Freq PRN Reason Stop Dose Admin Acetaminophen 650 mg 06/24/17 13:47 06/25/17 08:56 Tylenol PO 650 mg Q4H PRN Administration Pain Amiodarone HCl 200 mg 06/25/17 09:00 06/25/17 14:35 Pacerone PO 200 mg DAILY ILYA Administration Aspirin 325 mg 06/25/17 13:30 06/25/17 14:35 Ecotrin PO 325 mg DAILY ILYA Administration Atorvastatin Calcium 80 mg 06/25/17 21:00 Lipitor PO HS ILYA Cetirizine HCl 10 mg 06/26/17 09:00 Zyrtec PO DAILY ILYA Fluoxetine HCl 40 mg 06/25/17 13:30 06/25/17 14:36 Prozac PO 40 mg DAILY ILYA Administration Furosemide 40 mg 06/25/17 13:30 06/25/17 14:35 Lasix 40 Mg Tab PO 40 mg DAILY ILYA Administration Heparin Sodium (Porcine) 5,000 units 06/24/17 17:00 06/25/17 17:56 Heparin Sq SQ 5,000 units Q8HR ILYA Administration Furosemide 500 mg/ IV Solution 50 mls @ 4 mls/hr 06/24/17 11:30 06/25/17 07: 37 IV 10 mg/hr .[id number] ILYA 1 mls/hr 40 MG/HR Administration Insulin Aspart 30 unit 06/25/17 17:30 06/25/17 17:55 Novolog SQ 30 unit TIDWM ILYA Administration Insulin Detemir 40 unit 06/25/17 21:00 Levemir SQ BID ILYA Isosorbide Mononitrate 60 mg 06/25/17 13:30 06/25/17 14:37 Imdur PO 60 mg DAILY ILYA Administration Labetalol HCl 200 mg 06/25/17 13:45 06/25/17 14:35 Normodyne PO 200 mg BID ILYA Administration Lisinopril 2.5 mg 06/25/17 13:30 06/25/17 14:37 Prinivil PO 2.5 mg DAILY ILYA Administration Nitroglycerin 0.4 mg 06/25/17 13:21 Nitrostat SL Q5MIN3 PRN Chest pain Nystatin 1 applic 06/25/17 15:00 06/25/17 14:38 Mycostatin TP 1 applic TID ILYA Administration Pantoprazole Sodium 40 mg 06/25/17 13:30 06/25/17 14:34 Protonix Tab PO 40 mg ACB ILYA Administration Prasugrel 10 mg 06/25/17 13:30 06/25/17 14:37 Effient PO 10 mg DAILY ILYA Administration Promethazine HCl 25 mg 06/25/17 13:21 Phenergan Tab PO Q6H PRN Nausea Sodium Chloride 10 - 80 ml 06/24/17 11:20 Iv Flush IV PRN PRN Flushing Terazosin HCl 2 mg 06/25/17 21:00 Hytrin PO HS ILYA Discontinued Medications Generic Name Dose Route Start Last Admin Trade Name Freq PRN Reason Stop Dose Admin Bumetanide 2 mg 06/24/17 11:23 06/24/17 12:11 Bumex 1 Mg/4 Ml Inj. IVP 06/24/17 11:24 2 mg O ONE Administration Furosemide 40 mg 06/24/17 11:29 06/24/17 12:12 Lasix 40 Mg/4 Ml IVP 06/24/17 11:30 40 mg O ONE Administration Furosemide 80 mg 06/24/17 15:47 06/24/17 16:35 Lasix 100 Mg/10 Ml IV 06/24/17 15:48 80 mg O ONE Administration Bumetanide 25 mg/ IV Solution 100 mls @ 2 mls/hr 06/24/17 11:30 IV Q24H ILYA - Constitutional mild distress, obese, cooperative - Routine HEENT Exam Head: Present: normocephalic ENT: Present: mucous membranes moist - Routine Neck Exam Absent: JVD, carotid bruit - Routine Chest/Breast/Axilla Exam Chest wall: Absent: tenderness - Routine Respiratory Exam Present: dyspnea, decreased breath sounds - Routine Cardiovascular Exam Present: RRR, no murmur - Routine Abdominal Exam Present: distended, rigid - Routine Extremities Exam Present: edema - Routine Skin Exam Present: intact, dry, warm - Routine Neurological Exam Present: alert, oriented X3 - Routine Psychiatric Exam Present: normal affect, normal thought process Results 06/26/17 04:11 06/26/17 04:10 Cardiac Enzymes 06/24/17 06/25/17 Range/Units 21:56 04:20 Troponin I 0.035 D 0.034 (0-0.12) ng/ml CBC 06/25/17 Range/Units 04:20 WBC 6.1 (4.5-11.0) T/MM3 RBC 3.48 L (4.50-5.90) M/MM3 Hgb 8.3 L (13.5-17.5) GM/DL Hct 28.4 L (41-53) % Plt Count 115 L (130-400) T/MM3 Comprehensive Metabolic Panel 06/25/17 Range/Units 04:20 Sodium 146 H (134-144) MEQ/L Potassium 4.8 (3.6-5) MEQ/L Chloride 107 (98-107) MEQ/L Carbon Dioxide 25 (22-30) MEQ/L BUN 67.0 H* (9-20) MG/DL Creatinine 2.5 H (0.8-1.5) mg/dL Glucose 164 H (75-110) MG/DL Calcium 9.2 (8.4-10.2) MG/DL Intake and Output 06/25/17 06/25/17 06/25/17 06:59 14:59 22:59 Intake Total 200 / 200 168.8 / 168.8 647 / 647 Output Total 1450 / 1450 875 / 875 1145 / 1145 Balance -1250 / -1250 -706.2 / -706.2 -498 / -498 Intake: IV 18.8 / 18.8 Furosemide 500 mg In Container, 18.8 / 18.8 Empty 0 ml @ 40 MG/HR 4 mls/hr IV .[id number] [facility] Rx#:[id number] Oral 200 / 200 150 / 150 647 / 647 Output: Urine 1450 / 1450 875 / 875 1145 / 1145 Other: Urine Appearance Clear Clear Clear Urine Color Yellow Yellow Yellow Urine Odor Normal Strong Strong # Voids 2 # Incontinent Voids 1 Weight 201 lb 15.095 oz Patient Weight 06/26/17 06:59 Weight 201 lb 15.095 oz - Imaging and Cardiology Imaging & Cardiology Narrative: 06/25/17 19:24 Date of Exam: 06/24/17 Ordering Provider: Yasmin Cabrera APRN Type of Exam(s): US abdomen complete Reason for Exam(s): ascites Indication: ascites PROCEDURE: US abdomen complete: Encounter: Initial Comparison: None Technique: Grayscale and color Doppler sonographic imaging of the abdomen was performed. Findings: Hepatic parenchyma is echogenic and sonographically dense without evidence for focal mass. The gallbladder is contracted limiting the exam but grossly normal. There is no wall thickening, pericholecystic fluid, sonographic Ibarra's sign or cholelithiasis. Both the intra and extrahepatic biliary system are of normal caliber with the common duct measuring 4 mm in dimension. Pancreas is not well seen due to shadowing bowel gas. Both kidneys are present without collecting system dilatation. The right measures 10.8 cm in length and left measures 9.6 cm. Bilateral renal cortical thinning. The spleen is unremarkable. The visualized portions of the aorta and IVC are unremarkable. Small volume ascites. Impression: Small volume ascites. Probable hepatic steatosis. 06/26/17 13:10 Date of Exam: 06/24/17 Type of Exam(s): US echo doppler complete DATE OF PROCEDURE June 24, 2017 This is a two-dimensional echo with spectral Doppler, color-flow and M-mode. It was obtained in a patient with shortness of breath and congestive heart failure. Left atrium is dilated. Left ventricular end-diastolic dimension is normal. Left ventricular wall thickness is increased. Srqx-nj-hedrhlcl global hypokinesia is present with ejection fraction of about 40%-45%. Right atrium is dilated. Right ventricle is dilated. Aortic root dimension is normal. Mitral valve is morphologically normal with mild mitral regurgitation. Aortic valve shows is a trileaflet structure with no stenosis or insufficiency. Tricuspid valve shows [id number]-[id number]-vsktly tricuspid regurgitation with normal estimated pulmonary artery systolic pressure of 26. Pulmonary valve shows mild pulmonary insufficiency. There is no pericardial effusion. Pacemaker leads are present in the right heart. IMPRESSION 1. Gpbm-jd-lcjehqlb colon global hypokinesia with ejection fraction of about 40 %-45%. 2. Biatrial dilation. 3. Right ventricular dilation. 4. Left ventricular hypertrophy. 5. Pacemaker leads present in the right heart. 6. Mild mitral regurgitation. 7. Mwqdotew-fb-rkqeop tricuspid regurgitation with normal estimated pulmonary artery systolic pressure of 26. 8. Mild pulmonary insufficiency. Assessment and Plan - Assessment and Plan (1) Diastolic CHF Current visit: No Status: Chronic Acute on chronic Diastolic HF - Continue Lasix IV drip - monitor renal and electrolytes - Fluid restriction of 2000mL/day (2) Essential (primary) hypertension Current visit: No Status: Chronic Continue Labetalol, Lisinopril, Imdur (3) Mixed hyperlipidemia Start time: Current visit: Yes Status: Chronic Continue Atorvastatin (4) Type 2 diabetes mellitus without complications Current visit: No Status: Chronic PCP manages (5) ICD (implantable cardioverter-defibrillator) in place Problem details: Audiolife Current visit: No Status: Chronic (6) CKD (chronic kidney disease), stage III Current visit: No Status: Chronic (7) Non-sustained ventricular tachycardia Current visit: No Status: Resolved Continue Amiodarone (8) Atherosclerosis 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 Current visit: Yes Status: Chronic Continue Effient and Aspirin for dual anti-platelet therapy Hospital Course Summary Disclaimer: The visit summary below is not to be considered part of the above Progress Note. <Rubin Hernandez - Last Filed: 06/30/17 12:46> Exam Vital signs: Temperature 97.8 F 06/30/17 07:17 Pulse Rate 61 06/30/17 07:17 Respiratory Rate 18 06/30/17 07:17 Blood Pressure 129/66 06/30/17 07:17 Pulse Oximetry 97 06/30/17 07:17 Inpatient Medications: Generic Name Dose Route Start Last Admin Trade Name Freq PRN Reason Stop Dose Admin Acetaminophen 650 mg 06/24/17 13:47 06/27/17 09:58 Tylenol PO 650 mg Q4H PRN Administration Pain Amiodarone HCl 200 mg 06/25/17 09:00 06/30/17 08:02 Pacerone PO 200 mg DAILY ILYA Administration Ascorbic Acid 500 mg 07/01/17 09:00 Vitamin C PO DAILY [facility] Aspirin 325 mg 06/25/17 13:30 06/30/17 08:15 Ecotrin PO 325 mg DAILY [facility] Administration Atorvastatin Calcium 80 mg 06/25/17 21:00 06/29/17 21:48 Lipitor PO 80 mg HS [facility] Administration Bisacodyl 10 mg 06/30/17 13:30 Dulcolax PO 06/30/17 13:31 O ONE Cetirizine HCl 10 mg 06/26/17 09:00 06/30/17 08:02 Zyrtec PO 10 mg DAILY [facility] Administration Cyanocobalamin 1,000 mcg 07/01/17 09:00 Vit. B-12 PO DAILY [facility] Emollient Ointment 1 applic 06/29/17 21:00 06/30/17 08:03 Aquaphor TP 1 applic BID [facility] Administration Ferrous Sulfate 324 mg 07/01/17 08:00 Feosol PO WB [facility] Fluoxetine HCl 40 mg 06/25/17 13:30 06/30/17 08:01 Prozac PO 40 mg DAILY [facility] Administration Heparin Sodium (Porcine) 5,000 units 06/24/17 17:00 06/30/17 08:14 Heparin Sq SQ 5,000 units Q8HR ILYA Administration Hydroxyzine HCl 25 mg 06/29/17 14:47 06/30/17 08:03 Atarax PO 25 mg Q12H PRN Administration Itching Insulin Aspart 15 unit 06/27/17 08:00 06/30/17 08:14 Novolog SQ 15 unit TIDWM [facility] Administration Insulin Detemir 18 unit 06/30/17 11:15 Levemir SQ BID [facility] Isosorbide Mononitrate 60 mg 06/25/17 13:30 06/30/17 08:02 Imdur PO 60 mg DAILY [facility] Administration Labetalol HCl 200 mg 06/25/17 13:45 06/30/17 08:01 Normodyne PO 200 mg BID [facility] Administration Lisinopril 2.5 mg 06/25/17 13:30 06/30/17 08:01 Prinivil PO 2.5 mg DAILY [facility] Administration Nitroglycerin 0.4 mg 06/25/17 13:21 Nitrostat SL Q5MIN3 PRN Chest pain Nystatin 1 applic 06/25/17 15:00 06/30/17 08:00 Mycostatin TP 1 applic TID ILYA Administration Pantoprazole Sodium 40 mg 06/25/17 13:30 06/30/17 06:08 Protonix Tab PO 40 mg ACB ILYA Administration Polyethylene Glycol 238 gm 06/30/17 15:30 Miralax PO 06/30/17 15:31 O ONE Prasugrel 10 mg 06/25/17 13:30 06/30/17 08:01 Effient PO 10 mg DAILY ILYA Administration Promethazine HCl 25 mg 06/25/17 13:21 Phenergan Tab PO Q6H PRN Nausea Sodium Chloride 10 - 80 ml 06/24/17 11:20 06/29/17 12:27 Iv Flush IV 10 ml PRN PRN Administration Flushing Terazosin HCl 2 mg 06/25/17 21:00 06/29/17 21:50 Hytrin PO 2 mg HS ILYA Administration Triamcinolone Acetonide 1 applic 06/29/17 21:00 06/30/17 08:02 Kenalog TOP 1 applic BID ILYA Administration Discontinued Medications Generic Name Dose Route Start Last Admin Trade Name Freq PRN Reason Stop Dose Admin Bumetanide 2 mg 06/24/17 11:23 06/24/17 12:11 Bumex 1 Mg/4 Ml Inj. IVP 06/24/17 11:24 2 mg O ONE Administration Diphtheria/Tetanus/Acell Pertussis 0.5 ml 06/29/17 17:00 06/29/17 17:22 Adacel IM 06/29/17 17:01 0.5 ml .ONCE ONE Administration Furosemide 40 mg 06/24/17 11:29 06/24/17 12:12 Lasix 40 Mg/4 Ml IVP 06/24/17 11:30 40 mg O ONE Administration Furosemide 80 mg 06/24/17 15:47 06/24/17 16:35 Lasix 100 Mg/10 Ml IV 06/24/17 15:48 80 mg O ONE Administration Furosemide 40 mg 06/25/17 13:30 06/26/17 09:21 Lasix 40 Mg Tab PO 40 mg DAILY ILYA Administration Furosemide 80 mg 06/26/17 17:00 06/27/17 10:15 Lasix 100 Mg/10 Ml IVP Not Given Q8HR ILYA Furosemide 40 mg 06/28/17 09:00 06/28/17 08:52 Lasix 40 Mg Tab PO 40 mg DAILY ILYA Administration Bumetanide 25 mg/ IV Solution 100 mls @ 2 mls/hr 06/24/17 11:30 IV Q24H ILYA Furosemide 500 mg/ IV Solution 50 mls @ 4 mls/hr 06/24/17 11:30 06/26/17 12: 42 IV Infused .[id number] ILYA Infusion 40 MG/HR Sodium Chloride 500 mls @ 250 mls/hr 06/27/17 10:03 06/27/17 13:40 Normal Saline IV Infused .Q2H ILYA Infusion Sodium Chloride 1,000 mls @ 75 mls/hr 06/29/17 10:15 06/29/17 10:28 Normal Saline IV 06/29/17 23:34 75 mls/hr .[id number] ILYA Administration Insulin Aspart 30 unit 06/25/17 17:30 06/26/17 17:47 Novolog SQ Not Given TIDWM ILYA Insulin Detemir 40 unit 06/25/17 21:00 06/26/17 09:23 Levemir SQ 40 unit BID ILYA Administration Insulin Detemir 20 unit 06/27/17 09:00 06/30/17 08:15 Levemir SQ 20 unit BID ILYA Administration Pneumococcal 7-Valent Conj Vacc 0.5 ml 06/29/17 17:00 06/29/17 17:21 Prevnar 13 IM 06/29/17 17:01 0.5 ml .ONCE ONE Administration Results 06/30/17 08:41 06/30/17 08:41 CBC 06/30/17 Range/Units 08:41 WBC 6.0 (4.5-11.0) T/MM3 RBC 3.47 L (4.50-5.90) M/MM3 Hgb 8.2 L (13.5-17.5) GM/DL Hct 28.4 L (41-53) % Plt Count 138 (130-400) T/MM3 Neut # (Auto) 4.0 (1.8-7.7) T/MM3 Lymph # (Auto) 1.1 (1-4.8) T/MM3 Maverick # (Auto) 0.6 (0-0.8) T/MM3 Eos # (Auto) 0.3 (0-0.5) T/MM3 Baso # (Auto) 0.0 (0-0.2) T/MM3 Comprehensive Metabolic Panel 06/30/17 Range/Units 08:41 Sodium 145 H (134-144) MEQ/L Potassium 4.7 (3.6-5) MEQ/L Chloride 109 H (98-107) MEQ/L Carbon Dioxide 25 (22-30) MEQ/L BUN 80.0 H* (9-20) MG/DL Creatinine 2.2 H D (0.8-1.5) mg/dL Glucose 139 H (75-110) MG/DL Calcium 8.9 (8.4-10.2) MG/DL Intake and Output 06/29/17 06/30/17 06/30/17 22:59 06:59 14:59 Intake Total 550 / 550 200 / 200 Output Total 445 / 445 220 / 220 Balance 105 / 105 -20 / -20 Intake: Oral 550 / 550 200 / 200 Output: Urine 445 / 445 220 / 220 Other: Urine Appearance Clear Clear Urine Color Yellow Yellow Urine Odor Normal Normal # Voids 1 1 Weight 91.5 kg Patient Weight 07/01/17 06:59 Weight 91.5 kg Assessment and Plan - Assessment and Plan (1) Essential (primary) hypertension Current visit: No Status: Chronic (2) Mixed hyperlipidemia Current visit: Yes Status: Chronic (3) Type 2 diabetes mellitus without complications Current visit: No Status: Chronic (4) ICD (implantable cardioverter-defibrillator) in place Problem details: Audiolife Current visit: No Status: Chronic (5) Diastolic CHF Current visit: No Status: Chronic (6) Non-sustained ventricular tachycardia Current visit: No Status: Resolved (7) CKD (chronic kidney disease), stage III Current visit: No Status: Chronic (8) Atherosclerosis 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 Current visit: Yes Status: Chronic - Attestation Attestation Narrative: 06/30/17 12:46 Recommendation After examining the patient I agree with the above assessment. I am involved in the formulation of the patient's plan of care. Hospital Course Summary Disclaimer: The visit summary below is not to be considered part of the above Progress Note.
--- NOTE | 2017-06-25 19:52 | Echocardiogram ---
DATE OF PROCEDURE June 24, 2017 This is a two-dimensional echo with spectral Doppler, color-flow and M-mode. It was obtained in a patient with shortness of breath and congestive heart failure. Left atrium is dilated. Left ventricular end-diastolic dimension is normal. Left ventricular wall thickness is increased. [id number]-dz-[id number] global hypokinesia is present with ejection fraction of about 40%-45%. Right atrium is dilated. Right ventricle is dilated. Aortic root dimension is normal. Mitral valve is morphologically normal with mild mitral regurgitation. Aortic valve shows is a trileaflet structure with no stenosis or insufficiency. Tricuspid valve shows rakppojl-[id number] tricuspid regurgitation with normal estimated pulmonary artery systolic pressure of 26. Pulmonary valve shows mild pulmonary insufficiency. There is no pericardial effusion. Pacemaker leads are present in the right heart. IMPRESSION 1. Nbnp-si-bkjvjgij colon global hypokinesia with ejection fraction of about 40 %-45%. 2. Biatrial dilation. 3. Right ventricular dilation. 4. Left ventricular hypertrophy. 5. Pacemaker leads present in the right heart. 6. Mild mitral regurgitation. 7. Mdvhoekp-rn-dlrttj tricuspid regurgitation with normal estimated pulmonary artery systolic pressure of 26. 8. Mild pulmonary insufficiency. MTDD
[2017-06-25] MEDS: INSULIN DETEMIR 100unit/ml INJECTION SQ SCH (20:12)
[2017-06-25] MEDS: ATORVASTATIN 40 MG TABLET PO SCH (20:13)
[2017-06-25] MEDS: TERAZOSIN 2 MG CAPSULE PO SCH (20:13)
[2017-06-26] MEDS: LABETALOL 100 MG TABLET PO SCH ×3 (00:43→20:41)
[2017-06-26] MEDS: CONTAINER EMPTY IV SCH ×2 (00:44→01:44)
[2017-06-26] MEDS: FUROSEMIDE IV SCH ×2 (00:44→01:44)
[2017-06-26] MEDS: HEPARIN SUB-Q 5,000units/0.5ml INJECTION SQ SCH ×3 (00:55→17:21)
[2017-06-26] MEDS: PANTOPRAZOLE 40 MG TABLET PO SCH (06:32)
[2017-06-26] MEDS: CETIRIZINE 10 MG TABLET PO SCH (09:21)
[2017-06-26] MEDS: PRASUGREL 10 MG TABLET PO SCH (09:21)
[2017-06-26] MEDS: FUROSEMIDE 40 MG TABLET PO SCH (09:21)
[2017-06-26] MEDS: AMIODARONE 200 MG TABLET PO SCH (09:22)
[2017-06-26] MEDS: LISINOPRIL 2.5 MG TABLET PO SCH (09:22)
[2017-06-26] MEDS: ASPIRIN *EC* 325 MG TABLET PO SCH (09:22)
[2017-06-26] MEDS: FLUoxetine 20 MG CAPSULE PO SCH (09:22)
[2017-06-26] MEDS: ISOSORBIDE MONONITRATE ER 60 MG TABLET PO SCH (09:22)
[2017-06-26] MEDS: INSULIN ASPART 100unit/ml INJECTION SQ SCH ×3 (09:23→17:47)
[2017-06-26] MEDS: INSULIN DETEMIR 100unit/ml INJECTION SQ SCH (09:23)
--- NOTE | 2017-06-26 13:56 | Cardiology Progress Note ---
<Yasmin Cabrera - Last Filed: 06/27/17 14:25> Subjective Principal diagnosis: DHF Interval history: Sebas is seen in follow up for acute on chronic diastolic congestive HF. He is in bed with the HOD elevated, in no distress, on room air. Breathing continues to improve gradually, Denies chest pain, or palpitations. Exam Vital signs: Temperature 96.6 F L 06/25/17 23:00 Pulse Rate 61 06/26/17 09:06 Respiratory Rate 14 06/26/17 09:06 Blood Pressure 148/74 H 06/26/17 09:06 Pulse Oximetry 99 06/26/17 09:06 Inpatient Medications: Generic Name Dose Route Start Last Admin Trade Name Freq PRN Reason Stop Dose Admin Acetaminophen 650 mg 06/24/17 13:47 06/25/17 08:56 Tylenol PO 650 mg Q4H PRN Administration Pain Amiodarone HCl 200 mg 06/25/17 09:00 06/26/17 09:22 Pacerone PO 200 mg DAILY ILYA Administration Aspirin 325 mg 06/25/17 13:30 06/26/17 09:22 Ecotrin PO 325 mg DAILY ILYA Administration Atorvastatin Calcium 80 mg 06/25/17 21:00 06/25/17 20:13 Lipitor PO 80 mg HS ILYA Administration Cetirizine HCl 10 mg 06/26/17 09:00 06/26/17 09:21 Zyrtec PO 10 mg DAILY ILYA Administration Fluoxetine HCl 40 mg 06/25/17 13:30 06/26/17 09:22 Prozac PO 40 mg DAILY ILYA Administration Furosemide 80 mg 06/26/17 17:00 Lasix 100 Mg/10 Ml IVP Q8HR [facility] Heparin Sodium (Porcine) 5,000 units 06/24/17 17:00 06/26/17 09:22 Heparin Sq SQ 5,000 units Q8HR ILYA Administration Insulin Aspart 30 unit 06/25/17 17:30 06/26/17 12:38 Novolog SQ 30 unit TIDWM ILYA Administration Insulin Detemir 40 unit 06/25/17 21:00 06/26/17 09:23 Levemir SQ 40 unit BID ILYA Administration Isosorbide Mononitrate 60 mg 06/25/17 13:30 06/26/17 09:22 Imdur PO 60 mg DAILY ILYA Administration Labetalol HCl 200 mg 06/25/17 13:45 06/26/17 09:21 Normodyne PO 200 mg BID ILYA Administration Lisinopril 2.5 mg 06/25/17 13:30 06/26/17 09:22 Prinivil PO 2.5 mg DAILY ILYA Administration Nitroglycerin 0.4 mg 06/25/17 13:21 Nitrostat SL Q5MIN3 PRN Chest pain Nystatin 1 applic 06/25/17 15:00 06/26/17 09:25 Mycostatin TP 1 applic TID ILYA Administration Pantoprazole Sodium 40 mg 06/25/17 13:30 06/26/17 06:32 Protonix Tab PO 40 mg ACB ILYA Administration Prasugrel 10 mg 06/25/17 13:30 06/26/17 09:21 Effient PO 10 mg DAILY ILYA Administration Promethazine HCl 25 mg 06/25/17 13:21 Phenergan Tab PO Q6H PRN Nausea Sodium Chloride 10 - 80 ml 06/24/17 11:20 Iv Flush IV PRN PRN Flushing Terazosin HCl 2 mg 06/25/17 21:00 06/25/17 20:13 Hytrin PO 2 mg HS ILYA Administration Discontinued Medications Generic Name Dose Route Start Last Admin Trade Name Freq PRN Reason Stop Dose Admin Bumetanide 2 mg 06/24/17 11:23 06/24/17 12:11 Bumex 1 Mg/4 Ml Inj. IVP 06/24/17 11:24 2 mg O ONE Administration Furosemide 40 mg 06/24/17 11:29 06/24/17 12:12 Lasix 40 Mg/4 Ml IVP 06/24/17 11:30 40 mg O ONE Administration Furosemide 80 mg 06/24/17 15:47 06/24/17 16:35 Lasix 100 Mg/10 Ml IV 06/24/17 15:48 80 mg O ONE Administration Furosemide 40 mg 06/25/17 13:30 06/26/17 09:21 Lasix 40 Mg Tab PO 40 mg DAILY ILYA Administration Bumetanide 25 mg/ IV Solution 100 mls @ 2 mls/hr 06/24/17 11:30 IV Q24H ILYA Furosemide 500 mg/ IV Solution 50 mls @ 4 mls/hr 06/24/17 11:30 06/26/17 12: 42 IV Infused .[id number] ILYA Infusion 40 MG/HR - Constitutional no acute distress, obese, cooperative - Routine HEENT Exam Head: Present: normocephalic ENT: Present: mucous membranes dry - Routine Neck Exam Absent: JVD, carotid bruit - Routine Chest/Breast/Axilla Exam Chest wall: Present: pacemaker. Absent: tenderness - Routine Respiratory Exam Present: diminished air movement - Routine Cardiovascular Exam Present: no murmur - Routine Abdominal Exam Present: non tender, distended - Routine Extremities Exam Present: edema - Routine Skin Exam Present: intact, dry, warm - Routine Neurological Exam Present: alert - Routine Psychiatric Exam Present: normal affect - Additional findings Additional findings: Acetaminophen (Tylenol) 650 mg PO Q4H PRN PRN Reason: Pain Last Admin: 06/25/17 08:56 Dose: 650 mg Amiodarone HCl (Pacerone) 200 mg PO DAILY [facility] Last Admin: 06/26/17 09:22 Dose: 200 mg Aspirin (Ecotrin) 325 mg PO DAILY [facility] Last Admin: 06/26/17 09:22 Dose: 325 mg Atorvastatin Calcium (Lipitor) 80 mg PO HS [facility] Last Admin: 06/25/17 20:13 Dose: 80 mg Cetirizine HCl (Zyrtec) 10 mg PO DAILY [facility] Last Admin: 06/26/17 09:21 Dose: 10 mg Fluoxetine HCl (Prozac) 40 mg PO DAILY [facility] Last Admin: 06/26/17 09:22 Dose: 40 mg Furosemide (Lasix 100 Mg/10 Ml) 80 mg IVP Q8HR [facility] Heparin Sodium (Porcine) (Heparin Sq) 5,000 units SQ Q8HR [facility] Last Admin: 06/26/17 09:22 Dose: 5,000 units Insulin Aspart (Novolog) 30 unit SQ TIDWM [facility] Last Admin: 06/26/17 12:38 Dose: 30 unit Insulin Detemir (Levemir) 40 unit SQ BID [facility] Last Admin: 06/26/17 09:23 Dose: 40 unit Isosorbide Mononitrate (Imdur) 60 mg PO DAILY [facility] Last Admin: 06/26/17 09:22 Dose: 60 mg Labetalol HCl (Normodyne) 200 mg PO BID [facility] Last Admin: 06/26/17 09:21 Dose: 200 mg Lisinopril (Prinivil) 2.5 mg PO DAILY [facility] Last Admin: 06/26/17 09:22 Dose: 2.5 mg Nitroglycerin (Nitrostat) 0.4 mg SL Q5MIN3 PRN PRN Reason: Chest pain Nystatin (Mycostatin) 1 applic TP TID [facility] Last Admin: 06/26/17 09:25 Dose: 1 applic Pantoprazole Sodium (Protonix Tab) 40 mg PO ACB [facility] Last Admin: 06/26/17 06:32 Dose: 40 mg Prasugrel (Effient) 10 mg PO DAILY [facility] Last Admin: 06/26/17 09:21 Dose: 10 mg Promethazine HCl (Phenergan Tab) 25 mg PO Q6H PRN PRN Reason: Nausea Sodium Chloride (Iv Flush) 10 - 80 ml IV PRN PRN PRN Reason: Flushing Terazosin HCl (Hytrin) 2 mg PO HS [facility] Last Admin: 06/25/17 20:13 Dose: 2 mg Results 06/26/17 04:11 06/26/17 04:10 CBC 06/26/17 Range/Units 04:11 WBC 6.8 (4.5-11.0) T/MM3 RBC 3.51 L (4.50-5.90) M/MM3 Hgb 8.5 L (13.5-17.5) GM/DL Hct 28.5 L (41-53) % Plt Count 136 (130-400) T/MM3 Comprehensive Metabolic Panel 06/26/17 Range/Units 04:10 Sodium 144 (134-144) MEQ/L Potassium 4.3 (3.6-5) MEQ/L Chloride 105 (98-107) MEQ/L Carbon Dioxide 24 (22-30) MEQ/L BUN 77.0 H* (9-20) MG/DL Creatinine 2.2 H D (0.8-1.5) mg/dL Glucose 41 L* (75-110) MG/DL Calcium 9.1 (8.4-10.2) MG/DL Intake and Output 06/25/17 06/26/17 06/26/17 22:59 06:59 14:59 Intake Total 647 / 647 326 / 326 283.783 / 283.783 Output Total 1145 / 1145 1350 / 1350 750 / 750 Balance -498 / -498 -1024 / -1024 -466.217 / -466.217 Intake: IV 43.783 / 43.783 Furosemide 500 mg In Container, 43.783 / 43.783 Empty 0 ml @ 40 MG/HR 4 mls/hr IV .[id number] ILYA Rx#:[id number] Oral 647 / 647 326 / 326 240 / 240 Output: Urine 1145 / 1145 1350 / 1350 750 / 750 Other: Urine Appearance Clear Clear Clear Urine Color Yellow Yellow Yellow Urine Odor Strong Normal Normal Weight 198 lb 6.656 oz Patient Weight 06/27/17 06:59 Weight 198 lb 6.656 oz - Imaging and Cardiology Imaging & Cardiology Narrative: Date of Exam: 06/24/17 Type of Exam(s): US echo doppler complete DATE OF PROCEDURE June 24, 2017 This is a two-dimensional echo with spectral Doppler, color-flow and M-mode. It was obtained in a patient with shortness of breath and congestive heart failure. Left atrium is dilated. Left ventricular end-diastolic dimension is normal. Left ventricular wall thickness is increased. Oenq-ac-hnnggpmx global hypokinesia is present with ejection fraction of about 40%-45%. Right atrium is dilated. Right ventricle is dilated. Aortic root dimension is normal. Mitral valve is morphologically normal with mild mitral regurgitation. Aortic valve shows is a trileaflet structure with no stenosis or insufficiency. Tricuspid valve shows [id number] tricuspid regurgitation with normal estimated pulmonary artery systolic pressure of 26. Pulmonary valve shows mild pulmonary insufficiency. There is no pericardial effusion. Pacemaker leads are present in the right heart. IMPRESSION 1. Wxii-xo-ivsbhisu colon global hypokinesia with ejection fraction of about 40 %-45%. 2. Biatrial dilation. 3. Right ventricular dilation. 4. Left ventricular hypertrophy. 5. Pacemaker leads present in the right heart. 6. Mild mitral regurgitation. 7. Bnqumrio-pz-lzfiyj tricuspid regurgitation with normal estimated pulmonary artery systolic pressure of 26. 8. Mild pulmonary insufficiency. 06/26/17 13:57 Assessment and Plan - Assessment and Plan (1) Diastolic CHF Current visit: No Status: Chronic (2) Essential (primary) hypertension Current visit: No Status: Chronic (3) Mixed hyperlipidemia Current visit: Yes Status: Chronic (4) Type 2 diabetes mellitus without complications Current visit: No Status: Chronic (5) ICD (implantable cardioverter-defibrillator) in place Problem details: CellPly Current visit: No Status: Chronic (6) CKD (chronic kidney disease), stage III Current visit: No Status: Chronic (7) Non-sustained ventricular tachycardia Current visit: No Status: Resolved (8) Atherosclerosis 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 Current visit: Yes Status: Chronic - Assessment and Plan 06/25/17 Acute on chronic Diastolic HF - Continue Lasix IV drip - monitor renal and electrolytes - Fluid restriction of 2000mL/day Essential (primary) hypertension - Continue Labetalol, Lisinopril, Imdur Atherosclerosis 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 - Continue Effient and Aspirin for dual anti-platelet therapy Mixed hyperlipidemia - Continue Atorvastatin Type 2 diabetes mellitus without complications - PCP manages ICD (implantable cardioverter-defibrillator) in place Problem details: CellPly CKD (chronic kidney disease), stage III Non-sustained ventricular tachycardia - Continue Amiodarone 06/26/17 Change Lasix drip to 80mg IVP q8h - Continue to monitor renal and electrolytes - SCr 2.2 from 2.5 yesterday, BUN 77 from 67 yesterday Hospital Course Summary Disclaimer: The visit summary below is not to be considered part of the above Progress Note. <Rubin Hernandez - Last Filed: 06/30/17 12:47> Exam Vital signs: Temperature 97.8 F 06/30/17 07:17 Pulse Rate 61 06/30/17 07:17 Respiratory Rate 18 06/30/17 07:17 Blood Pressure 129/66 06/30/17 07:17 Pulse Oximetry 97 06/30/17 07:17 Inpatient Medications: Generic Name Dose Route Start Last Admin Trade Name Jusitnoq PRN Reason Stop Dose Admin Acetaminophen 650 mg 06/24/17 13:47 06/27/17 09:58 Tylenol PO 650 mg Q4H PRN Administration Pain Amiodarone HCl 200 mg 06/25/17 09:00 06/30/17 08:02 Pacerone PO 200 mg DAILY ILYA Administration Ascorbic Acid 500 mg 07/01/17 09:00 Vitamin C PO DAILY ILYA Aspirin 325 mg 06/25/17 13:30 06/30/17 08:15 Ecotrin PO 325 mg DAILY ILYA Administration Atorvastatin Calcium 80 mg 06/25/17 21:00 06/29/17 21:48 Lipitor PO 80 mg HS ILYA Administration Bisacodyl 10 mg 06/30/17 13:30 Dulcolax PO 06/30/17 13:31 O ONE Cetirizine HCl 10 mg 06/26/17 09:00 06/30/17 08:02 Zyrtec PO 10 mg DAILY ILYA Administration Cyanocobalamin 1,000 mcg 07/01/17 09:00 Vit. B-12 PO DAILY [facility] Emollient Ointment 1 applic 06/29/17 21:00 06/30/17 08:03 Aquaphor TP 1 applic BID ILYA Administration Ferrous Sulfate 324 mg 07/01/17 08:00 Feosol PO WB ILYA Fluoxetine HCl 40 mg 06/25/17 13:30 06/30/17 08:01 Prozac PO 40 mg DAILY ILYA Administration Heparin Sodium (Porcine) 5,000 units 06/24/17 17:00 06/30/17 08:14 Heparin Sq SQ 5,000 units Q8HR ILYA Administration Hydroxyzine HCl 25 mg 06/29/17 14:47 06/30/17 08:03 Atarax PO 25 mg Q12H PRN Administration Itching Insulin Aspart 15 unit 06/27/17 08:00 06/30/17 08:14 Novolog SQ 15 unit TIDWM ILYA Administration Insulin Detemir 18 unit 06/30/17 11:15 Levemir SQ BID [facility] Isosorbide Mononitrate 60 mg 06/25/17 13:30 06/30/17 08:02 Imdur PO 60 mg DAILY [facility] Administration Labetalol HCl 200 mg 06/25/17 13:45 06/30/17 08:01 Normodyne PO 200 mg BID ILYA Administration Lisinopril 2.5 mg 06/25/17 13:30 06/30/17 08:01 Prinivil PO 2.5 mg DAILY [facility] Administration Nitroglycerin 0.4 mg 06/25/17 13:21 Nitrostat SL Q5MIN3 PRN Chest pain Nystatin 1 applic 06/25/17 15:00 06/30/17 08:00 Mycostatin TP 1 applic TID ILYA Administration Pantoprazole Sodium 40 mg 06/25/17 13:30 06/30/17 06:08 Protonix Tab PO 40 mg ACB ILYA Administration Polyethylene Glycol 238 gm 06/30/17 15:30 Miralax PO 06/30/17 15:31 O ONE Prasugrel 10 mg 06/25/17 13:30 06/30/17 08:01 Effient PO 10 mg DAILY ILYA Administration Promethazine HCl 25 mg 06/25/17 13:21 Phenergan Tab PO Q6H PRN Nausea Sodium Chloride 10 - 80 ml 06/24/17 11:20 06/29/17 12:27 Iv Flush IV 10 ml PRN PRN Administration Flushing Terazosin HCl 2 mg 06/25/17 21:00 06/29/17 21:50 Hytrin PO 2 mg HS ILYA Administration Triamcinolone Acetonide 1 applic 06/29/17 21:00 06/30/17 08:02 Kenalog TOP 1 applic BID ILYA Administration Discontinued Medications Generic Name Dose Route Start Last Admin Trade Name Freq PRN Reason Stop Dose Admin Bumetanide 2 mg 06/24/17 11:23 06/24/17 12:11 Bumex 1 Mg/4 Ml Inj. IVP 06/24/17 11:24 2 mg O ONE Administration Diphtheria/Tetanus/Acell Pertussis 0.5 ml 06/29/17 17:00 06/29/17 17:22 Adacel IM 06/29/17 17:01 0.5 ml .ONCE ONE Administration Furosemide 40 mg 06/24/17 11:29 06/24/17 12:12 Lasix 40 Mg/4 Ml IVP 06/24/17 11:30 40 mg O ONE Administration Furosemide 80 mg 06/24/17 15:47 06/24/17 16:35 Lasix 100 Mg/10 Ml IV 06/24/17 15:48 80 mg O ONE Administration Furosemide 40 mg 06/25/17 13:30 06/26/17 09:21 Lasix 40 Mg Tab PO 40 mg DAILY ILYA Administration Furosemide 80 mg 06/26/17 17:00 06/27/17 10:15 Lasix 100 Mg/10 Ml IVP Not Given Q8HR ILYA Furosemide 40 mg 06/28/17 09:00 06/28/17 08:52 Lasix 40 Mg Tab PO 40 mg DAILY ILYA Administration Bumetanide 25 mg/ IV Solution 100 mls @ 2 mls/hr 06/24/17 11:30 IV Q24H ILYA Furosemide 500 mg/ IV Solution 50 mls @ 4 mls/hr 06/24/17 11:30 06/26/17 12: 42 IV Infused .[id number] ILYA Infusion 40 MG/HR Sodium Chloride 500 mls @ 250 mls/hr 06/27/17 10:03 06/27/17 13:40 Normal Saline IV Infused .Q2H ILYA Infusion Sodium Chloride 1,000 mls @ 75 mls/hr 06/29/17 10:15 06/29/17 10:28 Normal Saline IV 06/29/17 23:34 75 mls/hr .[id number] ILYA Administration Insulin Aspart 30 unit 06/25/17 17:30 06/26/17 17:47 Novolog SQ Not Given TIDWM ILYA Insulin Detemir 40 unit 06/25/17 21:00 06/26/17 09:23 Levemir SQ 40 unit BID ILYA Administration Insulin Detemir 20 unit 06/27/17 09:00 06/30/17 08:15 Levemir SQ 20 unit BID ILYA Administration Pneumococcal 7-Valent Conj Vacc 0.5 ml 06/29/17 17:00 06/29/17 17:21 Prevnar 13 IM 06/29/17 17:01 0.5 ml .ONCE ONE Administration Results 06/30/17 08:41 06/30/17 08:41 CBC 06/30/17 Range/Units 08:41 WBC 6.0 (4.5-11.0) T/MM3 RBC 3.47 L (4.50-5.90) M/MM3 Hgb 8.2 L (13.5-17.5) GM/DL Hct 28.4 L (41-53) % Plt Count 138 (130-400) T/MM3 Neut # (Auto) 4.0 (1.8-7.7) T/MM3 Lymph # (Auto) 1.1 (1-4.8) T/MM3 [place] # (Auto) 0.6 (0-0.8) T/MM3 Eos # (Auto) 0.3 (0-0.5) T/MM3 Baso # (Auto) 0.0 (0-0.2) T/MM3 Comprehensive Metabolic Panel 06/30/17 Range/Units 08:41 Sodium 145 H (134-144) MEQ/L Potassium 4.7 (3.6-5) MEQ/L Chloride 109 H (98-107) MEQ/L Carbon Dioxide 25 (22-30) MEQ/L BUN 80.0 H* (9-20) MG/DL Creatinine 2.2 H D (0.8-1.5) mg/dL Glucose 139 H (75-110) MG/DL Calcium 8.9 (8.4-10.2) MG/DL Intake and Output 06/29/17 06/30/17 06/30/17 22:59 06:59 14:59 Intake Total 550 / 550 200 / 200 Output Total 445 / 445 220 / 220 Balance 105 / 105 -20 / -20 Intake: Oral 550 / 550 200 / 200 Output: Urine 445 / 445 220 / 220 Other: Urine Appearance Clear Clear Urine Color Yellow Yellow Urine Odor Normal Normal # Voids 1 1 Weight 91.5 kg Patient Weight 07/01/17 06:59 Weight 91.5 kg Assessment and Plan - Assessment and Plan (1) Essential (primary) hypertension Current visit: No Status: Chronic (2) Mixed hyperlipidemia Current visit: Yes Status: Chronic (3) Type 2 diabetes mellitus without complications Current visit: No Status: Chronic (4) ICD (implantable cardioverter-defibrillator) in place Problem details: CellPly Current visit: No Status: Chronic (5) Diastolic CHF Current visit: No Status: Chronic (6) Non-sustained ventricular tachycardia Current visit: No Status: Resolved (7) CKD (chronic kidney disease), stage III Current visit: No Status: Chronic (8) Atherosclerosis 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 Current visit: Yes Status: Chronic - Attestation Attestation Narrative: 06/30/17 12:47 Recommendation After examining the patient I agree with the above assessment. I am involved in the formulation of the patient's plan of care. Hospital Course Summary Disclaimer: The visit summary below is not to be considered part of the above Progress Note.
[2017-06-26] MEDS: FUROSEMIDE 100 MG/10 ML INJECTION IVP SCH (17:20)
[2017-06-26] MEDS: SALINE FLUSH 10ml SYRINGE IV PRN (20:41)
[2017-06-26] MEDS: ATORVASTATIN 40 MG TABLET PO SCH (20:41)
[2017-06-26] MEDS: TERAZOSIN 2 MG CAPSULE PO SCH (20:41)
[2017-06-27] MEDS: FUROSEMIDE 100 MG/10 ML INJECTION IVP SCH ×3 (02:16→10:15)
[2017-06-27] MEDS: HEPARIN SUB-Q 5,000units/0.5ml INJECTION SQ SCH ×3 (02:17→17:34)
[2017-06-27] MEDS: PANTOPRAZOLE 40 MG TABLET PO SCH (06:30)
[2017-06-27] MEDS: INSULIN ASPART 100unit/ml INJECTION SQ SCH ×3 (09:54→18:13)
[2017-06-27] MEDS: CETIRIZINE 10 MG TABLET PO SCH (09:55)
[2017-06-27] MEDS: AMIODARONE 200 MG TABLET PO SCH (09:55)
[2017-06-27] MEDS: ASPIRIN *EC* 325 MG TABLET PO SCH (09:55)
[2017-06-27] MEDS: FLUoxetine 20 MG CAPSULE PO SCH (09:56)
[2017-06-27] MEDS: ISOSORBIDE MONONITRATE ER 60 MG TABLET PO SCH (09:57)
[2017-06-27] MEDS: INSULIN DETEMIR 100unit/ml INJECTION SQ SCH ×2 (09:57→20:19)
[2017-06-27] MEDS: LABETALOL 100 MG TABLET PO SCH ×2 (09:57→20:19)
[2017-06-27] MEDS: LISINOPRIL 2.5 MG TABLET PO SCH (09:58)
[2017-06-27] MEDS: ACETAMINOPHEN 325 MG TABLET PO PRN (09:58)
[2017-06-27] MEDS: PRASUGREL 10 MG TABLET PO SCH (09:58)
[2017-06-27] MEDS: SALINE FLUSH 10ml SYRINGE IV PRN ×3 (09:59→20:20)
--- NOTE | 2017-06-27 13:05 | XRay Report ---
Indication: chf PROCEDURE: XR chest 1V: Encounter: Initial Comparison: June 24, 2017 Findings: The lungs are stable in appearance without new focal airspace consolidation. There is no pleural effusion or pneumothorax. The heart size, pulmonary vascularity and mediastinal contours are unchanged. Left pacemaker defibrillator. Prior sternotomy. IMPRESSION: Stable appearance of the chest without acute cardiopulmonary disease. .
--- NOTE | 2017-06-27 14:29 | Cardiology Progress Note ---
<Yasmin Cabrera - Last Filed: 06/28/17 15:01> Subjective Principal diagnosis: DHF Interval history: Sebas is seen in follow up for acute on chronic diastolic congestive HF. He is in bed with the HOD elevated, in no distress, on room air. Breathing continues to improve gradually, Denies chest pain, or palpitations. Exam Vital signs: Temperature 98.1 F 06/27/17 07:58 Pulse Rate 61 06/27/17 08:00 Respiratory Rate 20 06/27/17 07:58 Blood Pressure 148/67 H 06/27/17 07:58 Pulse Oximetry 100 06/27/17 07:58 Inpatient Medications: Generic Name Dose Route Start Last Admin Trade Name Freq PRN Reason Stop Dose Admin Acetaminophen 650 mg 06/24/17 13:47 06/27/17 09:58 Tylenol PO 650 mg Q4H PRN Administration Pain Amiodarone HCl 200 mg 06/25/17 09:00 06/27/17 09:55 Pacerone PO 200 mg DAILY ILYA Administration Aspirin 325 mg 06/25/17 13:30 06/27/17 09:55 Ecotrin PO 325 mg DAILY ILYA Administration Atorvastatin Calcium 80 mg 06/25/17 21:00 06/26/17 20:41 Lipitor PO 80 mg HS ILYA Administration Cetirizine HCl 10 mg 06/26/17 09:00 06/27/17 09:55 Zyrtec PO 10 mg DAILY ILYA Administration Fluoxetine HCl 40 mg 06/25/17 13:30 06/27/17 09:56 Prozac PO 40 mg DAILY IYLA Administration Furosemide 40 mg 06/28/17 09:00 Lasix 40 Mg Tab PO DAILY ILYA Heparin Sodium (Porcine) 5,000 units 06/24/17 17:00 06/27/17 09:56 Heparin Sq SQ 5,000 units Q8HR ILYA Administration Insulin Aspart 15 unit 06/27/17 08:00 06/27/17 12:37 Novolog SQ 15 unit TIDWM ILYA Administration Insulin Detemir 20 unit 06/27/17 09:00 06/27/17 09:57 Levemir SQ 20 unit BID ILYA Administration Isosorbide Mononitrate 60 mg 06/25/17 13:30 06/27/17 09:57 Imdur PO 60 mg DAILY ILYA Administration Labetalol HCl 200 mg 06/25/17 13:45 06/27/17 09:57 Normodyne PO 200 mg BID ILYA Administration Lisinopril 2.5 mg 06/25/17 13:30 06/27/17 09:58 Prinivil PO 2.5 mg DAILY ILYA Administration Nitroglycerin 0.4 mg 06/25/17 13:21 Nitrostat SL Q5MIN3 PRN Chest pain Nystatin 1 applic 06/25/17 15:00 06/27/17 09:58 Mycostatin TP 1 applic TID ILYA Administration Pantoprazole Sodium 40 mg 06/25/17 13:30 06/27/17 06:30 Protonix Tab PO 40 mg ACB ILYA Administration Prasugrel 10 mg 06/25/17 13:30 06/27/17 09:58 Effient PO 10 mg DAILY ILYA Administration Promethazine HCl 25 mg 06/25/17 13:21 Phenergan Tab PO Q6H PRN Nausea Sodium Chloride 10 - 80 ml 06/24/17 11:20 06/27/17 10:37 Iv Flush IV 20 ml PRN PRN Administration Flushing Terazosin HCl 2 mg 06/25/17 21:00 06/26/17 20:41 Hytrin PO 2 mg HS ILYA Administration Discontinued Medications Generic Name Dose Route Start Last Admin Trade Name Freq PRN Reason Stop Dose Admin Bumetanide 2 mg 06/24/17 11:23 06/24/17 12:11 Bumex 1 Mg/4 Ml Inj. IVP 06/24/17 11:24 2 mg O ONE Administration Furosemide 40 mg 06/24/17 11:29 06/24/17 12:12 Lasix 40 Mg/4 Ml IVP 06/24/17 11:30 40 mg O ONE Administration Furosemide 80 mg 06/24/17 15:47 06/24/17 16:35 Lasix 100 Mg/10 Ml IV 06/24/17 15:48 80 mg O ONE Administration Furosemide 40 mg 06/25/17 13:30 06/26/17 09:21 Lasix 40 Mg Tab PO 40 mg DAILY ILYA Administration Furosemide 80 mg 06/26/17 17:00 06/27/17 10:15 Lasix 100 Mg/10 Ml IVP Not Given Q8HR ILYA Bumetanide 25 mg/ IV Solution 100 mls @ 2 mls/hr 03/15/18 11:30 IV Q24H ILYA Furosemide 500 mg/ IV Solution 50 mls @ 4 mls/hr 06/24/17 11:30 06/26/17 12: 42 IV Infused .[id number] [facility] Infusion 40 MG/HR Sodium Chloride 500 mls @ 250 mls/hr 06/27/17 10:03 06/27/17 13:40 Normal Saline IV Infused .Q2H ILYA Infusion Insulin Aspart 30 unit 06/25/17 17:30 06/26/17 17:47 Novolog SQ Not Given TIDWM [facility] Insulin Detemir 40 unit 06/25/17 21:00 06/26/17 09:23 Levemir SQ 40 unit BID [facility] Administration - Constitutional mild distress, well nourished, cooperative - Routine HEENT Exam Head: Present: normocephalic ENT: Present: mucous membranes moist - Routine Neck Exam Absent: JVD, carotid bruit - Routine Chest/Breast/Axilla Exam Chest wall: Present: pacemaker. Absent: tenderness - Routine Respiratory Exam Present: dyspnea, decreased breath sounds, diminished air movement. Absent: rhonchi, wheezes - Routine Cardiovascular Exam Present: RRR, no murmur. Absent: JVD - Routine Abdominal Exam Present: normoactive bowel sounds, distended. Absent: soft - Routine Extremities Exam Present: no edema - Routine Skin Exam Present: intact, dry, warm - Routine Neurological Exam Present: alert, oriented X3 - Routine Psychiatric Exam Present: normal affect, normal thought process - Additional findings Additional findings: Acetaminophen (Tylenol) 650 mg PO Q4H PRN PRN Reason: Pain Last Admin: 06/27/17 09:58 Dose: 650 mg Amiodarone HCl (Pacerone) 200 mg PO DAILY [facility] Last Admin: 06/27/17 09:55 Dose: 200 mg Aspirin (Ecotrin) 325 mg PO DAILY [facility] Last Admin: 06/27/17 09:55 Dose: 325 mg Atorvastatin Calcium (Lipitor) 80 mg PO HS [facility] Last Admin: 06/26/17 20:41 Dose: 80 mg Cetirizine HCl (Zyrtec) 10 mg PO DAILY [facility] Last Admin: 06/27/17 09:55 Dose: 10 mg Fluoxetine HCl (Prozac) 40 mg PO DAILY [facility] Last Admin: 06/27/17 09:56 Dose: 40 mg Furosemide (Lasix 40 Mg Tab) 40 mg PO DAILY [facility] Heparin Sodium (Porcine) (Heparin Sq) 5,000 units SQ Q8HR [facility] Last Admin: 06/27/17 09:56 Dose: 5,000 units Insulin Aspart (Novolog) 15 unit SQ TIDWM [facility] Last Admin: 06/27/17 12:37 Dose: 15 unit Insulin Detemir (Levemir) 20 unit SQ BID [facility] Last Admin: 06/27/17 09:57 Dose: 20 unit Isosorbide Mononitrate (Imdur) 60 mg PO DAILY [facility] Last Admin: 06/27/17 09:57 Dose: 60 mg Labetalol HCl (Normodyne) 200 mg PO BID [facility] Last Admin: 06/27/17 09:57 Dose: 200 mg Lisinopril (Prinivil) 2.5 mg PO DAILY [facility] Last Admin: 06/27/17 09:58 Dose: 2.5 mg Nitroglycerin (Nitrostat) 0.4 mg SL Q5MIN3 PRN PRN Reason: Chest pain Nystatin (Mycostatin) 1 applic TP TID [facility] Last Admin: 06/27/17 09:58 Dose: 1 applic Pantoprazole Sodium (Protonix Tab) 40 mg PO ACB [facility] Last Admin: 06/27/17 06:30 Dose: 40 mg Prasugrel (Effient) 10 mg PO DAILY [facility] Last Admin: 06/27/17 09:58 Dose: 10 mg Promethazine HCl (Phenergan Tab) 25 mg PO Q6H PRN PRN Reason: Nausea Sodium Chloride (Iv Flush) 10 - 80 ml IV PRN PRN PRN Reason: Flushing Last Admin: 06/27/17 10:37 Dose: 20 ml Terazosin HCl (Hytrin) 2 mg PO HS [facility] Last Admin: 06/26/17 20:41 Dose: 2 mg Results 06/28/17 05:06 06/28/17 05:06 CBC 06/27/17 Range/Units 04:30 WBC 7.5 (4.5-11.0) T/MM3 RBC 3.65 L (4.50-5.90) M/MM3 Hgb 8.5 L (13.5-17.5) GM/DL Hct 29.6 L (41-53) % Plt Count 147 (130-400) T/MM3 Comprehensive Metabolic Panel 06/27/17 Range/Units 04:30 Sodium 146 H (134-144) MEQ/L Potassium 3.9 (3.6-5) MEQ/L Chloride 103 (98-107) MEQ/L Carbon Dioxide 27 (22-30) MEQ/L BUN 84.0 H* (9-20) MG/DL Creatinine 2.6 H D (0.8-1.5) mg/dL Glucose 177 H (75-110) MG/DL Calcium 9.1 (8.4-10.2) MG/DL Intake and Output 06/26/17 06/27/17 06/27/17 22:59 06:59 14:59 Intake Total 900 / 900 1330 / 1330 Output Total 200 / 200 725 / 725 400 / 400 Balance 700 / 700 -725 / -725 930 / 930 Intake: IV 500 / 500 NS 500ml 500 ml @ 250 mls/hr IV 500 / 500 .Q2H ILYA Rx#:[id number] Oral 900 / 900 830 / 830 Output: Urine 200 / 200 725 / 725 400 / 400 Other: Urine Appearance Clear Clear Clear Urine Color Yellow Yellow Yellow Urine Odor Normal Normal Normal # Voids 1 # Incontinent Voids 1 1 Weight 198 lb 3.129 oz Patient Weight 06/28/17 06:59 Weight 198 lb 3.129 oz - Imaging and Cardiology Imaging & Cardiology Narrative: 06/27/17 14:28 Date of Exam: 06/27/17 Ordering Provider: Yasmin Cabrera APRN Type of Exam(s): XR chest 1V Reason for Exam(s): chf Indication: chf PROCEDURE: XR chest 1V: Encounter: Initial Comparison: June 24, 2017 Findings: The lungs are stable in appearance without new focal airspace consolidation. There is no pleural effusion or pneumothorax. The heart size, pulmonary vascularity and mediastinal contours are unchanged. Left pacemaker defibrillator. Prior sternotomy. IMPRESSION: Stable appearance of the chest without acute cardiopulmonary disease. Assessment and Plan - Assessment and Plan (1) Diastolic CHF Current visit: No Status: Chronic (2) Essential (primary) hypertension Current visit: No Status: Chronic (3) Mixed hyperlipidemia Current visit: Yes Status: Chronic (4) Type 2 diabetes mellitus without complications Current visit: No Status: Chronic (5) ICD (implantable cardioverter-defibrillator) in place Problem details: [employer] Current visit: No Status: Chronic (6) CKD (chronic kidney disease), stage III Current visit: No Status: Chronic (7) Non-sustained ventricular tachycardia Current visit: No Status: Resolved (8) Atherosclerosis 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 Start date: Current visit: Yes Status: Chronic - Assessment and Plan 06/25/17 Acute on chronic Diastolic HF - Continue Lasix IV drip - monitor renal and electrolytes - Fluid restriction of 2000mL/day Essential (primary) hypertension - Continue Labetalol, Lisinopril, Imdur Atherosclerosis 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 - Continue Effient and Aspirin for dual anti-platelet therapy Mixed hyperlipidemia - Continue Atorvastatin Type 2 diabetes mellitus without complications - PCP manages ICD (implantable cardioverter-defibrillator) in place Problem details: [employer] CKD (chronic kidney disease), stage III Non-sustained ventricular tachycardia - Continue Amiodarone 06/26/17 Change Lasix drip to 80mg IVP q8h - Continue to monitor renal and electrolytes - SCr 2.2 from 2.5 yesterday, BUN 77 from 67 yesterday 06/27/17 BUN/ SCR elevated today. - Hold Lasix today, resume home 40mg po tomorrow - NS 500mL over 2 hours today - BNP improved - CXR stable - Likely discharge tomorrow if renal improved Hospital Course Summary Disclaimer: The visit summary below is not to be considered part of the above Progress Note. <Rubin Hernandez - Last Filed: 06/30/17 13:02> Exam Vital signs: Temperature 97.8 F 06/30/17 07:17 Pulse Rate 61 06/30/17 07:17 Respiratory Rate 18 06/30/17 07:17 Blood Pressure 129/66 06/30/17 07:17 Pulse Oximetry 97 06/30/17 07:17 Inpatient Medications: Generic Name Dose Route Start Last Admin Trade Name Freq PRN Reason Stop Dose Admin Acetaminophen 650 mg 06/24/17 13:47 06/27/17 09:58 Tylenol PO 650 mg Q4H PRN Administration Pain Amiodarone HCl 200 mg 06/25/17 09:00 06/30/17 08:02 Pacerone PO 200 mg DAILY ILYA Administration Ascorbic Acid 500 mg 07/01/17 09:00 Vitamin C PO DAILY [facility] Aspirin 325 mg 06/25/17 13:30 06/30/17 08:15 Ecotrin PO 325 mg DAILY [facility] Administration Atorvastatin Calcium 80 mg 06/25/17 21:00 06/29/17 21:48 Lipitor PO 80 mg HS [facility] Administration Bisacodyl 10 mg 06/30/17 13:30 Dulcolax PO 06/30/17 13:31 O ONE Cetirizine HCl 10 mg 06/26/17 09:00 06/30/17 08:02 Zyrtec PO 10 mg DAILY [facility] Administration Cyanocobalamin 1,000 mcg 07/01/17 09:00 Vit. B-12 PO DAILY [facility] Emollient Ointment 1 applic 06/29/17 21:00 06/30/17 08:03 Aquaphor TP 1 applic BID [facility] Administration Ferrous Sulfate 324 mg 07/01/17 08:00 Feosol PO WB [facility] Fluoxetine HCl 40 mg 06/25/17 13:30 06/30/17 08:01 Prozac PO 40 mg DAILY [facility] Administration Heparin Sodium (Porcine) 5,000 units 06/24/17 17:00 06/30/17 08:14 Heparin Sq SQ 5,000 units Q8HR ILYA Administration Hydroxyzine HCl 25 mg 06/29/17 14:47 06/30/17 08:03 Atarax PO 25 mg Q12H PRN Administration Itching Insulin Aspart 15 unit 06/27/17 08:00 06/30/17 13:00 Novolog SQ 15 unit TIDWM [facility] Administration Insulin Detemir 18 unit 06/30/17 11:15 Levemir SQ BID [facility] Isosorbide Mononitrate 60 mg 06/25/17 13:30 06/30/17 08:02 Imdur PO 60 mg DAILY [facility] Administration Labetalol HCl 200 mg 06/25/17 13:45 06/30/17 08:01 Normodyne PO 200 mg BID [facility] Administration Lisinopril 2.5 mg 06/25/17 13:30 06/30/17 08:01 Prinivil PO 2.5 mg DAILY [facility] Administration Nitroglycerin 0.4 mg 06/25/17 13:21 Nitrostat SL Q5MIN3 PRN Chest pain Nystatin 1 applic 06/25/17 15:00 06/30/17 08:00 Mycostatin TP 1 applic TID ILYA Administration Pantoprazole Sodium 40 mg 06/25/17 13:30 06/30/17 06:08 Protonix Tab PO 40 mg ACB ILYA Administration Polyethylene Glycol 238 gm 06/30/17 15:30 Miralax PO 06/30/17 15:31 O ONE Prasugrel 10 mg 06/25/17 13:30 06/30/17 08:01 Effient PO 10 mg DAILY ILYA Administration Promethazine HCl 25 mg 06/25/17 13:21 Phenergan Tab PO Q6H PRN Nausea Sodium Chloride 10 - 80 ml 06/24/17 11:20 06/29/17 12:27 Iv Flush IV 10 ml PRN PRN Administration Flushing Terazosin HCl 2 mg 06/25/17 21:00 06/29/17 21:50 Hytrin PO 2 mg HS ILYA Administration Triamcinolone Acetonide 1 applic 06/29/17 21:00 06/30/17 08:02 Kenalog TOP 1 applic BID ILYA Administration Discontinued Medications Generic Name Dose Route Start Last Admin Trade Name Freq PRN Reason Stop Dose Admin Bumetanide 2 mg 06/24/17 11:23 06/24/17 12:11 Bumex 1 Mg/4 Ml Inj. IVP 06/24/17 11:24 2 mg O ONE Administration Diphtheria/Tetanus/Acell Pertussis 0.5 ml 06/29/17 17:00 06/29/17 17:22 Adacel IM 06/29/17 17:01 0.5 ml .ONCE ONE Administration Furosemide 40 mg 06/24/17 11:29 06/24/17 12:12 Lasix 40 Mg/4 Ml IVP 06/24/17 11:30 40 mg O ONE Administration Furosemide 80 mg 06/24/17 15:47 06/24/17 16:35 Lasix 100 Mg/10 Ml IV 06/24/17 15:48 80 mg O ONE Administration Furosemide 40 mg 06/25/17 13:30 06/26/17 09:21 Lasix 40 Mg Tab PO 40 mg DAILY ILYA Administration Furosemide 80 mg 06/26/17 17:00 06/27/17 10:15 Lasix 100 Mg/10 Ml IVP Not Given Q8HR ILYA Furosemide 40 mg 06/28/17 09:00 06/28/17 08:52 Lasix 40 Mg Tab PO 40 mg DAILY ILYA Administration Bumetanide 25 mg/ IV Solution 100 mls @ 2 mls/hr 06/24/17 11:30 IV Q24H ILYA Furosemide 500 mg/ IV Solution 50 mls @ 4 mls/hr 06/24/17 11:30 06/26/17 12: 42 IV Infused .[id number] ILYA Infusion 40 MG/HR Sodium Chloride 500 mls @ 250 mls/hr 06/27/17 10:03 06/27/17 13:40 Normal Saline IV Infused .Q2H ILYA Infusion Sodium Chloride 1,000 mls @ 75 mls/hr 06/29/17 10:15 06/29/17 10:28 Normal Saline IV 06/29/17 23:34 75 mls/hr .[id number] ILYA Administration Insulin Aspart 30 unit 06/25/17 17:30 06/26/17 17:47 Novolog SQ Not Given TIDWM ILYA Insulin Detemir 40 unit 06/25/17 21:00 06/26/17 09:23 Levemir SQ 40 unit BID ILYA Administration Insulin Detemir 20 unit 06/27/17 09:00 06/30/17 08:15 Levemir SQ 20 unit BID ILYA Administration Pneumococcal 7-Valent Conj Vacc 0.5 ml 06/29/17 17:00 06/29/17 17:21 Prevnar 13 IM 06/29/17 17:01 0.5 ml .ONCE ONE Administration Results 06/30/17 08:41 06/30/17 08:41 CBC 06/30/17 Range/Units 08:41 WBC 6.0 (4.5-11.0) T/MM3 RBC 3.47 L (4.50-5.90) M/MM3 Hgb 8.2 L (13.5-17.5) GM/DL Hct 28.4 L (41-53) % Plt Count 138 (130-400) T/MM3 Neut # (Auto) 4.0 (1.8-7.7) T/MM3 Lymph # (Auto) 1.1 (1-4.8) T/MM3 [place] # (Auto) 0.6 (0-0.8) T/MM3 Eos # (Auto) 0.3 (0-0.5) T/MM3 Baso # (Auto) 0.0 (0-0.2) T/MM3 Comprehensive Metabolic Panel 06/30/17 Range/Units 08:41 Sodium 145 H (134-144) MEQ/L Potassium 4.7 (3.6-5) MEQ/L Chloride 109 H (98-107) MEQ/L Carbon Dioxide 25 (22-30) MEQ/L BUN 80.0 H* (9-20) MG/DL Creatinine 2.2 H D (0.8-1.5) mg/dL Glucose 139 H (75-110) MG/DL Calcium 8.9 (8.4-10.2) MG/DL Intake and Output 06/29/17 06/30/17 06/30/17 22:59 06:59 14:59 Intake Total 550 / 550 200 / 200 Output Total 445 / 445 220 / 220 Balance 105 / 105 -20 / -20 Intake: Oral 550 / 550 200 / 200 Output: Urine 445 / 445 220 / 220 Other: Urine Appearance Clear Clear Urine Color Yellow Yellow Urine Odor Normal Normal # Voids 1 1 Weight 91.5 kg Patient Weight 07/01/17 06:59 Weight 91.5 kg Assessment and Plan - Assessment and Plan (1) Essential (primary) hypertension Current visit: No Status: Chronic (2) Mixed hyperlipidemia Current visit: Yes Status: Chronic (3) Type 2 diabetes mellitus without complications Current visit: No Status: Chronic (4) ICD (implantable cardioverter-defibrillator) in place Problem details: [employer] Current visit: No Status: Chronic (5) Diastolic CHF Current visit: No Status: Chronic (6) Non-sustained ventricular tachycardia Current visit: No Status: Resolved (7) CKD (chronic kidney disease), stage III Current visit: No Status: Chronic (8) Atherosclerosis 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 Current visit: Yes Status: Chronic - Attestation Attestation Narrative: 06/30/17 13:02 Recommendation After examining the patient I agree with the above assessment. I am involved in the formulation of the patient's plan of care. Hospital Course Summary Disclaimer: The visit summary below is not to be considered part of the above Progress Note.
[2017-06-27] MEDS: TERAZOSIN 2 MG CAPSULE PO SCH (20:19)
[2017-06-27] MEDS: ATORVASTATIN 40 MG TABLET PO SCH (20:19)
[2017-06-28] MEDS: HEPARIN SUB-Q 5,000units/0.5ml INJECTION SQ SCH ×3 (00:46→16:56)
[2017-06-28] MEDS: PANTOPRAZOLE 40 MG TABLET PO SCH (05:57)
[2017-06-28] MEDS: INSULIN ASPART 100unit/ml INJECTION SQ SCH ×3 (08:52→16:56)
[2017-06-28] MEDS: CETIRIZINE 10 MG TABLET PO SCH (08:52)
[2017-06-28] MEDS: ASPIRIN *EC* 325 MG TABLET PO SCH (08:52)
[2017-06-28] MEDS: LABETALOL 100 MG TABLET PO SCH ×2 (08:52→21:11)
[2017-06-28] MEDS: AMIODARONE 200 MG TABLET PO SCH (08:54)
[2017-06-28] MEDS: FLUoxetine 20 MG CAPSULE PO SCH (08:58)
[2017-06-28] MEDS ORDERED: FUROSEMIDE 40 MG TABLET PO SCH (09:00)
[2017-06-28] MEDS: INSULIN DETEMIR 100unit/ml INJECTION SQ SCH ×2 (10:36→21:11)
[2017-06-28] MEDS: PRASUGREL 10 MG TABLET PO SCH (10:37)
[2017-06-28] MEDS: LISINOPRIL 2.5 MG TABLET PO SCH (10:37)
[2017-06-28] MEDS: ISOSORBIDE MONONITRATE ER 60 MG TABLET PO SCH (10:37)
--- NOTE | 2017-06-28 15:04 | Cardiology Progress Note ---
<Yasmin Cabrera - Last Filed: 06/28/17 15:01> Subjective Principal diagnosis: DHF Interval history: Sebas is seen in follow up for acute on chronic diastolic congestive HF. He is in bed with the HOB elevated, reposts SOA, mild distress, sats 90's on room air. Breathing continues to improve gradually, Denies chest pain, or palpitations. Exam Vital signs: Temperature 97.5 F 06/28/17 14:40 Pulse Rate 61 06/28/17 14:40 Respiratory Rate 18 06/28/17 14:40 Blood Pressure 124/67 06/28/17 14:40 Pulse Oximetry 96 06/28/17 14:40 Inpatient Medications: Generic Name Dose Route Start Last Admin Trade Name Freq PRN Reason Stop Dose Admin Acetaminophen 650 mg 06/24/17 13:47 06/27/17 09:58 Tylenol PO 650 mg Q4H PRN Administration Pain Amiodarone HCl 200 mg 06/25/17 09:00 06/28/17 08:54 Pacerone PO 200 mg DAILY ILYA Administration Aspirin 325 mg 06/25/17 13:30 06/28/17 08:52 Ecotrin PO 325 mg DAILY ILYA Administration Atorvastatin Calcium 80 mg 06/25/17 21:00 06/27/17 20:19 Lipitor PO 80 mg HS ILYA Administration Cetirizine HCl 10 mg 06/26/17 09:00 06/28/17 08:52 Zyrtec PO 10 mg DAILY ILYA Administration Fluoxetine HCl 40 mg 06/25/17 13:30 06/28/17 08:58 Prozac PO 40 mg DAILY ILYA Administration Heparin Sodium (Porcine) 5,000 units 06/24/17 17:00 06/28/17 08:52 Heparin Sq SQ 5,000 units Q8HR ILYA Administration Insulin Aspart 15 unit 06/27/17 08:00 06/28/17 12:39 Novolog SQ 15 unit TIDWM ILYA Administration Insulin Detemir 20 unit 06/27/17 09:00 06/28/17 10:36 Levemir SQ 20 unit BID ILYA Administration Isosorbide Mononitrate 60 mg 06/25/17 13:30 06/28/17 10:37 Imdur PO 60 mg DAILY ILYA Administration Labetalol HCl 200 mg 06/25/17 13:45 06/28/17 08:52 Normodyne PO 200 mg BID ILYA Administration Lisinopril 2.5 mg 06/25/17 13:30 06/28/17 10:37 Prinivil PO 2.5 mg DAILY ILYA Administration Nitroglycerin 0.4 mg 06/25/17 13:21 Nitrostat SL Q5MIN3 PRN Chest pain Nystatin 1 applic 06/25/17 15:00 06/28/17 14:43 Mycostatin TP 1 applic TID ILYA Administration Pantoprazole Sodium 40 mg 06/25/17 13:30 06/28/17 05:57 Protonix Tab PO 40 mg ACB ILYA Administration Prasugrel 10 mg 06/25/17 13:30 06/28/17 10:37 Effient PO 10 mg DAILY ILYA Administration Promethazine HCl 25 mg 06/25/17 13:21 Phenergan Tab PO Q6H PRN Nausea Sodium Chloride 10 - 80 ml 06/24/17 11:20 06/27/17 20:20 Iv Flush IV 10 ml PRN PRN Administration Flushing Terazosin HCl 2 mg 06/25/17 21:00 06/27/17 20:19 Hytrin PO 2 mg HS ILYA Administration Discontinued Medications Generic Name Dose Route Start Last Admin Trade Name Freq PRN Reason Stop Dose Admin Bumetanide 2 mg 06/24/17 11:23 06/24/17 12:11 Bumex 1 Mg/4 Ml Inj. IVP 06/24/17 11:24 2 mg O ONE Administration Furosemide 40 mg 06/24/17 11:29 06/24/17 12:12 Lasix 40 Mg/4 Ml IVP 06/24/17 11:30 40 mg O ONE Administration Furosemide 80 mg 06/24/17 15:47 06/24/17 16:35 Lasix 100 Mg/10 Ml IV 06/24/17 15:48 80 mg O ONE Administration Furosemide 40 mg 06/25/17 13:30 06/26/17 09:21 Lasix 40 Mg Tab PO 40 mg DAILY ILYA Administration Furosemide 80 mg 06/26/17 17:00 06/27/17 10:15 Lasix 100 Mg/10 Ml IVP Not Given Q8HR ILYA Furosemide 40 mg 06/28/17 09:00 06/28/17 08:52 Lasix 40 Mg Tab PO 40 mg DAILY ILYA Administration Bumetanide 25 mg/ IV Solution 100 mls @ 2 mls/hr 06/24/17 11:30 IV Q24H ILYA Furosemide 500 mg/ IV Solution 50 mls @ 4 mls/hr 06/24/17 11:30 06/26/17 12: 42 IV Infused .[id number] ILYA Infusion 40 MG/HR Sodium Chloride 500 mls @ 250 mls/hr 06/27/17 10:03 06/27/17 13:40 Normal Saline IV Infused .Q2H ILYA Infusion Insulin Aspart 30 unit 06/25/17 17:30 06/26/17 17:47 Novolog SQ Not Given TIDWM ILYA Insulin Detemir 40 unit 06/25/17 21:00 06/26/17 09:23 Levemir SQ 40 unit BID ILYA Administration - Constitutional mild distress, well nourished, cooperative - Routine HEENT Exam Head: Present: normocephalic ENT: Present: mucous membranes moist - Routine Neck Exam Absent: JVD, carotid bruit - Routine Chest/Breast/Axilla Exam Chest wall: Present: pacemaker. Absent: tenderness - Routine Respiratory Exam Present: dyspnea, decreased breath sounds. Absent: CTA bilaterally, rales, rhonchi - Routine Cardiovascular Exam Present: RRR, no murmur - Routine Abdominal Exam Present: normoactive bowel sounds, non tender, distended - Routine Extremities Exam Present: no edema - Routine Skin Exam Present: intact, dry, warm - Routine Neurological Exam Present: alert, oriented X3 - Routine Psychiatric Exam Present: normal affect, normal thought process Results 06/28/17 05:06 06/28/17 05:06 CBC 06/28/17 Range/Units 05:06 WBC 6.5 (4.5-11.0) T/MM3 RBC 3.37 L (4.50-5.90) M/MM3 Hgb 8.0 L (13.5-17.5) GM/DL Hct 27.2 L (41-53) % Plt Count 106 L (130-400) T/MM3 Comprehensive Metabolic Panel 06/28/17 Range/Units 05:06 Sodium 146 H (134-144) MEQ/L Potassium 4.5 (3.6-5) MEQ/L Chloride 108 H (98-107) MEQ/L Carbon Dioxide 25 (22-30) MEQ/L BUN 89.0 H* (9-20) MG/DL Creatinine 2.5 H (0.8-1.5) mg/dL Glucose 179 H (75-110) MG/DL Calcium 9.1 (8.4-10.2) MG/DL Intake and Output 06/28/17 06/28/17 06/28/17 06:59 14:59 22:59 Intake Total 100 / 100 Output Total 400 / 400 500 / 500 Balance -400 / -400 -400 / -400 Intake: Oral 100 / 100 Output: Urine 400 / 400 500 / 500 Other: Urine Appearance Clear Urine Color Yellow Yellow Urine Odor Normal # Voids 1 Weight 198 lb 13.711 oz Patient Weight 06/29/17 06:59 Weight 198 lb 13.711 oz Assessment and Plan - Assessment and Plan (1) Diastolic CHF Current visit: No Status: Chronic (2) Essential (primary) hypertension Current visit: No Status: Chronic (3) Mixed hyperlipidemia Current visit: Yes Status: Chronic (4) Type 2 diabetes mellitus without complications Current visit: No Status: Chronic (5) ICD (implantable cardioverter-defibrillator) in place Problem details: [employer] Current visit: No Status: Chronic (6) CKD (chronic kidney disease), stage III Current visit: No Status: Chronic (7) Non-sustained ventricular tachycardia Current visit: No Status: Resolved (8) Atherosclerosis 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 Current visit: Yes Status: Chronic - Assessment and Plan 06/25/17 Acute on chronic Diastolic HF - Continue Lasix IV drip - monitor renal and electrolytes - Fluid restriction of 2000mL/day Essential (primary) hypertension - Continue Labetalol, Lisinopril, Imdur Atherosclerosis 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 - Continue Effient and Aspirin for dual anti-platelet therapy Mixed hyperlipidemia - Continue Atorvastatin Type 2 diabetes mellitus without complications - PCP manages ICD (implantable cardioverter-defibrillator) in place Problem details: [employer] CKD (chronic kidney disease), stage III Non-sustained ventricular tachycardia - Continue Amiodarone 06/26/17 Change Lasix drip to 80mg IVP q8h - Continue to monitor renal and electrolytes - SCr 2.2 from 2.5 yesterday, BUN 77 from 67 yesterday 06/27/17 BUN/ SCR elevated today. - Hold Lasix today, resume home 40mg po tomorrow - NS 500mL over 2 hours today - BNP improved - CXR stable - Likely discharge tomorrow if renal improved 06/28/17 BUN/SCr 89/2.5 - Hold Lasix tomorrow am - Repeat BNP in am - HGB 8.0, hemacult stool Hospital Course Summary Disclaimer: The visit summary below is not to be considered part of the above Progress Note. <Rubin Hernandez - Last Filed: 06/30/17 13:02> Exam Vital signs: Temperature 97.8 F 06/30/17 07:17 Pulse Rate 61 06/30/17 07:17 Respiratory Rate 18 06/30/17 07:17 Blood Pressure 129/66 06/30/17 07:17 Pulse Oximetry 97 06/30/17 07:17 Inpatient Medications: Generic Name Dose Route Start Last Admin Trade Name Freq PRN Reason Stop Dose Admin Acetaminophen 650 mg 06/24/17 13:47 06/27/17 09:58 Tylenol PO 650 mg Q4H PRN Administration Pain Amiodarone HCl 200 mg 06/25/17 09:00 06/30/17 08:02 Pacerone PO 200 mg DAILY ILYA Administration Ascorbic Acid 500 mg 07/01/17 09:00 Vitamin C PO DAILY ILYA Aspirin 325 mg 06/25/17 13:30 06/30/17 08:15 Ecotrin PO 325 mg DAILY ILYA Administration Atorvastatin Calcium 80 mg 06/25/17 21:00 06/29/17 21:48 Lipitor PO 80 mg HS ILYA Administration Bisacodyl 10 mg 06/30/17 13:30 Dulcolax PO 06/30/17 13:31 O ONE Cetirizine HCl 10 mg 06/26/17 09:00 06/30/17 08:02 Zyrtec PO 10 mg DAILY ILYA Administration Cyanocobalamin 1,000 mcg 07/01/17 09:00 Vit. B-12 PO DAILY ILYA Emollient Ointment 1 applic 06/29/17 21:00 06/30/17 08:03 Aquaphor TP 1 applic BID ILYA Administration Ferrous Sulfate 324 mg 07/01/17 08:00 Feosol PO WB ILYA Fluoxetine HCl 40 mg 06/25/17 13:30 06/30/17 08:01 Prozac PO 40 mg DAILY ILYA Administration Heparin Sodium (Porcine) 5,000 units 06/24/17 17:00 03/21/18 08:14 Heparin Sq SQ 5,000 units Q8HR ILYA Administration Hydroxyzine HCl 25 mg 06/29/17 14:47 06/30/17 08:03 Atarax PO 25 mg Q12H PRN Administration Itching Insulin Aspart 15 unit 06/27/17 08:00 06/30/17 13:00 Novolog SQ 15 unit TIDWM ILYA Administration Insulin Detemir 18 unit 06/30/17 11:15 Levemir SQ BID ILYA Isosorbide Mononitrate 60 mg 06/25/17 13:30 06/30/17 08:02 Imdur PO 60 mg DAILY ILYA Administration Labetalol HCl 200 mg 06/25/17 13:45 06/30/17 08:01 Normodyne PO 200 mg BID ILYA Administration Lisinopril 2.5 mg 06/25/17 13:30 06/30/17 08:01 Prinivil PO 2.5 mg DAILY ILYA Administration Nitroglycerin 0.4 mg 06/25/17 13:21 Nitrostat SL Q5MIN3 PRN Chest pain Nystatin 1 applic 06/25/17 15:00 06/30/17 08:00 Mycostatin TP 1 applic TID ILYA Administration Pantoprazole Sodium 40 mg 06/25/17 13:30 06/30/17 06:08 Protonix Tab PO 40 mg ACB ILYA Administration Polyethylene Glycol 238 gm 06/30/17 15:30 Miralax PO 06/30/17 15:31 O ONE Prasugrel 10 mg 06/25/17 13:30 06/30/17 08:01 Effient PO 10 mg DAILY ILYA Administration Promethazine HCl 25 mg 06/25/17 13:21 Phenergan Tab PO Q6H PRN Nausea Sodium Chloride 10 - 80 ml 06/24/17 11:20 06/29/17 12:27 Iv Flush IV 10 ml PRN PRN Administration Flushing Terazosin HCl 2 mg 06/25/17 21:00 06/29/17 21:50 Hytrin PO 2 mg HS ILYA Administration Triamcinolone Acetonide 1 applic 06/29/17 21:00 06/30/17 08:02 Kenalog TOP 1 applic BID ILYA Administration Discontinued Medications Generic Name Dose Route Start Last Admin Trade Name Freq PRN Reason Stop Dose Admin Bumetanide 2 mg 06/24/17 11:23 06/24/17 12:11 Bumex 1 Mg/4 Ml Inj. IVP 06/24/17 11:24 2 mg O ONE Administration Diphtheria/Tetanus/Acell Pertussis 0.5 ml 06/29/17 17:00 06/29/17 17:22 Adacel IM 06/29/17 17:01 0.5 ml .ONCE ONE Administration Furosemide 40 mg 06/24/17 11:29 06/24/17 12:12 Lasix 40 Mg/4 Ml IVP 06/24/17 11:30 40 mg O ONE Administration Furosemide 80 mg 06/24/17 15:47 06/24/17 16:35 Lasix 100 Mg/10 Ml IV 06/24/17 15:48 80 mg O ONE Administration Furosemide 40 mg 06/25/17 13:30 06/26/17 09:21 Lasix 40 Mg Tab PO 40 mg DAILY ILYA Administration Furosemide 80 mg 06/26/17 17:00 06/27/17 10:15 Lasix 100 Mg/10 Ml IVP Not Given Q8HR ILYA Furosemide 40 mg 06/28/17 09:00 06/28/17 08:52 Lasix 40 Mg Tab PO 40 mg DAILY ILYA Administration Bumetanide 25 mg/ IV Solution 100 mls @ 2 mls/hr 06/24/17 11:30 IV Q24H ILYA Furosemide 500 mg/ IV Solution 50 mls @ 4 mls/hr 06/24/17 11:30 06/26/17 12: 42 IV Infused .[id number] ILYA Infusion 40 MG/HR Sodium Chloride 500 mls @ 250 mls/hr 06/27/17 10:03 06/27/17 13:40 Normal Saline IV Infused .Q2H ILYA Infusion Sodium Chloride 1,000 mls @ 75 mls/hr 06/29/17 10:15 06/29/17 10:28 Normal Saline IV 06/29/17 23:34 75 mls/hr .[id number] ILYA Administration Insulin Aspart 30 unit 06/25/17 17:30 06/26/17 17:47 Novolog SQ Not Given TIDWM ILYA Insulin Detemir 40 unit 06/25/17 21:00 06/26/17 09:23 Levemir SQ 40 unit BID ILYA Administration Insulin Detemir 20 unit 06/27/17 09:00 06/30/17 08:15 Levemir SQ 20 unit BID ILYA Administration Pneumococcal 7-Valent Conj Vacc 0.5 ml 06/29/17 17:00 06/29/17 17:21 Prevnar 13 IM 06/29/17 17:01 0.5 ml .ONCE ONE Administration Results 06/30/17 08:41 06/30/17 08:41 CBC 06/30/17 Range/Units 08:41 WBC 6.0 (4.5-11.0) T/MM3 RBC 3.47 L (4.50-5.90) M/MM3 Hgb 8.2 L (13.5-17.5) GM/DL Hct 28.4 L (41-53) % Plt Count 138 (130-400) T/MM3 Neut # (Auto) 4.0 (1.8-7.7) T/MM3 Lymph # (Auto) 1.1 (1-4.8) T/MM3 [place] # (Auto) 0.6 (0-0.8) T/MM3 Eos # (Auto) 0.3 (0-0.5) T/MM3 Baso # (Auto) 0.0 (0-0.2) T/MM3 Comprehensive Metabolic Panel 06/30/17 Range/Units 08:41 Sodium 145 H (134-144) MEQ/L Potassium 4.7 (3.6-5) MEQ/L Chloride 109 H (98-107) MEQ/L Carbon Dioxide 25 (22-30) MEQ/L BUN 80.0 H* (9-20) MG/DL Creatinine 2.2 H D (0.8-1.5) mg/dL Glucose 139 H (75-110) MG/DL Calcium 8.9 (8.4-10.2) MG/DL Intake and Output 06/29/17 06/30/17 06/30/17 22:59 06:59 14:59 Intake Total 550 / 550 200 / 200 Output Total 445 / 445 220 / 220 Balance 105 / 105 -20 / -20 Intake: Oral 550 / 550 200 / 200 Output: Urine 445 / 445 220 / 220 Other: Urine Appearance Clear Clear Urine Color Yellow Yellow Urine Odor Normal Normal # Voids 1 1 Weight 91.5 kg Patient Weight 07/01/17 06:59 Weight 91.5 kg Assessment and Plan - Assessment and Plan (1) Essential (primary) hypertension Current visit: No Status: Chronic (2) Mixed hyperlipidemia Current visit: Yes Status: Chronic (3) Type 2 diabetes mellitus without complications Current visit: No Status: Chronic (4) ICD (implantable cardioverter-defibrillator) in place Problem details: [employer] Current visit: No Status: Chronic (5) Diastolic CHF Current visit: No Status: Chronic (6) Non-sustained ventricular tachycardia Current visit: No Status: Resolved (7) CKD (chronic kidney disease), stage III Current visit: No Status: Chronic (8) Atherosclerosis 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 Current visit: Yes Status: Chronic - Attestation Attestation Narrative: 06/30/17 13:02 Recommendation After examining the patient I agree with the above assessment. I am involved in the formulation of the patient's plan of care. Hospital Course Summary Disclaimer: The visit summary below is not to be considered part of the above Progress Note.
[2017-06-28] MEDS: ATORVASTATIN 40 MG TABLET PO SCH (21:11)
[2017-06-28] MEDS: TERAZOSIN 2 MG CAPSULE PO SCH (21:11)
[2017-06-29] MEDS: HEPARIN SUB-Q 5,000units/0.5ml INJECTION SQ SCH ×3 (00:49→17:20)
[2017-06-29] MEDS: PANTOPRAZOLE 40 MG TABLET PO SCH (05:30)
[2017-06-29] MEDS: INSULIN ASPART 100unit/ml INJECTION SQ SCH ×3 (08:53→17:20)
[2017-06-29] MEDS: INSULIN DETEMIR 100unit/ml INJECTION SQ SCH ×2 (08:53→21:49)
[2017-06-29] MEDS: AMIODARONE 200 MG TABLET PO SCH (08:54)
[2017-06-29] MEDS: FLUoxetine 20 MG CAPSULE PO SCH (08:54)
[2017-06-29] MEDS: ISOSORBIDE MONONITRATE ER 60 MG TABLET PO SCH (08:54)
[2017-06-29] MEDS: PRASUGREL 10 MG TABLET PO SCH (08:54)
[2017-06-29] MEDS: CETIRIZINE 10 MG TABLET PO SCH (08:54)
[2017-06-29] MEDS: ASPIRIN *EC* 325 MG TABLET PO SCH (08:54)
[2017-06-29] MEDS: LISINOPRIL 2.5 MG TABLET PO SCH (08:54)
[2017-06-29] MEDS: LABETALOL 100 MG TABLET PO SCH ×2 (08:54→21:49)
[2017-06-29] MEDS ORDERED: NS 1,000 ML IV SCH (10:15)
[2017-06-29] MEDS: SALINE FLUSH 10ml SYRINGE IV PRN (12:27)
--- NOTE | 2017-06-29 14:13 | Consult Note ---
Consult Information - Data of Consult Consult date: 06/29/17 Requesting Physician: Rubin Hernandez MD Primary Care Provider: Colin Elliott MD Family Provider: Colin Elliott MD - Consult Narrative Reason for consult: Anemia History of present illness: Sebas Rivera is a 71-year-old male with a history of significant coronary artery disease, diastolic CHF, uncontrolled type 2 diabetes, who was seen in consultation from Dr. Longoria for further evaluation of worsening anemia with heme-positive stools. Sebas was admitted to the hospital on 06/24/17. He states that he went into his bridge expert's office on that day and felt short of breath , and was directly admitted to the hospital. He denies any chest pain or palpitations. He denies fevers, chills, cough or sinus congestion. He feels very tired and fatigued but denies dizziness or lightheadedness, syncope, or recent falls. He denies any recent nausea, vomiting, abdominal pain, diarrhea or constipation. He states that for the last week or so, he's noticed bright red blood in his underwear. Sometimes, it's painful to have a bowel movement. He denies black, tarry stools. Denies dysuria, but states he occasionally has difficulty emptying his bladder. He has had significant lower back pain since arriving in the hospital, which is made worse, he believes, by not moving around very much. He states that ever since being admitted, he has also been afflicted with transient left arm and left leg paresthesias. He has no other neurologic symptoms associated with this. He is able to ambulate and stand on his leg without weakness when arm and leg feel numb. He has had terrible all- over body itching and is bleeding in several locations on his arms and legs because of dislodging scabs. Since admission on 06/24/17, his hgb has ranged between 8.0-8.9. Stool has been brown but was heme positive on 06/28/17. He has had low platelets, as well. He has been diuresing, and his creatinine is only slightly over his baseline, currently at 2.4. Past Medical History Coronary artery disease, on dual antiplatelet therapy. Diastolic CHF. Ischemic cardiomyopathy. Non-sustained ventricular tachycardia, on amiodarone. Hypertension. Mixed hyperlipidemia. Type 2 diabetes mellitus. [place] [employer] ICD that is not MRI compatible. History of stroke in 2005. Chronic kidney disease, stage IV COPD Sleep apnea GERD Depression. History of kidney stones. Obesity with BMI greater than 30 kg/m Medical History Updates: 06/24/17 - ECHO. IMPRESSION. 1. Owky-cm-umkahipr colon global hypokinesia with ejection fraction of about 40%-45%. 2. Biatrial dilation. 3. Right ventricular dilation. 4. Left ventricular hypertrophy. 5. Pacemaker leads present in the right heart. 6. Mild mitral regurgitation. 7. Keqgbjlq-ax-mprwgd tricuspid regurgitation with normal estimated pulmonary artery systolic pressure of 26. 8. Mild pulmonary insufficiency. - US abdomen. Findings: Hepatic parenchyma is echogenic and sonographically dense without. evidence for focal mass. The gallbladder is contracted limiting the exam but grossly normal. There. is no wall thickening, pericholecystic fluid, sonographic Ibarra's sign or. cholelithiasis. Both the intra and extrahepatic biliary system are of normal caliber with. the common duct measuring 4 mm in dimension. Pancreas is not well seen due to shadowing bowel gas. Both kidneys are present without collecting system dilatation. The right. measures 10.8 cm in length and left measures 9.6 cm. Bilateral renal. cortical thinning. The spleen is unremarkable. The visualized portions of the aorta and IVC are unremarkable. Small volume ascites. Impression: Small volume ascites. Probable hepatic steatosis. 03/08/17- ECHO. IMPRESSION. 1. Technically difficult study. 2. Biatrial dilation. 3. Concentric left ventricular hypertrophy. 4. Mild LV dysfunction with ejection fraction of about 45%. 5. Pacemaker present in right heart. 6. Mild mitral regurgitation. 7. Moderate tricuspid regurgitation with moderate pulmonary hypertension with estimated pulmonary artery systolic pressure of 49. 8. Mild pulmonary insufficiency. 03/12/17. US Renal doppler. Impression: No evidence of hemodynamically significant renal artery stenosis. 03/11/17. Ultrasound gallbladder. Impression: Nonspecific gallbladder wall thickening. Hepatic steatosis. Surgical History: AICD. CABG x4. Bilateral cataracts in 2016 - Dr. San. Multiple heart catheterizations, most recent including the following: Heart catheterization with primary stent of vein graft to PDA 10/15/16 - Dr. Hernandez. Heart catheterization with primary stent of the vein graft to diagonal 10/25/16 - Dr. Hernandez. Heart catheterization with PCI to circumflex artery 03/03/17. Heart catheterization with with stents to the diagonal artery, both primary and for in-stent stenosis 05/13/17 Family History: Mother, , CAD. Father, , CAD. An older and younger brother also have CAD. Family History Updates: Denies family history of GI disease or colon cancer. - Social History Smoking status: Never smoker Substance use type: does not use Alcohol intake frequency: does not drink Household members: other (he lives in an apartment with his nephew and 3 cats) Social history: PCP: Dr. Elliott Tank Wagon Operator: Dr. Hernandez Review of Systems All systems PM: 10-point ROS was reviewed, no additional remarkable complaints except Medications Home Medications Medication Instructions Recorded Confirmed Type Atorvastatin Calcium 80 mg PO HS #0 05/27/15 06/24/17 History Terazosin [Hytrin] 2 mg PO HS 09/29/16 06/24/17 History Aspirin *EC* [Ecotrin] 325 mg PO DAILY 09/30/16 06/24/17 History Nitroglycerin 0.4 mg SL Q5MIN3 PRN 10/13/16 06/24/17 History Fluoxetine HCl [Prozac] 40 mg PO DAILY 03/07/17 06/24/17 History Isosorbide Mononitrate ER [Imdur] 60 mg PO DAILY 03/07/17 06/24/17 History Lisinopril [Zestril] 2.5 mg PO DAILY 03/07/17 06/24/17 History Amiodarone [Pacerone] 200 mg PO DAILY 90 Days #90 tab 03/14/17 06/24/17 Rx Labetalol [Normodyne] 200 mg PO BID 90 Days #180 tab 03/14/17 06/24/17 Rx Furosemide [Lasix 40 mg Tab] 40 mg PO DAILY 04/04/17 06/24/17 History Cetirizine [Zyrtec] 10 mg PO DAILY 05/11/17 06/24/17 History Insulin Aspart [NovoLOG] 30 unit SQ TIDWM 05/11/17 06/24/17 History Insulin Detemir [Levemir] 40 unit SQ BID 05/11/17 06/24/17 History Pantoprazole Sodium [Protonix] 40 mg PO DAILY 05/11/17 06/24/17 History Prasugrel [Effient] 10 mg PO DAILY 05/11/17 06/24/17 History Promethazine Tab [Phenergan Tab] 25 mg PO Q6H PRN 06/24/17 06/24/17 History Allergies Allergy/AdvReac Type Severity Reaction Status Date / Time No Known Allergies Allergy Verified 06/24/17 11:00 Exam Vital Signs: Temperature 97.1 F 06/29/17 08:16 Pulse Rate 60 06/29/17 08:16 Respiratory Rate 16 06/29/17 08:16 Blood Pressure 114/64 06/29/17 08:16 Pulse Oximetry 97 06/29/17 08:16 Height/Weight/BMI: Height 1.65 m Weight 90.5 kg Body Mass Index 34.6 - Constitutional Present: no acute distress, well nourished, well developed, obese - Routine HEENT Exam Head: Present: normocephalic Eye: Present: EOMI, PERRL. Absent: conjunctival icterus, scleral injection ENT: Present: mucous membranes moist, oropharynx clear. Absent: dentition normal (edentulous) - Routine Neck Exam Present: supple. Absent: lymphadenopathy - Routine Respiratory Exam Present: decreased breath sounds Comments: He became dyspneic and tachypneic by simply moving his legs while seated as I was testing his motor strength in his lower extremities. - Routine Cardiovascular Exam Present: RRR, S1, S2 - Routine Abdominal Exam Present: soft, normoactive bowel sounds, non distended, non tender - Routine Extremities Exam Present: no edema, pulses intact - Routine Back/Spine/Pelvis Exam Back/Spine: Present: pain with flexion, pain with lateral flexion, pain with rotation - Routine Skin Exam Present: intact, dry, pallor, warm, rash (diffuse lesions, excoriations, and abrasions in multiple stages of healing to arms and legs. There is dried blood on his gown in several spots from where he scratched off scabs.) - Routine Neurological Exam Present: alert, oriented X3, CN II-XII intact, motor deficit (upper and lower muscle groups were weak at 4/5 but equal bilaterally), moving all extremities, vision grossly intact, hearing grossly intact, normal speech. Absent: sensory deficit, altered mental status - Routine Psychiatric Exam Present: normal affect, normal thought process, cooperative Results - Labs CBC & Chem 7: 06/29/17 09:13 06/29/17 10:11 - Imaging and Cardiology US Abdomen Additional comments: Date of Exam: 06/24/17 PROCEDURE: US abdomen complete: Findings: Hepatic parenchyma is echogenic and sonographically dense without evidence for focal mass. The gallbladder is contracted limiting the exam but grossly normal. There is no wall thickening, pericholecystic fluid, sonographic Ibarra's sign or cholelithiasis. Both the intra and extrahepatic biliary system are of normal caliber with the common duct measuring 4 mm in dimension. Pancreas is not well seen due to shadowing bowel gas. Both kidneys are present without collecting system dilatation. The right measures 10.8 cm in length and left measures 9.6 cm. Bilateral renal cortical thinning. The spleen is unremarkable. The visualized portions of the aorta and IVC are unremarkable. Small volume ascites. Impression: Small volume ascites. Probable hepatic steatosis. Echocardiogram Additional comments: Date of Exam: 06/24/17 Type of Exam(s): US echo doppler complete DATE OF PROCEDURE June 24, 2017 This is a two-dimensional echo with spectral Doppler, color-flow and M-mode. It was obtained in a patient with shortness of breath and congestive heart failure. Left atrium is dilated. Left ventricular end-diastolic dimension is normal. Left ventricular wall thickness is increased. Ifad-lx-fwhrqhae global hypokinesia is present with ejection fraction of about 40%-45%. Right atrium is dilated. Right ventricle is dilated. Aortic root dimension is normal. Mitral valve is morphologically normal with mild mitral regurgitation. Aortic valve shows is a trileaflet structure with no stenosis or insufficiency. Tricuspid valve shows vnpeutwr-of-vowvxf tricuspid regurgitation with normal estimated pulmonary artery systolic pressure of 26. Pulmonary valve shows mild pulmonary insufficiency. There is no pericardial effusion. Pacemaker leads are present in the right heart. IMPRESSION 1. Ahud-az-fsszgcjv colon global hypokinesia with ejection fraction of about 40 %-45%. 2. Biatrial dilation. 3. Right ventricular dilation. 4. Left ventricular hypertrophy. 5. Pacemaker leads present in the right heart. 6. Mild mitral regurgitation. 7. Phhfgbji-rg-ehqxok tricuspid regurgitation with normal estimated pulmonary artery systolic pressure of 26. 8. Mild pulmonary insufficiency. Chest x-ray Status: image reviewed by me Additional comments: Date of Exam: 06/24/17 Type of Exam(s): XR chest 1V Findings: The lungs are stable in appearance without new focal airspace consolidation. There is no pleural effusion or pneumothorax. The heart size, pulmonary vascularity and mediastinal contours are unchanged. Left pacemaker. Prior CABG. IMPRESSION: Stable appearance of the chest without acute cardiopulmonary disease. Date of Exam: 06/27/17 Type of Exam(s): XR chest 1V IMPRESSION: Stable appearance of the chest without acute cardiopulmonary disease. Assessment and Plan (1) Anemia Current visit: Yes Status: Acute Assessment and Plan: ASSESSMENT Microcytic anemia with heme positive stool, lower GI bleed Thrombocytopenia, acute this admission Diastolic CHF exacerbation. Hypernatremia. Elevated creatinine, mild. Intermittent, transient paresthesias to left arm and left leg without associated weakness. Pruritus Chronic and associated conditions Coronary artery disease, on dual antiplatelet therapy. Diastolic CHF. Ischemic cardiomyopathy. Non-sustained ventricular tachycardia, on amiodarone. Hypertension. Mixed hyperlipidemia. Type 2 diabetes mellitus. [place] [employer] ICD that is not MRI compatible. History of stroke in 2004. Chronic kidney disease, stage IV COPD Sleep apnea GERD Depression. Obesity with BMI greater than 30 kg/m PLAN Hemoglobin trends were reviewed. In the summer of 2016, His hemoglobin ranged between 10 and 11, in the winter of 2016. His hemoglobin was between 9-11. In early 2018. His hemoglobin was consistently in the 9 range. On admission . His hemoglobin was 8.9, and got as low as 8.0 on 06/28/17. Will check iron studies, folate, B12; check ferritin due to paresthesias. Could be anemia of chronic disease, given his renal status. He has never had a colonoscopy. Will consult Dr. Wilson for recommendations. Thrombocytopenia is also a new finding, and while mild, combined with worsening anemia, raises the question of whether or not he might need heme evaluation eventually. In the meantime, would recommend discontinuing heparin. His vague symptoms of tiredness, fatigue, and dyspnea may be attributed to CHF, anemia, deconditioning, and most likely a combination of each of these factors or others. Recommend PT/OT evaluation prior to discharge. Left arm/leg transient paresthesias: unable to obtain MRI due to pacemaker, and with the intermittent nature of his symptoms without weakness and other focal deficits is not consistent with stroke. Pruritus: Hydroxyzine BID PRN. Apply aquaphor + triamcinolone to itchy areas. Urinary retention: check UA. Type 2 diabetes: hgb A1c was 9.8% in March,. Continue to monitor sugars. He's had some lows, may need to reduce insulin dosing if renal function worsens. He is currently getting 1L of NS and diuretics are on hold. Follow Na, renal function and electrolytes closely. Renal sono and echo reviewed. Thank you for this consultation. DVT Prophylaxis: SCD's GI Prophylaxis: Protonix Resuscitation Status: Full Code - Physician Narrative Narrative: Date: 06/29/17 Time: 1639 I have independently evaluated and examined this patient. I reviewed the chart, the patient's history, and the MATERIAL REQUIREMENTS PLANNING MANAGER/PA's documented findings as above. We discussed and formulated the assessment and plan as above with additions as below. Immunizations: He did not receive the flu vaccine this year, he does not believe he said pneumococcal vaccines either the pneumococcal 13 Valent or 23 Valent, he has not had a Tdap that he is aware of, and he does not believe has had a shingles vaccine. Discussed his issues of acute GI bleeding while on anticoagulation for his multiple cardiac stents. Agree with having Dr. Wilson evaluate for possible colonoscopy and then adjusting his medications accordingly. Also discussed the need for tighter glucose control at home his blood sugars usually range in the 200 or less category occasionally less than 150. He does check his blood sugars 3 times a day. He is edentulous which makes it somewhat challenging for him to maintain an appropriate diet. The patient agrees to a Tdap today as well as a Prevnar 13. With his next admission, he will need a pneumococcal 23 Valent vaccine. We'll also consider giving shingrix x 2 when the immunization is available. He has also been encouraged to get a yearly influenza vaccine. Hospital Course Summary Disclaimer: The visit summary below is not to be considered part of the above Progress Note.
--- NOTE | 2017-06-29 14:19 | Cardiology Progress Note ---
<Yasmin Cabrera M - Last Filed: 06/30/17 14:25> Subjective Principal diagnosis: DHF Interval history: Sebas is seen in follow up for acute on chronic DCHF. He is in the bed, in no distress. Denies chest pain, or palpitations. Exam Vital signs: Temperature 97.1 F 06/29/17 08:16 Pulse Rate 60 06/29/17 08:16 Respiratory Rate 16 06/29/17 08:16 Blood Pressure 114/64 06/29/17 08:16 Pulse Oximetry 97 06/29/17 08:16 Inpatient Medications: Generic Name Dose Route Start Last Admin Trade Name Freq PRN Reason Stop Dose Admin Acetaminophen 650 mg 06/24/17 13:47 06/27/17 09:58 Tylenol PO 650 mg Q4H PRN Administration Pain Amiodarone HCl 200 mg 06/25/17 09:00 06/29/17 08:54 Pacerone PO 200 mg DAILY ILYA Administration Aspirin 325 mg 06/25/17 13:30 06/29/17 08:54 Ecotrin PO 325 mg DAILY ILYA Administration Atorvastatin Calcium 80 mg 06/25/17 21:00 06/28/17 21:11 Lipitor PO 80 mg HS ILYA Administration Cetirizine HCl 10 mg 06/26/17 09:00 06/29/17 08:54 Zyrtec PO 10 mg DAILY ILYA Administration Fluoxetine HCl 40 mg 06/25/17 13:30 06/29/17 08:54 Prozac PO 40 mg DAILY ILYA Administration Heparin Sodium (Porcine) 5,000 units 06/24/17 17:00 06/29/17 08:54 Heparin Sq SQ 5,000 units Q8HR ILYA Administration Sodium Chloride 1,000 mls @ 75 mls/hr 06/29/17 10:15 06/29/17 10:28 Normal Saline IV 06/29/17 23:34 75 mls/hr .[id number] ILYA Administration Insulin Aspart 15 unit 06/27/17 08:00 06/29/17 12:27 Novolog SQ 15 unit TIDWM ILYA Administration Insulin Detemir 20 unit 06/27/17 09:00 06/29/17 08:53 Levemir SQ 20 unit BID ILYA Administration Isosorbide Mononitrate 60 mg 06/25/17 13:30 03/20/18 08:54 Imdur PO 60 mg DAILY ILYA Administration Labetalol HCl 200 mg 06/25/17 13:45 06/29/17 08:54 Normodyne PO 200 mg BID ILYA Administration Lisinopril 2.5 mg 06/25/17 13:30 06/29/17 08:54 Prinivil PO 2.5 mg DAILY ILYA Administration Nitroglycerin 0.4 mg 06/25/17 13:21 Nitrostat SL Q5MIN3 PRN Chest pain Nystatin 1 applic 06/25/17 15:00 06/29/17 08:54 Mycostatin TP 1 applic TID ILYA Administration Pantoprazole Sodium 40 mg 06/25/17 13:30 06/29/17 05:30 Protonix Tab PO 40 mg ACB ILYA Administration Prasugrel 10 mg 06/25/17 13:30 06/29/17 08:54 Effient PO 10 mg DAILY ILYA Administration Promethazine HCl 25 mg 06/25/17 13:21 Phenergan Tab PO Q6H PRN Nausea Sodium Chloride 10 - 80 ml 06/24/17 11:20 06/29/17 12:27 Iv Flush IV 10 ml PRN PRN Administration Flushing Terazosin HCl 2 mg 06/25/17 21:00 06/28/17 21:11 Hytrin PO 2 mg HS ILYA Administration Discontinued Medications Generic Name Dose Route Start Last Admin Trade Name Freq PRN Reason Stop Dose Admin Bumetanide 2 mg 06/24/17 11:23 06/24/17 12:11 Bumex 1 Mg/4 Ml Inj. IVP 06/24/17 11:24 2 mg O ONE Administration Furosemide 40 mg 06/24/17 11:29 06/24/17 12:12 Lasix 40 Mg/4 Ml IVP 06/24/17 11:30 40 mg O ONE Administration Furosemide 80 mg 06/24/17 15:47 06/24/17 16:35 Lasix 100 Mg/10 Ml IV 06/24/17 15:48 80 mg O ONE Administration Furosemide 40 mg 06/25/17 13:30 06/26/17 09:21 Lasix 40 Mg Tab PO 40 mg DAILY ILYA Administration Furosemide 80 mg 06/26/17 17:00 06/27/17 10:15 Lasix 100 Mg/10 Ml IVP Not Given Q8HR ILYA Furosemide 40 mg 06/28/17 09:00 03/19/18 08:52 Lasix 40 Mg Tab PO 40 mg DAILY ILYA Administration Bumetanide 25 mg/ IV Solution 100 mls @ 2 mls/hr 06/24/17 11:30 IV Q24H ILYA Furosemide 500 mg/ IV Solution 50 mls @ 4 mls/hr 06/24/17 11:30 06/26/17 12: 42 IV Infused .[id number] ILYA Infusion 40 MG/HR Sodium Chloride 500 mls @ 250 mls/hr 06/27/17 10:03 06/27/17 13:40 Normal Saline IV Infused .Q2H ILYA Infusion Insulin Aspart 30 unit 06/25/17 17:30 06/26/17 17:47 Novolog SQ Not Given TIDWM ILYA Insulin Detemir 40 unit 06/25/17 21:00 06/26/17 09:23 Levemir SQ 40 unit BID ILYA Administration - Constitutional no acute distress, well nourished, cooperative - Routine HEENT Exam Head: Present: normocephalic ENT: Present: mucous membranes moist - Routine Neck Exam Absent: JVD, carotid bruit - Routine Chest/Breast/Axilla Exam Chest wall: Present: pacemaker. Absent: tenderness - Routine Respiratory Exam Present: decreased breath sounds. Absent: dyspnea - Routine Cardiovascular Exam Present: RRR, no murmur - Routine Abdominal Exam Present: distended. Absent: soft - Routine Extremities Exam Present: no edema - Routine Skin Exam Present: dry, urticaria, warm. Absent: intact - Routine Neurological Exam Present: alert, oriented X3 - Routine Psychiatric Exam Present: normal affect, normal thought process Results 06/30/17 08:41 06/30/17 08:41 Cardiac Enzymes 06/28/17 06/28/17 06/29/17 Range/Units 15:14 21:10 03:12 Troponin I 0.018 0.020 0.021 (0-0.12) ng/ml CBC 06/29/17 Range/Units 09:13 WBC 6.4 (4.5-11.0) T/MM3 RBC 3.56 L (4.50-5.90) M/MM3 Hgb 8.5 L (13.5-17.5) GM/DL Hct 28.3 L (41-53) % Plt Count 150 D (130-400) T/MM3 Comprehensive Metabolic Panel 06/29/17 06/29/17 Range/Units 09:13 10:11 Sodium 150 H 147 H (134-144) MEQ/L Potassium 6.3 H* D 4.1 D (3.6-5) MEQ/L Chloride 112 H 106 (98-107) MEQ/L Carbon Dioxide 20 L 25 (22-30) MEQ/L BUN 94.0 H* 85.0 H* (9-20) MG/DL Creatinine 2.6 H 2.4 H D (0.8-1.5) mg/dL Glucose 119 H 127 H (75-110) MG/DL Calcium 10.6 H D 8.9 D (8.4-10.2) MG/DL Intake and Output 06/28/17 06/29/17 06/29/17 22:59 06:59 14:59 Intake Total 370 / 370 163 / 163 Output Total 300 / 300 450 / 450 Balance 70 / 70 -287 / -287 Intake: Oral 370 / 370 163 / 163 Output: Urine 300 / 300 450 / 450 Other: Urine Color Yellow Stool Characteristics Normal for Patient Normal for Patient Stool Color Brown Brown Stool Consistency Soft Soft Formed Size of Bowel Movement Large Small # Voids 1 # Bowel Movements 3 1 Weight 199 lb 8.293 oz Patient Weight 06/30/17 06:59 Weight 199 lb 8.293 oz Assessment and Plan - Assessment and Plan (1) Diastolic CHF Current visit: No Status: Chronic (2) Essential (primary) hypertension Current visit: No Status: Chronic (3) Mixed hyperlipidemia Current visit: Yes Status: Chronic (4) Type 2 diabetes mellitus without complications Current visit: No Status: Chronic (5) ICD (implantable cardioverter-defibrillator) in place Problem details: Site Organic Current visit: No Status: Chronic (6) CKD (chronic kidney disease), stage III Current visit: No Status: Chronic (7) Non-sustained ventricular tachycardia Current visit: No Status: Resolved (8) Atherosclerosis 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 Current visit: Yes Status: Chronic - Assessment and Plan 06/25/17 Acute on chronic Diastolic HF - Continue Lasix IV drip - monitor renal and electrolytes - Fluid restriction of 2000mL/day Essential (primary) hypertension - Continue Labetalol, Lisinopril, Imdur Atherosclerosis 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 - Continue Effient and Aspirin for dual anti-platelet therapy Mixed hyperlipidemia - Continue Atorvastatin Type 2 diabetes mellitus without complications - PCP manages ICD (implantable cardioverter-defibrillator) in place Problem details: Site Organic CKD (chronic kidney disease), stage III Non-sustained ventricular tachycardia - Continue Amiodarone 06/26/17 Change Lasix drip to 80mg IVP q8h - Continue to monitor renal and electrolytes - SCr 2.2 from 2.5 yesterday, BUN 77 from 67 yesterday 06/27/17 BUN/ SCR elevated today. - Hold Lasix today, resume home 40mg po tomorrow - NS 500mL over 2 hours today - BNP improved - CXR stable - Likely discharge tomorrow if renal improved 06/28/17 BUN/SCr 89/2.5 - Hold Lasix tomorrow am - Repeat BNP in am - HGB 8.0, hemacult stool 06/29/17 Na 147, BUN 85/SCr 2.4 - NS at 75mL x 1L - Stool positive for occult blood - Will consult Hospitalist (Thank you for your assistance) Hospital Course Summary Disclaimer: The visit summary below is not to be considered part of the above Progress Note. <Rubin Hernandez - Last Filed: 07/02/17 14:22> Exam Vital signs: Temperature 97.6 F 07/02/17 07:00 Pulse Rate 60 07/02/17 08:00 Respiratory Rate 18 07/02/17 07:00 Blood Pressure 99/58 07/02/17 07:00 Pulse Oximetry 98 07/02/17 07:00 Inpatient Medications: Generic Name Dose Route Start Last Admin Trade Name Freq PRN Reason Stop Dose Admin Acetaminophen 650 mg 06/24/17 13:47 06/27/17 09:58 Tylenol PO 650 mg Q4H PRN Administration Pain Amiodarone HCl 200 mg 06/25/17 09:00 07/02/17 08:05 Pacerone PO 200 mg DAILY ILYA Administration Ascorbic Acid 500 mg 07/01/17 09:00 07/02/17 08:04 Vitamin C PO 500 mg DAILY ILYA Administration Aspirin 325 mg 06/25/17 13:30 07/02/17 08:05 Ecotrin PO 325 mg DAILY ILYA Administration Atorvastatin Calcium 80 mg 06/25/17 21:00 07/01/17 22:04 Lipitor PO 80 mg HS ILYA Administration Cetirizine HCl 10 mg 06/26/17 09:00 07/02/17 08:05 Zyrtec PO 10 mg DAILY ILYA Administration Cyanocobalamin 1,000 mcg 07/01/17 09:00 07/02/17 08:04 Vit. B-12 PO 1,000 mcg DAILY ILYA Administration Emollient Ointment 1 applic 06/29/17 21:00 07/02/17 08:03 Aquaphor TP 1 applic BID ILYA Administration Ferrous Sulfate 324 mg 07/01/17 08:00 07/02/17 08:04 Feosol PO 324 mg WB [facility] Administration Fluoxetine HCl 40 mg 06/25/17 13:30 07/02/17 08:04 Prozac PO 40 mg DAILY [facility] Administration Hydroxyzine HCl 25 mg 06/29/17 14:47 06/30/17 21:41 Atarax PO 25 mg Q12H PRN Administration Itching Insulin Aspart 15 unit 06/27/17 08:00 07/01/17 09:08 Novolog SQ Not Given TIDWM [facility] Insulin Detemir 5 unit 07/01/17 10:30 07/02/17 08:04 Levemir SQ 5 unit BID [facility] Administration Isosorbide Mononitrate 60 mg 06/25/17 13:30 07/02/17 08:05 Imdur PO 60 mg DAILY [facility] Administration Labetalol HCl 200 mg 06/25/17 13:45 07/02/17 08:04 Normodyne PO 200 mg BID [facility] Administration Lisinopril 2.5 mg 06/25/17 13:30 07/02/17 08:06 Prinivil PO 2.5 mg DAILY [facility] Administration Nitroglycerin 0.4 mg 06/25/17 13:21 Nitrostat SL Q5MIN3 PRN Chest pain Nystatin 1 applic 06/25/17 15:00 07/02/17 08:03 Mycostatin TP 1 applic TID ILYA Administration Ondansetron HCl 4 mg 07/01/17 04:08 07/01/17 04:15 Zofran IVP 4 mg Q4H PRN Administration Nausea &/or vomiting Pantoprazole Sodium 40 mg 06/25/17 13:30 07/02/17 06:15 Protonix Tab PO 40 mg ACB [facility] Administration Prasugrel 10 mg 06/25/17 13:30 07/02/17 08:04 Effient PO 10 mg DAILY ILYA Administration Promethazine HCl 25 mg 06/25/17 13:21 Phenergan Tab PO Q6H PRN Nausea Sodium Chloride 10 - 80 ml 06/24/17 11:20 06/29/17 12:27 Iv Flush IV 10 ml PRN PRN Administration Flushing Sodium Chloride 500 ml 07/01/17 10:05 07/01/17 13:09 Normal Saline IV 500 ml PRN PRN Administration Terazosin HCl 2 mg 06/25/17 21:00 07/01/17 22:05 Hytrin PO 2 mg HS ILYA Administration Triamcinolone Acetonide 1 applic 06/29/17 21:00 07/02/17 08:03 Kenalog TOP 1 applic BID ILYA Administration Discontinued Medications Generic Name Dose Route Start Last Admin Trade Name Freq PRN Reason Stop Dose Admin Bisacodyl 10 mg 06/30/17 13:30 06/30/17 14:47 Dulcolax PO 06/30/17 13:31 10 mg O ONE Administration Bumetanide 2 mg 06/24/17 11:23 06/24/17 12:11 Bumex 1 Mg/4 Ml Inj. IVP 06/24/17 11:24 2 mg O ONE Administration Diphtheria/Tetanus/Acell Pertussis 0.5 ml 06/29/17 17:00 06/29/17 17:22 Adacel IM 06/29/17 17:01 0.5 ml .ONCE ONE Administration Furosemide 40 mg 06/24/17 11:29 06/24/17 12:12 Lasix 40 Mg/4 Ml IVP 06/24/17 11:30 40 mg O ONE Administration Furosemide 80 mg 06/24/17 15:47 06/24/17 16:35 Lasix 100 Mg/10 Ml IV 06/24/17 15:48 80 mg O ONE Administration Furosemide 40 mg 06/25/17 13:30 06/26/17 09:21 Lasix 40 Mg Tab PO 40 mg DAILY ILYA Administration Furosemide 80 mg 06/26/17 17:00 06/27/17 10:15 Lasix 100 Mg/10 Ml IVP Not Given Q8HR ILYA Furosemide 40 mg 06/28/17 09:00 06/28/17 08:52 Lasix 40 Mg Tab PO 40 mg DAILY ILYA Administration Furosemide 20 mg 07/01/17 10:05 07/01/17 12:27 Lasix 20 Mg/2 Ml IVP 07/01/17 10:06 20 mg O ONE Administration Heparin Sodium (Porcine) 5,000 units 06/24/17 17:00 07/01/17 09:07 Heparin Sq SQ Not Given Q8HR ILYA Bumetanide 25 mg/ IV Solution 100 mls @ 2 mls/hr 06/24/17 11:30 IV Q24H ILYA Furosemide 500 mg/ IV Solution 50 mls @ 4 mls/hr 06/24/17 11:30 06/26/17 12: 42 IV Infused .[id number] ILYA Infusion 40 MG/HR Sodium Chloride 500 mls @ 250 mls/hr 06/27/17 10:03 06/27/17 13:40 Normal Saline IV Infused .Q2H ILYA Infusion Sodium Chloride 1,000 mls @ 75 mls/hr 06/29/17 10:15 06/29/17 23:48 Normal Saline IV 06/29/17 23:34 Infused .[id number] ILYA Infusion Sodium Chloride 1,000 mls @ 75 mls/hr 07/01/17 00:01 07/01/17 04:15 Normal Saline IV 07/01/17 13:20 Infused .[id number] ILYA Infusion Dextrose/Sodium Chloride 1,000 mls @ 75 mls/hr 07/01/17 04:15 07/01/17 22:07 D5-1/2ns IV 07/01/17 17:35 Not Given .[id number] ILYA Insulin Aspart 30 unit 06/25/17 17:30 06/26/17 17:47 Novolog SQ Not Given TIDWM ILYA Insulin Detemir 40 unit 06/25/17 21:00 06/26/17 09:23 Levemir SQ 40 unit BID ILYA Administration Insulin Detemir 20 unit 06/27/17 09:00 06/30/17 08:15 Levemir SQ 20 unit BID ILYA Administration Insulin Detemir 18 unit 06/30/17 11:15 07/01/17 09:08 Levemir SQ Not Given BID ILYA Pneumococcal 7-Valent Conj Vacc 0.5 ml 06/29/17 17:00 06/29/17 17:21 Prevnar 13 IM 06/29/17 17:01 0.5 ml .ONCE ONE Administration Polyethylene Glycol 238 gm 06/30/17 15:30 06/30/17 15:48 Miralax PO 06/30/17 15:31 238 gm O ONE Administration Results 07/02/17 04:59 07/02/17 12:06 Cardiac Enzymes 07/02/17 Range/Units 04:59 AST 42 (17-59) U/L CBC 07/01/17 07/02/17 Range/Units 16:42 04:59 WBC 5.8 (4.5-11.0) T/MM3 RBC 3.68 L (4.50-5.90) M/MM3 Hgb 9.2 L D 8.8 L (13.5-17.5) GM/DL Hct 30.3 L D (41-53) % Plt Count 125 L (130-400) T/MM3 Neut # (Auto) 3.7 (1.8-7.7) T/MM3 Lymph # (Auto) 1.2 (1-4.8) T/MM3 [place] # (Auto) 0.6 (0-0.8) T/MM3 Eos # (Auto) 0.3 (0-0.5) T/MM3 Baso # (Auto) 0.0 (0-0.2) T/MM3 Comprehensive Metabolic Panel 07/02/17 07/02/17 Range/Units 04:59 12:06 Sodium 140 142 (134-144) MEQ/L Potassium 5.2 H D 5.2 H (3.6-5) MEQ/L Chloride 106 108 H (98-107) MEQ/L Carbon Dioxide 22 21 L (22-30) MEQ/L BUN 78.0 H* 77.0 H* (9-20) MG/DL Creatinine 2.5 H D 2.7 H D (0.8-1.5) mg/dL Glucose 175 H 177 H (75-110) MG/DL Calcium 8.4 8.7 (8.4-10.2) MG/DL AST 42 (17-59) U/L ALT 31 (1-50) U/L Alkaline Phosphatase 124 (38-126) U/L Total Protein 7.4 (6.3-8.2) g/dL Albumin 3.7 (3.5-5.0) g/dL Intake and Output 07/01/17 07/02/17 07/02/17 22:59 06:59 14:59 Intake Total 240 / 240 230 / 230 1010 / 1010 Output Total 125 / 125 151 / 151 Balance 115 / 115 230 / 230 859 / 859 Intake: IV 0 / 0 D5-1/2Ns 1,000 ml @ 75 mls/hr 0 / 0 IV .[id number] ILYA Rx#:[id number] Oral 240 / 240 230 / 230 1010 / 1010 Output: Urine 125 / 125 150 / 150 Urine/Stool Mix Other: Urine Appearance Clear Clear Cloudy Urine Color Yellow Light Shahnaz Light Shahnaz Urine Odor Strong Strong Stool Color Brown White Stool Consistency Soft Formed Size of Bowel Movement Moderate # Voids 1 Weight 93.4 kg Patient Weight 07/03/17 06:59 Weight 93.4 kg Assessment and Plan - Assessment and Plan (1) Essential (primary) hypertension Current visit: No Status: Chronic (2) Mixed hyperlipidemia Current visit: Yes Status: Chronic (3) Type 2 diabetes mellitus without complications Current visit: No Status: Chronic (4) ICD (implantable cardioverter-defibrillator) in place Problem details: [employer] Current visit: No Status: Chronic (5) Diastolic CHF Current visit: No Status: Chronic (6) Non-sustained ventricular tachycardia Current visit: No Status: Resolved (7) CKD (chronic kidney disease), stage III Current visit: No Status: Chronic (8) Atherosclerosis 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 Current visit: Yes Status: Chronic - Attestation Attestation Narrative: 07/02/17 14:22 Recommendation After examining the patient I agree with the above assessment. I am involved in the formulation of the patient's plan of care. Hospital Course Summary Disclaimer: The visit summary below is not to be considered part of the above Progress Note.
[2017-06-29] MEDS ORDERED: PNEUMOCOCCAL 13 VACCINE 0.5ml INJECTION IM ONE (17:00)
[2017-06-29] MEDS ORDERED: PNEUMOCOCCAL VAC ADMIN CHARGE INJ ONE (17:00)
[2017-06-29] MEDS ORDERED: DIPHTHERIA IM ONE (17:00)
[2017-06-29] MEDS ORDERED: TETANUS IM ONE (17:00)
[2017-06-29] MEDS ORDERED: BOOSTRIX IM ONE (17:00)
[2017-06-29] MEDS ORDERED: Tdap VACCINE ADMINISTR CHARGE INJ ONE (17:00)
[2017-06-29] MEDS ORDERED: [UNRECOGNIZED DRUG - OTHER] IM ONE (17:00)
--- NOTE | 2017-06-29 17:41 | General Surgery Consult Note ---
Consult date: 06/29/17 Attending Physician: Rubin Hernandez MD Reason for consult: other (rectal bleeding anemia) [facility] Patient Stated Medical History Cerebrovascular Accident Yes: 2004 Dental Problems Yes: NO TEETH Hearing Loss Yes Angina Yes Congestive Heart Failure Yes Coronary Artery Disease Yes Hypertension Yes Myocardial Infarction Yes Chronic Obstructive Pulmonary Yes Disease (COPD) Sleep Apnea Yes Diabetes Mellitus Type 2 Yes Gastroesophageal Reflux Yes Disease Hx Kidney Stones Yes Other Yes: PAST KIDNEY FAILURE 30% Depression Yes Dehydration (Acute Medical) Essential (primary) hypertension (Chronic Medical) Mixed hyperlipidemia (Chronic Medical) Type 2 diabetes mellitus without complications (Chronic Medical) Atherosclerotic heart disease of [place] coronary artery without angina pectoris (Chronic Medical) ICD (implantable cardioverter-defibrillator) in place (Chronic Medical) [employer] Unstable angina (Acute Medical) Underwent left heart cath with successful primary stent of vein graft to PDA using 3.0 x 9 and 3.0 x 18 drug-eluting Resolute Integrity stents. Diastolic CHF (Chronic Medical) Chest pain in adult (Acute Medical) Precordial pain (Acute Medical) Syncope and collapse (Acute Medical) Hypertensive emergency (Acute Medical) Non-sustained ventricular tachycardia (Acute Medical) CKD (chronic kidney disease), stage III (Chronic Medical) Vertigo (Acute Medical) Acute encephalopathy (Acute Medical) Hypoglycemia due to insulin (Acute Medical) Renal insufficiency (Acute Medical) Congestive heart failure (Inactive Medical) Surgical History: AICD. CABG x4. Bilateral cataracts in 2016 - Dr. San. Multiple heart catheterizations, most recent including the following: Heart catheterization with primary stent of vein graft to PDA 10/15/16 - Dr. Hernandez. Heart catheterization with primary stent of the vein graft to diagonal 10/25/16 - Dr. Hernandez. Heart catheterization with PCI to circumflex artery 03/03/17. Heart catheterization with with stents to the diagonal artery, both primary and for in-stent stenosis 05/13/17 Family History: Family History (Last Updated 03/18/17 @ 10:02 by Shirley Lara MD) Brother CAD (coronary artery disease) older Br- CAD, younger BR-CAD Father CAD (coronary artery disease) F- CAD Mother CAD (coronary artery disease) M- CAD Family History Updates: Denies family history of GI disease or colon cancer. - Social History Smoking status: Never smoker Substance use type: does not use Alcohol intake frequency: does not drink Housing: house Household members: other (he lives in an apartment with his nephew and 3 cats) Current occupational status: disabled Current residence: Apartment/Private Home Medications Home Medications Medication Instructions Recorded Confirmed Type Atorvastatin Calcium 80 mg PO HS #0 05/27/15 06/24/17 History Terazosin [Hytrin] 2 mg PO HS 09/29/16 06/24/17 History Aspirin *EC* [Ecotrin] 325 mg PO DAILY 09/30/16 06/24/17 History Nitroglycerin 0.4 mg SL Q5MIN3 PRN 10/13/16 06/24/17 History Fluoxetine HCl [Prozac] 40 mg PO DAILY 03/07/17 06/24/17 History Isosorbide Mononitrate ER [Imdur] 60 mg PO DAILY 03/07/17 06/24/17 History Lisinopril [Zestril] 2.5 mg PO DAILY 03/07/17 06/24/17 History Amiodarone [Pacerone] 200 mg PO DAILY 90 Days #90 tab 03/14/17 06/24/17 Rx Labetalol [Normodyne] 200 mg PO BID 90 Days #180 tab 03/14/17 06/24/17 Rx Furosemide [Lasix 40 mg Tab] 40 mg PO DAILY 04/04/17 06/24/17 History Cetirizine [Zyrtec] 10 mg PO DAILY 05/11/17 06/24/17 History Insulin Aspart [NovoLOG] 30 unit SQ TIDWM 05/11/17 06/24/17 History Insulin Detemir [Levemir] 40 unit SQ BID 05/11/17 06/24/17 History Pantoprazole Sodium [Protonix] 40 mg PO DAILY 05/11/17 06/24/17 History Prasugrel [Effient] 10 mg PO DAILY 05/11/17 06/24/17 History Promethazine Tab [Phenergan Tab] 25 mg PO Q6H PRN 06/24/17 06/24/17 History Allergies Allergy/AdvReac Type Severity Reaction Status Date / Time No Known Allergies Allergy Verified 06/24/17 11:00 Review of Systems 10-point ROS: negative except for HPI and the following: - General General: Present: other (fatigue) - Eyes/Ears/Nose/Throat Ear Nose Throat: Present: loose/chipped/cracked teeth (missing teeth) - Respiratory Respiratory: Present: wheezing, difficulty breathing (SOA), cough - Gastrointestinal Gastrointestinal: Present: blood in stools (in his undershorts) - Musculoskeletal Musculoskeletal: Present: joint pain - Neurological Neurological: Present: muscle weakness - Psychiatric Psychiatric: Present: depression - Endocrine Endocrine: Present: diabetes - Hematologic/Lymphatic Hematologic/Lymphatic: Present: easy bruising, use of blood thinners - Vital Signs Last Vital Signs Temp 96.8 F 06/29/17 16:00 Pulse 60 06/29/17 16:00 Resp 18 06/29/17 16:00 BP 114/59 06/29/17 16:00 Pulse Ox 99 06/29/17 16:00 - Laboratory Result Diagrams: 06/29/17 09:13 06/29/17 10:11 General Surgery Results - Results Labs: 06/29/17 09:13 06/29/17 10:11 Hospital Course Summary Disclaimer: The visit summary below is not to be considered part of the above Progress Note.
--- NOTE | 2017-06-29 21:15 | Consultation ---
DATE OF CONSULTATION 06/29/2017 FINDINGS Mr. Rivera is a 71-year-old gentleman whom I was asked to see today as a new patient as a result of his history for rectal bleeding, finding of progressive anemia, finding of Hemoccult-positive stool. Upon questioning Mr. Rivera he informs me that he was admitted to the hospital about four to five days ago as a result of increasing shortness of breath and increasing fatigue. The patient informs me that he has a very extensive "heart history." Patient informs me that he has had multiple stents placed. The patient informs me that he believes that his last stent was placed about a month ago. He also states that he has a "history for bad kidneys". Upon questioning the patient he states that he has never undergone a prior colonoscopy. He states that he has noted some "blood in his underwear." He does state that at times he has noted some blood during the process of defecation. He denies any history for significant abdominal pain or discomfort. He states at times he will notice some slight discomfort during the process of defecation. Denies, however, severe pain/ proctalgia. Denied prior history for peptic ulcer disease. Patient states that he does have a history for anemia in the past. PAST MEDICAL HISTORY, PAST SURGICAL HISTORY, MEDICATIONS, ALLERGIES, SOCIAL HISTORY, FAMILY HISTORY, REVIEW OF SYSTEMS Performed by my nurse practitioner, Dhruv Sparrow APRN. PHYSICAL EXAMINATION GENERAL: Mr. Rivera is a 71-year-old gentleman who this evening did not appear to be in acute distress. VITAL SIGNS: Temperature 96.8, pulse 60, respirations 18, blood pressure 114/59 , SAO2 99% room air. HEENT: Normocephalic. Pupils are equally round and react to light and accommodation. CHEST: Clear to auscultation bilaterally. HEART: Regular rate and rhythm. Normal S1 and S2 without gallops, murmurs or clicks. ABDOMEN: Palpation of the abdomen reveals it to be soft and nontender. I do not appreciate any evidence for hepatosplenomegaly nor abnormal masses. EXTREMITIES: Without clubbing, cyanosis, or edema. NEURO: Cranial nerves II-XII grossly intact. Patient is without focal motor or sensory deficits. LABORATORY/RADIOGRAPHIC EVALUATION The patient had a CBC today and his hemoglobin is 8.5. It does appear that this has been fairly stable since admission. The patient had a BMP today and he does have marked renal insufficiency. BUN is 85.0 and creatinine is 2.4. The patient has been undergoing diuresis which likely has resulted in a slight increase of his BUN. BUN, however, was 67.0 upon admission. I do see that he had a positive Hemoccult stool on June 28, 2017. ASSESSMENT 71-year-old gentleman with multiple significant associated medical comorbidities including atherosclerotic coronary artery disease, renal insufficiency, and type 2 diabetes mellitus that is found to be anemic upon laboratory evaluation in conjunction with Hemoccult-positive stool. PLAN The patient was informed that as a general rule in somebody who is anemic, Hemoccult-positive stool, is 71 years of age and never had a colonoscopy, that we would typically proceed with a colonoscopy for further evaluation. The patient, however, does have significant associated medical comorbidities and one will need to definitely look at his risks versus benefits. I do see that he is on Effient/anticoagulation at this time. Patient does not appear to be the best historian and I am not for certain that he has truly had a coronary stent placed a year ago. Will plan on discussing this case with patient's swedish masseuse or the swedish masseuse's nurse practitioner to try to obtain some more cardiac history. If we were to proceed with a colonoscopy this would need to be performed on a delayed basis after his Effient was discontinued for a week. If he currently has had a coronary stent placed within the last month or two I would feel that the risk of proceeding with colonoscopy would be too great by discontinuing his antiplatelet therapy. For now will discuss with cardiology and make formal recommendations thereafter. MARC
[2017-06-29] MEDS: ATORVASTATIN 40 MG TABLET PO SCH (21:48)
[2017-06-29] MEDS: AQUAPHOR TOPICAL OINTMENT 52.5 G TUBE TP SCH (21:49)
[2017-06-29] MEDS: TERAZOSIN 2 MG CAPSULE PO SCH (21:50)
[2017-06-29] MEDS: TRIAMCINOLONE 0.1% CREAM 15 G TUBE TOP SCH (21:51)
[2017-06-30] MEDS: HEPARIN SUB-Q 5,000units/0.5ml INJECTION SQ SCH ×3 (00:36→19:08)
[2017-06-30] MEDS: PANTOPRAZOLE 40 MG TABLET PO SCH (06:08)
--- NOTE | 2017-06-30 07:49 | General Surgery Progress Note ---
Subjective Narrative: Hypoglycemic this morning. - Vital Signs Last Vital Signs Temp 97.8 F 06/30/17 07:17 Pulse 61 06/30/17 07:17 Resp 18 06/30/17 07:17 BP 129/66 06/30/17 07:17 Pulse Ox 97 06/30/17 07:17 - Laboratory Result Diagrams: 06/29/17 09:13 06/29/17 10:11 Assessment and Plan (1) Anemia Current Visit: Yes Status: Acute (2) Acute kidney injury Current Visit: No Status: Acute (3) CAD (coronary artery disease) Current Visit: No Status: Acute Plan: With his recent cardiac stenting, and multiple serious comorbidities, surgical intervention would be very risky. At this point, Dr. Wilson recommends barium enema to rule in/out a colonic mass. Obtain Serum H.Pylori, and continue prophylactic gastric ulcer medical therapy. Hospital Course Summary Disclaimer: The visit summary below is not to be considered part of the above Progress Note.
[2017-06-30] MEDS: PRASUGREL 10 MG TABLET PO SCH (08:01)
[2017-06-30] MEDS: LISINOPRIL 2.5 MG TABLET PO SCH (08:01)
[2017-06-30] MEDS: LABETALOL 100 MG TABLET PO SCH ×2 (08:01→21:41)
[2017-06-30] MEDS: FLUoxetine 20 MG CAPSULE PO SCH (08:01)
[2017-06-30] MEDS: AMIODARONE 200 MG TABLET PO SCH (08:02)
[2017-06-30] MEDS: CETIRIZINE 10 MG TABLET PO SCH (08:02)
[2017-06-30] MEDS: TRIAMCINOLONE 0.1% CREAM 15 G TUBE TOP SCH ×2 (08:02→21:42)
[2017-06-30] MEDS: ISOSORBIDE MONONITRATE ER 60 MG TABLET PO SCH (08:02)
[2017-06-30] MEDS: AQUAPHOR TOPICAL OINTMENT 52.5 G TUBE TP SCH ×2 (08:03→21:43)
[2017-06-30] MEDS: INSULIN ASPART 100unit/ml INJECTION SQ SCH ×3 (08:14→19:08)
[2017-06-30] MEDS: ASPIRIN *EC* 325 MG TABLET PO SCH (08:15)
[2017-06-30] MEDS: INSULIN DETEMIR 100unit/ml INJECTION SQ SCH ×3 (08:15→23:01)
--- NOTE | 2017-06-30 08:25 | General Surgery Progress Note ---
Subjective Narrative: Will bowel prep today with NPO after midnight for barium enema tomorrow (07/01), scheduled for mid morning. - Vital Signs Last Vital Signs Temp 97.8 F 06/30/17 07:17 Pulse 61 06/30/17 07:17 Resp 18 06/30/17 07:17 BP 129/66 06/30/17 07:17 Pulse Ox 97 06/30/17 07:17 - Laboratory Result Diagrams: 06/29/17 09:13 06/29/17 10:11 Assessment and Plan (1) Anemia Current Visit: Yes Status: Acute (2) Acute kidney injury Current Visit: No Status: Acute (3) CAD (coronary artery disease) Current Visit: No Status: Acute Hospital Course Summary Disclaimer: The visit summary below is not to be considered part of the above Progress Note.
--- NOTE | 2017-06-30 11:01 | Progress Note ---
- Date 06/30/17 Subjective: Sebas is still very short of breath and actually feels more short of breath today. His RN states that his breathing felt better after he had a BM. His itching isn't as bad today and the ointment ordered yesterday is improving. His RN gave him Atarax for itching this morning. He denies nausea or dizziness. He is getting bowel prepped for barium enema scheduled tomorrow. Objective Vital signs: Temperature 97.8 F 06/30/17 07:17 Pulse Rate 61 06/30/17 07:17 Respiratory Rate 18 06/30/17 07:17 Blood Pressure 129/66 06/30/17 07:17 Pulse Oximetry 97 06/30/17 07:17 Height/Weight/BMI: Height 1.65 m Weight 91.5 kg Body Mass Index 34.6 - Constitutional Present: no acute distress, well nourished, well developed - Routine HEENT Exam Head: Present: normocephalic Eye: Absent: conjunctival icterus, scleral injection - Routine Respiratory Exam Present: decreased breath sounds - Routine Cardiovascular Exam Present: RRR, S1, S2 - Routine Abdominal Exam Present: normoactive bowel sounds, non tender, distended (ascites - mild) - Routine Extremities Exam Present: no edema, pulses intact - Routine Skin Exam Present: intact, dry, pallor, warm Comments: pruritis improving and though some lesions continue to ooze - Routine Neurological Exam Present: alert, oriented X3, normal speech - Routine Psychiatric Exam Present: normal affect, normal thought process, cooperative Results - Labs CBC & Chem 7: 06/30/17 08:41 06/30/17 08:41 Assessment and Plan (1) Anemia Current visit: Yes Status: Acute Assessment and Plan: ASSESSMENT Microcytic anemia with heme positive stool, lower GI bleed Thrombocytopenia, acute this admission Diastolic CHF exacerbation. Hypernatremia. Elevated creatinine, mild. Intermittent, transient paresthesias to left arm and left leg without associated weakness. Pruritus Chronic and associated conditions Coronary artery disease, on dual antiplatelet therapy. Diastolic CHF. Ischemic cardiomyopathy. Non-sustained ventricular tachycardia, on amiodarone. Hypertension. Mixed hyperlipidemia. Type 2 diabetes mellitus. [employer] ICD that is not MRI compatible. History of stroke in 2004. Chronic kidney disease, stage IV COPD Sleep apnea GERD Depression. Obesity with BMI greater than 30 kg/m PLAN Hgb 8.2 today; Dr. Wilson ordered bowel prep today with plans for barium enema tomorrow. Ideally he would scope him but with recent stents it is not safe to stop Effient/ASA. H. pylori is pending. Iron level was slightly low at 45; ferritin normal at 28; vitamin b12 was 405 ( low-normal), folate was normal. Start iron + vit. C and vit. B12. DC heparin if ok with cardiology. Renal function improved today following IVF yesterday (BUN 80 and cr 2.2) though pt c/o subjective dyspnea. Diuretics remain on hold at this time. Again had fasting hypoglycemia this morning; will decrease Levemir from 20 to 18 units BID. Pruritus improving with Hydroxyzine BID PRN and aquaphor + triamcinolone UA was negative for UTI GI Prophylaxis: Protonix Resuscitation Status: Full Code - Physician Narrative Narrative: Date: 06/30/17 Time: 1057 I have independently evaluated and examined this patient. I reviewed the chart, the patient's history, and the SALES SUPPORT SPECIALIST/PA's documented findings as above. We discussed and formulated the assessment and plan as above with additions as below. The patient was seen by me at noon, he reports he is more short of breath as described above. His last chest x-ray was reviewed by me was performed in June 27 which showed stable appearance the pulmonary vascularity was unchanged there was no pleural effusion or pneumothorax. He did have a blood prescription 61 this morning's Levemir was adjusted. In general, the patient is alert and oriented 3, cooperative with exam, and in no respiratory distress. HEENT: Head is atraumatic, normocephalic, no conjunctival petechiae, no oral thrush, mucous membranes are moist and pink. Lungs: Decreased breath sounds without wheezes, crackles or rhonchi CV: Regular rate and rhythm without murmur Abdomen: Soft, obese, nontender, bowel sounds are present, there is no guarding , no rebound. Extremities: No clubbing, no cyanosis, no edema. Multiple excoriations from patient scratching. Skin: Warm and dry no sign of rash Neuro: Patient is alert Discussed with Dr. Wilson. Agree with plan to obtain barium enema in the morning. The plans as outlined above. Hospital Course Summary Disclaimer: The visit summary below is not to be considered part of the above Progress Note.
[2017-06-30] MEDS ORDERED: Bisacodyl EC TAB 5 MG TABLET PO ONE (13:30)
--- NOTE | 2017-06-30 14:31 | Cardiology Progress Note ---
<Rick,Amy M - Last Filed: 06/30/17 14:27> Subjective Principal diagnosis: DHF Interval history: Sebas is seen in follow up for acute on chronic DCHF. He is in the recliner. Denies dyspnea, chest pain, or palpitations. Exam Vital signs: Temperature 97.8 F 06/30/17 07:17 Pulse Rate 61 06/30/17 07:17 Respiratory Rate 18 06/30/17 07:17 Blood Pressure 129/66 06/30/17 07:17 Pulse Oximetry 97 06/30/17 07:17 Inpatient Medications: Generic Name Dose Route Start Last Admin Trade Name Freq PRN Reason Stop Dose Admin Acetaminophen 650 mg 06/24/17 13:47 06/27/17 09:58 Tylenol PO 650 mg Q4H PRN Administration Pain Amiodarone HCl 200 mg 06/25/17 09:00 06/30/17 08:02 Pacerone PO 200 mg DAILY ILYA Administration Ascorbic Acid 500 mg 07/01/17 09:00 Vitamin C PO DAILY [facility] Aspirin 325 mg 06/25/17 13:30 06/30/17 08:15 Ecotrin PO 325 mg DAILY ILYA Administration Atorvastatin Calcium 80 mg 06/25/17 21:00 06/29/17 21:48 Lipitor PO 80 mg HS ILYA Administration Cetirizine HCl 10 mg 06/26/17 09:00 06/30/17 08:02 Zyrtec PO 10 mg DAILY ILYA Administration Cyanocobalamin 1,000 mcg 07/01/17 09:00 Vit. B-12 PO DAILY [facility] Emollient Ointment 1 applic 06/29/17 21:00 06/30/17 08:03 Aquaphor TP 1 applic BID ILYA Administration Ferrous Sulfate 324 mg 07/01/17 08:00 Feosol PO WB [facility] Fluoxetine HCl 40 mg 06/25/17 13:30 06/30/17 08:01 Prozac PO 40 mg DAILY ILYA Administration Heparin Sodium (Porcine) 5,000 units 06/24/17 17:00 06/30/17 08:14 Heparin Sq SQ 5,000 units Q8HR ILYA Administration Hydroxyzine HCl 25 mg 06/29/17 14:47 06/30/17 08:03 Atarax PO 25 mg Q12H PRN Administration Itching Insulin Aspart 15 unit 06/27/17 08:00 06/30/17 13:00 Novolog SQ 15 unit TIDWM ILYA Administration Insulin Detemir 18 unit 06/30/17 11:15 06/30/17 13:24 Levemir SQ Not Given BID ILYA Isosorbide Mononitrate 60 mg 06/25/17 13:30 06/30/17 08:02 Imdur PO 60 mg DAILY ILYA Administration Labetalol HCl 200 mg 06/25/17 13:45 06/30/17 08:01 Normodyne PO 200 mg BID ILYA Administration Lisinopril 2.5 mg 06/25/17 13:30 06/30/17 08:01 Prinivil PO 2.5 mg DAILY ILYA Administration Nitroglycerin 0.4 mg 06/25/17 13:21 Nitrostat SL Q5MIN3 PRN Chest pain Nystatin 1 applic 06/25/17 15:00 06/30/17 08:00 Mycostatin TP 1 applic TID ILYA Administration Pantoprazole Sodium 40 mg 06/25/17 13:30 06/30/17 06:08 Protonix Tab PO 40 mg ACB ILYA Administration Polyethylene Glycol 238 gm 06/30/17 15:30 Miralax PO 06/30/17 15:31 O ONE Prasugrel 10 mg 06/25/17 13:30 06/30/17 08:01 Effient PO 10 mg DAILY ILYA Administration Promethazine HCl 25 mg 06/25/17 13:21 Phenergan Tab PO Q6H PRN Nausea Sodium Chloride 10 - 80 ml 06/24/17 11:20 06/29/17 12:27 Iv Flush IV 10 ml PRN PRN Administration Flushing Terazosin HCl 2 mg 06/25/17 21:00 06/29/17 21:50 Hytrin PO 2 mg HS ILYA Administration Triamcinolone Acetonide 1 applic 06/29/17 21:00 06/30/17 08:02 Kenalog TOP 1 applic BID ILYA Administration Discontinued Medications Generic Name Dose Route Start Last Admin Trade Name Freq PRN Reason Stop Dose Admin Bisacodyl 10 mg 06/30/17 13:30 Dulcolax PO 06/30/17 13:31 O ONE Bumetanide 2 mg 06/24/17 11:23 06/24/17 12:11 Bumex 1 Mg/4 Ml Inj. IVP 06/24/17 11:24 2 mg O ONE Administration Diphtheria/Tetanus/Acell Pertussis 0.5 ml 06/29/17 17:00 06/29/17 17:22 Adacel IM 06/29/17 17:01 0.5 ml .ONCE ONE Administration Furosemide 40 mg 06/24/17 11:29 06/24/17 12:12 Lasix 40 Mg/4 Ml IVP 06/24/17 11:30 40 mg O ONE Administration Furosemide 80 mg 06/24/17 15:47 06/24/17 16:35 Lasix 100 Mg/10 Ml IV 06/24/17 15:48 80 mg O ONE Administration Furosemide 40 mg 06/25/17 13:30 06/26/17 09:21 Lasix 40 Mg Tab PO 40 mg DAILY ILYA Administration Furosemide 80 mg 06/26/17 17:00 06/27/17 10:15 Lasix 100 Mg/10 Ml IVP Not Given Q8HR ILYA Furosemide 40 mg 06/28/17 09:00 06/28/17 08:52 Lasix 40 Mg Tab PO 40 mg DAILY ILYA Administration Bumetanide 25 mg/ IV Solution 100 mls @ 2 mls/hr 06/24/17 11:30 IV Q24H ILYA Furosemide 500 mg/ IV Solution 50 mls @ 4 mls/hr 06/24/17 11:30 06/26/17 12: 42 IV Infused .[id number] ILYA Infusion 40 MG/HR Sodium Chloride 500 mls @ 250 mls/hr 06/27/17 10:03 06/27/17 13:40 Normal Saline IV Infused .Q2H ILYA Infusion Sodium Chloride 1,000 mls @ 75 mls/hr 06/29/17 10:15 06/29/17 10:28 Normal Saline IV 06/29/17 23:34 75 mls/hr .[id number] ILYA Administration Insulin Aspart 30 unit 06/25/17 17:30 06/26/17 17:47 Novolog SQ Not Given TIDWM ILYA Insulin Detemir 40 unit 06/25/17 21:00 06/26/17 09:23 Levemir SQ 40 unit BID ILYA Administration Insulin Detemir 20 unit 06/27/17 09:00 06/30/17 08:15 Levemir SQ 20 unit BID ILYA Administration Pneumococcal 7-Valent Conj Vacc 0.5 ml 06/29/17 17:00 06/29/17 17:21 Prevnar 13 IM 06/29/17 17:01 0.5 ml .ONCE ONE Administration - Constitutional no acute distress, obese, cooperative - Routine HEENT Exam Head: Present: normocephalic ENT: Present: mucous membranes moist - Routine Neck Exam Absent: JVD, carotid bruit - Routine Chest/Breast/Axilla Exam Chest wall: Present: pacemaker. Absent: tenderness - Routine Respiratory Exam Present: CTA bilaterally, diminished air movement. Absent: dyspnea - Routine Cardiovascular Exam Present: RRR, no murmur - Routine Abdominal Exam Present: distended. Absent: tenderness - Routine Extremities Exam Present: no edema - Routine Skin Exam Present: dry, warm - Routine Neurological Exam Present: alert, oriented X3 - Routine Psychiatric Exam Present: normal affect, normal thought process Results 06/30/17 08:41 06/30/17 08:41 CBC 06/30/17 Range/Units 08:41 WBC 6.0 (4.5-11.0) T/MM3 RBC 3.47 L (4.50-5.90) M/MM3 Hgb 8.2 L (13.5-17.5) GM/DL Hct 28.4 L (41-53) % Plt Count 138 (130-400) T/MM3 Neut # (Auto) 4.0 (1.8-7.7) T/MM3 Lymph # (Auto) 1.1 (1-4.8) T/MM3 [place] # (Auto) 0.6 (0-0.8) T/MM3 Eos # (Auto) 0.3 (0-0.5) T/MM3 Baso # (Auto) 0.0 (0-0.2) T/MM3 Comprehensive Metabolic Panel 06/30/17 Range/Units 08:41 Sodium 145 H (134-144) MEQ/L Potassium 4.7 (3.6-5) MEQ/L Chloride 109 H (98-107) MEQ/L Carbon Dioxide 25 (22-30) MEQ/L BUN 80.0 H* (9-20) MG/DL Creatinine 2.2 H D (0.8-1.5) mg/dL Glucose 139 H (75-110) MG/DL Calcium 8.9 (8.4-10.2) MG/DL Intake and Output 06/29/17 06/30/17 06/30/17 22:59 06:59 14:59 Intake Total 550 / 550 200 / 200 300 / 300 Output Total 445 / 445 220 / 220 400 / 400 Balance 105 / 105 -20 / -20 -100 / -100 Intake: Oral 550 / 550 200 / 200 300 / 300 Output: Urine 445 / 445 220 / 220 400 / 400 Other: Urine Appearance Clear Clear Urine Color Yellow Yellow Yellow Urine Odor Normal Normal # Voids 1 1 3 Weight 201 lb 11.567 oz Patient Weight 07/01/17 06:59 Weight 201 lb 11.567 oz Assessment and Plan - Assessment and Plan (1) Diastolic CHF Current visit: No Status: Chronic (2) Essential (primary) hypertension Current visit: No Status: Chronic (3) Mixed hyperlipidemia Current visit: Yes Status: Chronic (4) Type 2 diabetes mellitus without complications Current visit: No Status: Chronic (5) ICD (implantable cardioverter-defibrillator) in place Problem details: [employer] Current visit: No Status: Chronic (6) CKD (chronic kidney disease), stage III Current visit: No Status: Chronic (7) Non-sustained ventricular tachycardia Current visit: No Status: Resolved (8) Atherosclerosis 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 Current visit: Yes Status: Chronic - Assessment and Plan 06/25/17 Acute on chronic Diastolic HF - Continue Lasix IV drip - monitor renal and electrolytes - Fluid restriction of 2000mL/day Essential (primary) hypertension - Continue Labetalol, Lisinopril, Imdur Atherosclerosis 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 - Continue Effient and Aspirin for dual anti-platelet therapy Mixed hyperlipidemia - Continue Atorvastatin Type 2 diabetes mellitus without complications - PCP manages ICD (implantable cardioverter-defibrillator) in place Problem details: [employer] CKD (chronic kidney disease), stage III Non-sustained ventricular tachycardia - Continue Amiodarone 06/26/17 Change Lasix drip to 80mg IVP q8h - Continue to monitor renal and electrolytes - SCr 2.2 from 2.5 yesterday, BUN 77 from 67 yesterday 06/27/17 BUN/ SCR elevated today. - Hold Lasix today, resume home 40mg po tomorrow - NS 500mL over 2 hours today - BNP improved - CXR stable - Likely discharge tomorrow if renal improved 06/28/17 BUN/SCr 89/2.5 - Hold Lasix tomorrow am - Repeat BNP in am - HGB 8.0, hemacult stool 06/29/17 Na 147, BUN 85/SCr 2.4 - NS at 75mL x 1L - Stool positive for occult blood - Will consult Hospitalist (Thank you for your assistance) 06/30/17 Seen by general surgery (Thank you for your assistance) - Recommend barium enema tomorrow, is not a good surgical candidate. BUN/SCr continue to improve 80/2.2 - Start NS at 75 mL x 1 bag at midnight Hospital Course Summary Disclaimer: The visit summary below is not to be considered part of the above Progress Note. <Rubin Hernandez - Last Filed: 07/02/17 14:27> Exam Vital signs: Temperature 97.6 F 07/02/17 07:00 Pulse Rate 60 07/02/17 08:00 Respiratory Rate 18 07/02/17 07:00 Blood Pressure 99/58 07/02/17 07:00 Pulse Oximetry 98 07/02/17 07:00 Inpatient Medications: Generic Name Dose Route Start Last Admin Trade Name Freq PRN Reason Stop Dose Admin Acetaminophen 650 mg 06/24/17 13:47 06/27/17 09:58 Tylenol PO 650 mg Q4H PRN Administration Pain Amiodarone HCl 200 mg 06/25/17 09:00 07/02/17 08:05 Pacerone PO 200 mg DAILY ILYA Administration Ascorbic Acid 500 mg 07/01/17 09:00 07/02/17 08:04 Vitamin C PO 500 mg DAILY ILYA Administration Aspirin 325 mg 06/25/17 13:30 07/02/17 08:05 Ecotrin PO 325 mg DAILY ILYA Administration Atorvastatin Calcium 80 mg 06/25/17 21:00 07/01/17 22:04 Lipitor PO 80 mg HS ILYA Administration Cetirizine HCl 10 mg 06/26/17 09:00 07/02/17 08:05 Zyrtec PO 10 mg DAILY ILYA Administration Cyanocobalamin 1,000 mcg 07/01/17 09:00 07/02/17 08:04 Vit. B-12 PO 1,000 mcg DAILY ILYA Administration Emollient Ointment 1 applic 06/29/17 21:00 07/02/17 08:03 Aquaphor TP 1 applic BID ILYA Administration Ferrous Sulfate 324 mg 07/01/17 08:00 07/02/17 08:04 Feosol PO 324 mg WB ILYA Administration Fluoxetine HCl 40 mg 06/25/17 13:30 07/02/17 08:04 Prozac PO 40 mg DAILY ILYA Administration Hydroxyzine HCl 25 mg 06/29/17 14:47 06/30/17 21:41 Atarax PO 25 mg Q12H PRN Administration Itching Insulin Aspart 15 unit 06/27/17 08:00 07/01/17 09:08 Novolog SQ Not Given TIDWM [facility] Insulin Detemir 5 unit 07/01/17 10:30 07/02/17 08:04 Levemir SQ 5 unit BID [facility] Administration Isosorbide Mononitrate 60 mg 06/25/17 13:30 07/02/17 08:05 Imdur PO 60 mg DAILY ILYA Administration Labetalol HCl 200 mg 06/25/17 13:45 07/02/17 08:04 Normodyne PO 200 mg BID ILYA Administration Lisinopril 2.5 mg 06/25/17 13:30 07/02/17 08:06 Prinivil PO 2.5 mg DAILY [facility] Administration Nitroglycerin 0.4 mg 06/25/17 13:21 Nitrostat SL Q5MIN3 PRN Chest pain Nystatin 1 applic 06/25/17 15:00 07/02/17 08:03 Mycostatin TP 1 applic TID ILYA Administration Ondansetron HCl 4 mg 07/01/17 04:08 07/01/17 04:15 Zofran IVP 4 mg Q4H PRN Administration Nausea &/or vomiting Pantoprazole Sodium 40 mg 06/25/17 13:30 07/02/17 06:15 Protonix Tab PO 40 mg ACB ILYA Administration Prasugrel 10 mg 06/25/17 13:30 07/02/17 08:04 Effient PO 10 mg DAILY [facility] Administration Promethazine HCl 25 mg 06/25/17 13:21 Phenergan Tab PO Q6H PRN Nausea Sodium Chloride 10 - 80 ml 06/24/17 11:20 06/29/17 12:27 Iv Flush IV 10 ml PRN PRN Administration Flushing Sodium Chloride 500 ml 07/01/17 10:05 07/01/17 13:09 Normal Saline IV 500 ml PRN PRN Administration Terazosin HCl 2 mg 06/25/17 21:00 07/01/17 22:05 Hytrin PO 2 mg HS ILYA Administration Triamcinolone Acetonide 1 applic 06/29/17 21:00 07/02/17 08:03 Kenalog TOP 1 applic BID ILYA Administration Discontinued Medications Generic Name Dose Route Start Last Admin Trade Name Janis PRN Reason Stop Dose Admin Bisacodyl 10 mg 06/30/17 13:30 06/30/17 14:47 Dulcolax PO 06/30/17 13:31 10 mg O ONE Administration Bumetanide 2 mg 06/24/17 11:23 06/24/17 12:11 Bumex 1 Mg/4 Ml Inj. IVP 06/24/17 11:24 2 mg O ONE Administration Diphtheria/Tetanus/Acell Pertussis 0.5 ml 06/29/17 17:00 06/29/17 17:22 Adacel IM 06/29/17 17:01 0.5 ml .ONCE ONE Administration Furosemide 40 mg 06/24/17 11:29 06/24/17 12:12 Lasix 40 Mg/4 Ml IVP 06/24/17 11:30 40 mg O ONE Administration Furosemide 80 mg 06/24/17 15:47 06/24/17 16:35 Lasix 100 Mg/10 Ml IV 06/24/17 15:48 80 mg O ONE Administration Furosemide 40 mg 06/25/17 13:30 06/26/17 09:21 Lasix 40 Mg Tab PO 40 mg DAILY ILYA Administration Furosemide 80 mg 06/26/17 17:00 06/27/17 10:15 Lasix 100 Mg/10 Ml IVP Not Given Q8HR ILYA Furosemide 40 mg 06/28/17 09:00 06/28/17 08:52 Lasix 40 Mg Tab PO 40 mg DAILY ILYA Administration Furosemide 20 mg 07/01/17 10:05 07/01/17 12:27 Lasix 20 Mg/2 Ml IVP 07/01/17 10:06 20 mg O ONE Administration Heparin Sodium (Porcine) 5,000 units 06/24/17 17:00 07/01/17 09:07 Heparin Sq SQ Not Given Q8HR ILYA Bumetanide 25 mg/ IV Solution 100 mls @ 2 mls/hr 06/24/17 11:30 IV Q24H ILYA Furosemide 500 mg/ IV Solution 50 mls @ 4 mls/hr 06/24/17 11:30 06/26/17 12: 42 IV Infused .[id number] ILYA Infusion 40 MG/HR Sodium Chloride 500 mls @ 250 mls/hr 06/27/17 10:03 06/27/17 13:40 Normal Saline IV Infused .Q2H ILYA Infusion Sodium Chloride 1,000 mls @ 75 mls/hr 06/29/17 10:15 06/29/17 23:48 Normal Saline IV 06/29/17 23:34 Infused .[id number] ILYA Infusion Sodium Chloride 1,000 mls @ 75 mls/hr 07/01/17 00:01 07/01/17 04:15 Normal Saline IV 07/01/17 13:20 Infused .[id number] ILYA Infusion Dextrose/Sodium Chloride 1,000 mls @ 75 mls/hr 07/01/17 04:15 07/01/17 22:07 D5-1/2ns IV 07/01/17 17:35 Not Given .[id number] ILYA Insulin Aspart 30 unit 06/25/17 17:30 06/26/17 17:47 Novolog SQ Not Given TIDWM IL[facility] Insulin Detemir 40 unit 06/25/17 21:00 06/26/17 09:23 Levemir SQ 40 unit BID ILYA Administration Insulin Detemir 20 unit 06/27/17 09:00 06/30/17 08:15 Levemir SQ 20 unit BID ILYA Administration Insulin Detemir 18 unit 06/30/17 11:15 07/01/17 09:08 Levemir SQ Not Given BID ILYA Pneumococcal 7-Valent Conj Vacc 0.5 ml 06/29/17 17:00 06/29/17 17:21 Prevnar 13 IM 06/29/17 17:01 0.5 ml .ONCE ONE Administration Polyethylene Glycol 238 gm 06/30/17 15:30 06/30/17 15:48 Miralax PO 06/30/17 15:31 238 gm O ONE Administration Results 07/02/17 04:59 07/02/17 12:06 Cardiac Enzymes 07/02/17 Range/Units 04:59 AST 42 (17-59) U/L CBC 07/01/17 07/02/17 Range/Units 16:42 04:59 WBC 5.8 (4.5-11.0) T/MM3 RBC 3.68 L (4.50-5.90) M/MM3 Hgb 9.2 L D 8.8 L (13.5-17.5) GM/DL Hct 30.3 L D (41-53) % Plt Count 125 L (130-400) T/MM3 Neut # (Auto) 3.7 (1.8-7.7) T/MM3 Lymph # (Auto) 1.2 (1-4.8) T/MM3 [place] # (Auto) 0.6 (0-0.8) T/MM3 Eos # (Auto) 0.3 (0-0.5) T/MM3 Baso # (Auto) 0.0 (0-0.2) T/MM3 Comprehensive Metabolic Panel 07/02/17 07/02/17 Range/Units 04:59 12:06 Sodium 140 142 (134-144) MEQ/L Potassium 5.2 H D 5.2 H (3.6-5) MEQ/L Chloride 106 108 H (98-107) MEQ/L Carbon Dioxide 22 21 L (22-30) MEQ/L BUN 78.0 H* 77.0 H* (9-20) MG/DL Creatinine 2.5 H D 2.7 H D (0.8-1.5) mg/dL Glucose 175 H 177 H (75-110) MG/DL Calcium 8.4 8.7 (8.4-10.2) MG/DL AST 42 (17-59) U/L ALT 31 (1-50) U/L Alkaline Phosphatase 124 (38-126) U/L Total Protein 7.4 (6.3-8.2) g/dL Albumin 3.7 (3.5-5.0) g/dL Intake and Output 07/01/17 07/02/17 07/02/17 22:59 06:59 14:59 Intake Total 240 / 240 230 / 230 1010 / 1010 Output Total 125 / 125 151 / 151 Balance 115 / 115 230 / 230 859 / 859 Intake: IV 0 / 0 D5-1/2Ns 1,000 ml @ 75 mls/hr 0 / 0 IV .[id number] [facility] Rx#:[id number] Oral 240 / 240 230 / 230 1010 / 1010 Output: Urine 125 / 125 150 / 150 Urine/Stool Mix Other: Urine Appearance Clear Clear Cloudy Urine Color Yellow Light Shahnaz Light Shahnaz Urine Odor Strong Strong Stool Color Brown White Stool Consistency Soft Formed Size of Bowel Movement Moderate # Voids 1 Weight 93.4 kg Patient Weight 07/03/17 06:59 Weight 93.4 kg Assessment and Plan - Assessment and Plan (1) Essential (primary) hypertension Current visit: No Status: Chronic (2) Mixed hyperlipidemia Current visit: Yes Status: Chronic (3) Type 2 diabetes mellitus without complications Current visit: No Status: Chronic (4) ICD (implantable cardioverter-defibrillator) in place Problem details: [employer] Current visit: No Status: Chronic (5) Diastolic CHF Current visit: No Status: Chronic (6) Non-sustained ventricular tachycardia Current visit: No Status: Resolved (7) CKD (chronic kidney disease), stage III Current visit: No Status: Chronic (8) Atherosclerosis 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 Current visit: Yes Status: Chronic - Attestation Attestation Narrative: 07/02/17 14:27 Recommendation After examining the patient I agree with the above assessment. I am involved in the formulation of the patient's plan of care. Hospital Course Summary Disclaimer: The visit summary below is not to be considered part of the above Progress Note.
[2017-06-30] MEDS ORDERED: POLYETHYL. GLYCOL 3350 BOTTLE 238 GM PO ONE (15:30)
[2017-06-30] MEDS: ATORVASTATIN 40 MG TABLET PO SCH (21:41)
[2017-06-30] MEDS: TERAZOSIN 2 MG CAPSULE PO SCH (21:41)
[2017-07-01] MEDS ORDERED: NS 1,000 ML IV SCH (00:01)
[2017-07-01] MEDS: HEPARIN SUB-Q 5,000units/0.5ml INJECTION SQ SCH ×2 (00:54→09:07)
[2017-07-01] MEDS ORDERED: ONDANSETRON 4 MG/2 ML INJECTION IVP PRN (04:08)
[2017-07-01] MEDS: D5-1/2NS 1,000 ML IV SCH ×2 (04:15→22:07)
[2017-07-01] MEDS: PANTOPRAZOLE 40 MG TABLET PO SCH (07:43)
[2017-07-01] MEDS: PRASUGREL 10 MG TABLET PO SCH ×2 (09:07→11:06)
[2017-07-01] MEDS: INSULIN DETEMIR 100unit/ml INJECTION SQ SCH ×3 (09:08→22:06)
[2017-07-01] MEDS: INSULIN ASPART 100unit/ml INJECTION SQ SCH (09:08)
[2017-07-01] MEDS: AMIODARONE 200 MG TABLET PO SCH (09:21)
[2017-07-01] MEDS: ISOSORBIDE MONONITRATE ER 60 MG TABLET PO SCH (09:22)
[2017-07-01] MEDS: LISINOPRIL 2.5 MG TABLET PO SCH (09:22)
[2017-07-01] MEDS: LABETALOL 100 MG TABLET PO SCH ×2 (09:22→22:05)
[2017-07-01] MEDS ORDERED: NS FLUSH BAG 500ml IV PRN (10:05)
[2017-07-01] MEDS ORDERED: FUROSEMIDE 20 MG/2 ML INJECTION IVP ONE (10:05)
--- NOTE | 2017-07-01 10:11 | Progress Note ---
- Date 07/01/17 Subjective: Sebas states that despite being up all night in the bathroom (being prepped for barium enema), he actually feels better. His breathing is easier. He denies feeling dizzy. He denies vomiting. He states that he's not as itchy. He is cold and shivering slightly. He is more pale in color today. His nurse states that he 's been bleeding/oozing quite a bit from his heparin shots to his abdomen, enough that it soaked his gown and they changed his gown once overnight. Objective Vital signs: Temperature 95.4 F L 07/01/17 08:00 Pulse Rate 60 07/01/17 08:00 Respiratory Rate 18 07/01/17 08:00 Blood Pressure 122/67 07/01/17 08:00 Pulse Oximetry 97 07/01/17 08:00 Height/Weight/BMI: Height 1.65 m Weight 91.5 kg Body Mass Index 34.6 - Constitutional Present: no acute distress, well nourished, well developed, obese - Routine HEENT Exam Head: Present: normocephalic Eye: Absent: conjunctival icterus, scleral injection ENT: Present: oropharynx clear - Routine Respiratory Exam Present: CTA bilaterally - Routine Cardiovascular Exam Present: RRR, S1, S2 - Routine Abdominal Exam Present: normoactive bowel sounds, non tender, distended (increased; ascites) - Routine Extremities Exam Present: edema (1+ b/l) - Routine Skin Exam Present: intact, dry, pallor, warm, wounds (multiple wounds/abrasions to arms/ legs) - Routine Neurological Exam Present: alert, oriented X3, normal speech - Routine Psychiatric Exam Present: normal affect, normal thought process, cooperative Results - Labs CBC & Chem 7: 07/01/17 04:06 07/01/17 04:06 Assessment and Plan (1) Anemia Current visit: Yes Status: Acute Assessment and Plan: ASSESSMENT Microcytic anemia with heme positive stool, lower GI bleed Thrombocytopenia, acute this admission Diastolic CHF exacerbation. Hypernatremia. Elevated creatinine, mild. Intermittent, transient paresthesias to left arm and left leg without associated weakness. Pruritus Chronic and associated conditions Coronary artery disease, on dual antiplatelet therapy. Diastolic CHF. Ischemic cardiomyopathy. Non-sustained ventricular tachycardia, on amiodarone. Hypertension. Mixed hyperlipidemia. Type 2 diabetes mellitus. [employer] Check ICD that is not MRI compatible. History of stroke in 2004. Chronic kidney disease, stage IV COPD Sleep apnea GERD Depression. Obesity with BMI greater than 30 kg/m PLAN Hgb down to 7.7; given his severe CAD and hx of CHF will transfuse 1 unit PRBC chased by Lasix 20 mg IV. Will dc heparin (discussed with cardiology). Continue Effient/ASA. In addition to having heme positive stools, he's also reportedly bleeding more than expected from the heparin injections. Barium enema planned today per Dr. Wilson. H. pylori was neg. Profound hypoglycemia through the night. Telehospitalist started D51/2NS and levemir was held last night, this am and novolog also nonadministered. BG slowly improving. Will hold novolog for now and decrease levemir to 5 units bid. Repeat hgb A1c (last was 9.8% in March). Renal function continues to improve with BUN of 72 and creatinine of 2.0. Discussed with RN, Yasmin Cabrera, KIRSTIN, and Dr. Vaca. GI Prophylaxis: Protonix Resuscitation Status: Full Code - Time spent with patient Coordination of Care: >50% of visit spent providing counseling/coordination of care - Physician Narrative Narrative: Date: 07/01/17 Time: 1008 I have independently evaluated and examined this patient. I reviewed the chart, the patient's history, and the [facility] FLORIST/PA's documented findings as above. We discussed and formulated the assessment and plan as above with additions as below. The patient tolerated his barium enema without difficulty. The examination was negative without signs of diverticulosis. He is currently undergoing infusion of 1 unit of red blood cells. His heparin was stopped earlier. Appreciated Dr. Wilson's help. In general, the patient is alert and oriented 3, cooperative with exam, and in no respiratory distress. HEENT: Head is atraumatic, normocephalic,no oral thrush, mucous membranes are moist and pink. Lungs: His breath sounds without wheezes, crackles or rhonchi CV: Regular rate and rhythm without murmur Abdomen: Soft, nontender, bowel sounds are present, there is no guarding no rebound, several dressings on areas that have been oozing blood. Extremities: No clubbing, no cyanosis, no edema. Skin: Warm and dry no sign of rash Neuro: Patient is alert Hospital Course Summary Disclaimer: The visit summary below is not to be considered part of the above Progress Note. Hospital Course: 06/29 Hemoglobin trends were reviewed. In the summer of 2016, His hemoglobin ranged between 10 and 11, in the winter of 2016. His hemoglobin was between 9-11. In early 2018. His hemoglobin was consistently in the 9 range. On admission . His hemoglobin was 8.9, and got as low as 8.0 on 06/28/17. Will check iron studies, folate, B12; check ferritin due to paresthesias. Could be anemia of chronic disease, given his renal status. He has never had a colonoscopy. Will consult Dr. Wilson for recommendations. Thrombocytopenia is also a new finding, and while mild, combined with worsening anemia, raises the question of whether or not he might need heme evaluation eventually. In the meantime, would recommend discontinuing heparin. His vague symptoms of tiredness, fatigue, and dyspnea may be attributed to CHF, anemia, deconditioning, and most likely a combination of each of these factors or others. Recommend PT/OT evaluation prior to discharge. Left arm/leg transient paresthesias: unable to obtain MRI due to pacemaker, and with the intermittent nature of his symptoms without weakness and other focal deficits is not consistent with stroke. Pruritus: Hydroxyzine BID PRN. Apply aquaphor + triamcinolone to itchy areas. Urinary retention: check UA. Type 2 diabetes: hgb A1c was 9.8% in March,. Continue to monitor sugars. He's had some lows, may need to reduce insulin dosing if renal function worsens. 06/30 Hgb 8.2 today; Dr. Wilson ordered bowel prep today with plans for barium enema tomorrow. Ideally he would scope him but with recent stents it is not safe to stop Effient/ASA. H. pylori is pending. Iron level was slightly low at 45; ferritin normal at 28; vitamin b12 was 405 ( low-normal), folate was normal. Start iron + vit. C and vit. B12. DC heparin if ok with cardiology. Renal function improved today following IVF yesterday (BUN 80 and cr 2.2) though pt c/o subjective dyspnea. Diuretics remain on hold at this time. Again had fasting hypoglycemia this morning; will decrease Levemir from 20 to 18 units BID. Pruritus improving with Hydroxyzine BID PRN and aquaphor + triamcinolone UA was negative for UTI 07/01 Hgb down to 7.7; given his severe CAD and hx of CHF will transfuse 1 unit PRBC chased by Lasix 20 mg IV. Will dc heparin (discussed with cardiology). Continue Effient/ASA. In addition to having heme positive stools, he's also reportedly bleeding more than expected from the heparin injections. Barium enema planned today per Dr. Wilson. H. pylori was neg. Profound hypoglycemia through the night. Telehospitalist started D51/2NS and levemir was held last night, this am and novolog also nonadministered. BG slowly improving. Will hold novolog for now and decrease levemir to 5 units bid. Repeat hgb A1c (last was 9.8% in March). Renal function continues to improve with BUN of 72 and creatinine of 2.0.
[2017-07-01] MEDS: FERROUS SULFATE 324 MG TABLET PO SCH (11:06)
[2017-07-01] MEDS: CYANOCOBALAMIN (B-12) 500mcg TABLET PO SCH (11:06)
[2017-07-01] MEDS: FLUoxetine 20 MG CAPSULE PO SCH (11:06)
[2017-07-01] MEDS: ASPIRIN *EC* 325 MG TABLET PO SCH (11:06)
[2017-07-01] MEDS: CETIRIZINE 10 MG TABLET PO SCH (11:06)
[2017-07-01] MEDS: TRIAMCINOLONE 0.1% CREAM 15 G TUBE TOP SCH ×2 (11:07→22:08)
[2017-07-01] MEDS: ASCORBIC ACID 500 MG TABLET PO SCH (11:07)
[2017-07-01] MEDS: AQUAPHOR TOPICAL OINTMENT 52.5 G TUBE TP SCH ×2 (11:08→22:06)
--- NOTE | 2017-07-01 11:37 | Fluoroscopy Report ---
Indication:anemia, rule out colonic mass Procedure:FL barium enema XF SINGLE CONTRAST COLON: [employer] KUB: Two assembler tester abdominal radiographs were obtained and are negative. Technique: Using fluoroscopic guidance and meticulous graded compression, a single contrast barium enema was performed. Fluoroscopic imaging was obtained in the supine AP, LPO, RPO, and left lateral positions. Findings: The examination is negative. No diverticulosis. There is no filling defect to suggest a polyp. There is no annular constricting lesion. There is no obstruction. Impression: Negative barium enema. Fluoroscopy dose: 31.33 mGy (Cumulative air kerma) Raphael Benavidez RPA/GUILLERMO performed this under my direct supervision. .
--- NOTE | 2017-07-01 12:53 | Progress Note ---
DATE 06/30/2017 FINDINGS Mr. Rivera was seen late this afternoon on rounds. He was without complaints. He denied any significant abdominal pain. He denied history for significant ongoing rectal bleeding. VITALS: Temperature 97.4, pulse 60, respirations 18, blood pressure 123/65, SaO2 98% room air. HEENT: Normocephalic. Pupils are equal, round and reactive to light and accommodation. CHEST: Clear to auscultation bilaterally. HEART: Regular rate and rhythm. Normal S1 and S2 without gallops, murmurs or clicks. ABDOMEN: Palpation of the abdomen reveals it to be soft and nontender. I do not appreciate any evidence for hepatosplenomegaly or abnormal masses. LABORATORY/RADIOGRAPH EVALUATION The patient had a CBC today and overall his hemoglobin remains stable at 8.2. He remains to have elevated BUN and creatinine at 80.0 and 2.2, respectively. ASSESSMENT 71-year-old gentleman with multiple medical comorbidities who has a history for anemia and heme-positive stools. PLAN I informed the patient that it was my clinical intuition that his anemia most likely is a result of his chronic renal insufficiency but could indeed be a result of an underlying malignancy. I informed the patient that I have contemplated obtaining a Cologuard test to see if it would show evidence for adenomatous colon polyp or possible malignancy. I have, however, had a fair amount of false positive Cologuard results and I am therefore a little reluctant to proceed with Cologuard testing in his particular situation. I informed the patient that it would be my recommendation that we go ahead obtain a barium enema to rule out an obvious colonic malignancy. The patient understood and agreed with the proposed plan. Will obtain barium enema tomorrow , await results and proceed accordingly. If the patient is found to have a malignancy, I do not feel that he would likely even be an operative candidate given his significant medical comorbidities. Additionally, we did speak with Cardiology today and patient had multiple coronary stents placed approximately a month ago. I therefore elected, as stated above, not to proceed with colonoscopy but a barium enema. MARC
--- NOTE | 2017-07-01 18:44 | Progress Note ---
HEATHER 07/01/2017 FINDINGS Mr. Rivera was without complaints today. Denied any element of abdominal pain. PHYSICAL EXAM VITAL SIGNS: Afebrile, normotensive. Last recorded vitals include temperature 97.3, pulse 60, respirations 18, blood pressure 119/69, SAO2 98% room air. HEENT: Normocephalic. Pupils are equally round and react to light and accommodation. CHEST: Clear to auscultation bilaterally. HEART: Regular rate and rhythm. Normal S1 and S2 without gallops, murmurs or clicks. ABDOMEN: Palpation of the abdomen reveals it to be soft and completely nontender this evening. LABORATORY/RADIOGRAPHIC EVALUATION The patient's hemoglobin today was 9.2. BUN is improved to 72.0. Creatinine improved to 2.0. Barium enema was performed today as a result of his history for anemia and Hemoccult-positive stool in conjunction with his recent placement of coronary stents requiring antiplatelet therapy. Barium enema fortunately did not reveal any marked abnormalities. ASSESSMENT 71-year-old gentle with multiple medical comorbidities who is found to have anemia and Hemoccult-positive stool. Anemia most likely secondary to anemia of chronic disease/renal insufficiency. PLAN At this point in time I will go ahead and sign off the patient's care from a general surgical standpoint. Please contact if further assistance is needed. MARC
--- NOTE | 2017-07-01 19:11 | Cardiology Progress Note ---
<RickYasmin M - Last Filed: 07/02/17 14:13> Subjective Principal diagnosis: DHF Interval history: Sebas is seen in follow up for acute on chronic DCHF. He is in the bed receiving a unit of PRBCs. He denies dyspnea, chest pain, or palpitations. Exam Vital signs: Temperature 97.3 F 07/01/17 15:39 Pulse Rate 60 07/01/17 16:00 Respiratory Rate 18 07/01/17 15:39 Blood Pressure 119/69 07/01/17 15:39 Pulse Oximetry 98 07/01/17 15:39 Inpatient Medications: Generic Name Dose Route Start Last Admin Trade Name Freq PRN Reason Stop Dose Admin Acetaminophen 650 mg 06/24/17 13:47 06/27/17 09:58 Tylenol PO 650 mg Q4H PRN Administration Pain Amiodarone HCl 200 mg 06/25/17 09:00 07/01/17 09:21 Pacerone PO 200 mg DAILY ILYA Administration Ascorbic Acid 500 mg 07/01/17 09:00 07/01/17 11:07 Vitamin C PO 500 mg DAILY ILYA Administration Aspirin 325 mg 06/25/17 13:30 07/01/17 11:06 Ecotrin PO 325 mg DAILY ILYA Administration Atorvastatin Calcium 80 mg 06/25/17 21:00 06/30/17 21:41 Lipitor PO 80 mg HS ILYA Administration Cetirizine HCl 10 mg 06/26/17 09:00 07/01/17 11:06 Zyrtec PO 10 mg DAILY ILYA Administration Cyanocobalamin 1,000 mcg 07/01/17 09:00 07/01/17 11:06 Vit. B-12 PO 1,000 mcg DAILY ILYA Administration Emollient Ointment 1 applic 06/29/17 21:00 07/01/17 11:08 Aquaphor TP 1 applic BID ILYA Administration Ferrous Sulfate 324 mg 07/01/17 08:00 07/01/17 11:06 Feosol PO 324 mg WB ILYA Administration Fluoxetine HCl 40 mg 06/25/17 13:30 07/01/17 11:06 Prozac PO 40 mg DAILY ILYA Administration Hydroxyzine HCl 25 mg 06/29/17 14:47 06/30/17 21:41 Atarax PO 25 mg Q12H PRN Administration Itching Insulin Aspart 15 unit 06/27/17 08:00 07/01/17 09:08 Novolog SQ Not Given TIDWM [facility] Insulin Detemir 5 unit 07/01/17 10:30 07/01/17 12:26 Levemir SQ 5 unit BID ILYA Administration Isosorbide Mononitrate 60 mg 06/25/17 13:30 07/01/17 09:22 Imdur PO 60 mg DAILY ILYA Administration Labetalol HCl 200 mg 06/25/17 13:45 07/01/17 09:22 Normodyne PO 200 mg BID ILYA Administration Lisinopril 2.5 mg 06/25/17 13:30 07/01/17 09:22 Prinivil PO 2.5 mg DAILY [facility] Administration Nitroglycerin 0.4 mg 06/25/17 13:21 Nitrostat SL Q5MIN3 PRN Chest pain Nystatin 1 applic 06/25/17 15:00 07/01/17 15:43 Mycostatin TP Not Given TID [facility] Ondansetron HCl 4 mg 07/01/17 04:08 07/01/17 04:15 Zofran IVP 4 mg Q4H PRN Administration Nausea &/or vomiting Pantoprazole Sodium 40 mg 06/25/17 13:30 07/01/17 07:43 Protonix Tab PO Not Given ACB [facility] Prasugrel 10 mg 06/25/17 13:30 07/01/17 11:06 Effient PO 10 mg DAILY [facility] Administration Promethazine HCl 25 mg 06/25/17 13:21 Phenergan Tab PO Q6H PRN Nausea Sodium Chloride 10 - 80 ml 06/24/17 11:20 06/29/17 12:27 Iv Flush IV 10 ml PRN PRN Administration Flushing Sodium Chloride 500 ml 07/01/17 10:05 07/01/17 13:09 Normal Saline IV 500 ml PRN PRN Administration Terazosin HCl 2 mg 06/25/17 21:00 06/30/17 21:41 Hytrin PO 2 mg HS ILYA Administration Triamcinolone Acetonide 1 applic 06/29/17 21:00 07/01/17 11:07 Kenalog TOP 1 applic BID ILYA Administration Discontinued Medications Generic Name Dose Route Start Last Admin Trade Name Freq PRN Reason Stop Dose Admin Bisacodyl 10 mg 06/30/17 13:30 06/30/17 14:47 Dulcolax PO 06/30/17 13:31 10 mg O ONE Administration Bumetanide 2 mg 06/24/17 11:23 06/24/17 12:11 Bumex 1 Mg/4 Ml Inj. IVP 06/24/17 11:24 2 mg O ONE Administration Diphtheria/Tetanus/Acell Pertussis 0.5 ml 06/29/17 17:00 06/29/17 17:22 Adacel IM 06/29/17 17:01 0.5 ml .ONCE ONE Administration Furosemide 40 mg 06/24/17 11:29 06/24/17 12:12 Lasix 40 Mg/4 Ml IVP 06/24/17 11:30 40 mg O ONE Administration Furosemide 80 mg 06/24/17 15:47 06/24/17 16:35 Lasix 100 Mg/10 Ml IV 06/24/17 15:48 80 mg O ONE Administration Furosemide 40 mg 06/25/17 13:30 06/26/17 09:21 Lasix 40 Mg Tab PO 40 mg DAILY ILYA Administration Furosemide 80 mg 06/26/17 17:00 06/27/17 10:15 Lasix 100 Mg/10 Ml IVP Not Given Q8HR ILYA Furosemide 40 mg 06/28/17 09:00 06/28/17 08:52 Lasix 40 Mg Tab PO 40 mg DAILY ILYA Administration Furosemide 20 mg 07/01/17 10:05 07/01/17 12:27 Lasix 20 Mg/2 Ml IVP 07/01/17 10:06 20 mg O ONE Administration Heparin Sodium (Porcine) 5,000 units 06/24/17 17:00 07/01/17 09:07 Heparin Sq SQ Not Given Q8HR ILYA Bumetanide 25 mg/ IV Solution 100 mls @ 2 mls/hr 06/24/17 11:30 IV Q24H ILYA Furosemide 500 mg/ IV Solution 50 mls @ 4 mls/hr 06/24/17 11:30 06/26/17 12: 42 IV Infused .[id number] ILYA Infusion 40 MG/HR Sodium Chloride 500 mls @ 250 mls/hr 06/27/17 10:03 06/27/17 13:40 Normal Saline IV Infused .Q2H ILYA Infusion Sodium Chloride 1,000 mls @ 75 mls/hr 06/29/17 10:15 06/29/17 23:48 Normal Saline IV 06/29/17 23:34 Infused .[id number] ILYA Infusion Sodium Chloride 1,000 mls @ 75 mls/hr 07/01/17 00:01 07/01/17 04:15 Normal Saline IV 07/01/17 13:20 Infused .[id number] ILYA Infusion Dextrose/Sodium Chloride 1,000 mls @ 75 mls/hr 07/01/17 04:15 07/01/17 16:30 D5-1/2ns IV 07/01/17 17:35 75 mls/hr .[id number] ILYA Infusion Insulin Aspart 30 unit 06/25/17 17:30 06/26/17 17:47 Novolog SQ Not Given TIDWM ILYA Insulin Detemir 40 unit 06/25/17 21:00 06/26/17 09:23 Levemir SQ 40 unit BID ILYA Administration Insulin Detemir 20 unit 06/27/17 09:00 06/30/17 08:15 Levemir SQ 20 unit BID ILYA Administration Insulin Detemir 18 unit 06/30/17 11:15 07/01/17 09:08 Levemir SQ Not Given BID ILYA Pneumococcal 7-Valent Conj Vacc 0.5 ml 06/29/17 17:00 06/29/17 17:21 Prevnar 13 IM 06/29/17 17:01 0.5 ml .ONCE ONE Administration Polyethylene Glycol 238 gm 06/30/17 15:30 06/30/17 15:48 Miralax PO 06/30/17 15:31 238 gm O ONE Administration - Constitutional no acute distress, obese, cooperative - Routine HEENT Exam Head: Present: normocephalic ENT: Present: mucous membranes moist - Routine Neck Exam Absent: JVD, carotid bruit - Routine Chest/Breast/Axilla Exam Chest wall: Present: pacemaker. Absent: tenderness - Routine Respiratory Exam Present: CTA bilaterally, diminished air movement - Routine Cardiovascular Exam Present: RRR, no murmur - Routine Abdominal Exam Present: soft - Routine Extremities Exam Present: edema - Routine Skin Exam Present: dry, warm - Routine Neurological Exam Present: alert, oriented X3 - Routine Psychiatric Exam Present: normal affect Results 07/02/17 04:59 07/02/17 12:06 CBC 07/01/17 07/01/17 Range/Units 04:06 16:42 WBC 5.6 (4.5-11.0) T/MM3 RBC 3.28 L (4.50-5.90) M/MM3 Hgb 7.7 L 9.2 L D (13.5-17.5) GM/DL Hct 26.9 L (41-53) % Plt Count 127 L (130-400) T/MM3 Comprehensive Metabolic Panel 07/01/17 Range/Units 04:06 Sodium 145 H (134-144) MEQ/L Potassium 3.9 (3.6-5) MEQ/L Chloride 110 H (98-107) MEQ/L Carbon Dioxide 23 (22-30) MEQ/L BUN 72.0 H* (9-20) MG/DL Creatinine 2.0 H D (0.8-1.5) mg/dL Glucose 68 L (75-110) MG/DL Calcium 8.7 (8.4-10.2) MG/DL Intake and Output 07/01/17 07/01/17 07/01/17 06:59 14:59 22:59 Intake Total 652.5 / 652.5 927.5 / 927.5 240 / 240 Output Total 300 / 300 125 / 125 Balance 652.5 / 652.5 627.5 / 627.5 115 / 115 Intake: IV 252.5 / 252.5 687.5 / 687.5 0 / 0 D5-1/2Ns 1,000 ml @ 75 mls/hr 687.5 / 687.5 0 / 0 IV .[id number] [facility] Rx#:[id number] Ns 1,000 ml @ 75 mls/hr IV . 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 Technique: Using fluoroscopic guidance and meticulous graded compression, a single contrast barium enema was performed. Fluoroscopic imaging was obtained in the supine AP, LPO, RPO, and left lateral positions. Findings: The examination is negative. No diverticulosis. There is no filling defect to suggest a polyp. There is no annular constricting lesion. There is no obstruction. Impression: Negative barium enema. Fluoroscopy dose: 31.33 mGy (Cumulative air kerma) Raphael Benavidez RPA/GUILLERMO performed this under my direct supervision. Assessment and Plan - Assessment and Plan (1) Diastolic CHF Status: Chronic (2) Essential (primary) hypertension Status: Chronic (3) Mixed hyperlipidemia Status: Chronic (4) Type 2 diabetes mellitus without complications Status: Chronic (5) ICD (implantable cardioverter-defibrillator) in place Problem details: [employer] vascular solution Status: Chronic (6) CKD (chronic kidney disease), stage III Status: Chronic (7) Non-sustained ventricular tachycardia Status: Resolved (8) Atherosclerosis 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 Status: Chronic - Assessment and Plan 06/25/17 Acute on chronic Diastolic HF - Continue Lasix IV drip - monitor renal and electrolytes - Fluid restriction of 2000mL/day Essential (primary) hypertension - Continue Labetalol, Lisinopril, Imdur Atherosclerosis 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 - Continue Effient and Aspirin for dual anti-platelet therapy Mixed hyperlipidemia - Continue Atorvastatin Type 2 diabetes mellitus without complications - PCP manages ICD (implantable cardioverter-defibrillator) in place Problem details: [employer] vascular solution CKD (chronic kidney disease), stage III Non-sustained ventricular tachycardia - Continue Amiodarone 06/26/17 Change Lasix drip to 80mg IVP q8h - Continue to monitor renal and electrolytes - SCr 2.2 from 2.5 yesterday, BUN 77 from 67 yesterday 06/27/17 BUN/ SCR elevated today. - Hold Lasix today, resume home 40mg po tomorrow - NS 500mL over 2 hours today - BNP improved - CXR stable - Likely discharge tomorrow if renal improved 06/28/17 BUN/SCr 89/2.5 - Hold Lasix tomorrow am - Repeat BNP in am - HGB 8.0, hemacult stool 06/29/17 Na 147, BUN 85/SCr 2.4 - NS at 75mL x 1L - Stool positive for occult blood - Will consult Hospitalist (Thank you for your assistance) 06/30/17 Seen by general surgery (Thank you for your assistance) - Recommend barium enema tomorrow, is not a good surgical candidate. BUN/SCr continue to improve 80/2.2 - Start NS at 75 mL x 1 bag at midnight 07/01/17 Barium study negative - Hgb 7.7, 1 unit PRBCs given with Lasix by hospital team - Stop Heparin for DVT due to prolonged bleeding from multiple skin sores - SCD for DVT prophylaxis - Discharge to home when stable from anemia - Will resume home Bumex on discharge Hospital Course Summary Disclaimer: The visit summary below is not to be considered part of the above Progress Note. Hospital Course: 06/29 Hemoglobin trends were reviewed. In the summer of 2016, His hemoglobin ranged between 10 and 11, in the winter of 2016. His hemoglobin was between 9-11. In early 2017. His hemoglobin was consistently in the 9 range. On admission . His hemoglobin was 8.9, and got as low as 8.0 on 06/28/17. Will check iron studies, folate, B12; check ferritin due to paresthesias. Could be anemia of chronic disease, given his renal status. He has never had a colonoscopy. Will consult Dr. Wilson for recommendations. Thrombocytopenia is also a new finding, and while mild, combined with worsening anemia, raises the question of whether or not he might need heme evaluation eventually. In the meantime, would recommend discontinuing heparin. His vague symptoms of tiredness, fatigue, and dyspnea may be attributed to CHF, anemia, deconditioning, and most likely a combination of each of these factors or others. Recommend PT/OT evaluation prior to discharge. Left arm/leg transient paresthesias: unable to obtain MRI due to pacemaker, and with the intermittent nature of his symptoms without weakness and other focal deficits is not consistent with stroke. Pruritus: Hydroxyzine BID PRN. Apply aquaphor + triamcinolone to itchy areas. Urinary retention: check UA. Type 2 diabetes: hgb A1c was 9.8% in March,. Continue to monitor sugars. He's had some lows, may need to reduce insulin dosing if renal function worsens. 06/30 Hgb 8.2 today; Dr. Wilson ordered bowel prep today with plans for barium enema tomorrow. Ideally he would scope him but with recent stents it is not safe to stop Effient/ASA. H. pylori is pending. Iron level was slightly low at 45; ferritin normal at 28; vitamin b12 was 405 ( low-normal), folate was normal. Start iron + vit. C and vit. B12. DC heparin if ok with cardiology. Renal function improved today following IVF yesterday (BUN 80 and cr 2.2) though pt c/o subjective dyspnea. Diuretics remain on hold at this time. Again had fasting hypoglycemia this morning; will decrease Levemir from 20 to 18 units BID. Pruritus improving with Hydroxyzine BID PRN and aquaphor + triamcinolone UA was negative for UTI 07/01 Hgb down to 7.7; given his severe CAD and hx of CHF will transfuse 1 unit PRBC chased by Lasix 20 mg IV. Will dc heparin (discussed with cardiology). Continue Effient/ASA. In addition to having heme positive stools, he's also reportedly bleeding more than expected from the heparin injections. Barium enema planned today per Dr. Wilson. H. pylori was neg. Profound hypoglycemia through the night. Telehospitalist started D51/2NS and levemir was held last night, this am and novolog also nonadministered. BG slowly improving. Will hold novolog for now and decrease levemir to 5 units bid. Repeat hgb A1c (last was 9.8% in March). Renal function continues to improve with BUN of 72 and creatinine of 2.0. <Rubin Hernandez - Last Filed: 07/05/17 13:12> Exam Vital signs: Temperature 97.0 F 07/02/17 15:00 Pulse Rate 60 07/02/17 16:00 Respiratory Rate 18 07/02/17 15:00 Blood Pressure 125/68 07/02/17 15:00 Pulse Oximetry 97 07/02/17 15:00 Inpatient Medications: Discontinued Medications Generic Name Dose Route Start Last Admin Trade Name Freq PRN Reason Stop Dose Admin Acetaminophen 650 mg 06/24/17 13:47 06/27/17 09:58 Tylenol PO 650 mg Q4H PRN Administration Pain Amiodarone HCl 200 mg 06/25/17 09:00 07/02/17 08:05 Pacerone PO 200 mg DAILY ILYA Administration Ascorbic Acid 500 mg 07/01/17 09:00 07/02/17 08:04 Vitamin C PO 500 mg DAILY ILYA Administration Aspirin 325 mg 06/25/17 13:30 07/02/17 08:05 Ecotrin PO 325 mg DAILY ILYA Administration Atorvastatin Calcium 80 mg 06/25/17 21:00 07/01/17 22:04 Lipitor PO 80 mg HS ILYA Administration Bisacodyl 10 mg 06/30/17 13:30 06/30/17 14:47 Dulcolax PO 06/30/17 13:31 10 mg O ONE Administration Bumetanide 2 mg 06/24/17 11:23 06/24/17 12:11 Bumex 1 Mg/4 Ml Inj. IVP 06/24/17 11:24 2 mg O ONE Administration Cetirizine HCl 10 mg 06/26/17 09:00 07/02/17 08:05 Zyrtec PO 10 mg DAILY ILYA Administration Cyanocobalamin 1,000 mcg 07/01/17 09:00 07/02/17 08:04 Vit. B-12 PO 1,000 mcg DAILY ILYA Administration Diphtheria/Tetanus/Acell Pertussis 0.5 ml 06/29/17 17:00 06/29/17 17:22 Adacel IM 06/29/17 17:01 0.5 ml .ONCE ONE Administration Emollient Ointment 1 applic 06/29/17 21:00 07/02/17 08:03 Aquaphor TP 1 applic BID ILYA Administration Ferrous Sulfate 324 mg 07/01/17 08:00 07/02/17 08:04 Feosol PO 324 mg WB ILYA Administration Fluoxetine HCl 40 mg 06/25/17 13:30 07/02/17 08:04 Prozac PO 40 mg DAILY ILYA Administration Furosemide 40 mg 06/24/17 11:29 06/24/17 12:12 Lasix 40 Mg/4 Ml IVP 06/24/17 11:30 40 mg O ONE Administration Furosemide 80 mg 06/24/17 15:47 06/24/17 16:35 Lasix 100 Mg/10 Ml IV 06/24/17 15:48 80 mg O ONE Administration Furosemide 40 mg 06/25/17 13:30 06/26/17 09:21 Lasix 40 Mg Tab PO 40 mg DAILY ILYA Administration Furosemide 80 mg 06/26/17 17:00 06/27/17 10:15 Lasix 100 Mg/10 Ml IVP Not Given Q8HR ILYA Furosemide 40 mg 06/28/17 09:00 06/28/17 08:52 Lasix 40 Mg Tab PO 40 mg DAILY ILYA Administration Furosemide 20 mg 07/01/17 10:05 07/01/17 12:27 Lasix 20 Mg/2 Ml IVP 07/01/17 10:06 20 mg O ONE Administration Heparin Sodium (Porcine) 5,000 units 06/24/17 17:00 07/01/17 09:07 Heparin Sq SQ Not Given Q8HR ILYA Hydroxyzine HCl 25 mg 06/29/17 14:47 06/30/17 21:41 Atarax PO 25 mg Q12H PRN Administration Itching Bumetanide 25 mg/ IV Solution 100 mls @ 2 mls/hr 06/24/17 11:30 IV Q24H ILYA Furosemide 500 mg/ IV Solution 50 mls @ 4 mls/hr 06/24/17 11:30 06/26/17 12: 42 IV Infused .[id number] ILYA Infusion 40 MG/HR Sodium Chloride 500 mls @ 250 mls/hr 06/27/17 10:03 06/27/17 13:40 Normal Saline IV Infused .Q2H ILYA Infusion Sodium Chloride 1,000 mls @ 75 mls/hr 06/29/17 10:15 06/29/17 23:48 Normal Saline IV 06/29/17 23:34 Infused .[id number] ILYA Infusion Sodium Chloride 1,000 mls @ 75 mls/hr 07/01/17 00:01 07/01/17 04:15 Normal Saline IV 07/01/17 13:20 Infused .[id number] ILYA Infusion Dextrose/Sodium Chloride 1,000 mls @ 75 mls/hr 07/01/17 04:15 07/01/17 22:07 D5-1/2ns IV 07/01/17 17:35 Not Given .[id number] ILYA Insulin Aspart 30 unit 06/25/17 17:30 06/26/17 17:47 Novolog SQ Not Given TIDWM [facility] Insulin Aspart 15 unit 06/27/17 08:00 07/01/17 09:08 Novolog SQ Not Given TIDWM [facility] Insulin Detemir 40 unit 06/25/17 21:00 06/26/17 09:23 Levemir SQ 40 unit BID ILYA Administration Insulin Detemir 20 unit 06/27/17 09:00 06/30/17 08:15 Levemir SQ 20 unit BID ILYA Administration Insulin Detemir 18 unit 06/30/17 11:15 07/01/17 09:08 Levemir SQ Not Given BID [facility] Insulin Detemir 5 unit 07/01/17 10:30 07/02/17 08:04 Levemir SQ 5 unit BID [facility] Administration Isosorbide Mononitrate 60 mg 06/25/17 13:30 07/02/17 08:05 Imdur PO 60 mg DAILY [facility] Administration Labetalol HCl 200 mg 06/25/17 13:45 07/02/17 08:04 Normodyne PO 200 mg BID [facility] Administration Lisinopril 2.5 mg 06/25/17 13:30 07/02/17 08:06 Prinivil PO 2.5 mg DAILY [facility] Administration Nitroglycerin 0.4 mg 06/25/17 13:21 Nitrostat SL Q5MIN3 PRN Chest pain Nystatin 1 applic 06/25/17 15:00 07/02/17 16:05 Mycostatin TP 1 applic TID ILYA Administration Ondansetron HCl 4 mg 07/01/17 04:08 07/01/17 04:15 Zofran IVP 4 mg Q4H PRN Administration Nausea &/or vomiting Pantoprazole Sodium 40 mg 06/25/17 13:30 07/02/17 06:15 Protonix Tab PO 40 mg ACB [facility] Administration Pneumococcal 7-Valent Conj Vacc 0.5 ml 06/29/17 17:00 06/29/17 17:21 Prevnar 13 IM 06/29/17 17:01 0.5 ml .ONCE ONE Administration Polyethylene Glycol 238 gm 06/30/17 15:30 06/30/17 15:48 Miralax PO 06/30/17 15:31 238 gm O ONE Administration Prasugrel 10 mg 06/25/17 13:30 07/02/17 08:04 Effient PO 10 mg DAILY ILYA Administration Promethazine HCl 25 mg 06/25/17 13:21 Phenergan Tab PO Q6H PRN Nausea Sodium Chloride 10 - 80 ml 06/24/17 11:20 06/29/17 12:27 Iv Flush IV 10 ml PRN PRN Administration Flushing Sodium Chloride 500 ml 07/01/17 10:05 07/01/17 13:09 Normal Saline IV 500 ml PRN PRN Administration Terazosin HCl 2 mg 06/25/17 21:00 07/01/17 22:05 Hytrin PO 2 mg HS ILYA Administration Triamcinolone Acetonide 1 applic 06/29/17 21:00 07/02/17 08:03 Kenalog TOP 1 applic BID ILYA Administration Results 07/02/17 04:59 07/02/17 12:06 Assessment and Plan - Assessment and Plan (1) Essential (primary) hypertension Status: Chronic (2) Mixed hyperlipidemia Status: Chronic (3) Type 2 diabetes mellitus without complications Status: Chronic (4) ICD (implantable cardioverter-defibrillator) in place Problem details: [employer] vascular solution Status: Chronic (5) Diastolic CHF Status: Chronic (6) Non-sustained ventricular tachycardia Status: Resolved (7) CKD (chronic kidney disease), stage III Status: Chronic (8) Atherosclerosis 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 Status: Chronic - Attestation Attestation Narrative: 07/05/17 13:11 Recommendation After examining the patient I agree with the above assessment. I am involved in the formulation of the patient's plan of care. Hospital Course Summary Disclaimer: The visit summary below is not to be considered part of the above Progress Note.
[2017-07-01] MEDS: ATORVASTATIN 40 MG TABLET PO SCH (22:04)
[2017-07-01] MEDS: TERAZOSIN 2 MG CAPSULE PO SCH (22:05)
[2017-07-02] MEDS: PANTOPRAZOLE 40 MG TABLET PO SCH (06:15)
[2017-07-02 07:44] VITALS: RESP 18
[2017-07-02] MEDS: AQUAPHOR TOPICAL OINTMENT 52.5 G TUBE TP SCH (08:03)
[2017-07-02] MEDS: TRIAMCINOLONE 0.1% CREAM 15 G TUBE TOP SCH (08:03)
[2017-07-02] MEDS: PRASUGREL 10 MG TABLET PO SCH (08:04)
[2017-07-02] MEDS: ASCORBIC ACID 500 MG TABLET PO SCH (08:04)
[2017-07-02] MEDS: FERROUS SULFATE 324 MG TABLET PO SCH (08:04)
[2017-07-02] MEDS: CYANOCOBALAMIN (B-12) 500mcg TABLET PO SCH (08:04)
[2017-07-02] MEDS: FLUoxetine 20 MG CAPSULE PO SCH (08:04)
[2017-07-02] MEDS: INSULIN DETEMIR 100unit/ml INJECTION SQ SCH (08:04)
[2017-07-02] MEDS: LABETALOL 100 MG TABLET PO SCH (08:04)
[2017-07-02] MEDS: ASPIRIN *EC* 325 MG TABLET PO SCH (08:05)
[2017-07-02] MEDS: ISOSORBIDE MONONITRATE ER 60 MG TABLET PO SCH (08:05)
[2017-07-02] MEDS: CETIRIZINE 10 MG TABLET PO SCH (08:05)
[2017-07-02] MEDS: AMIODARONE 200 MG TABLET PO SCH (08:05)
[2017-07-02] MEDS: LISINOPRIL 2.5 MG TABLET PO SCH (08:06)
[2017-07-02 09:04] VITALS: PULSE 60
--- NOTE | 2017-07-02 11:53 | Progress Note ---
- Date 07/02/17 Subjective: Sebas is seen this morning while resting in the chair. Overall he states he is feeling good. He reports at times he feels short of breath however it resolves with rest. He denies having any chest pain or abdominal pain. Reports appetite is good, no difficulty with urination or bowel movements. Objective Vital signs: Temperature 97.6 F 07/02/17 07:00 Pulse Rate 60 07/02/17 08:00 Respiratory Rate 18 07/02/17 07:00 Blood Pressure 99/58 07/02/17 07:00 Pulse Oximetry 98 07/02/17 07:00 Height/Weight/BMI: Height 1.65 m Weight 93.4 kg Body Mass Index 34.6 - Constitutional Present: no acute distress, well nourished, well developed - Routine HEENT Exam Eye: Present: EOMI ENT: Present: mucous membranes moist, dentition normal - Routine Respiratory Exam Present: CTA bilaterally. Absent: wheezes - Routine Cardiovascular Exam Present: RRR, S1, S2. Absent: murmur - Routine Abdominal Exam Present: soft, normoactive bowel sounds, non distended. Absent: tenderness - Routine Extremities Exam Present: full ROM, normal capillary refill - Routine Back/Spine/Pelvis Exam Back/Spine: Present: full ROM - Routine Skin Exam Present: intact, dry, warm - Routine Neurological Exam Present: alert, oriented X3, CN II-XII intact, moving all extremities - Routine Lymphatic Exam Lymphatic: Absent: adenopathy - Routine Psychiatric Exam Present: normal affect, cooperative Results - Labs CBC & Chem 7: 07/02/17 04:59 07/02/17 12:06 Assessment and Plan (1) Anemia Current visit: Yes Status: Acute Assessment and Plan: ASSESSMENT Microcytic anemia with heme positive stool, lower GI bleed Thrombocytopenia, acute this admission Diastolic CHF exacerbation. Hypernatremia. Elevated creatinine, mild. Intermittent, transient paresthesias to left arm and left leg without associated weakness. Pruritus Chronic and associated conditions Coronary artery disease, on dual antiplatelet therapy. Diastolic CHF. Ischemic cardiomyopathy. Non-sustained ventricular tachycardia, on amiodarone. Hypertension. Mixed hyperlipidemia. Type 2 diabetes mellitus. [employer] ICD that is not MRI compatible. History of stroke in 2004. Chronic kidney disease, stage IV COPD Sleep apnea GERD Depression. Obesity with BMI greater than 30 kg/m PLAN Morning chemistry panel was hemolyzed and potassium and renal function was elevated. Will recheck BMP now. Hgb remains stable at 8.8 No further episodes of hypoglycemia on current regimen Encouraged ambulation QID As long as chemistry panel revels improvement, patient could likely be discharged home. Will discuss with cardiology team, as they are attending. Recommend F/U with Dr Elliott in 1 week with CBC and BMP at that time Case discussed with Dr Sheyla CARRION Stress with patient the importance of sodium avoidance-advised not to add salt to food, but also be very mindful of sodium content in the food he eats. Advised against 'salt substitue' do to his CKD and elevated potassium. In discussion with cardiology, the slight increase of his creatinine and potassium are concerning; I do worry that trying to improve these markers (ie- stopping OTNNY or starting IVF) would worsen his overall status. Medically, feel patient can be discharged to home. Will need outpatient lab and symptom monitoring. - Time spent with patient Time with patient PN: 25 minutes - Physician Narrative Physician: Jose Carrion MD Narrative: Date: 07/02/17 Time: 1620 Have independently interviewed and examined pt. Chart reviewed. Case discussed with ASAF, Yasmin Cabrera, and my [employer]. Care plan developed with my supervision; agree with above. Doing okay overall. Breathing well at rest, but will become SOA with longer walking activities. No nausea or ab pain. Bowels stable. Eating well. Lungs: decreased, no crackles or wheezes. CV: regular AB: soft nt/nd EXT: +3 BLE MSE: awake alert appropriate Plan: Stress with patient the importance of sodium avoidance-advised not to add salt to food, but also be very mindful of sodium content in the food he eats. Advised against 'salt substitue' do to his CKD and elevated potassium. In discussion with cardiology, the slight increase of his creatinine and potassium are concerning; I do worry that trying to improve these markers (ie-stopping TONNY or starting IVF) would worsen his overall status. Medically, feel patient can be discharged to home. Will need outpatient lab and symptom monitoring. Hospital Course Summary Disclaimer: The visit summary below is not to be considered part of the above Progress Note. Hospital Course: 06/29 Hemoglobin trends were reviewed. In the summer of 2016, His hemoglobin ranged between 10 and 11, in the winter of 2016. His hemoglobin was between 9-11. In early 2018. His hemoglobin was consistently in the 9 range. On admission . His hemoglobin was 8.9, and got as low as 8.0 on 06/28/17. Will check iron studies, folate, B12; check ferritin due to paresthesias. Could be anemia of chronic disease, given his renal status. He has never had a colonoscopy. Will consult Dr. Wilson for recommendations. Thrombocytopenia is also a new finding, and while mild, combined with worsening anemia, raises the question of whether or not he might need heme evaluation eventually. In the meantime, would recommend discontinuing heparin. His vague symptoms of tiredness, fatigue, and dyspnea may be attributed to CHF, anemia, deconditioning, and most likely a combination of each of these factors or others. Recommend PT/OT evaluation prior to discharge. Left arm/leg transient paresthesias: unable to obtain MRI due to pacemaker, and with the intermittent nature of his symptoms without weakness and other focal deficits is not consistent with stroke. Pruritus: Hydroxyzine BID PRN. Apply aquaphor + triamcinolone to itchy areas. Urinary retention: check UA. Type 2 diabetes: hgb A1c was 9.8% in March,. Continue to monitor sugars. He's had some lows, may need to reduce insulin dosing if renal function worsens. 06/30 Hgb 8.2 today; Dr. Wilson ordered bowel prep today with plans for barium enema tomorrow. Ideally he would scope him but with recent stents it is not safe to stop Effient/ASA. H. pylori is pending. Iron level was slightly low at 45; ferritin normal at 28; vitamin b12 was 405 ( low-normal), folate was normal. Start iron + vit. C and vit. B12. DC heparin if ok with cardiology. Renal function improved today following IVF yesterday (BUN 80 and cr 2.2) though pt c/o subjective dyspnea. Diuretics remain on hold at this time. Again had fasting hypoglycemia this morning; will decrease Levemir from 20 to 18 units BID. Pruritus improving with Hydroxyzine BID PRN and aquaphor + triamcinolone UA was negative for UTI 07/01 Hgb down to 7.7; given his severe CAD and hx of CHF will transfuse 1 unit PRBC chased by Lasix 20 mg IV. Will dc heparin (discussed with cardiology). Continue Effient/ASA. In addition to having heme positive stools, he's also reportedly bleeding more than expected from the heparin injections. Barium enema planned today per Dr. Wilson. H. pylori was neg. Profound hypoglycemia through the night. Telehospitalist started D51/2NS and levemir was held last night, this am and novolog also nonadministered. BG slowly improving. Will hold novolog for now and decrease levemir to 5 units bid. Repeat hgb A1c (last was 9.8% in March). Renal function continues to improve with BUN of 72 and creatinine of 2.0. 07/02- Hospitalist Morning chemistry panel was hemolyzed and potassium and renal function was elevated. Will recheck BMP now. Hgb remains stable at 8.8 No further episodes of hypoglycemia on current regimen Encouraged ambulation QID As long as chemistry panel revels improvement, patient could likely be discharged home. Will discuss with cardiology team, as they are attending. Recommend F/U with Dr Elliott in 1 week with CBC and BMP at that time Case discussed with Dr Carrion
[2017-07-02 16:07] VITALS: BP 125/68; TEMP 97; O2SAT 97
--- NOTE | 2017-07-02 17:26 | Discharge Summary ---
<Yasmin Cabrera - Last Filed: 07/05/17 12:20> Discharge Information Date of admission: 06/26/17 12:00 Anticipated date of discharge: 07/02/17 Attending Physician: Rubin Hernandez MD Primary care physician: Colin Elliott MD Consults: 06/29/17 13:09 Physician Consult [CONS] Routine Consulting Provider: Carrie Vaca Reason For Exam: positive occult stool Ordering Provider has Notified Infrastructure Tech: Suri 06/29/17 15:41 Physician Consult [CONS] Routine Consulting Provider: Jacob Wilson Reason For Exam: lower gi bleed Ordering Provider has Notified Infrastructure Tech: Yes Comment: i've notified - Discharge Diagnosis (1) Diastolic CHF Status: Chronic (2) Essential (primary) hypertension Status: Chronic (3) Mixed hyperlipidemia Status: Chronic (4) Type 2 diabetes mellitus without complications Status: Chronic (5) ICD (implantable cardioverter-defibrillator) in place Status: Chronic (6) CKD (chronic kidney disease), stage III Status: Chronic (7) Non-sustained ventricular tachycardia Status: Resolved (8) Atherosclerosis 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 Status: Chronic Acute Diastolic Congestive Heart failure - Laboratory Labs: 07/02/17 04:59 07/02/17 12:06 History of Present Illness HPI: Sebas is a 71 year old male who is well known to Dr. Hernandez's practice with a long history of severe multivessel CAD with CABG, ME in February of 2017 with PCI of mid circ restenosis/thrombosis, chronic diastolic HF, HTN, HLD and DM who was admitted from our clinic with acute on chronic diastolic CHF for inpatient diuresis. He denies chest pain, recent illness, fever, chills, cough, sore throat, N/V/D, dysuria. Hospital Course This is a general summary of the patient's hospital course. For more details refer to the complete medical record. Hospital course: 06/29 Hemoglobin trends were reviewed. In the summer of 2016, His hemoglobin ranged between 10 and 11, in the winter of 2016. His hemoglobin was between 9-11. In early 2017. His hemoglobin was consistently in the 9 range. On admission . His hemoglobin was 8.9, and got as low as 8.0 on 06/28/17. Will check iron studies, folate, B12; check ferritin due to paresthesias. Could be anemia of chronic disease, given his renal status. He has never had a colonoscopy. Will consult Dr. Wilson for recommendations. Thrombocytopenia is also a new finding, and while mild, combined with worsening anemia, raises the question of whether or not he might need heme evaluation eventually. In the meantime, would recommend discontinuing heparin. His vague symptoms of tiredness, fatigue, and dyspnea may be attributed to CHF, anemia, deconditioning, and most likely a combination of each of these factors or others. Recommend PT/OT evaluation prior to discharge. Left arm/leg transient paresthesias: unable to obtain MRI due to pacemaker, and with the intermittent nature of his symptoms without weakness and other focal deficits is not consistent with stroke. Pruritus: Hydroxyzine BID PRN. Apply aquaphor + triamcinolone to itchy areas. Urinary retention: check UA. Type 2 diabetes: hgb A1c was 9.8% in March,. Continue to monitor sugars. He's had some lows, may need to reduce insulin dosing if renal function worsens. 06/30 Hgb 8.2 today; Dr. Wilson ordered bowel prep today with plans for barium enema tomorrow. Ideally he would scope him but with recent stents it is not safe to stop Effient/ASA. H. pylori is pending. Iron level was slightly low at 45; ferritin normal at 28; vitamin b12 was 405 ( low-normal), folate was normal. Start iron + vit. C and vit. B12. DC heparin if ok with cardiology. Renal function improved today following IVF yesterday (BUN 80 and cr 2.2) though pt c/o subjective dyspnea. Diuretics remain on hold at this time. Again had fasting hypoglycemia this morning; will decrease Levemir from 20 to 18 units BID. Pruritus improving with Hydroxyzine BID PRN and aquaphor + triamcinolone UA was negative for UTI 07/01 Hgb down to 7.7; given his severe CAD and hx of CHF will transfuse 1 unit PRBC chased by Lasix 20 mg IV. Will dc heparin (discussed with cardiology). Continue Effient/ASA. In addition to having heme positive stools, he's also reportedly bleeding more than expected from the heparin injections. Barium enema planned today per Dr. Wilson. H. pylori was neg. Profound hypoglycemia through the night. Telehospitalist started D51/2NS and levemir was held last night, this am and novolog also nonadministered. BG slowly improving. Will hold novolog for now and decrease levemir to 5 units bid. Repeat hgb A1c (last was 9.8% in March). Renal function continues to improve with BUN of 72 and creatinine of 2.0. 07/02- Hospitalist Morning chemistry panel was hemolyzed and potassium and renal function was elevated. Will recheck BMP now. Hgb remains stable at 8.8 No further episodes of hypoglycemia on current regimen Encouraged ambulation QID As long as chemistry panel revels improvement, patient could likely be discharged home. Will discuss with cardiology team, as they are attending. Recommend F/U with Dr Elliott in 1 week with CBC and BMP at that time Case discussed with Dr Carrion Time spent with patient: 25 - 35 minutes Resuscitation Status: Full Code Exam Vital signs: Temperature 97.0 F 07/02/17 15:00 Pulse Rate 60 07/02/17 16:00 Respiratory Rate 18 07/02/17 15:00 Blood Pressure 125/68 07/02/17 15:00 Pulse Oximetry 97 07/02/17 15:00 - Constitutional no acute distress, well nourished, cooperative - Routine HEENT Exam Head: Present: normocephalic ENT: Present: mucous membranes moist - Routine Neck Exam Absent: JVD, carotid bruit - Routine Chest/Breast/Axilla Exam Chest wall: Present: pacemaker. Absent: tenderness - Routine Respiratory Exam Absent: dyspnea, decreased breath sounds (bases) - Routine Cardiovascular Exam Present: no murmur, irregular rhythm - Routine Abdominal Exam Present: soft, normoactive bowel sounds - Routine Extremities Exam Present: no edema - Routine Skin Exam Present: dry, warm, rash. Absent: intact - Routine Neurological Exam Present: alert, oriented X3 - Routine Psychiatric Exam Present: normal affect, normal thought process Results 07/02/17 04:59 07/02/17 12:06 Cardiac Enzymes 07/02/17 Range/Units 04:59 AST 42 (17-59) U/L CBC 07/02/17 Range/Units 04:59 WBC 5.8 (4.5-11.0) T/MM3 RBC 3.68 L (4.50-5.90) M/MM3 Hgb 8.8 L (13.5-17.5) GM/DL Hct 30.3 L D (41-53) % Plt Count 125 L (130-400) T/MM3 Neut # (Auto) 3.7 (1.8-7.7) T/MM3 Lymph # (Auto) 1.2 (1-4.8) T/MM3 [place] # (Auto) 0.6 (0-0.8) T/MM3 Eos # (Auto) 0.3 (0-0.5) T/MM3 Baso # (Auto) 0.0 (0-0.2) T/MM3 Comprehensive Metabolic Panel 07/02/17 07/02/17 Range/Units 04:59 12:06 Sodium 140 142 (134-144) MEQ/L Potassium 5.2 H D 5.2 H (3.6-5) MEQ/L Chloride 106 108 H (98-107) MEQ/L Carbon Dioxide 22 21 L (22-30) MEQ/L BUN 78.0 H* 77.0 H* (9-20) MG/DL Creatinine 2.5 H D 2.7 H D (0.8-1.5) mg/dL Glucose 175 H 177 H (75-110) MG/DL Calcium 8.4 8.7 (8.4-10.2) MG/DL AST 42 (17-59) U/L ALT 31 (1-50) U/L Alkaline Phosphatase 124 (38-126) U/L Total Protein 7.4 (6.3-8.2) g/dL Albumin 3.7 (3.5-5.0) g/dL Intake and Output 07/02/17 07/02/17 07/02/17 06:59 14:59 22:59 Intake Total 230 / 230 1010 / 1010 Output Total 151 / 151 Balance 230 / 230 859 / 859 Intake: Oral 230 / 230 1010 / 1010 Output: Urine 150 / 150 Urine/Stool Mix Other: Urine Appearance Clear Cloudy Urine Color Light Shahnaz Light Shahnaz Urine Odor Strong Strong Stool Color Brown White Stool Consistency Soft Formed Size of Bowel Movement Moderate # Voids 1 Weight 205 lb 14.588 oz Patient Weight 07/03/17 06:59 Weight 205 lb 14.588 oz - Imaging and Cardiology Imaging & Cardiology Narrative: Date of Exam: 07/01/17 Ordering Provider: Bhavna Sparrow APRN Type of Exam(s): FL barium enema Reason for Exam(s): anemia, rule out colonic mass Indication:anemia, rule out colonic mass Procedure:FL barium enema XF SINGLE CONTRAST COLON: [employer] KUB: Two silver buffer abdominal radiographs were obtained and are negative. Technique: Using fluoroscopic guidance and meticulous graded compression, a single contrast barium enema was performed. Fluoroscopic imaging was obtained in the supine AP, LPO, RPO, and left lateral positions. Findings: The examination is negative. No diverticulosis. There is no filling defect to suggest a polyp. There is no annular constricting lesion. There is no obstruction. Impression: Negative barium enema. Fluoroscopy dose: 31.33 mGy (Cumulative air kerma) Raphael Benavidez RPA/GUILLERMO performed this under my direct supervision. 07/02/17 17:26 Discharge Plan - Med Rec/Dispo Referrals/Follow Up: Rubin Hernandez MD [Physician] - 2 Weeks [facility] Instructions: Heart Failure (GEN) Prescriptions: New Nystatin Powder [Mycostatin] 1 applicatio TP TID bottle Continue Fluoxetine HCl [Prozac] 40 mg PO DAILY Lisinopril [Zestril] 2.5 mg PO DAILY Isosorbide Mononitrate ER [Imdur] 60 mg PO DAILY Labetalol [Normodyne] 200 mg PO BID 90 Days #180 tab Furosemide [Lasix 40 mg Tab] 40 mg PO DAILY Pantoprazole Sodium [Protonix] 40 mg PO DAILY Insulin Detemir [Levemir] 40 unit SQ BID Insulin Aspart [NovoLOG] 30 unit SQ TIDWM Cetirizine [Zyrtec] 10 mg PO DAILY Promethazine Tab [Phenergan Tab] 25 mg PO Q6H PRN PRN Reason: Nausea Atorvastatin Calcium 80 mg PO HS #0 Terazosin [Hytrin] 2 mg PO HS Aspirin *EC* [Ecotrin] 325 mg PO DAILY Nitroglycerin 0.4 mg SL Q5MIN3 PRN PRN Reason: Chest Pain Amiodarone [Pacerone] 200 mg PO DAILY 90 Days #90 tab Prasugrel [Effient] 10 mg PO DAILY - Disposition [facility] - Dismissal Complete Discharge Instructions are:: Complete <Rubin Hernandez - Last Filed: 07/05/17 13:18> Discharge Information Date of admission: 06/26/17 12:00 Attending Physician: Rubin Hernandez MD Primary care physician: Colin Elliott MD Consults: 06/29/17 13:09 Physician Consult [CONS] Routine Consulting Provider: Carrie Vaca Reason For Exam: positive occult stool Ordering Provider has Notified Infrastructure Tech: No 06/29/17 15:41 Physician Consult [CONS] Routine Consulting Provider: Jacob Wilson Reason For Exam: lower gi bleed Ordering Provider has Notified Infrastructure Tech: Yes Comment: i've notified - Discharge Diagnosis (1) Essential (primary) hypertension Status: Chronic (2) Mixed hyperlipidemia Status: Chronic (3) Type 2 diabetes mellitus without complications Status: Chronic (4) ICD (implantable cardioverter-defibrillator) in place Status: Chronic (5) Diastolic CHF Status: Chronic (6) Non-sustained ventricular tachycardia Status: Resolved (7) CKD (chronic kidney disease), stage III Status: Chronic (8) Atherosclerosis 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 Status: Chronic - Laboratory Labs: 07/02/17 04:59 07/02/17 12:06 Hospital Course This is a general summary of the patient's hospital course. For more details refer to the complete medical record. Exam Vital signs: Temperature 97.0 F 07/02/17 15:00 Pulse Rate 60 07/02/17 16:00 Respiratory Rate 18 07/02/17 15:00 Blood Pressure 125/68 07/02/17 15:00 Pulse Oximetry 97 07/02/17 15:00 Results 07/02/17 04:59 07/02/17 12:06 Attestation Narriative - Attestation Attestation Narrative: 07/05/17 13:18 Recommendation I agree with the above and I am involved in the formulation of the patient's plan of care.
--- NOTE | 2017-07-05 19:01 | Right on Track Program ---
Right on Track Program Date of Discharge: 07/02/17 Home Medications: Home Medications Medication Instructions Recorded Confirmed Atorvastatin Calcium 80 mg PO HS #0 05/27/15 06/24/17 Terazosin [Hytrin] 2 mg PO HS 09/29/16 06/24/17 Aspirin *EC* [Ecotrin] 325 mg PO DAILY 09/30/16 06/24/17 Nitroglycerin 0.4 mg SL Q5MIN3 PRN 10/13/16 06/24/17 Fluoxetine HCl [Prozac] 40 mg PO DAILY 03/07/17 06/24/17 Isosorbide Mononitrate ER [Imdur] 60 mg PO DAILY 03/07/17 06/24/17 Lisinopril [Zestril] 2.5 mg PO DAILY 03/07/17 06/24/17 Furosemide [Lasix 40 mg Tab] 40 mg PO DAILY 04/04/17 06/24/17 Cetirizine [Zyrtec] 10 mg PO DAILY 05/11/17 06/24/17 Insulin Aspart [NovoLOG] 30 unit SQ TIDWM 05/11/17 06/24/17 Insulin Detemir [Levemir] 40 unit SQ BID 05/11/17 06/24/17 Pantoprazole Sodium [Protonix] 40 mg PO DAILY 05/11/17 06/24/17 Prasugrel [Effient] 10 mg PO DAILY 05/11/17 06/24/17 Promethazine Tab [Phenergan Tab] 25 mg PO Q6H PRN 06/24/17 06/24/17 Previous Rx's Medication Instructions Recorded Amiodarone [Pacerone] 200 mg PO DAILY 90 Days #90 tab 03/14/17 Labetalol [Normodyne] 200 mg PO BID 90 Days #180 tab 03/14/17 Nystatin Powder [Mycostatin] 1 applicatio TP TID bottle 07/02/17 - Right on Track Program Phone call Date: 07/05/17 Right on Track Program: 24 Hour Follow-Up (already made on 07/03/17) Discharge Summary Received: Yes Care Plan Received: Yes Follow Up: Follow Up Appointment Scheduled (Dr. Elliott: 07/07/17) Referral: Social Work, Home Health Discussed With Patient and Caregiver: Yes Recommendations For Follow-up: PLAN I spoke with Sebas on 07/05/17. He's still short of breath with activity but with rest he recovers fairly quickly. He believes this is improving since being in the hospital. He denies abdominal pain or constipation. He hasn't felt too weak and denies dizziness. His blood sugars are under good control. He has appointments set up with Dr. Elliott and Dr. Hernandez. He denies any questions about his discharge plans. Will visit him at his apartment on 07/12/17 at 11 am. Continue Home Health, ROTP phone calls, routine f/u. Face to face visit Date: 07/12/17 Right on Track Program: 7-14 Day [id number] Discharge Summary Received: Yes Care Plan Received: Yes Follow Up: Follow Up Appointment Scheduled Education: Diagnosis Education Reviewed Referral: Primary Care Physician, Physical Therapy, Home Health Comments: Sebas was not expecting me today, but welcomed me in. This was about my 10th time meeting Sebas -- I've seen him in the hospital and this was my 3rd visit to his apartment. He didn't remember who I was, despite our frequent encounters. He states that he has not been doing well. Yesterday, he was so dizzy he could barely get up, and broke out into "cold sweats". He slept almost all day long. He admits that he's been very depressed since being in the hospital this last time. He has contemplated taking his life on a few different occasions, and if it wasn't for his 3 cats, he would have committed suicide. I asked if he had a plan, to which he replied "There's lots of ways". He's on Prozac, though he could not tell me duration of time (in fact, during medication review, he wasn't engaged and simply state that he takes his medications). He is depressed because he feels so terrible: he can't walk more than 5 feet without getting short of breath. He gets dizzy frequently and is afraid to go outside to get the mail because he's worried that he will pass out again. He doesn't feel safe going to the store. He feels like he's a burden on his family. He thinks that if he can breathe better and get outside to walk (he enjoys walking around [place] and [place]), he'd feel much better. He's also sleeping more hours of the day than he's awake. He's taking about 3 naps per day, which last a couple hours each. He sleeps the full night through. He is sleeping a lot because he thought Dr. Hernandez told him to get plenty of rest. He states that his weight is 209 lbs and he usually weighs 189 lbs (when dc'd from [facility] he was 205 lbs). His blood sugars are doing well, but he recently had to back down on his insulin dosing because he had too many hypoglycemic readings. EXAM General: Depressed, alert & oriented but didn't recall any of our previous interactions HEENT: no scleral icterus or injection, neck supple Lungs: CTAB CV: RRR Abd: obese, distended, nontender with positive bowel sounds Ext: 2+ edema BLE Skin: pale, multiple abrasions, excoriations to arms Recommendations For Follow-up: ASSESSMENT Microcytic anemia with heme positive stool, lower GI bleed: resolved and stabilized Thrombocytopenia, acute this admission Diastolic CHF exacerbation. Hypernatremia. Elevated creatinine, mild. Intermittent, transient paresthesias to left arm and left leg without associated weakness. Pruritus Chronic and associated conditions Coronary artery disease, on dual antiplatelet therapy. Diastolic CHF. Ischemic cardiomyopathy. Non-sustained ventricular tachycardia, on amiodarone. Hypertension. Mixed hyperlipidemia. Type 2 diabetes mellitus. [employer] ICD that is not MRI compatible. History of stroke in 2004. Chronic kidney disease, stage IV COPD Sleep apnea GERD Depression Obesity Plan: 1. Depression with suicidal ideation: Encouraged him to try to eliminate one of his naps. Encouraged him to get sun exposure. He tries to get up and walk during every commercial break. Continue Prozac. Will notify Dr. Elliott. With his transportation problems, I worry that he wouldn't be able to see a therapist regularly at or another facility. 2. CHF with exertional SOA, contributing to #1. He takes meds as Rx. He's doing his daily ex as recommended by PT/OT. While cardiac rehab might be an option, he doesn't believe that he'd be able to get to the hospital b/c of no transportation. Recommend f/u with Dr. Hernandez. 3. Sebas wasn't sure when his appointments were scheduled, but he's going to call and try to change his appointments to an earlier date. - Problems (1) Anemia Code(s): D64.9 - Anemia, unspecified Status: Acute
== END 2017-07-02 21:30 | disposition home health service (06) | DRG 291 ==
LOC: MED
PROVIDERS: ADMIT Internal Medicine Cardiovascular Disease; ATTEND Internal Medicine Cardiovascular Disease